=== PATIENT | female | born 1950 | race African-American/Black ===

== ENCOUNTER 2024-10-19 00:40 | Inpatient (IN) | payer OTHER, SELFPAY ==
[2024-10-18 20:53] VITALS: BP 149/93
[2024-10-18 20:55] VITALS: BP 149/93
--- NOTE | 2024-10-18 21:06 | ED.GENMED ---
History of Present Illness
General
Chief Complaint: Weakness
Source: patient and ambulance crew
Time Seen by Provider: 10/18/24 20:52
History of Present Illness
History of Present Illness:
74-year-old female presents emergency department with concerns [place] were speaking to her via phone and thought that she seemed to be slow to respond when she was speaking. As a result they called
911. Upon EMS arrival, patient was noted to be oriented x 3 but did seem to be a little bit slow to respond to questions. They noted a very poor living conditions with a strong smell and poor hygiene. Patient was noted to be incontinent of urine
and stool. Medics state that patient reportedly had a fall last week, EMS was called, but she declined transport at that time. Patient denies this. Patient denies any complaints here. She denies chest pain, dyspnea, abdominal pain. She gets her
meals via 'Meals on Wheels'. She states that she has been unable to see a doctor or leave the house in about a year.
Past History
Past History
ED Past Medical History: Other (Unknown)
ED Past Surgical History: None
Social History
Tobacco: Non-smoker
Alcohol: None
Drug: None
Living: alone
Phy Exam
Physical Exam
Physical Exam:
GENERAL: Alert , in no apparent distress
EYE: pupils equal and reactive, no photophobia
NECK: Supple, no significant adenopathy.
ENT: o/p clr, mm very dry
CARDIAC: Regular rate and rhythm .
LUNGS: Clear breath sounds bilaterally, no acute respiratory distress, no wheezes/rales/rhonchi
ABDOMEN: Soft, without focal tenderness, no r/g
NEUROLOGICAL: Alert and oriented, no focal neuro deficits, [id number] normal, motor 5 out of 5, sensory intact, cranial nerves II through XII intact, however does appear to answer questions somewhat slowly
SKIN: Warm and dry, skin intact.
MUSCULOSKELETAL: No edema, well perfused.
PSYCH: Normal and appropriate interaction.
Course
Orders/Labs/Results
Orders:
Orders
10/18/24 21:03
Cardiac Monitoring- Treatment ONCE
0.9% Sodium Chloride 500 ml [Nss] 500 ml IV BOLUS
Pulse Ox/cont/shift [RESP] Urgent
Quantity: 1
10/18/24 21:04
Electrocardiogram (*1) Urgent
Reason for Study: Other
Other Reason for Exam: sepsis
EKG- Treatment ONCE
10/18/24 21:05
CT Head W/o Iv Contrast Urgent
Comment:
Reason For Exam: mental status change
10/18/24 21:39
CPK [Creatine Phosphokinase] Urgent
Complete Blood Count/With Diff Urgent
Comprehensive Metabolic Panel Urgent
Cortisol, Random Urgent
Lactic Acid Q4H
Comment: CANCEL 2nd LACTIC ACID IF 1st LACTIC ACID IS LESS THAN 2
TSH Urgent
Comment: ADD ON
Troponin I Urgent
Blood Culture Q30M
ANGEL Source: Blood/Venous
Specimen Description:
Influenza A+B Rapid Molecular Urgent
ANGEL Source: Nasal Swab
Specimen Description:
10/18/24 21:54
Blood Culture Q30M
ANGEL Source: Blood/Venous
Specimen Description:
10/18/24 22:57
Urinalysis Reflex To Culture Urgent
Date Specimen was Collected: 10/18/24
Time Specimen was Collected: 22:55
10/18/24 23:00
Flush (0.9% Sodium Chloride) [Flush (Nss)] See Dose Instructions IV PER PROTOCOL
10/18/24 23:43
COVID-19 Antigen Stat
Source: Nasal Swab
10/19/24 00:26
Admit/Transfer Patient As Directed
Co-Sign Provider:
Level of Care: Inpatient admission
Assign to:: IMU- Intermediate Care
Physician / Group: hospitalist
Diagnosis: hypothermia
Reason for Hospitalization: hypothermia, failure to thrive
Expected length of stay greater than two midnights?: Yes
ELOS- Estimated Length of Stay in days: 2
I certify the patient meets the requirements for IP care: Yes
10/19/24 00:27
PRN Pain Medication Management As Directed
May give lesser potent ordered pain med per pt: Yes
preference::
Protocol:: Medication orders for pain may be administered in a
manner that supports deferring to patient preference
when the pt is:
- Requesting an ordered lesser potent pain medication.
Least to most potent pain medications are defined
as: acetaminophen < NSAID < tramadol < opioids
(morphine, oxycodone, hydromorphone).
- Requesting a lesser dose of the same medication IF
ORDERED.
- Requesting a less intrusive route of administration
if both routes are prescribed by the provider (PO <
IV).
10/19/24 00:28
Code Status As Directed
Resuscitation Status: Full Code
10/19/24 01:41
Acetaminophen [Tylenol] 650 mg PO Q4HPRN PRN
Bisacodyl [Dulcolax] 10 mg RECTAL L86QUPL PRN
Docusate W/Senna [Senokot-S] 1 tablet PO BIDPRN PRN
Lactated Ringers [Lr] 1,000 ml IV 100 mls/hr
Ondansetron Injectable [Zofran] 4 mg IV Q6HPRN PRN
Polyethylene Glycol Powder [Miralax] 17 grams PO DAILYPRN PRN
10/19/24 01:41
Case Management Consult ONCE
Case Management Consult: Discharge Planning
WOUND/OSTOMY CONSULT Routine
Reason for Consult: macerated feet bilaterally, no open wounds
Activity As Directed
Activity Level: With Assistance
Bedside Glucose Monitoring As Directed
Frequency: AC&HS
Neurological Checks As Directed
Frequency: Per unit guidelines
Vital Signs As Directed
Frequency: Per unit guidelines
DX Deep Vein Thrombosis Video Routine
10/19/24 05:11
Ammonia IN AM
Basic Metabolic Panel IN AM
Cardiovascular Evaluation IN AM
Complete Blood Count/No Diff IN AM
Hemoglobin A1c [Glycohemoglobin (HgbA1c)] IN AM
Lactic Acid IN AM
Magnesium IN AM
RPR [Syphilis/T. pallidum Ab Reflex] IN AM
Vitamin B12 IN AM
10/19/24 Breakfast
2000 calorie (17 carb) Diabetic
At Your Request: Limited Participation
10/19/24 07:30
Insulin Aspart Corrective Low [Novolog Flexpen-Low Resistance] See Protocol SC AC
10/19/24 18:00
Enoxaparin Sodium [Lovenox] 40 mg SC QPM
10/25/24 04:07
Warming Clayton [Heating/Cooling Clayton] As Directed
Mode:: Automatic
Type of thermoregulation:: Heating
PATIENT'S Goal Temperature:: 96.8 F (36 C)
Comments/Additional Instructions:: Temperature and skin assessment per unit protocol
Abnormal Lab Results
10/18/24 10/18/24
21:39 22:57
RBC 5.52 H 10^6/uL
(4.20-5.40)
MCH 25.0 L pg
(27.0-31.0)
MCHC 30.7 L g/dL
(33.0-37.0)
RDW 18.6 H %
(11.5-14.5)
Plt Count 113 L 10^3/uL
(130-400)
Abs Immat Gran (auto) 0.1 H 10^3/uL
(0-0.05)
Absolute Lymphs (auto) 0.7 L 10^3/uL
(1.2-3.4)
Immature Gran % 0.9 H %
(0-0.5)
Neutrophils % 83.4 H %
(42.2-75.2)
Lymphocytes % 9.2 L %
(20.5-51.1)
BUN 26 H mg/dl
(7-17)
Glucose 112 H mg/dl
(70-99)
Albumin 3.4 L g/dl
(3.5-5.0)
Urine Ketones 2+ A
(Negative)
Urine Bilirubin 1+ A
(Negative)
10/18/24 21:39
10/18/24 21:39
Vital Signs
Initial and Last Documented VS:
Initial Vital Signs
Pulse Resp BP Pulse Ox
54 11 149/93 100
10/18/24 20:53 10/18/24 20:53 10/18/24 20:53 10/18/24 20:53
Last Documented Vital Signs
Temp Pulse Resp BP Pulse Ox
98.1 F 78 20 141/82 99
10/29/24 07:08 10/29/24 09:32 10/29/24 07:08 10/29/24 09:32 10/29/24 07:08
*Critical Care Note
Total Time (30-74mins, 75-104mins- exclusive of procedures): 30
Update Note
Update Note:
Patient presents to the Emergency Department with ___Failure to thrive
Number and Complexity of Problems Addressed at the Encounter
� Chronic conditions affecting care:
� Acute Exacerbation and/or Progression of Chronic Illness:
� Differential Diagnosis includes:But not limited to TIA, stroke, sepsis, UTI, etc. etc.
Amount and/or Complexity of Data to be Reviewed and Analyzed
� I performed an independent evaluation of and my interpretation is:
EKG:nsr, bradycardia, julian waves
CT:No CT evidence for acute intracranial hemorrhage or transcortical infarct.
2. Mild periventricular white matter leukoaraiosis in the frontal lobes.
3. Mild to moderate bilateral parietal lobe volume loss.
4. Mild volume loss in the frontal lobes and cerebellum.
Xrays:
Laboratory Studies:generally unremarkable , prerenal azotemia
Other:
� Review of other/old records reveals:
� Clinical information was obtained by an independent historian: Case discussed with Elizabeth Howard [phone] as well as her power of assistant attorney general Thalia [phone]. They describe patient isolating herself and they have not seen
her in years. They were in contact with her via phone last week and she seemed to be sleeping more than usual and they worried that she might of fallen. They asked for a welfare check, EMS arrived and patient turned them away. Today while on the
phone they thought she was slurring her words which prompted them call 911. They have very little information regarding her past medical history etc. They are aware of her workup here and plan for admission, case management consultation, etc.
� Prescriptions/Medications Considered but not given:
� Further testing considered but not performed:
Risk of Complications and/or Morbidity or Mortality of Patient Management
� Social determinants of health affecting care: Poor home situation
� Discussion with other providers (PCP, Hospitalists, Consultants, etc):
� Escalation of care including admission/observation vs risk of discharge considered:74 yr old with very poor hygiene/inability to care for self at home, failure to thrive, assoc with profound hypothermia. Sl bradycardia, julian
waves on ecg...but don't think cause of hypothermia is environmental. I sent cortisol and tsh ?causes. No etiology for possible sepsis noted in workup. Case d/w hospitliast for admission. Pt remains awake and lucid, no focal neuro findings.
ED Attending Note
-
Portions of this chart may have been created with voice recognition software.� Occasional wrong word or��sound alike� substitutions may have occurred due to the inherent limitations of voice recognition software.
Discharge Plan
Departure
Patient Disposition: Admit
Date of Disposition: 10/18/24
Time of Disposition: 23:28
Presentation/result/management discussed w/ accepting MD/DO: Hospitalist
Condition: Good
Discharge Problem:
Adult failure to thrive, Hypothermia
Interventions
Interventions:
*Risk Screen - Suicide Last Done: 10/18/24 21:59
*General Assessment Last Done: 10/18/24 21:59
*Neglect/Abuse Screening Last Done: 10/18/24 21:59
ED- Fall Risk Assessment Last Done: 10/18/24 21:59
*ED COVID-19 Vaccine History Last Done: 10/18/24 21:59
*Nursing Disposition Last Done: 10/19/24 01:40
ED- Cardiac Assessment Last Done: 10/18/24 21:59
ED- Neurological Assessment Last Done: 10/18/24 21:59
ED- Pulmonary Assessment Last Done: 10/18/24 21:59
Discharge Date and Time
Discharge Date/Time: 10/19/24 01:40
[2024-10-18] MEDS: NSS 500 IV (21:41)
[2024-10-18 21:55] VITALS: BMI 33.7
[2024-10-18 22:00] VITALS: BP 150/88
[2024-10-18 22:01] LABS: % Basophils 0.4 % (0-2); % Eosinophils 0.5 % (0-6); % Immature Granulocytes 0.9 % (0-0.5); % Lymphocytes 9.2 % (20.5-51.1); % Monocytes 5.6 % (1.7-9.3); % Neutrophils 83.4 % (42.2-75.2); Absolute Immature Granulocytes 0.1 10^3/uL (0-0.05); Absolute Lymphocytes 0.7 10^3/uL (1.2-3.4); Absolute Monocytes 0.4 10^3/uL (0.1-0.6); Absolute Neutrophils 6.2 10^3/uL (1.4-6.5); Hematocrit 44.9 % (37.0-47.0); Hemoglobin 13.8 g/dL (12.0-16.0); Mean Corp Hgb Conc. 30.7 g/dL (33.0-37.0); Mean Corpuscular Volume 81.3 fL (81.0-99.0); Nucleated Red Blood Cells % 0.7 %; Platelet Count 113 10^3/uL (130-400); Red Blood Cell Count 5.52 10^6/uL (4.20-5.40); Red Cell Dist. Width 18.6 % (11.5-14.5); White Blood Cell Count 7.5 10^3/uL (4.8-10.8)
[2024-10-18 22:23] LABS: ALT (SGPT) 30 U/L (0-35); AST (SGOT) 33 U/L (14-36); Albumin 3.4 g/dl (3.5-5.0); Alkaline Phosphatase 98 U/L (38-126); Blood Urea Nitrogen 26 mg/dl (7-17); Calcium 9.7 mg/dl (8.4-10.2); Carbon Dioxide 23 mmol/L (22-30); Chloride 104 mmol/L (98-107); Creatine Phosphokinase 58 U/L (30-135); Estimated Creatinine Clearance 64 ml/min; Glucose 112 mg/dl (70-99); Potassium 4.1 mmol/L (3.5-5.1); Sodium 142 mmol/L (135-145); Total Bilirubin 0.5 mg/dl (0.2-1.3); Total Protein 6.5 g/dl (6.3-8.2); eGFR > 60.00
[2024-10-18 22:25] LABS: Troponin I 0.032 ng/ml
[2024-10-18 23:00] VITALS: BP 163/80
[2024-10-18 23:06] LABS: Urine Albumin Trace (Neg - Trace); Urine Bilirubin 1+ (Negative); Urine Character Clear (Clear); Urine Color Yellow; Urine Glucose Negative (Negative); Urine Ketone 2+ (Negative); Urine Leukocyte Negative (Negative); Urine Nitrite Negative (Negative); Urine Occult Blood Negative (Negative); Urine Specific Gravity 1.025 (<1.030); Urine Urobilinogen Negative (Neg - 1+)
--- NOTE | 2024-10-18 23:47 | HPS.HSE ---
Family Physician
-
Family Physician: Carlos Crowder PA-C
Chief Complaint
-
Failure to thrive
History of Present Illness
This is a 74-year-old female with past medical history of hypertension, cup-gmdigds-srauuzfpi diabetes, obesity, CKD presenting to the emergency department via EMS for weakness and failure to thrive.
Patient is a poor historian. She reported by EMS that she was talking with assistance earlier in the day and they thought that she did not sound quite right. They then called EMS to come and get out to the emergency department for evaluation.
Patient had a fall about a week ago and EMS came to see at that time and evaluated her. She refused to be transported to the emergency department at that time. Patient cells that she has not left the house in about a year. She also has not taken
her for shoes in about 6 months because she found it difficult to put them on. She would not answer questions about hygiene otherwise. She specifically denies symptoms such as fevers cough chills lightheadedness dizziness nausea vomiting diarrhea
chest pain shortness of breath palpitations. She has not been taking any of her medications because she is refusing to leave they had to leave the house to refill her prescriptions. She has not seen a doctor was in a long time stating that when
she had a fall at 1 point she was unable to go visit them. She states that systems: Regularly. She reports that a person named Cyndie also comes in to visit her but is unclear whether she has been seen by anybody on a regular basis. She reports
that she did get some meals via [employer] Wheels. She reports that she is able to ambulate by herself without a walker or a cane. By EMS they found her in a chair where it appeared that she had been in that position for a long time. They found her
incontinent and soiled with urine and feces.
In the emergency department she did not have a temperature despite attempts at oral axillary and rectal measures. Blood pressure was 160/80 and she was bradycardic to 51. She was satting 100% on room air. ECG showed sinus bradycardia at a rate of
53. Troponin was 0.03. She had Donnie waves in leads V3 through V6. CBC was unremarkable. Electrolytes BUN and creatinine were actually within the normal range. LFTs were normal lipase was normal. Influenza testing was normal. UA was
unremarkable. She had a CT of the head which shows no intracranial hemorrhage, stroke or mass. There were no mass effect. COVID test pending.
Medical History
Past Medical History
Past Medical History: Reports HTN, Hypercholesterolemia and NIDDM
Additional Past Medical History:
CKD stage III
Past Surgical History: Reports None
Social History
Tobacco: Non-smoker
Alcohol: None
Drug: None
Personal: Single
Living: Alone
Employment: Retired
Family History
Family History: Not pertinent
Allergies / Home Medications
Allergies reflects when Allergies were last updated in [facility].
Home Medications with original date entered in [facility]
Allergy/Medication List:
Allergies
Allergy/AdvReac Type Severity Reaction Status Date / Time
No Known Allergies Allergy Unverified 10/18/24 22:12
Atorvastatin Calcium 40 MG TAKE 1 TABLET BY MOUTH ONCE A DAY 90 for 90 Active
Atenolol 50 MG 1 tablet Orally Once a day for 90 days Active
Cranberry Fruit Concentrate 54892 MG as directed Orally half dosage Active
hydroCHLOROthiazide 25 MG 1 tablet in the morning Orally Once a day for 30 days Active
metFORMIN HCl ER 500 MG 1 TABLET ORALLY TWICE A DAY 90 DAYS for 90 Active
Vitamin D 2000 UNIT 1 tablet Orally Once a day Active
Lisinopril 40 MG 1 tablet Orally Once a day for 90 days Active
Review of Systems
-
History Source: Patient
Constitutional: Reports No Symptoms
EENT: Reports No Symptoms
Respiratory: Reports No Symptoms
Cardiac: Reports No Symptoms
Abdomen/GI: Reports Nausea
: Reports No Symptoms
Musculoskeletal: Reports No Symptoms
Skin: Reports No Symptoms
Neurological: Reports No Symptoms
Hematologic/Lymphatic: Reports No Symptoms
Psych: Reports No Symptoms
Physical Exam
Vital Signs
Vital Signs
Pulse Resp BP Pulse Ox
51 14 163/80 100
10/18/24 23:00 10/18/24 23:00 10/18/24 23:00 10/18/24 23:00
Physical Exam
General: No Apparent Distress, Poor Appetite and Obese
HEENT: NormoCephalic, Anicteric, Atraumatic, PERRLA, No Ptosis and Neck Nontender; No Pharyngeal Erythema or Neck Mass
Respiratory: Clear
Cardiac: S1/S2 and Bradycardia
Breast: Deferred by me
GI: Soft, Non Tender, Non Distended and Normal Bowel Sounds
Rectal: Deferred by Provider
Genito-urinary: Clear Urine
Musculoskeletal: No Clubbing and No Cyanosis
Skin: Warm, Dry and Other (macerated bilateral feet without obvious cellulitis)
Neuro: AO x 3 and Nonfocal/grossly intact
Hematologic/Lymphatic: No Lymphadenopathy
Psych: Anxious and Apparent Dementia
Laboratory Results
-
10/18/24 21:39
10/18/24 21:39
Laboratory Results
Lactic Acid 1.0 mmol/L (0.7-2.0) 10/18/24 21:39
Total Bilirubin 0.5 mg/dl (0.2-1.3) 10/18/24 21:39
AST 33 U/L (14-36) 10/18/24 21:39
ALT 30 U/L (0-35) 10/18/24 21:39
Alkaline Phosphatase 98 U/L (38-126) 10/18/24 21:39
Troponin I 0.032 ng/ml 10/18/24 21:39
Data Reviewed
-
CT Scan: Report Reviewed by me
Medical Tests (Nuc Med, Echo, EKG etc): Image Personally Visualized and interpreted
Lab Data: Labs Reviewed by me
Old Records: Reviewed
Impression/Plan
-
IMPRESSION:
74 y.o with h/o HTN, NIDDM, HLD, GERD here from home with presumed hypothermia and failure to thrive. She is ill appearing but has no focus of illness or infection. U/A is clear. Respiratory exam is reassuring. She has no diarrhea or
constipation. Skin in the feet is macerated but without abscess or cellulitis. She is mentating well enough being alert and oriented x 3. Slow to answer questions and perseverates. ECG with sinus mireya to 53 and osuna waves. Troponin is
negative. Influenza is negative.
PLAN:
Toxic/metabolic encephalopathy - Clear some encephalopathy without or with undiagnosed dementia/psych illness. She is hypothermic at this point and may have hormonal abnormalities.
- admit to IMU
- temp obtain via bladder cath = 31.5 C
- warming measures for hypothermia to goal temp of > 36.5
- checking tsh and cortisol
- blood cultures sent, urine cultures sent
- no indication for abx for now
- hemodynamically stable.
- checking b12, rpr, es, procalcitonin
- PT evaluation, case management
Failure to thrive - She does not appear markedly dehydrated. Has maintained normal bp. She does have risk of decompensating further if returing home
- continue gentle hydration overnight
- neurochecks q 6 hours
-
DM II - Non-compliance with meds. Was on metformin per records.
- hold metformin
- sliding scale insulin
HTN
- hold hctz and atenolol for now, restart atenolol when temps improved and no longer mireya
- continue lisinopril (was on 40mg), at 5mg daily to initiate
Wound care - No open wounds, macerated skin in the feet due to chronic moisture
- wound care consult
DVT PPX - lovenox sq
Code status - full code
[2024-10-19] VITALS (26 sets, daily range): BP systolic 85–158; BP diastolic 53–95; BMI 32.6
[2024-10-19] MEDS: FLUSH (NSS) 1 FLUSH IV (00:10)
[2024-10-19 00:23] LABS: COVID-19 Antigen Negative (Negative)
[2024-10-19] MEDS: LR 1000 IV ×2 (02:02→12:04)
[2024-10-19 02:25] LABS: Cortisol, Random 17.1 ug/dl; TSH 1.98 uIU/ml (0.47-4.68)
--- NOTE | 2024-10-19 03:24 | PTCARENOTE ---
Received pt from ER.alert but soft spoken oriented tolerated transfer well.Pts physical assessment preformed,pt needs assist with turning.SB quality assurance monitor,core temp 89.9,pt maintained on thomas hugger.Pt denies pain answered questions
appropriately.SB quality assurance monitor,IVF initiated at 100mls hour.Pt sleeping after assessment.
[2024-10-19 05:30] LABS: Hematocrit 35.6 % (37.0-47.0); Mean Corp Hgb Conc. 30.9 g/dL (33.0-37.0); Mean Corpuscular Volume 80.9 fL (81.0-99.0); Mean Platelet Volume 10.5 fL (7.4-10.4); Platelet Count 147 10^3/uL (130-400); Red Cell Dist. Width 17.4 % (11.5-14.5); White Blood Cell Count 9.7 10^3/uL (4.8-10.8)
[2024-10-19 05:36] LABS: Ammonia < 9 umol/L (9-30); Lactic Acid 0.9 mmol/L (0.7-2.0)
[2024-10-19 05:53] LABS: Blood Urea Nitrogen 26 mg/dl (7-17); Calcium 9.2 mg/dl (8.4-10.2); Carbon Dioxide 23 mmol/L (22-30); Chloride 108 mmol/L (98-107); Estimated Creatinine Clearance 64 ml/min; Glucose 64 mg/dl (70-99); HDL Cholesterol 69 mg/dl; LDL Cholesterol, Calculated 68 mg/dl; Magnesium 1.6 mg/dl (1.6-2.3); Potassium 3.5 mmol/L (3.5-5.1); Sodium 144 mmol/L (135-145); Total Cholesterol 154 mg/dl (50-199); Triglyceride 86 mg/dl (10-149); Very Low Density Lipoprotein 17 mg/dl (0-30); eGFR > 60.00
[2024-10-19 06:41] LABS: Vitamin B12 704 pg/ml (239-931)
[2024-10-19 09:38] LABS: Glucose - Point of Care 40 mg/dl (70-99)
[2024-10-19] MEDS: DEXTROSE 50% SYRINGE 12.5 GRAMS IV ×3 (09:48→18:06)
[2024-10-19 09:57] LABS: Glucose - Point of Care 50 mg/dl (70-99)
[2024-10-19 10:23] LABS: Glucose - Point of Care 167 mg/dl (70-99)
--- NOTE | 2024-10-19 13:07 | CM ---
CM following re: discharge planning.
Reviewed pt's chart, met with pt and spoke to pt's sister Elizabeth who lives in [place] and sister Lisa SCHULZA [phone] and she lives in [place].
Pt is a 74 year old female, admitted with primary dx of Toxic/metabolic encephalopathy.
Pt reports she lives alone in an apartment 3d floor, ambulates with a walker. Pt asked to call her sister Elizabeth or Lisa.
CM spoke to pt's sister Elizabeth and Lisa and they stated that pt has 4 sisters and 2 brothers and none of them live in [facility]. Both sisters brought their concerns regarding pt lives at her apartment alone with no services and per sisters,
pt will not return back to her apartment. pt's sister Lisa stated she is planning to bring the pt to her home in [place] and pt's sister Elizabeth stated she is planning to bring the pt to [place]. Both sister agree that pt will need a short term rehab
and they requested that pt will go to a SNF for a short term rehab in [facility] and sisters will decide to where pt will go after the completion of a short term rehab. Pt's sisters stated they will discuss with the pt those to options: moving
to [place] or moving to [place]. pt's sister strongly agree that pt will not return back to her apartment.
PT and OT will evaluate the pt to determine a level of care at discharge. Pt's sisters requested following SNF for a short term rehab: [facility]. CM will make a referral to requested SNFs.
PCP: Carlos Crowder
D/C plan: preferred SNF for a short term rehab with further move to her sister in [place] or [place].
CM will follow with discharge plan updates as hospitalization progresses
[2024-10-19 13:24] LABS: Glucose - Point of Care 69 mg/dl (70-99)
[2024-10-19 13:41] LABS: Glucose - Point of Care 128 mg/dl (70-99)
--- NOTE | 2024-10-19 13:56 | WOUNDNOTE ---
PANUS SKIN FOLD
--- NOTE | 2024-10-19 14:00 | WOUNDNOTE ---
CANDY RN NOTE: Patient admitted with Sepsis, reviewed PMH and records. Patient was found by sister in poor living conditions and incontinent of urine and stool. With assist from nurse Alexander, turned patient onto sides. Sacrum with mild MASD, heels
intact. Abdominal skin fold and groin with MASD, pink moist skin. Feet and legs very dry. Plantar feet with patches of skin peeling, nurse reports she had not removed shoes for a month. Ordered fungal powder bid to sacrum and skin folds, Mineral oil
for legs and feet daily. Will confirm with hospitalist and nurse Alexander aware. Will follow as needed.
--- NOTE | 2024-10-19 15:10 | PTCARENOTE ---
Pt received in bed @ 0700. AAOx3. Flat affect. Soft spoken. Weakness in LE's. Assistance required to turn in bed. Lee Hugger in place with goal temp of 96.8F. Goal still not met. Pt expressing discomfort with lee hugger, placed in lowest
temperature setting. SaO2 96% on room air. Diminished. Sinus rhythm/Sinus mireya with 1st degree AV block. +4 LE edema. Pt with poor appetite. PO intake encouraged. Hypoglycemic protocol followed as documented for low blood sugars. Morning check
before breakfast resulted 40. Trevizo catheter draining small juan diego; 50ml observed so far this shift. Wound care nurse with instructions for mineral oil to feet and antifungal powder to folds and sacrum. LR infusing @ 100ml/hr.
--- NOTE | 2024-10-19 15:56 | W.PN.HOSP.TC ---
Addendum entered and electronically signed by Celestino Mckeon MD 10/19/24 20:36:
Attending Addendum-
I saw and evaluated the patient. I reviewed the resident�s note and agree with findings and plan as documented in the resident�s note. Sub: Patient states she feels hot. Feels weak. No other complaints. Poor historian. Full 12 point ROS reviewed and
negative except as documented Exam: Vitals reviewed in chart GEN-NAD heart RRR no M/R/G Lungs clear abd soft NT ND pos BS LE b/l LE stasis dermatitis
Plan:
#Toxic/metabolic encephalopathy from Hypothermia - Clear some encephalopathy without or with undiagnosed dementia/psych illness
- continue care in IMU
- temps increasing with thomas hugger
- warming measures for hypothermia to goal temp of > 36.5
- tsh and cortisol - WNL
- blood cultures sent, urine cultures sent - NGTD
- no indication for abx for now
- hemodynamically stable.
- PT evaluation, case management
# Failure to thrive
- DC IVF
- encourage PO
- states she cooks but unclear
-
# DM II
- hold metformin
- sliding scale insulin
- hba1c 6.0
# HTN
- hold hctz lisinopril and atenolol for now
# Wound care - No open wounds, macerated skin in the feet due to chronic moisture
- wound care consult
DVT PPX - lovenox sq
Code status - full code
Dispo lives alone unable to go back to apartment due to safety d/w sister/POA
ACP
Patient consented to discuss, was alone, time spent explanation of advance directives, changes in health status, patient�s health care wishes if the patient becomes unable to make health decisions, goals of care, code status, and prognosis- 16
minutes
Time spent coordinating care, review of plan of care with resident, personally reviewed previous records in EMR, med rec, labs, radiology, d/w nursing, family total time documented is exclusive of any additional time listed that was spent in advance
care planning discussion -� 58 minutes
Original Note:
Today's Communication/Plan
-
.
Assessment / Plan
Assessment / Plan
Hypothermia
- Temperature 88.3 on admission (otherwise hemodynamically stable)
- Range 95.1 to 96.5 today (improving)
- Warming blankets > goal temp of 97.7
- TSH normal, Cortisol normal, Lactate normal, Ammonia normal, Lipid Profile normal, B12 normal, CK normal
- Blood cultures pending - no abx for now
- Case Management: eventual d/c to SNF then patient should move to [place] or [place]; patient's sister (one of whom is POA) agree that patient should not return to her apartment.
- PT/OT once patient stabilizes
Failure to Thrive
- Continue gentle hydration
- neurochecks q 6 hours
DM II
- Hb A1c 6.0
- Hold metformin
- SS Insulin for now.
- NS changed to D5 1/2 NS @100
HTN
- Hold HCTZ and atenolol for now; restart atenolol when temps improved, no longer mireya, BPs start to elevate
- Continue lisinopril (was on 40mg), at 5mg daily to initiate
Wound care - No open wounds, macerated skin in the feet due to chronic moisture
- wound care consult
Lovenox/Full Code/Diabetic 2000 kartik
Anticipated Discharge: 24 - 48 hours
Subjective/Interval History
-
Date of Service: October 19, 2024
Patient seen and examined while resting comfortably in bed. History taken from other providers/nursing, but also asked the patient why she felt she was in the hospital. The patient notes that 2 weeks ago, she had an even where she fell. This was
heard by her neighbor who came to help. Patient endorses that since the fall, she has not been able to move well (despite denying that the fall caused any injuries or pain).
Per chart review, patient had a phone call with her sisters yesterday, where they felt that she was responding slower than usual, prompting them to call 911. EMS found the patient in squalid living conditions, patient found in chair, and seem that
she had been sitting there for some time, incontinent of urine and feces. Patient endorses not having left her house for > 1 year.
Objective Data
-
Labs:
Laboratory Results
10/19/24
05:11
WBC 9.7
Hgb 11.0 L D
Hct 35.6 L
Plt Count 147 D
Sodium 144
Potassium 3.5
Chloride 108 H
Carbon Dioxide 23
BUN 26 H
Creatinine 0.8
Glucose 64 L
Calcium 9.2
Vital Signs:
Vital Signs
Temp Pulse Resp BP Pulse Ox
96.3 F L 100 14 124/69 96
10/19/24 15:00 10/19/24 14:30 10/19/24 14:30 10/19/24 14:00 10/19/24 14:59
I&O
10/18/24 10/19/24 10/20/24
06:59 06:59 06:59
Intake Total 460 / 460 800 / 800
Output Total 150 / 150 50 / 50
Balance 310 / 310 750 / 750
Review of Systems
-
History Source: Patient
Constitutional: Reports No Symptoms
Respiratory: Reports Trouble Breathing (mild)
Cardiac: Reports No Symptoms
Abdomen/GI: Reports No Symptoms
Neuro: Reports Other (word finding difficulty, attributed by the patient to old age)
Physical Exam
-
General: No Apparent Distress
HEENT: Normocephalic and Other (scar on the crown of her scalp)
Respiratory: Clear to Auscultation
Cardiac: Regular Rhythm and S1/S2
GI: Soft, Nontender and Nondistended
Musculoskeletal: No Clubbing, No Cyanosis and Other (macerations of the feet bilaterally without erythema or warmth)
Skin: Warm and Dry
Neuro: Awake, Alert, Oriented (to person and place) and Other (intermittent word finding difficulty)
Psych: Calm
Data Reviewed
-
CT Scan: Report Reviewed by me
Labs: Labs Reviewed by me
[2024-10-19 16:16] LABS: Glucose - Point of Care 70 mg/dl (70-99)
[2024-10-19] MEDS: D5/0.45%NSS with KCL 10 MEQ 1000 IV (17:59)
[2024-10-19] MEDS: HYDROPHOR 1 APPLIC TOPICAL (18:00)
[2024-10-19] MEDS: LOVENOX 40 MG SC (18:07)
[2024-10-19 18:15] LABS: Glucose - Point of Care 59 mg/dl (70-99)
--- NOTE | 2024-10-19 18:30 | PTCARENOTE ---
Pt hypoglycemic throughout the day requiring Dextrose IV. Pt with poor appetite. Unable to tolerate more than small sip of juice for hypoglycemic protocol. Dr Barrett notified. Order to stop LR and change IVF to D5 1/2 NSS with KCL 10 meq @ 100ml/hr.
Trevizo removed.
[2024-10-19 18:32] LABS: Glucose - Point of Care 124 mg/dl (70-99)
[2024-10-19] MEDS: DESENEX/MITRAZOL/ZEASORB 1 APPLIC TOPICAL (19:59)
[2024-10-19 20:27] LABS: Glucose - Point of Care 96 mg/dl (70-99)
--- NOTE | 2024-10-19 20:42 | PTCARENOTE ---
Received patient AAOx3, following commands. Flat expression, slow speech, PERRLA 2 mm. Normal sinus/sinus tach 90s-100s with first degree block. BP stable, normothermic, +4 lower extremity edema b/l. Palpable radial and pedal pulses b/l. 98% on room
air, lung sounds diminished. Poor appetite, blood sugar 96. Round, obese, soft abdomen, positive bowel sounds, no BM. Purewick in place. PIVs patent, WNL, IVF ongoing. Call parham within reach.
[2024-10-20] VITALS (27 sets, daily range): BP systolic 95–144; BP diastolic 58–100; PULSE 75; O2SAT 97; BMI 34.3
[2024-10-20] MEDS: D5/0.45%NSS with KCL 10 MEQ 1000 IV ×3 (04:21→22:42)
[2024-10-20 04:29] LABS: Glucose - Point of Care 74 mg/dl (70-99)
[2024-10-20 04:38] LABS: Hemoglobin 10.8 g/dL (12.0-16.0); Mean Corp Hgb Conc. 31.8 g/dL (33.0-37.0); Mean Corpuscular Hgb 25.1 pg (27.0-31.0); Mean Corpuscular Volume 78.9 fL (81.0-99.0); Mean Platelet Volume 11.4 fL (7.4-10.4); Platelet Count 151 10^3/uL (130-400); Red Blood Cell Count 4.31 10^6/uL (4.20-5.40); Red Cell Dist. Width 17.3 % (11.5-14.5); White Blood Cell Count 9.4 10^3/uL (4.8-10.8)
[2024-10-20 06:42] LABS: ALT (SGPT) 20 U/L (0-35); AST (SGOT) 19 U/L (14-36); Albumin 2.4 g/dl (3.5-5.0); Alkaline Phosphatase 84 U/L (38-126); Blood Urea Nitrogen 24 mg/dl (7-17); Calcium 8.7 mg/dl (8.4-10.2); Carbon Dioxide 27 mmol/L (22-30); Chloride 108 mmol/L (98-107); Estimated Creatinine Clearance 58 ml/min; Glucose 98 mg/dl (70-99); Potassium 3.6 mmol/L (3.5-5.1); Sodium 140 mmol/L (135-145); Total Bilirubin 0.2 mg/dl (0.2-1.3); Total Protein 5.1 g/dl (6.3-8.2); eGFR > 60.00
--- NOTE | 2024-10-20 08:00 | PTCARENOTE ---
Assumed care of patient at 0645. Assessment completed and documented in shift assessment.
Patient is AAOX2-3, flat/withdrawn. Hypothermic to 96.7, replaced back on Lee Hugger at medium temperature. HR intermittently to 30-40's, improves spontaneously to SR without intervention. Patient asymptomatic. On RA, lungs diminished. Poor
appetite, does not want to eat breakfast. Obese abdomen, hypoactive bowel sounds throughout. Purewick in place with no urine output. Bladder Scanned for 137mL. Hydrophor applied to B/L LE and Feet, Antifungal Power applied to abdominal and breast
folds, perineal area. Oral care provided. D5/0.45NS/10 K mEq 100mL/hour infusing through L Wrist. CHG Bath provided.
Covering provider and resident notified of intermittent bradycardia and the lack of urine output.
[2024-10-20 08:08] LABS: Glucose - Point of Care 109 mg/dl (70-99)
[2024-10-20] MEDS: HYDROPHOR 1 APPLIC TOPICAL (08:33)
[2024-10-20] MEDS: DESENEX/MITRAZOL/ZEASORB 1 APPLIC TOPICAL ×2 (08:34→19:39)
[2024-10-20 11:44] LABS: Glucose - Point of Care 135 mg/dl (70-99)
--- NOTE | 2024-10-20 11:50 | PTCARENOTE ---
Patient continues with intermittent runs of HR in 30-40's. EKG ordered by . Initially captured SR with 1st HB. Left EKG on patient's chest for several more minutes and captured bradycardia on EKG with critical result of 2nd HB. Notified covering
provider.
--- NOTE | 2024-10-20 12:28 | CM ---
CM following re: discharge planning.
Reviewed pt's chart, met with pt.
PT and OT evaluations requested to determine a level of care at discharge.
Pt most likely will need SNF [facility] and [facility] offered a bed when pt is medically stable.
D/C plan: [facility] when medically stable.
CM will follow to assist pt with discharge to [facility].
--- NOTE | 2024-10-20 14:10 | W.PN.HOSP.TC ---
Addendum entered and electronically signed by Celestino Mckeon MD 10/20/24 21:33:
Attending Addendum-
I saw and evaluated the patient. I reviewed the resident�s note and agree with findings and plan as documented in the resident�s note. Sub: Patient poor historian. Feels weak. 'I hate the food here thats why im not eating!' No other complaints. Full
12 point ROS reviewed and negative except as documented Exam: Vitals reviewed in chart GEN-NAD heart RRR no M/R/G Lungs clear abd soft NT ND pos BS LE b/l LE stasis dermatitis
Plan:
#Toxic/metabolic encephalopathy from Hypothermia and underlying dementia
- continue care in IMU for now
- temps increasing nicely with thomas fernandes goal temp of > 36.5
- tsh and cortisol - WNL
- blood and urine cultures sent - NGTD
- no indication for abx
- PT evaluation, case management
# DM II
- hold metformin
- sliding scale insulin
- hba1c 6.0
# Type 2 Mobitz 1 heart block with episodes of bradycardia
- asymptomatic
- hold AV deena blocking agents
- ekg- personally reviewed
- TSH WNL
- c/s cards
- no indication for pacing
- echo 10/20- Normal biventricular size and systolic function without regional wall motion abnormality.
# HTN
- hold hctz lisinopril and atenolol for now
# Wound care - No open wounds, macerated skin in the feet due to chronic moisture
- wound care consult
DVT PPX - lovenox sq
Code status - full code awaiting response from poa sister
Dispo lives alone unable to go back to apartment due to safety d/w sister/POA
Time spent coordinating care, review of plan of care with resident, personally reviewed records in EMR, med rec, consults, notes, labs, radiology, d/w nursing and cards � 55 mins
Original Note:
Today's Communication/Plan
-
.
Assessment / Plan
Assessment / Plan
Hypothermia
- Temperature 88.3 on admission (otherwise hemodynamically stable)
- Normal temp temporarily last night, 96.6 this morning (improving overall)
- Warming blankets > goal temp of 97.7
- TSH normal, Cortisol normal, Lactate normal, Ammonia normal, Lipid Profile normal, B12 normal, CK normal
- Blood cultures no growth 24h - no abx for now
- Case Management: eventual d/c to SNF then patient should move to [place] or [place]; patient's sister (one of whom is POA) agree that patient should not return to her apartment.
- PT/OT
Failure to Thrive
- Continue gentle hydration
- neurochecks q 6 hours
DM II
- Hb A1c 6.0
- Hold metformin
- SS Insulin for now.
- NS changed to D5 1/2 NS @100
HTN
- Hold HCTZ and atenolol for now; restart atenolol when temps improved, no longer mireya, BPs start to elevate
- Continue lisinopril (was on 40mg), at 5mg daily to initiate
Bradycardia
- EKG: first degree heart block; repeat during bradycardic episode: Second degree Mobitz 1
- Cardiology consulted; recommends atropine if hemodynamically unstable and will see patient in evening.
- ECHO: last in 2016; pending
Wound care -
- No open wounds, macerated skin in the feet due to chronic moisture
- wound care consult
Lovenox/Full Code/Diabetic 2000 kartik
Anticipated Discharge: 24 - 48 hours
Subjective/Interval History
-
Date of Service: October 20, 2024
Patient seen and examined while resting comfortably in bed. Patient does not have any acute complaints this morning, still wondering why she is here. Patients temperature increased to 97.7 last night, but back down to 96.6 this morning. Per nursing,
the patient becomes intermittently bradycardic, with HR in the 30s, which last for a few seconds without symptoms or hemodynamic instability, and then heart rate returns to normal.
Objective Data
-
Labs:
Laboratory Results
10/20/24 10/20/24 10/20/24
04:18 05:08 05:57
WBC 9.4
Hgb 10.8 L
Hct 34.0 L
Plt Count 151
Sodium Cancelled Cancelled 140
Potassium Cancelled Cancelled 3.6
Chloride Cancelled Cancelled 108 H
Carbon Dioxide Cancelled Cancelled 27
BUN Cancelled Cancelled 24 H
Creatinine Cancelled Cancelled 0.9
Glucose Cancelled Cancelled 98
Calcium Cancelled Cancelled 8.7
Total Bilirubin Cancelled Cancelled 0.2
AST Cancelled Cancelled 19
ALT Cancelled Cancelled 20
Alkaline Phosphatase Cancelled Cancelled 84
Vital Signs:
Vital Signs
Temp Pulse Resp BP Pulse Ox
97.5 F 86 14 114/65 97
10/20/24 12:00 10/20/24 14:00 10/20/24 14:00 10/20/24 14:00 10/20/24 14:00
I&O
10/19/24 10/20/24 10/21/24
06:59 06:59 06:59
Intake Total 460 / 460 1999 / 2099 800 / 800
Output Total 150 / 150 50 / 50
Balance 310 / 310 1949 / 2049 800 / 800
Review of Systems
-
History Source: Patient
Constitutional: Reports No Symptoms
Respiratory: Reports No Symptoms
Cardiac: Reports No Symptoms
Abdomen/GI: Reports No Symptoms
Neuro: Reports No Symptoms
Physical Exam
-
General: No Apparent Distress, Comfortable and Conversant
HEENT: Normocephalic, Atraumatic, Moist Mucous Membranes and Anicteric
Respiratory: Clear to Auscultation
Cardiac: Regular Rhythm and S1/S2
GI: Soft and Nontender
Musculoskeletal: No Clubbing, No Cyanosis and Other (bilateral macerations of the feet without erythema or warmth)
Skin: Warm and Dry
Neuro: Awake, Alert and Oriented (to person and place)
Psych: Calm
Data Reviewed
-
Labs: Labs Reviewed by me
[2024-10-20 16:17] LABS: Syphilis/T. pallidum Ab Reflex Negative (Negative)
--- NOTE | 2024-10-20 16:22 | W.PN.CD ---
Today's Communication / Plan
-
Consult dictated
Watch on tele
Check thyroid status
Maintain normal body temperature
No indication for pacing at this time
Impression / Plan
-
AV node conduction disease
- AV Wenckebach (2nd Degree Heart block, Mobitz I)
- 2:1 AV block with narrow QRS and associated with Mobitz I beulah
- No associated symptoms
Hypothermia
Hx HTN
Hx DM, type II
Hx obesity
hx CKD
Medical non-adherence, takes no meds
Hx of Dementia
Physical Exam
Vital Signs/Labs
Vital Signs
Temp Pulse Resp BP Pulse Ox
96.8 F L 96 17 115/70 99
10/20/24 16:00 10/20/24 16:00 10/20/24 16:00 10/20/24 15:55 10/20/24 16:00
10/19/24 10/20/24 10/21/24
06:59 06:59 06:59
Actual Weight 82 kg 86.3 kg
10/20/24 04:18
10/20/24 05:57
Magnesium 1.6 mg/dl (1.6-2.3) 10/19/24 05:11
Triglycerides 86 mg/dl (10-149) 10/19/24 05:11
LDL Cholesterol, Calc 68 mg/dl 10/19/24 05:11
VLDL Cholesterol, Calc 17 mg/dl (0-30) 10/19/24 05:11
HDL Cholesterol 69 mg/dl 10/19/24 05:11
TSH 1.98 uIU/ml (0.47-4.68) 10/18/24 21:39
LAB Results
10/18/24
21:39
Troponin I 0.032
Data Reviewed
-
Date of Service: October 20, 2024
[2024-10-20 17:10] LABS: Glucose - Point of Care 95 mg/dl (70-99)
[2024-10-20] MEDS: LOVENOX 40 MG SC (17:10)
--- NOTE | 2024-10-20 19:59 | PTCARENOTE ---
Received patient AAOx3, following commands, denying pain. Flat affect, slow speech. Second degree heart block type 1 with first degree heart block, 80s-90s. BP stable, normothermic, +3 lower extremity edema, palpable radial and pedal pulses b/l. 97%
on room air, lung sounds diminished. No BM, abdomen soft, round, obese, hypoactive bowel sounds. Purewick in place draining juan diego urine. PIV patent, WNL, IVF ongoing. Desenex applied in skin folds, peeling skin on feet. Call parham within reach.
[2024-10-20 22:14] LABS: Glucose - Point of Care 98 mg/dl (70-99)
[2024-10-21] VITALS (11 sets, daily range): BP systolic 108–158; BP diastolic 55–104; BMI 34.6
[2024-10-21 05:06] LABS: Hematocrit 32.5 % (37.0-47.0); Hemoglobin 10.4 g/dL (12.0-16.0); Mean Corpuscular Hgb 25.2 pg (27.0-31.0); Mean Corpuscular Volume 78.9 fL (81.0-99.0); Mean Platelet Volume 11.2 fL (7.4-10.4); Platelet Count 124 10^3/uL (130-400); Red Blood Cell Count 4.12 10^6/uL (4.20-5.40); Red Cell Dist. Width 17.2 % (11.5-14.5); White Blood Cell Count 7.3 10^3/uL (4.8-10.8)
[2024-10-21 05:17] LABS: Blood Urea Nitrogen 20 mg/dl (7-17); Calcium 8.6 mg/dl (8.4-10.2); Carbon Dioxide 25 mmol/L (22-30); Chloride 109 mmol/L (98-107); Estimated Creatinine Clearance 53 ml/min; Glucose 101 mg/dl (70-99); Sodium 138 mmol/L (135-145); eGFR 59.86
[2024-10-21 05:23] LABS: Potassium 3.9 mmol/L (3.5-5.1)
--- NOTE | 2024-10-21 05:31 | PTCARENOTE ---
CHG bath done, perineal care done, gown and pad changed. Labs sent, repositioned. Heart rate continuously dropping to low 30s all night and coming back up to 50s-90s, taking longer than the previous night to come back up. [facility] notified, no new orders.
Patient remains on bairhugger for temp 96.2. Call parham within reach.
[2024-10-21 05:34] LABS: Free T3 2.58 pg/ml (2.77-5.27); Free T4 1.55 ng/dl (0.78-2.19)
[2024-10-21 05:48] LABS: TSH 3.75 uIU/ml (0.47-4.68)
--- NOTE | 2024-10-21 07:00 | PTCARENOTE ---
Bedside report. Received pt intubated. He is tachypneic, tachycardic, and hypertensive. Use of accessory muscles to breath. PERRLA 4. He is restrained and not following commands. His mother is at the bedside. Left inner Fa #20g and 18g protective
catheters flushed and patent. Left hand #22g protective catheter flushed. Right wrist #20g protective catheter also flushed. +peripheral pulses. Knee-hi SCD's intact. #8ETT secured 23cm right lip with bite block intact. Currently on AC
20/550/.50/+5. Breath sounds anteriorly CTA. Bloody secretions via ETT. Right NARE nasal packing bloody. Bloody oral secretions. Abdomen large, round, obese. NPO. OGT @ 65cm to LIWS, flushed as ordered. Maroon secretions drained after flushed. TSF
secured draining clear yellow urine. Order obtained by night nurse for Propofol. Initiated @ 30mcg/kg/min for severe agitation via left inner FA#18g protective catheter. Safe environment maintained. Supportive care provided to pt's mother.
[2024-10-21 07:59] LABS: Glucose - Point of Care 109 mg/dl (70-99)
--- NOTE | 2024-10-21 08:00 | PTCARENOTE ---
CHG bath, Breath sound posteriorly diminished but CTA. Repositioned on his side.
--- NOTE | 2024-10-21 08:31 | W.PN.CD ---
Today's Communication / Plan
-
continue to monitor tele
continue to avoid av deena blocking agents
no indication for pacer at this time.
Impression / Plan
-
AV node conduction disease
- AV Wenckebach (2nd Degree Heart block, Mobitz I)
- 2:1 AV block with narrow QRS and associated with Mobitz I beulah
- Occured while in room, no associated symptoms
-no indication for pacemaker at this time.
Hypothermia
Hx HTN
Hx DM, type II
Hx obesity
hx CKD
Medical non-adherence, takes no meds
Hx of Dementia
Subjective:
denies cp, sob or dizziness
TTE:
Normal biventricular size and systolic function without regional wall motion
abnormality.
No significant change since the prior study of.
Trivial pericardial effusion.
Pleural effusion present.
No significant change since the prior study of 03/14/2016.
Physical Exam
Vital Signs/Labs
Vital Signs
Temp Pulse Resp BP Pulse Ox
96.3 F L 62 15 129/104 98
10/21/24 05:56 10/21/24 06:00 10/21/24 06:00 10/21/24 04:00 10/21/24 06:00
10/20/24 10/21/24 10/22/24
06:59 06:59 06:59
Actual Weight 86.3 kg 87.2 kg
10/21/24 04:38
10/21/24 04:38
Magnesium 1.6 mg/dl (1.6-2.3) 10/19/24 05:11
Triglycerides 86 mg/dl (10-149) 10/19/24 05:11
LDL Cholesterol, Calc 68 mg/dl 10/19/24 05:11
VLDL Cholesterol, Calc 17 mg/dl (0-30) 10/19/24 05:11
HDL Cholesterol 69 mg/dl 10/19/24 05:11
TSH 3.75 uIU/ml (0.47-4.68) 10/21/24 04:38
Free T4 1.55 ng/dl (0.78-2.19) 10/21/24 04:38
LAB Results
10/18/24
21:39
Troponin I 0.032
Physical Exam
Constitutional: No acute distress
Cardiovascular: Rhythm & rate is regular, JVD pressure is normal, Systolic murmur absent and Diastolic murmur absent
Respiratory: Respiratory effort normal, Lungs clear to auscul., Wheeze Absent and Crackles Absent
Neuro/Psych: Alert
Data Reviewed
-
Date of Service: October 21, 2024
EKG: Other (tele : rajwinder,2: 1 HB with narrow QRS briefly)
[2024-10-21] MEDS: DESENEX/MITRAZOL/ZEASORB 1 APPLIC TOPICAL ×2 (09:45→21:23)
[2024-10-21] MEDS: D5/0.45%NSS with KCL 10 MEQ 1000 IV ×2 (09:45→14:54)
[2024-10-21] MEDS: HYDROPHOR 1 APPLIC TOPICAL (09:51)
--- NOTE | 2024-10-21 11:05 | PTCARENOTE ---
Reviewed the plan of care with Dr. Tirado and the care team. He is aware of bradycardia as low as 31, pt asymptomatic. Also aware she has not had any PO intake since admission, urine tea colored. Orders to follow.
--- NOTE | 2024-10-21 12:30 | PTCARENOTE ---
s/p PICC placement & CXR. Pt fighting the ventilator. Fentanyl administered as ordered.
--- NOTE | 2024-10-21 13:53 | PTCARENOTE ---
s/p PICC placement & CXR. Pt fighting the ventilator. Fentanyl administered as ordered.
[2024-10-21 14:45] LABS: Glucose - Point of Care 77 mg/dl (70-99)
[2024-10-21] MEDS: ZOFRAN 4 MG IV (14:54)
--- NOTE | 2024-10-21 15:00 | PTCARENOTE ---
Received patient from ICU. Pulled over from stretcher to bed. Assessed and oriented to room. Complaining of nausea and started to vomit. Orders for zofran given. Accu check 77. IVF started as ordered. Call parham in close reach. Bed alarm on for
safety. Will continue to monitor.
--- NOTE | 2024-10-21 15:42 | WOUNDNOTE ---
BILATERAL LOWER EXTREMITIES
--- NOTE | 2024-10-21 15:43 | WOUNDNOTE ---
WOC RN NOTE: Patient visited to assess dry skin on LE. Mineral oil was ordered for skin on dry LE on 10/19. Skin overall appears improved with peeling skin on feet. Will continue to follow during in-patient stay.
--- NOTE | 2024-10-21 15:43 | WOUNDNOTE ---
RIGHT LOWER LEG, FOOT
[2024-10-21 16:44] LABS: Glucose - Point of Care 86 mg/dl (70-99)
--- NOTE | 2024-10-21 16:59 | W.PN.HOSP.TC ---
Addendum entered and electronically signed by Celestino Mckeon MD 10/21/24 22:49:
Attending Addendum-
I saw and evaluated the patient. I reviewed the resident�s note and agree with findings and plan as documented in the resident�s note. Sub: Has been going in and out of 2:1 block/bradycardia. During interview witnessed x 2 events. Patient with
absolutely no sxs. Patient poor historian. Denies CP palps syncope dizziness NV. No other complaints. Full 12 point ROS reviewed and negative except as documented Exam: Vitals reviewed in chart GEN-NAD heart RRR no M/R/G Lungs clear abd soft NT ND
pos BS LE b/l LE stasis dermatitis
Plan:
#Toxic/metabolic encephalopathy from Hypothermia and likely underlying mild dementia
- transfer to tele
- temps increasing nicely with thomas hugger goal temp of > 36.5
- tsh and cortisol - WNL
- blood and urine cultures sent - NGTD
- no indication for abx
- PT evaluation, case management
# DM II
- poor intake
- cont to hold metformin
- sliding scale insulin
- hba1c 6.0
# Type 2 Mobitz 1 heart block
- asymptomatic
- avoid AV deena blocking agents
- ekg- personally reviewed
- TSH WNL
- cards input appreciated
- no indication for pacing
- echo 10/20- Normal biventricular size and systolic function without regional wall motion abnormality.
# HTN
- hold hctz lisinopril and atenolol for now
# Wound care - No open wounds, macerated skin in the feet due to chronic moisture
- wound care
DVT PPX - lovenox sq
Code status - full code awaiting response from poa sister
Dispo lives alone unable to go back to apartment due to safety DC to [facility]
Time spent coordinating care, review of plan of care with resident, personally reviewed records in EMR, med rec, consults, notes, labs, radiology, d/w nursing and cards � 52 mins
Original Note:
Today's Communication/Plan
-
.
Assessment / Plan
Assessment / Plan
Hypothermia
- Temperature 88.3 on admission (otherwise hemodynamically stable)
- Normal temp temporarily last night, 96.6 this morning (improving overall)
- Warming blankets > goal temp of 97.7
- TSH normal, Cortisol normal, Lactate normal, Ammonia normal, Lipid Profile normal, B12 normal, CK normal
- Blood cultures no growth 48h - no abx for now
- Case Management: eventual d/c to SNF then patient should move to [place] or [place]; patient's sister (one of whom is POA) agree that patient should not return to her apartment.
- PT/OT
Failure to Thrive
- Continue gentle hydration
- Patient not eating;
- Originally thought to be from not liking the food
- One episode of vomiting upon eating oatmeal today
- Obstruction Series negative for obstruction (noted RLL concerning for pneumonia)
- Speech and Swallow Eval
- Procalcitonin
- Incentive Spirometry
DM II
- Hb A1c 6.0
- Hold metformin
- SS Insulin for now.
- NS changed to D5 1/2 NS @100
HTN
- Hold HCTZ and atenolol for now; restart atenolol when temps improved, no longer mireya, BPs start to elevate
- Continue lisinopril (was on 40mg), at 5mg daily to initiate
Bradycardia
- EKG: first degree heart block; repeat during bradycardic episode: Second degree Mobitz 1
- Cardiology consulted; recommends atropine if hemodynamically unstable and will see patient in evening.
- ECHO: EF 60%, mild pumonary HTN, otherwise normal
Wound care -
- No open wounds, macerated skin in the feet due to chronic moisture
- wound care consult
Lovenox/Full Code/Diabetic 2000 kartik
Anticipated Discharge: 24 - 48 hours
Subjective/Interval History
-
Date of Service: October 21, 2024
Patient seen and examined this AM. Patient does not have any acute subjective complaints this morning. Per nursing, temperature has been stable in the 96-97 range. However, patient intermittently still becomes bradycardic to 30s, for 10 seconds
before returning to baseline HR in upper 60s. Witness two of these episodes while I was in the room, patient remains otherwise hemodynamically stable, and upon asking if anything is bother, patient responsds, 'nothing'. Patient specifically denies
dizziness, shortness or breath, chest pain during these episodes or otherwise.
Objective Data
-
Labs:
Laboratory Results
10/21/24
04:38
WBC 7.3
Hgb 10.4 L
Hct 32.5 L
Plt Count 124 L
Sodium 138
Potassium 3.9
Chloride 109 H
Carbon Dioxide 25
BUN 20 H
Creatinine 1.0
Glucose 101 H
Calcium 8.6
Vital Signs:
Vital Signs
Temp Pulse Resp BP Pulse Ox
97.6 F 68 20 139/83 97
10/21/24 14:55 10/21/24 14:55 10/21/24 14:55 10/21/24 14:55 10/21/24 15:41
I&O
10/20/24 10/21/24 10/22/24
06:59 06:59 06:59
Intake Total 1999 / 2099 2400 / 2500 700 / 700
Output Total 50 / 50 125 / 125 350 / 350
Balance 1949 / 2049 2275 / 2375 350 / 350
Review of Systems
-
History Source: Patient
Constitutional: Reports No Symptoms
Respiratory: Reports No Symptoms
Cardiac: Reports No Symptoms
Abdomen/GI: Reports No Symptoms
Musculoskeletal: Reports No Symptoms
Neuro: Reports No Symptoms
Physical Exam
-
General: No Apparent Distress and Comfortable
HEENT: Normocephalic and Atraumatic
Respiratory: Clear to Auscultation; Negative Wheezes, Rales or Rhonchi
Cardiac: Regular Rhythm and S1/S2; Negative Murmur
GI: Soft, Nontender and Nondistended
Musculoskeletal: No Clubbing, No Cyanosis, Edema, Right Lower Extrem and Edema, Left Lower Extrem
Skin: Warm and Dry
Neuro: Awake, Alert and Oriented
Psych: Calm
Data Reviewed
-
Labs: Labs Reviewed by me
[2024-10-21] MEDS: LOVENOX 40 MG SC (17:41)
[2024-10-21 21:26] LABS: Glucose - Point of Care 105 mg/dl (70-99)
[2024-10-22] VITALS (7 sets, daily range): BP systolic 122–164; BP diastolic 59–88; PULSE 47–51; O2SAT 97
--- NOTE | 2024-10-22 | PTCARENOTE ---
pt with 2.28 second pause, HR down to 27. pt completely aysmptomatic. all other VSS. DIET THERAPIST made aware, will continue to monitor.
[2024-10-22] MEDS: D5/0.45%NSS with KCL 10 MEQ 1000 IV ×2 (01:58→11:09)
--- NOTE | 2024-10-22 04:09 | PTCARENOTE ---
unable to obtain oral temperature on pt. rectal temperature obtained of 94.7. initiated thomas fernandes, will continue to monitor pt temp closely. all other VSS stable.
[2024-10-22 07:07] LABS: Hematocrit 31.9 % (37.0-47.0); Hemoglobin 10.4 g/dL (12.0-16.0); Mean Corp Hgb Conc. 32.6 g/dL (33.0-37.0); Mean Corpuscular Hgb 25.9 pg (27.0-31.0); Mean Corpuscular Volume 79.4 fL (81.0-99.0); Mean Platelet Volume 12.1 fL (7.4-10.4); Platelet Count 105 10^3/uL (130-400); Red Blood Cell Count 4.02 10^6/uL (4.20-5.40); White Blood Cell Count 8.6 10^3/uL (4.8-10.8)
[2024-10-22 07:24] LABS: ALT (SGPT) 21 U/L (0-35); AST (SGOT) 18 U/L (14-36); Alkaline Phosphatase 79 U/L (38-126); Blood Urea Nitrogen 16 mg/dl (7-17); Calcium 8.1 mg/dl (8.4-10.2); Carbon Dioxide 27 mmol/L (22-30); Chloride 109 mmol/L (98-107); Estimated Creatinine Clearance 59 ml/min; Glucose 107 mg/dl (70-99); Potassium 3.8 mmol/L (3.5-5.1); Sodium 139 mmol/L (135-145); Total Bilirubin 0.2 mg/dl (0.2-1.3); Total Protein 4.5 g/dl (6.3-8.2); eGFR > 60.00
[2024-10-22 07:29] LABS: Prealbumin (Transthyretin) 4.9 mg/dl (17.6-36.0)
[2024-10-22 08:27] LABS: Glucose - Point of Care 95 mg/dl (70-99)
[2024-10-22] MEDS: DESENEX/MITRAZOL/ZEASORB 1 APPLIC TOPICAL ×2 (08:57→20:45)
[2024-10-22] MEDS: HYDROPHOR 1 APPLIC TOPICAL (08:57)
--- NOTE | 2024-10-22 09:34 | CON.CAR ---
Medical History
Allergies / Home Medications
Allergy/AdvReac Type Severity Reaction Status Date / Time
No Known Allergies Allergy Unverified 10/18/24 22:12
Physical Exam
Vital Signs
Temp Pulse Resp BP Pulse Ox
97.9 F 53 18 124/59 100
10/22/24 07:03 10/22/24 07:03 10/22/24 07:03 10/22/24 07:03 10/22/24 07:03
Lab Results
10/22/24 06:32
10/22/24 06:32
Troponin I 0.032 ng/ml 10/18/24 21:39
Impression / Plan
-
AV node conduction disease
- AV Wenckebach (2nd Degree Heart block, Mobitz I)
- 2:1 AV block with narrow QRS and associated with Mobitz I beulah
- Occured while in room, no associated symptoms
-no indication for pacemaker at this time.
Hypothermia
Hx HTN
Hx DM, type II
Hx obesity
hx CKD
Medical non-adherence, takes no meds
Hx of Dementia
Subjective:
denies cp, sob or dizziness
TTE:
Normal biventricular size and systolic function without regional wall motion
abnormality.
No significant change since the prior study of.
Trivial pericardial effusion.
Pleural effusion present.
No significant change since the prior study of 03/14/2016.
--- NOTE | 2024-10-22 10:06 | W.PN.CD ---
Today's Communication / Plan
-
continue to monitor
Impression / Plan
-
AV node conduction disease
- AV Wenckebach (2nd Degree Heart block, Mobitz I)
- 2:1 AV block with narrow QRS and associated with Mobitz I beulah
-asx, will monitor as she becomes more active
-no indication for pacemaker at this time.
Hypothermia: coming off bear hugger now
Lymphedema: b/l right >Left
Hx HTN
Hx DM, type II
Hx obesity
hx CKD
Medical non-adherence, takes no meds
Hx of Dementia
Subjective:
denies cp, sob or dizziness
TTE:
Normal biventricular size and systolic function without regional wall motion
abnormality.
No significant change since the prior study of.
Trivial pericardial effusion.
Pleural effusion present.
No significant change since the prior study of 03/14/2016.
Physical Exam
Vital Signs/Labs
Vital Signs
Temp Pulse Resp BP Pulse Ox
100 F 53 18 124/59 100
10/22/24 09:51 10/22/24 07:03 10/22/24 07:03 10/22/24 07:03 10/22/24 07:03
10/21/24 10/22/24 10/23/24
06:59 06:59 06:59
Actual Weight 87.2 kg
10/22/24 06:32
10/22/24 06:32
Magnesium 1.6 mg/dl (1.6-2.3) 10/19/24 05:11
Triglycerides 86 mg/dl (10-149) 10/19/24 05:11
LDL Cholesterol, Calc 68 mg/dl 10/19/24 05:11
VLDL Cholesterol, Calc 17 mg/dl (0-30) 10/19/24 05:11
HDL Cholesterol 69 mg/dl 10/19/24 05:11
TSH 3.75 uIU/ml (0.47-4.68) 10/21/24 04:38
Free T4 1.55 ng/dl (0.78-2.19) 10/21/24 04:38
Physical Exam
Constitutional: No acute distress
Cardiovascular: Rhythm & rate is regular, Pedal edema is absent, JVD pressure is normal, Systolic murmur absent, Diastolic murmur absent and Pedal edema present (bl )
Respiratory: Respiratory effort normal, Lungs clear to auscul., Wheeze Absent, Crackles Absent and Rhonchi Absent
Neuro/Psych: AO x 3
Data Reviewed
-
Date of Service: October 22, 2024
Medical Decision Making: Review of Case with other Provider (Dr Mckeon continue to monitor tele)
EKG: Other (tele mobitzI and II, sinus)
--- NOTE | 2024-10-22 11:47 | PTOTSP ---
[facility] Acute Care Evaluations
Pt currently presents with clinical signs of fairly functional oropharyngeal parameters for safe PO intake of all solids and liquids. Pt reports pill dysphagia, which can be remediated by crushing pills and placing them in pureed consistencies. Pt
also with known hx of GERD - pt should follow reflux precautions.
Pt currently presents with clinical signs of a mild to moderate cognitive linguistic impairment (MOCA=19/30 points). It is difficult to discern if the pt's current cognitive presentation is somewhat exacerbated from her current encephalopathy. As a
result, it is recommended that once pt's acute medical conditions have been addressed and remediated, pt receive a further neuropsych work-up as an OP.
Recommendations:
- Continue with a regular solids, thin liquids, meds crushed in puree. General aspiration and reflux precautions.
- Consider neuropsych eval as OP once pt is discharged.
- No skilled dysphagia services warranted at this time.
- No skilled cognitive linguistic services at this time, as pt is still deemed encephalopathic. If pt returns to baseline cognitive function, pt remains hospitalized for some other reason, and a cognitive linguistic re-evaluation is desired, please
re-consult [facility].
- ADJUST[facility]O ACTION to sign off. Please re-consult if needed. Thank you.
--- NOTE | 2024-10-22 12:02 | W.PN.HOSP.TC ---
Addendum entered and electronically signed by Celestino Mckeon MD 10/22/24 21:43:
Attending Addendum-
I saw and evaluated the patient. I reviewed the resident�s note and agree with findings and plan as documented in the resident�s note. Sub: Has been going in and out of 2:1 block with associated bradycardia. Patient with absolutely no sxs. Patient
poor historian. Denies CP palps syncope dizziness NV. No other complaints. Still with poor appetite. Had BM. Full 12 point ROS reviewed and negative except as documented Exam: Vitals reviewed in chart GEN-NAD heart RRR no M/R/G Lungs clear abd soft
NT ND pos BS LE b/l LE stasis dermatitis Neuro AAO x 2
Plan:
#Toxic/metabolic encephalopathy from Hypothermia and likely underlying mild dementia
- cont care on tele
- thomas hugger removed, goal temp of > 36.5 CTM
- tsh and cortisol - WNL
- blood and urine cultures sent - NGTD
- no indication for abx
- PT evaluation, case management
# DM II
- poor intake
- cont to hold metformin
- sliding scale insulin
- hba1c 6.0
# Type 2 Mobitz 1 heart block
- asymptomatic
- avoid AV deena blocking agents
- TSH WNL
- cards input appreciated
- no indication for pacing
- echo 10/20- Normal biventricular size and systolic function without regional wall motion abnormality.
# HTN
- hold hctz lisinopril and atenolol for now
# Wound care - No open wounds, macerated skin in the feet due to chronic moisture
- wound care
DVT PPX - lovenox sq
Code status - full code awaiting response from poa sister
Dispo lives alone unable to go back to apartment due to safety DC to [facility] in am if stable
Time spent coordinating care, review of plan of care with resident, personally reviewed records in EMR, med rec, consults, notes, labs, radiology, d/w nursing and cards � 51 mins
Original Note:
Today's Communication/Plan
-
.
Assessment / Plan
Assessment / Plan
1. Hypothermia
- Temperature 88.3 on admission (otherwise hemodynamically stable)
- Normal temps since last night in 97s. 100 this morning (watch). (improving overall, continue to monitor)
- CXR concerning for pneumonia; procal negative.
- Warming blankets discontinued.
- TSH normal, Cortisol normal, Lactate normal, Ammonia normal, Lipid Profile normal, B12 normal, CK normal
- Blood cultures no growth 72h - no abx for now.
- Case Management: eventual d/c to SNF then patient should move to [place] or [place]; patient's sister (one of whom is POA) agree that patient should not return to her apartment. Patient has a bed at [facility] for tomorrow.
- PT/OT as tolerated.
2. Failure to Thrive/Protein malnutrition
- Continue gentle hydration
- Patient not eating; protein 4.5, albumin 2.0, prealbumin 4.9
- Originally thought to be from not liking the food
- One episode of vomiting upon eating oatmeal yesterday.
- Obstruction Series negative for obstruction (noted RLL concerning for pneumonia)
- Speech and Swallow Eval pending
- Incentive Spirometry
- Will try Ensure Enlive today
3. DM II
- Hb A1c 6.0
- Hold metformin
- SS Insulin for now.
- NS changed to D5 1/2 NS @100
4. HTN
- Hold HCTZ and atenolol for now; restart atenolol when temps improved, no longer mireya, BPs start to elevate
- Continue lisinopril (was on 40mg), at 5mg daily to initiate
Bradycardia
- EKG: first degree heart block; repeat during bradycardic episode: Second degree Mobitz 1
- Cardiology consulted; appreciate reccs
- ECHO: EF 60%, mild pumonary HTN, otherwise normal
- PPM not indicated as the patient is not symptomatic
Wound care -
- No open wounds, macerated skin in the feet due to chronic moisture
- wound care consult
Lovenox/Full Code/Diabetic 2000 kartik
Anticipated Discharge: Within 24 hours
Subjective/Interval History
-
Date of Service: October 22, 2024
Patient seen and examined while resting comfortably in bed. Patient appears to have less word-finding difficulty this AM. States that she 'feels fine'. When asked if she has been eating, patient states that the food does not taste good. However,
tells me that last night she tried to eat something and she felt as if she would vomit it. When asked if she would consider this 'nausea', she says no, its just the food tastes really bland and bad. Patient otherwise denies any chest pains,
shortness of breath, dizziness, abdominal pain, vomiting.
Objective Data
-
Labs:
Laboratory Results
10/22/24
06:32
WBC 8.6
Hgb 10.4 L
Hct 31.9 L
Plt Count 105 L
Sodium 139
Potassium 3.8
Chloride 109 H
Carbon Dioxide 27
BUN 16
Creatinine 0.9
Glucose 107 H
Calcium 8.1 L
Total Bilirubin 0.2
AST 18
ALT 21
Alkaline Phosphatase 79
Vital Signs:
Vital Signs
Temp Pulse Resp BP Pulse Ox
100 F 53 18 124/59 100
10/22/24 09:51 10/22/24 07:03 10/22/24 07:03 10/22/24 07:03 10/22/24 07:03
I&O
10/21/24 10/22/24 10/23/24
06:59 06:59 06:59
Intake Total 2400 / 2500 700 / 700 1200 / 1200
Output Total 125 / 125 350 / 350
Balance 2275 / 2375 350 / 350 1200 / 1200
Review of Systems
-
History Source: Patient
Constitutional: Reports No Symptoms
Respiratory: Reports No Symptoms
Cardiac: Reports No Symptoms
Abdomen/GI: Reports Other (lack of appetite)
Physical Exam
-
General: No Apparent Distress, Comfortable and Conversant
HEENT: Normocephalic, Atraumatic and Moist Mucous Membranes
Respiratory: Clear to Auscultation; Negative Wheezes, Rales or Rhonchi
Cardiac: Regular Rhythm and S1/S2
GI: Soft, Nontender and Nondistended
Musculoskeletal: No Clubbing, No Cyanosis, Edema, Right Lower Extrem and Edema, Left Lower Extrem
Skin: Warm
Neuro: Awake and Alert
Psych: Calm
Data Reviewed
-
Diagnostic Radiology: Report Reviewed by me
Labs: Labs Reviewed by me and Discussed with Patient
[2024-10-22 12:47] LABS: Glucose - Point of Care 103 mg/dl (70-99)
[2024-10-22 14:22] LABS: Thyroglobulin Antibodies <0.9 IU/mL (0.0-4.0); Thyroid Peroxidase Ab (TPO) 0.3 IU/mL (0.0-9.0)
[2024-10-22 16:57] LABS: Glucose - Point of Care 113 mg/dl (70-99)
--- NOTE | 2024-10-22 17:06 | CM ---
Addendum entered by Rosetta Flower 10/23/24 12:34:
Pt is not medically stable for discharge today.
CM to follow for transfer to SNF when medically ready.
Addendum entered by Rosetta Flower 10/23/24 10:11:
CM contacted [facility] to request authorization for transfer to [facility] and ambulance transport for today; ambulance transport auth requested as well: Auth .
SNF authorization provided by Rena for transfer today to [facility]
Auth #[id number] 10/23-10/27/2024 with [facility] 10/27/2024 to
Ambulance auth# [id number] with [facility].
Original Note:
CM continues to follow for discharge planning; PT recommends SNF at discharge. Per prior CM, [facility] offered a bed for transfer at discharge.
D/C plan: [facility]F when medically stable.
[2024-10-22] MEDS: LOVENOX 40 MG SC (17:22)
[2024-10-22 21:27] LABS: Glucose - Point of Care 79 mg/dl (70-99)
[2024-10-23] VITALS (7 sets, daily range): BP systolic 155–186; BP diastolic 85–93; PULSE 67; O2SAT 98
[2024-10-23 02:57] LABS: Glucose - Point of Care 72 mg/dl (70-99)
[2024-10-23 07:53] LABS: Glucose - Point of Care 59 mg/dl (70-99)
[2024-10-23] MEDS: HYDROPHOR 1 APPLIC TOPICAL (08:14)
[2024-10-23] MEDS: DESENEX/MITRAZOL/ZEASORB 1 APPLIC TOPICAL ×2 (08:14→20:18)
[2024-10-23 08:17] LABS: Glucose - Point of Care 68 mg/dl (70-99)
[2024-10-23 08:37] LABS: Glucose - Point of Care 65 mg/dl (70-99)
[2024-10-23 08:49] LABS: Hematocrit 35.2 % (37.0-47.0); Mean Corp Hgb Conc. 31.3 g/dL (33.0-37.0); Mean Corpuscular Hgb 24.9 pg (27.0-31.0); Mean Corpuscular Volume 79.8 fL (81.0-99.0); Mean Platelet Volume 11.2 fL (7.4-10.4); Platelet Count 106 10^3/uL (130-400); Red Blood Cell Count 4.41 10^6/uL (4.20-5.40); Red Cell Dist. Width 17.1 % (11.5-14.5); White Blood Cell Count 7.7 10^3/uL (4.8-10.8)
[2024-10-23 08:54] LABS: Glucose - Point of Care 65 mg/dl (70-99)
[2024-10-23] MEDS: DEXTROSE 50% SYRINGE 12.5 GRAMS IV (08:56)
[2024-10-23 09:09] LABS: ALT (SGPT) 22 U/L (0-35); AST (SGOT) 17 U/L (14-36); Albumin 2.3 g/dl (3.5-5.0); Alkaline Phosphatase 93 U/L (38-126); Blood Urea Nitrogen 16 mg/dl (7-17); Calcium 8.6 mg/dl (8.4-10.2); Carbon Dioxide 28 mmol/L (22-30); Chloride 106 mmol/L (98-107); Estimated Creatinine Clearance 53 ml/min; Glucose 80 mg/dl (70-99); Potassium 3.8 mmol/L (3.5-5.1); Sodium 140 mmol/L (135-145); Total Bilirubin 0.3 mg/dl (0.2-1.3); Total Protein 5.2 g/dl (6.3-8.2); eGFR 59.86
[2024-10-23 09:31] LABS: Glucose - Point of Care 147 mg/dl (70-99)
--- NOTE | 2024-10-23 10:21 | W.PN.CD ---
Today's Communication / Plan
-
trend tele
Impression / Plan
-
AV node conduction disease
- AV Wenckebach (2nd Degree Heart block, Mobitz I)
- 2:1 AV block with narrow QRS and associated with Mobitz I beulah
-brief episodes overnight
-no symptoms
-no indication for pacemaker at this time
Hypothermia: resolved
Lymphedema: b/l right >Left
Hx HTN
Hx DM, type II
Hx obesity
hx CKD
Medical non-adherence, takes no meds
Hx of Dementia
TTE:
Normal biventricular size and systolic function without regional wall motion
abnormality.
No significant change since the prior study of.
Trivial pericardial effusion.
Pleural effusion present.
No significant change since the prior study of 03/14/2016.
Physical Exam
Vital Signs/Labs
Vital Signs
Temp Pulse Resp BP Pulse Ox
97.7 F 67 18 168/93 99
10/23/24 07:50 10/23/24 07:50 10/23/24 07:50 10/23/24 07:50 10/23/24 07:50
10/23/24 08:24
10/23/24 08:24
Magnesium 1.6 mg/dl (1.6-2.3) 10/19/24 05:11
Triglycerides 86 mg/dl (10-149) 10/19/24 05:11
LDL Cholesterol, Calc 68 mg/dl 10/19/24 05:11
VLDL Cholesterol, Calc 17 mg/dl (0-30) 10/19/24 05:11
HDL Cholesterol 69 mg/dl 10/19/24 05:11
TSH 3.75 uIU/ml (0.47-4.68) 10/21/24 04:38
Free T4 1.55 ng/dl (0.78-2.19) 10/21/24 04:38
Physical Exam
Constitutional: No acute distress
EENT: Moist mucous membranes
Cardiovascular: Rhythm & rate is regular, JVD pressure is normal and Systolic murmur absent
Respiratory: Respiratory effort normal and Lungs clear to auscul.
Neuro/Psych: Alert
Data Reviewed
-
Date of Service: October 23, 2024
EKG: Other (Tele: sinus with 2:1 block overnight)
Labs: Labs Reviewed by me
[2024-10-23 11:39] LABS: Glucose - Point of Care 86 mg/dl (70-99)
[2024-10-23] MEDS: APRESOLINE 5 MG IV (13:12)
[2024-10-23 13:57] LABS: Glucose - Point of Care 73 mg/dl (70-99)
--- NOTE | 2024-10-23 16:26 | W.PN.HOSP.TC ---
Addendum entered and electronically signed by Celestino Mckeon MD 10/23/24 22:35:
Attending Addendum-
I saw and evaluated the patient. I reviewed the resident�s note and agree with findings and plan as documented in the resident�s note. Sub: Has been going in and out of 2:1 block with associated bradycardia. Had episode of 'burning sensation in
throat and chest pressure' and N/V this am/ Stat EKG checked. Patient poor historian. Also becoming more hypothermic. Denies palps syncope dizziness. Patient with extremely poor appetite. Had BM. Full 12 point ROS reviewed and negative except as
documented Exam: Vitals reviewed in chart GEN-NAD heart RRR no M/R/G Lungs clear abd obese soft NT ND pos BS LE b/l LE stasis dermatitis Neuro AAO x 1-2
Plan:
#Toxic/metabolic encephalopathy from hypothermia and likely underlying dementia
- unstable
- cont care on tele
- thomas fernandes DCd, goal temp of > 36.5
- tsh and cortisol - WNL
- blood and urine cultures sent - NGTD
# Chest Pressure
- EKG personally reviewed- non ischemic, sinus with first degree heart block
- possibly reflux related start PPI
# DM II
- poor intake
- hypoglycemic episodes
- cont to hold metformin
- sliding scale insulin
- hba1c 6.0
# Severe PCM
- extremely poor appetite
- start Remeron
- check swallow study
# Type 2 Mobitz 1 heart block
- asymptomatic
- avoid AV deena blocking agents
- TSH WNL
- cards input appreciated
- no indication for pacing
- echo 10/20- Normal biventricular size and systolic function without regional wall motion abnormality.
# HTN
- restart hctz and lisinopril
- cont to hold atenolol
# Wound care - No open wounds, macerated skin in the feet due to chronic moisture
- wound care
DVT PPX - lovenox sq
Code status - full code confirmed with POKamilah
Dispo lives alone unable to go back to apartment due to safety DC to [facility] SNF when stable
Time spent coordinating care, review of plan of care with resident, personally reviewed records in EMR, med rec, consults, notes, labs, radiology, d/w nursing and cards � 51 mins
Original Note:
Today's Communication/Plan
-
.
Assessment / Plan
Assessment / Plan
1. Hypothermia
- Temperature 88.3 on admission (otherwise hemodynamically stable)
- Normal temps for 48 hours in 97s. (improving overall, continue to monitor)
- CXR concerning for pneumonia; procal negative.
- Warming blankets discontinued.
- TSH normal, Cortisol normal, Lactate normal, Ammonia normal, Lipid Profile normal, B12 normal, CK normal
- Blood cultures no growth 72h - no abx for now.
- Case Management: eventual d/c to SNF then patient should move to [place] or [place]; patient's sister (one of whom is HUMBERTO) agree that patient should not return to her apartment. Patient has a bed at [facility] for tomorrow.
- Spoke with patient's sister Elizabeth and HUMBERTO Gonzalez at CM request; updated on medical condition and let them know to contact for social questions regarding discharge planning.
- PT/OT as tolerated.
2. Failure to Thrive/Protein malnutrition
- Continue gentle hydration
- Patient not eating; protein 5.2, albumin 2.3 (improved). Prealbumin 4.9
- Originally thought to be from not liking the food
- One episode of vomiting this morning
- Obstruction Series negative for obstruction (noted RLL concerning for pneumonia)
- Speech and Swallow Eval pending
- Incentive Spirometry
- Will try Ensure Enlive
3. DM II
- Hb A1c 6.0
- Hold metformin
- SS Insulin for now.
- Fluids discontinued.
4. HTN
- BPs elevated as clinical condition improved; patient home meds atenolol, HCTZ, lisinopril, held in the setting of bradycardia.
- Continue to hold atenolol (AV deena blocking agent)
- IV hydralizine given once today
- HCTZ and Lisinopril restarted
- EKG today: unchanged from prior
5. Bradycardia
- EKG: first degree heart block; repeat during bradycardic episode: Second degree Mobitz 1
- Cardiology consulted; appreciate reccs
- ECHO: EF 60%, mild pumonary HTN, otherwise normal
- PPM not indicated as the patient is not symptomatic
Wound care -
- No open wounds, macerated skin in the feet due to chronic moisture
- wound care consult
Lovenox/Full Code/Diabetic 2000 kartik
Anticipated Discharge: 24 - 48 hours
Subjective/Interval History
-
Date of Service: October 23, 2024
Patient seen and examined this morning. Patient had just gotten her breakfast delivered. Patient had not eaten yet but drank the orange juice and proceeded to vomit up the orange juice. After this episode the patient noted that she had a burning
sensation following vomiting. Patient otherwise denied any acute complaints, appeared otherwise comfortable, nontoxic, and was speaking in full sentences, asking for a phone steel rule die maker and a book that she could read. Patient still endorses not liking
the food here, but that she still has appetite and 'would like Bengali food'.
Received TT later that patient's blood pressure was elevated, and upon returning to the patient's room, patient had no acute complaints. When I asked her how the burning sensation was, she responded that it felt like pressure now. EKG done, no
change from prior.
Objective Data
-
Labs:
Laboratory Results
10/23/24
08:24
WBC 7.7
Hgb 11.0 L
Hct 35.2 L
Plt Count 106 L
Sodium 140
Potassium 3.8
Chloride 106
Carbon Dioxide 28
BUN 16
Creatinine 1.0
Glucose 80
Calcium 8.6
Total Bilirubin 0.3
AST 17
ALT 22
Alkaline Phosphatase 93
Vital Signs:
Vital Signs
Temp Pulse Resp BP Pulse Ox
98.6 F 81 20 166/93 100
10/23/24 15:45 10/23/24 15:45 10/23/24 15:45 10/23/24 15:45 10/23/24 15:45
I&O
10/22/24 10/23/24 10/24/24
06:59 06:59 06:59
Intake Total 700 / 700 1320 / 1320 600 / 600
Output Total 350 / 350
Balance 350 / 350 1320 / 1320 600 / 600
Review of Systems
-
History Source: Patient
Constitutional: Reports No Symptoms
Respiratory: Reports No Symptoms
Cardiac: Reports No Symptoms
Abdomen/GI: Reports Vomiting (x1); Denies Abdominal Pain
Neuro: Reports No Symptoms
Physical Exam
-
General: No Apparent Distress, Comfortable and Conversant (markedly improved speech pattern when compared to day of admission)
HEENT: Normocephalic, Atraumatic and Anicteric
Respiratory: Clear to Auscultation
Cardiac: Regular Rhythm and S1/S2
GI: Soft, Nontender, Nondistended and Normal Bowel Sounds
Musculoskeletal: No Clubbing, No Cyanosis, Edema, Right Lower Extrem and Edema, Left Lower Extrem
Skin: Warm and Dry
Neuro: Awake and Alert
Psych: Calm
Data Reviewed
-
Medical Tests (Nuc Med, Echo etc): Image personally visualized and interpreted and Report Reviewed by me
Labs: Labs Reviewed by me and Discussed with Patient
[2024-10-23 16:44] LABS: Glucose - Point of Care 90 mg/dl (70-99)
[2024-10-23] MEDS: LOVENOX 40 MG SC (17:51)
[2024-10-23] MEDS: ZESTRIL 20 MG PO (20:18)
[2024-10-23] MEDS: REMERON 7.5 MG PO (20:18)
[2024-10-23 21:34] LABS: Glucose - Point of Care 107 mg/dl (70-99)
[2024-10-24] VITALS (7 sets, daily range): BP systolic 153–163; BP diastolic 85–94
[2024-10-24 03:34] LABS: Glucose - Point of Care 62 mg/dl (70-99)
[2024-10-24] MEDS: DEXTROSE 50% SYRINGE 12.5 GRAMS IV ×2 (03:47→08:06)
[2024-10-24 04:12] LABS: Glucose - Point of Care 96 mg/dl (70-99)
[2024-10-24 07:52] LABS: Glucose - Point of Care 61 mg/dl (70-99)
[2024-10-24] MEDS: PROTONIX PO (08:02)
[2024-10-24] MEDS: ZESTRIL PO (08:02)
[2024-10-24] MEDS: DESENEX/MITRAZOL/ZEASORB 1 APPLIC TOPICAL ×2 (08:02→20:03)
[2024-10-24] MEDS: ORETIC PO (08:02)
[2024-10-24] MEDS: HYDROPHOR 1 APPLIC TOPICAL (08:03)
--- NOTE | 2024-10-24 08:15 | PTCARENOTE ---
Gluc 61 this morning. Fruit juice offered but pt becomes nauseous and vomits out the juice. IV Dextrose administered.
[2024-10-24 08:34] LABS: Glucose - Point of Care 102 mg/dl (70-99)
[2024-10-24] MEDS: ZESTRIL 20 MG PO ×2 (08:56→19:59)
[2024-10-24] MEDS: ORETIC 25 MG PO (08:56)
[2024-10-24] MEDS: PROTONIX 40 MG PO (08:56)
[2024-10-24 10:49] LABS: Glucose - Point of Care 99 mg/dl (70-99)
--- NOTE | 2024-10-24 11:44 | W.PN.HOSP.TC ---
Today's Communication/Plan
-
Obtain a CT of the chest, abdomen, pelvis
Assessment / Plan
Assessment / Plan
Hypothermia
- Temperature 88.3 on admission (otherwise hemodynamically stable)
- Normal temps now
- Warming blankets discontinued.
- TSH normal, Cortisol normal, Lactate normal, Ammonia normal, Lipid Profile normal, B12 normal, CK normal, procal normal
- Blood cultures no growth 72h - no abx for now.
- Case Management: eventual d/c to SNF then patient should move to [place] or [place]; patient's sister (one of whom is HUMBERTO) agree that patient should not return to her apartment. Patient has a bed at [facility] for tomorrow.
- Teaching team Spoke with patient's sister Elizabeth and HUMBERTO Gonzalez at request; updated on medical condition and let them know to contact for social questions regarding discharge planning.
- PT/OT as tolerated.
Failure to Thrive/Protein malnutrition
- Continue gentle hydration
- Patient not eating; protein 5.2, albumin 2.3 (improved). Prealbumin 4.9
- Originally thought to be from not liking the food
- Feels nausea this am
- Obstruction Series negative for obstruction (noted RLL concerning for pneumonia)
- CW protein supplements
With failure to thrive and GI symptoms would obtain a CT of the abdomen pelvis to evaluate further.
Bilateral lung parenchymal opacification concerning radiologically for pneumonia-clinically no respiratory symptoms. Pro-Kartik is negative. In view of failure to thrive and no other etiology evident we will get a CT of the chest with IV contrast to
evaluate further.
DM II
- Hb A1c 6.0
- Hold metformin
- SS Insulin for now.
- Fluids discontinued.
HTN
- BPs elevated as clinical condition improved; patient home meds atenolol, HCTZ, lisinopril, held in the setting of bradycardia.
- Continue to hold atenolol (AV deena blocking agent)
- HCTZ and Lisinopril restarted
-
Bradycardia
- EKG: first degree heart block; repeat during bradycardic episode: Second degree Mobitz 1
- Cardiology consulted; appreciate reccs
- ECHO: EF 60%, mild pumonary HTN, otherwise normal
- PPM not indicated as the patient is not symptomatic
Wound care -
- No open wounds, macerated skin in the feet due to chronic moisture
- wound care consult
Lovenox/Full Code/Diabetic 2000 kartik
Total time spent on today's encounter was 52 minutes which included time spent in counseling the patient/family regarding diagnosis and treatment plan as listed above, goals of care, and symptom management. Case was discussed with nursing staff,
specialists, and care coordinators/case management. All labs and imaging personally reviewed by me. Remainder the time spent in detailed review of previous records, lab data, imaging, and other medical provider documentation.
Anticipated Discharge: 24 - 48 hours
Subjective/Interval History
-
Date of Service: October 24, 2024
She is feeling generally improved.
Complaints of mild nausea but no abdo pain.
Stools loose but no frequency.
No fever.
Objective Data
-
Vital Signs:
Vital Signs
Temp Pulse Resp BP Pulse Ox
97.4 F 68 18 156/94 100
10/24/24 11:43 10/24/24 11:43 10/24/24 11:43 10/24/24 11:43 10/24/24 11:43
I&O
10/23/24 10/24/24 10/25/24
06:59 06:59 06:59
Intake Total 1320 / 1320 600 / 600
Balance 1320 / 1320 600 / 600
Review of Systems
-
Respiratory: Denies Trouble Breathing
Cardiac: Denies Chest Pain
Neuro: Denies Dizzy or Headache
Physical Exam
-
Respiratory: Clear to Auscultation and Non Labored Respirations; Negative Accessory Resp Muscle Use
Cardiac: Regular Rhythm and S1/S2; Negative Tachycardic
GI: Soft and Nontender
Neuro: AO x 3
Psych: Calm
[2024-10-24] MEDS: OMNIPAQUE 50 ML PO (12:28)
[2024-10-24 12:32] LABS: Glucose - Point of Care 76 mg/dl (70-99)
--- NOTE | 2024-10-24 12:51 | W.PN.CD ---
Today's Communication / Plan
-
trend tele
Impression / Plan
-
AV node conduction disease
- AV Wenckebach (2nd Degree Heart block, Mobitz I)
- 2:1 AV block with narrow QRS and associated with Mobitz I beulah
-brief episodes overnight
-no symptoms
-no indication for pacemaker at this time
Hypothermia: resolved
Lymphedema: b/l right >Left
Hx HTN
Hx DM, type II
Hx obesity
hx CKD
Medical non-adherence, takes no meds
Hx of Dementia
TTE:
Normal biventricular size and systolic function without regional wall motion
abnormality.
No significant change since the prior study of.
Trivial pericardial effusion.
Pleural effusion present.
No significant change since the prior study of 03/14/2016.
Physical Exam
Vital Signs/Labs
Vital Signs
Temp Pulse Resp BP Pulse Ox
97.4 F 68 18 156/94 100
10/24/24 11:43 10/24/24 11:43 10/24/24 11:43 10/24/24 11:43 10/24/24 11:43
10/23/24 08:24
10/23/24 08:24
Magnesium 1.6 mg/dl (1.6-2.3) 10/19/24 05:11
Triglycerides 86 mg/dl (10-149) 10/19/24 05:11
LDL Cholesterol, Calc 68 mg/dl 10/19/24 05:11
VLDL Cholesterol, Calc 17 mg/dl (0-30) 10/19/24 05:11
HDL Cholesterol 69 mg/dl 10/19/24 05:11
TSH 3.75 uIU/ml (0.47-4.68) 10/21/24 04:38
Free T4 1.55 ng/dl (0.78-2.19) 10/21/24 04:38
Physical Exam
Constitutional: No acute distress
EENT: Moist mucous membranes
Cardiovascular: Rhythm & rate is regular, Pedal edema is absent, JVD pressure is normal and Systolic murmur absent
Respiratory: Respiratory effort normal
Neuro/Psych: Alert
Data Reviewed
-
Date of Service: October 24, 2024
EKG: Other (Tele: 2:1 block overnight)
Labs: Labs Reviewed by me
[2024-10-24] MEDS: D5/0.45%NACL 1000 IV (14:07)
[2024-10-24] MEDS: ZOFRAN 4 MG IV (15:38)
[2024-10-24] MEDS: LOVENOX 40 MG SC (17:09)
[2024-10-24 17:14] LABS: Glucose - Point of Care 80 mg/dl (70-99)
--- NOTE | 2024-10-24 20:17 | PTCARENOTE ---
Pt stating middle chest pressure. states has been ongoing for days. Pt attributing to nausea and vomiting. House CORPORATE ACCOUNT EXECUTIVE aware, no new orders.
[2024-10-24] MEDS: REMERON PO (20:46)
[2024-10-24 21:26] LABS: Glucose - Point of Care 95 mg/dl (70-99)
[2024-10-25] VITALS (9 sets, daily range): BP systolic 123–166; BP diastolic 69–102
--- NOTE | 2024-10-25 00:05 | PTCARENOTE ---
Pt noted to briefly go into second degree type two on telemetry asymptomatic. QUALITY RN aware, strip mounted in chart.
--- NOTE | 2024-10-25 02:28 | W.PN.UPDATE ---
Update Note
Progress Note Update
during night RN reports HR dipped and tele strip looked like a run of second degree hb type 2. pt asymptomatic. HR back to normal.Cardiology following. strip in chart.
[2024-10-25 03:28] LABS: Glucose - Point of Care 81 mg/dl (70-99)
--- NOTE | 2024-10-25 04:05 | PTCARENOTE ---
Pts temp 95 rectal, thomas fernandes initiated.
[2024-10-25 07:56] LABS: Glucose - Point of Care 85 mg/dl (70-99)
[2024-10-25] MEDS: ORETIC 25 MG PO (08:17)
[2024-10-25] MEDS: DESENEX/MITRAZOL/ZEASORB 1 APPLIC TOPICAL ×2 (08:17→20:58)
[2024-10-25] MEDS: HYDROPHOR 1 APPLIC TOPICAL (08:17)
[2024-10-25] MEDS: PROTONIX 40 MG PO (08:17)
[2024-10-25] MEDS: ZESTRIL 20 MG PO ×2 (08:18→20:57)
[2024-10-25] MEDS: D5/0.45%NACL 1000 IV (08:20)
--- NOTE | 2024-10-25 10:42 | PTCARENOTE ---
4-6sec episodes of of bradycardia noted on telemetry this morning. These episodes are concerning for 3rd degree AVB. Pt resting in bed, asymptomatic. VSS. Dr Daigle notified. No new orders at this time. Dr Daigle will see the pt today.
--- NOTE | 2024-10-25 11:31 | W.PN.CD ---
Today's Communication / Plan
-
trend tele
discussed with hospitalist and RN
Impression / Plan
-
AV node conduction disease
-AV Wenckebach (2nd Degree Heart block, Mobitz I)
- 2:1 AV block with narrow QRS and associated with Mobitz I beulah
-brief episodes continue
-no symptoms
-tele
-will ask EP to see in AM
Hypothermia: continues intermittently
Lymphedema: b/l right >Left
Hx HTN
Hx DM, type II
Hx obesity
hx CKD
Medical non-adherence, takes no meds
Hx of Dementia
10/20/23 TTE:
Normal biventricular size and systolic function without regional wall motion
abnormality.
Trivial pericardial effusion.
Pleural effusion present.
No significant change since the prior study of 03/14/2016.
Physical Exam
Vital Signs/Labs
Vital Signs
Temp Pulse Resp BP Pulse Ox
97.5 F 85 15 132/77 98
10/25/24 11:11 10/25/24 11:11 10/25/24 11:11 10/25/24 11:11 10/25/24 11:11
10/23/24 08:24
10/23/24 08:24
Magnesium 1.6 mg/dl (1.6-2.3) 10/19/24 05:11
Triglycerides 86 mg/dl (10-149) 10/19/24 05:11
LDL Cholesterol, Calc 68 mg/dl 10/19/24 05:11
VLDL Cholesterol, Calc 17 mg/dl (0-30) 10/19/24 05:11
HDL Cholesterol 69 mg/dl 10/19/24 05:11
TSH 3.75 uIU/ml (0.47-4.68) 10/21/24 04:38
Free T4 1.55 ng/dl (0.78-2.19) 10/21/24 04:38
Physical Exam
Constitutional: No acute distress
EENT: Moist mucous membranes
Cardiovascular: Rhythm & rate is regular, JVD pressure is normal, Systolic murmur absent and Pedal edema present (trace)
Neuro/Psych: Alert
Data Reviewed
-
Date of Service: October 25, 2024
EKG: Other (Tele: SR, 2:1 block)
[2024-10-25 11:40] LABS: Glucose - Point of Care 77 mg/dl (70-99)
--- NOTE | 2024-10-25 12:09 | W.PN.HOSP.TC ---
Today's Communication/Plan
-
Follow tele
CW PT
Psychiatry eval as above
Assessment / Plan
Assessment / Plan
Hypothermia
- Temperature 88.3 on admission (otherwise hemodynamically stable)
- Normal temps now with intermittent dips
- Warming blankets prn.
- TSH normal, Cortisol normal, Lactate normal, Ammonia normal, Lipid Profile normal, B12 normal, CK normal, procal normal
- Blood cultures no growth 72h - no abx for now.
- Case Management: eventual d/c to SNF then patient should move to [place] or [place]; patient's sister (one of whom is HUMBERTO) agree that patient should not return to her apartment. Patient has a bed at [facility] for tomorrow.
- Teaching team Spoke with patient's sister Elizabeth and HUMBERTO Gonzalez at request; updated on medical condition and let them know to contact for social questions regarding discharge planning.
- PT/OT as tolerated.
Failure to Thrive/Protein malnutrition
- Continue gentle hydration
- Patient not eating; protein 5.2, albumin 2.3 (improved). Prealbumin 4.9
- Originally thought to be from not liking the food
- Feels nausea this am
- Obstruction Series negative for obstruction (noted RLL concerning for pneumonia)
- CW protein supplements
With failure to thrive and GI symptoms obtained a CT of the abdomen pelvis which is overall limited but shows Few scattered indeterminate low-attenuation density hepatic lesions, as detailed in report. These could be benign, malignancy cannot be
excluded, evaluation limited.Consider MRI liver as OP.No intestinal obstruction or free air.
Bilateral lung parenchymal opacification concerning radiologically for pneumonia-clinically no respiratory symptoms. Pro-Kartik is negative. In view of failure to thrive and no other etiology evident we will get a CT of the chest with IV contrast
-shows Small bilateral lower lobe consolidations with air bronchograms, pneumonia/or atelectasis and small bilateral pleural effusions.Clinically not acting like pneumonia.Hold on abx.
DM II
- Hb A1c 6.0
- Hold metformin
- SS Insulin for now.
- Fluids discontinued.
HTN
- BPs elevated as clinical condition improved; patient home meds atenolol, HCTZ, lisinopril, held in the setting of bradycardia.
- Continue to hold atenolol (AV deena blocking agent)
- HCTZ and Lisinopril restarted
-
Bradycardia
- EKG: first degree heart block; repeat during bradycardic episode: Second degree Mobitz 1 . AV weknebach transient noted -no new recs from cards.
- Cardiology consulted; appreciate reccs
- ECHO: EF 60%, mild pumonary HTN, otherwise normal
- PPM not indicated as the patient is not symptomatic
Wound care -
- No open wounds, macerated skin in the feet due to chronic moisture
- wound care consult
Lovenox/Full Code/Diabetic 2000 kartik
DW Elizabeth her sister- she is coming to hospital coming week. She is waiting to get a hearing for guardianship on Soila. She is seeing decline in her cognition and asking for mental status capacity . Psychiatry consulted for medical decision making
capacity.
Anticipated Discharge: 24 - 48 hours
Subjective/Interval History
-
Date of Service: October 25, 2024
Complaints of nausea but able to tolerate some oral intake. Denies any abdominal pain.
Need Lee-Hugger blanket briefly .
Voices no specific complaints. Denies pains or aches.
Objective Data
-
Vital Signs:
Vital Signs
Temp Pulse Resp BP Pulse Ox
97.5 F 85 15 132/77 98
10/25/24 11:11 10/25/24 11:11 10/25/24 11:11 10/25/24 11:11 10/25/24 11:11
I&O
10/24/24 10/25/24 10/26/24
06:59 06:59 06:59
Intake Total 600 / 600 840 / 840
Balance 600 / 600 840 / 840
Review of Systems
-
Respiratory: Denies Trouble Breathing
Cardiac: Denies Chest Pain
Neuro: Reports Dizzy
Physical Exam
-
General: Comfortable
Respiratory: Clear to Auscultation and Non Labored Respirations; Negative Accessory Resp Muscle Use
Cardiac: Regular Rhythm, S1/S2 and Other (tele noted with AV wenkebach transient); Negative Tachycardic
Neuro: AO x 3
Data Reviewed
-
CT Scan: Report Reviewed by me (CT A/P)
--- NOTE | 2024-10-25 14:42 | W.PN.UPDATE ---
Update Note
Progress Note Update
this chart was reviewed and i spoke with nursing. the patient would not agree to the consult. she told me (and i quote), 'i told dr fregoso in no uncertain terms that i do not agree with a (psychiatric) consult....my family and i will make all
decisions regarding my care.'. she was polite but adamant. she then said she was sorry i had to make the effort to come to see her. she reiterated that she told her doctor she did not wish to speak to psychiatry and would not do so. . for what it
is worth given my brief encounter she appeared to be in control of her faculties . she spoke articulately and calmly although was clearly annoyed. she had good eye contract. she appeared in no physical distress. she was neatly groomed.
[2024-10-25] MEDS: ZOFRAN 4 MG IV (15:47)
[2024-10-25 16:54] LABS: Glucose - Point of Care 82 mg/dl (70-99)
[2024-10-25] MEDS: LOVENOX 40 MG SC (17:06)
[2024-10-25] MEDS: REMERON 7.5 MG PO (20:57)
[2024-10-25 21:18] LABS: Glucose - Point of Care 77 mg/dl (70-99)
[2024-10-26] MEDS: D5/0.45%NACL 1000 IV ×2 (01:00→17:23)
[2024-10-26] MEDS: ZOFRAN 4 MG IV ×3 (01:02→21:40)
[2024-10-26 03:36] LABS: Glucose - Point of Care 62 mg/dl (70-99)
[2024-10-26 03:38] VITALS: BP 124/72
[2024-10-26 04:02] LABS: Glucose - Point of Care 86 mg/dl (70-99)
--- NOTE | 2024-10-26 04:03 | PTCARENOTE ---
Pts sugar 62 pt refusing OJ agreeable to applejuice. Recheck 86
[2024-10-26 06:14] LABS: Glucose - Point of Care 80 mg/dl (70-99)
[2024-10-26 07:30] VITALS: BP 134/73
[2024-10-26 08:38] LABS: Glucose - Point of Care 78 mg/dl (70-99)
[2024-10-26] MEDS: PROTONIX 40 MG PO (08:39)
[2024-10-26] MEDS: ZESTRIL 20 MG PO ×2 (08:39→21:33)
[2024-10-26] MEDS: DESENEX/MITRAZOL/ZEASORB 1 APPLIC TOPICAL ×2 (08:40→21:32)
[2024-10-26] MEDS: ORETIC 25 MG PO (08:40)
[2024-10-26] MEDS: HYDROPHOR 1 APPLIC TOPICAL (08:43)
--- NOTE | 2024-10-26 09:39 | W.PN.CD ---
Today's Communication / Plan
-
We will sign off
Please call us if symptomatic bradycardia develops or AV block worsens
Impression / Plan
-
Asymptomatic AV node conduction disease (at AV node level)
-AV Wenckebach (2nd Degree Heart block, Mobitz I)
-2:1 AV block with narrow QRS and associated with Mobitz I beulah
-brief episodes continue
Hypothermia: continues intermittently, 95 degrees recorded on 10/25/2024
Lymphedema: b/l right >Left
Hx HTN
Hx DM, type II
Hx obesity
hx CKD
Medical non-adherence, takes no meds
? Hx of Dementia
Subjective:
No syncope
10/20/23 TTE:
Normal biventricular size and systolic function without regional wall motion
abnormality.
Trivial pericardial effusion.
Pleural effusion present.
No significant change since the prior study of 03/14/2016.
Physical Exam
Vital Signs/Labs
Vital Signs
Temp Pulse Resp BP Pulse Ox
98.7 F 89 18 134/73 95
10/26/24 07:30 10/26/24 07:30 10/26/24 07:30 10/26/24 07:30 10/26/24 07:30
Magnesium 1.6 mg/dl (1.6-2.3) 10/19/24 05:11
Triglycerides 86 mg/dl (10-149) 10/19/24 05:11
LDL Cholesterol, Calc 68 mg/dl 10/19/24 05:11
VLDL Cholesterol, Calc 17 mg/dl (0-30) 10/19/24 05:11
HDL Cholesterol 69 mg/dl 10/19/24 05:11
TSH 3.75 uIU/ml (0.47-4.68) 10/21/24 04:38
Free T4 1.55 ng/dl (0.78-2.19) 10/21/24 04:38
Physical Exam
Constitutional: No acute distress
Cardiovascular: Rhythm & rate is regular and Pedal edema is absent
Respiratory: Respiratory effort normal and Lungs clear to auscul.
GI: Soft and Distention absent
Neuro/Psych: Alert
Data Reviewed
-
Date of Service: October 26, 2024
EKG: Tracing Personally Visualized and interpreted (Tele reviewed: Mayer and occasional 2:1, brief episodes)
[2024-10-26 09:52] LABS: Hematocrit 33.8 % (37.0-47.0); Hemoglobin 10.9 g/dL (12.0-16.0); Mean Corp Hgb Conc. 32.2 g/dL (33.0-37.0); Mean Corpuscular Hgb 25.5 pg (27.0-31.0); Mean Platelet Volume 10.8 fL (7.4-10.4); Platelet Count 131 10^3/uL (130-400); Red Blood Cell Count 4.28 10^6/uL (4.20-5.40); Red Cell Dist. Width 16.7 % (11.5-14.5); White Blood Cell Count 6.2 10^3/uL (4.8-10.8)
[2024-10-26 10:20] LABS: ALT (SGPT) 23 U/L (0-35); AST (SGOT) 26 U/L (14-36); Albumin 2.2 g/dl (3.5-5.0); Alkaline Phosphatase 87 U/L (38-126); Blood Urea Nitrogen 13 mg/dl (7-17); Calcium 8.3 mg/dl (8.4-10.2); Carbon Dioxide 34 mmol/L (22-30); Chloride 100 mmol/L (98-107); Estimated Creatinine Clearance 41 ml/min; Glucose 84 mg/dl (70-99); Potassium 3.7 mmol/L (3.5-5.1); Sodium 137 mmol/L (135-145); Total Bilirubin 0.5 mg/dl (0.2-1.3); eGFR 43.69
[2024-10-26 11:05] VITALS: BP 150/87
[2024-10-26 11:51] LABS: Glucose - Point of Care 81 mg/dl (70-99)
--- NOTE | 2024-10-26 13:09 | W.PN.HOSP.TC ---
Addendum entered and electronically signed by Randell Gil MD 10/26/24 15:35:
Hyperthermia now resolved
-TSH within normal, cortisol within normal, blood cultures no growth to date, flu negative, COVID-negative, syphilis negative
-Still having intermittent episodes worse during the night. As needed warming blankets.
Failure to thrive, complaining of nausea, with hypoglycemia at 62 was low at 3:30 in the morning
Will have GI evaluate, recommend MRI abdomen
Continue IV hydration
Continue Ensure/Glucerna
DM II
-Hold Metformin
-SSI
Original Note:
Today's Communication/Plan
-
Continues to have poor PO intake/nausea. MRI w/ w/o IV. Patient to be seen by GI.
Assessment / Plan
Assessment / Plan
Hypothermia
- Temperature 88.3 on admission (otherwise hemodynamically stable)
- Normal temps now with intermittent dips
- Warming blankets prn.
- TSH normal, Cortisol normal, Lactate normal, Ammonia normal, Lipid Profile normal, B12 normal, CK normal, procal normal
- Blood cultures no growth 72h - no abx for now.
- Case Management: eventual d/c to SNF then patient should move to [place] or [place]; patient's sister (one of whom is HUMBERTO) agree that patient should not return to her apartment. Patient has a bed at [facility] for tomorrow.
- Teaching team Spoke with patient's sister Elizabeth and HUMBERTO Gonzalez at request; updated on medical condition and let them know to contact for social questions regarding discharge planning.
- PT/OT as tolerated.
Failure to Thrive/Protein malnutrition
- Continue gentle hydration
- Patient not eating; protein 5.2, albumin 2.3 (improved). Prealbumin 4.9
- Originally thought to be from not liking the food
- Continues to feel nauseous this morning
- Obstruction Series negative for obstruction
- CW protein supplements
- CT AP (10/25): Few scattered indeterminate low-attenuation density hepatic lesions, evaluation limited.
- Consult GI: appreciate reccs, MRI With/Without IV Contrast today
DM II
- Hb A1c 6.0
- Hold metformin
- SS Insulin for now.
HTN
- BPs elevated as clinical condition improved, normotensive toady
- Patient home meds atenolol, HCTZ, lisinopril, originally held in the setting of bradycardia.
- Continue to hold atenolol (AV deena blocking agent)
- HCTZ and Lisinopril restarted
Bradycardia
- EKG: first degree heart block; repeat during bradycardic episode: Second degree Mobitz 1 . AV weknebach transient noted -no new recs from cards.
- Cardiology consulted; appreciate reccs
- ECHO: EF 60%, mild pumonary HTN, otherwise normal
- PPM not indicated as the patient is not symptomatic
Wound care -
- No open wounds, macerated skin in the feet due to chronic moisture
- wound care consult
Lovenox/Full Code/Diabetic 2000 kartik
DW Elizabeth her sister- she is coming to hospital coming week. She is waiting to get a hearing for guardianship on Soila. She is seeing decline in her cognition and asking for mental status capacity . Psychiatry consulted for medical decision making
capacity. Patient denied to speak with psych, who noted that the patient seemed to have full use of her faculties.
Anticipated Discharge: 24 - 48 hours
Subjective/Interval History
-
Date of Service: October 26, 2024
Patient seen and examined while resting comfortably in bed. Patient's breakfast is on the cart next to her bed, untouched. Patient endorses being able to keep down juice this morning, which she was unable to do on prior days, however still has not
been eating any solid foods. The patient otherwise states she feels fine and specifically denies any abdominal pain.
Objective Data
-
Labs:
Laboratory Results
10/26/24
09:37
WBC 6.2
Hgb 10.9 L
Hct 33.8 L
Plt Count 131 D
Sodium 137
Potassium 3.7
Chloride 100
Carbon Dioxide 34 H
BUN 13
Creatinine 1.3 H
Glucose 84
Calcium 8.3 L
Total Bilirubin 0.5
AST 26
ALT 23
Alkaline Phosphatase 87
Vital Signs:
Vital Signs
Temp Pulse Resp BP Pulse Ox
98.5 F 93 18 150/87 96
10/26/24 11:05 10/26/24 11:05 10/26/24 11:05 10/26/24 11:05 10/26/24 11:05
I&O
10/25/24 10/26/24 10/27/24
06:59 06:59 06:59
Intake Total 840 / 840 1060 / 1060
Balance 840 / 840 1060 / 1060
Review of Systems
-
History Source: Patient
Constitutional: Reports No Symptoms
Respiratory: Reports No Symptoms
Cardiac: Reports No Symptoms
Abdomen/GI: Reports Nausea; Denies Abdominal Pain or Vomiting
Neuro: Reports No Symptoms
Physical Exam
-
General: No Apparent Distress and Conversant
HEENT: Normocephalic and Atraumatic
Respiratory: Clear to Auscultation
Cardiac: Regular Rhythm and S1/S2
GI: Soft, Nontender and Nondistended
Skin: Warm
Neuro: Awake and Alert
Psych: Calm
Data Reviewed
-
CT Scan: Report Reviewed by me
Labs: Labs Reviewed by me
--- NOTE | 2024-10-26 13:22 | CON.GI ---
Addendum entered and electronically signed by Brock Burden DO 10/26/24 17:31:
I saw and examined the patient.
The WIRELESS SALES ASSOCIATE's note was reviewed and I agree with the note.
Comment: This is a 74 y.o female with past medical history as detailed below who presented with a fall and found to have hypothermia along with decreased p.o intake with nausea/vomiting. Found to incidental liver lesions on recent CT imaging for
which GI has been consulted. Upon further review of CT appears these may be simple hepatic cysts, however grossly limited due to motion artifact along beam artifact. Additionally, found to have significant stool burden on a prior X-ray with moderate
fecal material throughout the colon along with repeat CT imaging. The remaining GI tract was also somewhat limited as without any oral contrast. In regards to the hepatic lesions, LFTs wnl and no prior history of cirrhosis. Doubt liver lesions are
contributing to her nausea/vomiting, but again would benefit from a MRI for further evaluation. In regards to her nausea/vomiting, suspect multifactorial and underlying constipation which is likely further contributing. She is anemic and has never
had an EGD. Did discuss this with her however patient declined any further further testing including a potential EGD along with her MRI after prolonged discussions with both myself and ZA Lang at bedside.
Recommendations:
- Diet as tolerated, supplement with Ensures / Boosts shakes as well
- LFTs wnl, continue to trend daily
- Send anemia w/u as below
- Favor obtaining MRI Abdomen WWO contrast if patient is amenable
- Recommend bowel regimen as below as suspect factor of constipation/increased stool burden contributing to nausea
- Offered EGD as well given her anemia and concern for nausea/vomiting, however patient declined
- Continue IV anti-emetics and supportive care as per primary team
- Rest of care as outlined below
Patient still declining MRI and further w/u despite counseling with patient this afternoon.
Discussed with primary internal medicine team. GI will sign-off, please re-engage or call with any questions or concerns.
Original Note:
Consultation
-
Date/Time Consultation Requested: 10/26/24 1149
Date/Time Consultation Performed: 10/26/24 1300
Requesting Provider: Dr. Barrett
Performing Provider: Dr. Burden/ZA Amin
Reason for Consultation: questionable liver lesions, nausea
Medical History
Chief Complaint / HPI
Chief Complaint: hypothermia
History of Present Illness:
74-year-old female with past medical history of obesity, hypertension, hyperlipidemia, diabetes, CKD 3 who presented to the emergency room on 10/18/2024 after having a fall week prior with decreased in ambulation. She was found to have hypothermia
with a temp of 88.3 �F on admission and bradycardia. Patient had confusion as well. We are asked to evaluate for poor p.o. intake, nausea as well as liver lesion seen on imaging. I was able to review patient's records from PCP note from
07/18/2023. The patient does state that she is not good with any kind of outpatient follow-up with providers she states that she is supposed to take metformin, lisinopril, atorvastatin and HCTZ. She does state that she does not take these
medications. She had a Cologuard that was negative performed in August 2022. She does tell me that she was having some pain in her feet and found it difficult to walk when she was at home. She also states that coming in here she was confused
and she is no longer confused. That she did have episodes of nausea and vomiting when she presented however she has been tolerating her diet for at least the past 24 hours. She feels this is no longer an issue for her. Prior to arrival she states
that her bowel movements were soft formed and every day or every other day. She states her only surgery was wisdom teeth. She states she does not smoke. She would drink alcohol on occasion however not has not had some in quite some time. She
does state that she eats well at home. She was however found incontinent of urine and feces by EMT. X-ray imaging of the abdomen on 10/21/2024 shows moderate amount of fecal material in the colon. There was no distended loops of bowel to suggest
obstruction. She was having soft and loose stools at that time. Repeat imaging was obtained on 10/24/2024 There are a few tiny/small scattered low-attenuation lesions throughout the liver, none of which, including the largest measuring 1.3 cm and
the left lobe of the liver image 17 series 301 can be confirmed as simple cysts, limited at least in part due to beam hardening artifact and motion artifact. Thickening of the adrenal glands are seen bilaterally. Food/fluid material fills the
stomach. No focal abnormality of the gallbladder is seen and there is no biliary tract dilatation. There is no focal abnormality of the pancreas or spleen with incidental tiny accessory spleen noted image 19 series 301. Renal excretion is symmetric.
The abdominal aorta is normal in caliber with calcific atherosclerotic changes. There is no retroperitoneal lymphadenopathy. There is a small fat only containing umbilical hernia. Evaluation of the intestinal tract is markedly limited without oral
contrast, without intestinal obstruction or free air. Some faint high attenuation density in the small bowel may be medication related, less small volume oral contrast was administered. Degenerative changes are seen particularly within the lower
lumbar spine. Large volume stool fills the rectum. Minimal dependent free fluid in the true pelvis cannot be excluded. There is no focal abnormality of the urinary bladder. Indeterminate hypodensity is noted centrally within the uterus. The patient
denies any history of hepatitis, jaundice or liver disease. No family history gastrointestinal malignancy or liver disease. At the present time the patient is declining MRI or ultrasound to evaluate her liver. WBC 6.2, hemoglobin 10.9, hematocrit
33.8, platelets 131, MCV 79.0, MCH 25.5, sodium 137, potassium 3.7, BUN 13, creatinine 1.3, glucose 84, calcium 8.3, total bilirubin 0.5, AST 26, ALT 27, alk phos 87
Past Medical History
Past Medical History: HTN, Hypercholesterolemia and NIDDM
Past Surgical History: None
Social History
Tobacco: Non-Smoker
Alcohol: Occasional
Drug: None
Personal: Single
Living: Alone
Family History
Family History: Other (No family history gastrointestinal malignancy, IBD or liver disease)
Allergies / Home Medications
Allergy/AdvReac Type Severity Reaction Status Date / Time
No Known Allergies Allergy Unverified 10/18/24 22:12
Review of Systems
-
All other systems: A 12 pt ROS was Negative except as stated above in HPI
Vital Signs
Temp Pulse Resp BP Pulse Ox
98.5 F 93 18 150/87 96
10/26/24 11:05 10/26/24 11:05 10/26/24 11:05 10/26/24 11:05 10/26/24 11:05
Physical Exam
Exam
General: No Apparent Distress
HEENT: Anicteric
Respiratory: Clear
Cardiac: Regular Rhythm
GI: Soft, Non Tender, Non Distended and Normal Bowel Sounds
Skin: Warm and Dry
Psych: Calm
Results
WBC 6.2 10^3/uL (4.8-10.8) 10/26/24 09:37
Hgb 10.9 g/dL (12.0-16.0) L 10/26/24 09:37
Hct 33.8 % (37.0-47.0) L 10/26/24 09:37
MCV 79.0 fL (81.0-99.0) L 10/26/24 09:37
Plt Count 131 10^3/uL (130-400) D 10/26/24 09:37
Absolute Neuts (auto) 6.2 10^3/uL (1.4-6.5) 10/18/24 21:39
Sodium 137 mmol/L (135-145) 10/26/24 09:37
Potassium 3.7 mmol/L (3.5-5.1) 10/26/24 09:37
Chloride 100 mmol/L (98-107) 10/26/24 09:37
Carbon Dioxide 34 mmol/L (22-30) H 10/26/24 09:37
BUN 13 mg/dl (7-17) 10/26/24 09:37
Creatinine 1.3 mg/dL (0.6-1.0) H 10/26/24 09:37
Calcium 8.3 mg/dl (8.4-10.2) L 10/26/24 09:37
Total Bilirubin 0.5 mg/dl (0.2-1.3) 10/26/24 09:37
AST 26 U/L (14-36) 10/26/24 09:37
ALT 23 U/L (0-35) 10/26/24 09:37
Alkaline Phosphatase 87 U/L (38-126) 10/26/24 09:37
Diagnostic Image Results:
CT chest/abdomen and pelvis with IV contrast only:
Overall limited study due to several factors, as detailed above.
Small bilateral lower lobe consolidations with air bronchograms, pneumonia/or atelectasis and small bilateral pleural effusions.
Few scattered indeterminate low-attenuation density hepatic lesions, as detailed above. These could be benign, malignancy cannot be excluded, evaluation limited.
No intestinal obstruction or free air.
Heterogeneous nonspecific low-attenuation density centrally within the uterus. If there is vaginal bleeding, consider Pelvic Ultrasound.
Electronically signed by Kian Kennedy MD, 10/24/2024 4:22 PM
X-ray chest abdomen 10/21/2024:
IMPRESSION: No evidence of intestinal obstruction.
Moderate fecal material throughout the colon.
No acute disease of the chest.
Small right pleural effusion.
Mild left lower lobe atelectasis versus scarring.
Electronically signed by Nataly Guerra DO, 10/21/2024 2:31 PM
Prior GI Procedures:
EGD: Never
Colonoscopy: Never
Cologuard 09/25/2022 negative
Assessment / Plan
-
74-year-old female with past medical history of obesity, hypertension, hyperlipidemia, diabetes, CKD 3 who presented to the emergency room on 10/18/2024 after having a fall week prior with decreased in ambulation. She was found to have hypothermia
with a temp of 88.3 �F on admission and bradycardia. Patient had confusion as well. We are asked to evaluate for poor p.o. intake, nausea as well as liver lesion seen on imaging. X-ray imaging of the abdomen on 10/21/2024 shows moderate amount of
fecal material in the colon. There was no distended loops of bowel to suggest obstruction. She was having soft and loose stools at that time. Repeat imaging was obtained on 10/24/2024 There are a few tiny/small scattered low-attenuation lesions
throughout the liver, none of which, including the largest measuring 1.3 cm and the left lobe of the liver image 17 series 301 can be confirmed as simple cysts, limited at least in part due to beam hardening artifact and motion artifact. Thickening
of the adrenal glands are seen bilaterally. Food/fluid material fills the stomach. No focal abnormality of the gallbladder is seen and there is no biliary tract dilatation. There is no focal abnormality of the pancreas or spleen with incidental tiny
accessory spleen noted image 19 series 301. Renal excretion is symmetric. The abdominal aorta is normal in caliber with calcific atherosclerotic changes. There is no retroperitoneal lymphadenopathy. There is a small fat only containing umbilical
hernia. Evaluation of the intestinal tract is markedly limited without oral contrast, without intestinal obstruction or free air. Some faint high attenuation density in the small bowel may be medication related, less small volume oral contrast was
administered. Degenerative changes are seen particularly within the lower lumbar spine. Large volume stool fills the rectum. Minimal dependent free fluid in the true pelvis cannot be excluded. There is no focal abnormality of the urinary bladder.
Indeterminate hypodensity is noted centrally within the uterus. The patient denies any history of hepatitis, jaundice or liver disease. No family history gastrointestinal malignancy or liver disease. At the present time the patient is declining
MRI or ultrasound to evaluate her liver. WBC 6.2, hemoglobin 10.9, hematocrit 33.8, platelets 131, MCV 79.0, MCH 25.5, sodium 137, potassium 3.7, BUN 13, creatinine 1.3, glucose 84, calcium 8.3, total bilirubin 0.5, AST 26, ALT 27, alk phos 87.
--> Patient states that she is no longer nauseous and starting to eat at this time. She is refusing imaging to evaluate lesions in the liver seen on CT imaging. I did discuss with her that there appears to be constipation that could be
contributing to her prior nausea. Would recommend bowel regimen going forward. LFTs are within normal limits.
Impression:
Indeterminate low-attenuation hepatic lesions
Constipation
Nausea
Hypothermia
Protein malnutrition, decreased albumin and protein
Anemia, microcytic
Plan:
-At this time patient declining MRI or ultrasound of liver lesions. Would recommend MRI
-Check iron, ferritin, TIBC, B12 and folate
-Would recommend bowel regimen in the form of MiraLAX daily
-Encourage p.o. intake as well as Ensure/Glucerna
-Further recommendations to be forthcoming.
-
-
Thank you for consultation and allowing me to participate in the patient's care. Please call the senior production supervisor GI physician during the after hours with any questions or concerns.
[2024-10-26 15:11] VITALS: BP 99/68
--- NOTE | 2024-10-26 15:11 | CM ---
Auth obtained for for [facility] which will exp 10/27/24.
Pt not medically ready for discharge today.
[facility] authorization #[id number] 10/23-10/27/2024 with NRD 10/27/2024 to .
Ambulance auth# [id number] with [facility].
[place] need an updated auth at [place].
[facility]
report [phone]
fax [phone]
PLAN To [facility] after medically ready and auth updated
[2024-10-26 16:57] LABS: Glucose - Point of Care 86 mg/dl (70-99)
[2024-10-26] MEDS: LOVENOX 40 MG SC (17:21)
[2024-10-26 19:55] VITALS: BP 110/57
[2024-10-26 21:13] LABS: Glucose - Point of Care 84 mg/dl (70-99)
[2024-10-26] MEDS: REMERON 7.5 MG PO (21:34)
[2024-10-26 23:55] VITALS: BP 110/66
[2024-10-27] VITALS (7 sets, daily range): BP systolic 110–148; BP diastolic 64–80; PULSE 80; O2SAT 98
[2024-10-27 03:54] LABS: Glucose - Point of Care 83 mg/dl (70-99)
[2024-10-27 07:07] LABS: ALT (SGPT) 23 U/L (0-35); AST (SGOT) 22 U/L (14-36); Albumin 2.2 g/dl (3.5-5.0); Alkaline Phosphatase 89 U/L (38-126); Blood Urea Nitrogen 13 mg/dl (7-17); Calcium 8.5 mg/dl (8.4-10.2); Carbon Dioxide 31 mmol/L (22-30); Chloride 101 mmol/L (98-107); Estimated Creatinine Clearance 35 ml/min; Glucose 82 mg/dl (70-99); Iron 74 ug/dl (37-170); Potassium 3.4 mmol/L (3.5-5.1); Sodium 135 mmol/L (135-145); Total Bilirubin 0.5 mg/dl (0.2-1.3)
[2024-10-27 07:17] LABS: Percent Saturation 40 % (20-50); Total Iron Binding Capacity 182 ug/dl (265-497)
[2024-10-27 08:13] LABS: Glucose - Point of Care 67 mg/dl (70-99)
[2024-10-27 08:13] LABS: Folate 4.4 ng/ml (2.76-20); Vitamin B12 761 pg/ml (239-931)
[2024-10-27 08:48] LABS: % Basophils 0.5 % (0-2); % Eosinophils 1.2 % (0-6); % Immature Granulocytes 1.5 % (0-0.5); % Lymphocytes 25.9 % (20.5-51.1); % Monocytes 10.2 % (1.7-9.3); % Neutrophils 60.7 % (42.2-75.2); Absolute Eosinophils 0.1 10^3/uL (0-0.7); Absolute Immature Granulocytes 0.1 10^3/uL (0-0.05); Absolute Lymphocytes 1.6 10^3/uL (1.2-3.4); Absolute Monocytes 0.6 10^3/uL (0.1-0.6); Absolute Neutrophils 3.6 10^3/uL (1.4-6.5); Hematocrit 32.7 % (37.0-47.0); Hemoglobin 10.2 g/dL (12.0-16.0); Mean Corp Hgb Conc. 31.2 g/dL (33.0-37.0); Mean Corpuscular Hgb 25.1 pg (27.0-31.0); Mean Corpuscular Volume 80.3 fL (81.0-99.0); Mean Platelet Volume 11.2 fL (7.4-10.4); Nucleated Red Blood Cells % 0.3 %; Platelet Count 131 10^3/uL (130-400); Red Blood Cell Count 4.07 10^6/uL (4.20-5.40); Red Cell Dist. Width 16.5 % (11.5-14.5)
[2024-10-27 08:55] LABS: Glucose - Point of Care 62 mg/dl (70-99)
[2024-10-27] MEDS: PROTONIX 40 MG PO (08:58)
[2024-10-27] MEDS: ZESTRIL 20 MG PO ×2 (08:58→20:21)
[2024-10-27] MEDS: ORETIC 25 MG PO (08:58)
[2024-10-27] MEDS: HYDROPHOR 1 APPLIC TOPICAL (09:02)
[2024-10-27] MEDS: DESENEX/MITRAZOL/ZEASORB 1 APPLIC TOPICAL ×2 (09:03→20:22)
--- NOTE | 2024-10-27 09:20 | W.PN.HOSP.TC ---
Addendum entered and electronically signed by Randell Gil MD 10/27/24 13:57:
Hypothermia now resolved
-TSH within normal, cortisol within normal, blood cultures no growth to date, flu negative, COVID-negative, syphilis negative
-Still having intermittent episodes worse during the night. As needed warming blankets.
Failure to thrive, complaining of nausea, with hypoglycemia at 62 was low at 3:30 in the morning
Will have GI evaluate, recommend MRI abdomen for liver lesions, initially, declined now agreeable after discussion
---depending on mri findings may need egd, would appreciate GI input
Continue IV hydration
Continue Ensure/Glucerna
DM II
-Hold Metformin
-SSI
Original Note:
Today's Communication/Plan
-
.
Assessment / Plan
Assessment / Plan
Hypothermia
- Temperature 88.3 on admission (otherwise hemodynamically stable)
- Normal temps now with intermittent dips
- Warming blankets prn.
- TSH normal, Cortisol normal, Lactate normal, Ammonia normal, Lipid Profile normal, B12 normal, CK normal, procal normal
- Blood cultures no growth 72h - no abx for now.
- Case Management: eventual d/c to SNF then patient should move to [place] or [place]; patient's sister (one of whom is HUMBERTO) agree that patient should not return to her apartment. Patient has a bed at [facility] for tomorrow.
- Teaching team Spoke with patient's sister Elizabeth and HUMBERTO Gonzalez at request; updated on medical condition and let them know to contact for social questions regarding discharge planning. Patient states daughter is arriving tomorrow.
- PT/OT as tolerated.
Failure to Thrive/Protein malnutrition
- Continue gentle hydration; D5 NS 500 mL @ 75ml/hr w/ 40 mEQ K
- Patient not eating; protein 5.2, albumin 2.3 (improved). Prealbumin 4.9
- Originally thought to be from not liking the food
- Continues to feel nauseous this morning
- Obstruction Series negative for obstruction
- CW protein supplements
- CT AP (10/25): Few scattered indeterminate low-attenuation density hepatic lesions, evaluation limited.
- Consult GI: appreciate reccs, MRI With/Without IV Contrast today (patient originally declined, but in agreement today)
- Patient also possibly amenable to endoscopy, but would like to speak with GI regarding risks and benefits
DM II
- Hb A1c 6.0
- Hold metformin
- SS Insulin for now.
HTN
- BPs elevated as clinical condition improved, normotensive today
- Patient home meds atenolol, HCTZ, lisinopril, originally held in the setting of bradycardia.
- Continue to hold atenolol (AV deena blocking agent)
- Continue HCTZ and Lisinopril
Bradycardia
- EKG: first degree heart block; repeat during bradycardic episode: Second degree Mobitz 1 . AV weknebach transient noted -no new recs from cards.
- Cardiology consulted; appreciate reccs
- ECHO: EF 60%, mild pumonary HTN, otherwise normal
- PPM not indicated as the patient is not symptomatic
Wound care -
- No open wounds, macerated skin in the feet due to chronic moisture
- wound care consult
Lovenox/Full Code/Diabetic 2000 kartik
DW Elizabeth her sister- she is coming to hospital coming week. She is waiting to get a hearing for guardianship on Soila. She is seeing decline in her cognition and asking for mental status capacity . Psychiatry consulted for medical decision making
capacity. Patient denied to speak with psych, who noted that the patient seemed to have full use of her faculties.
Anticipated Discharge: Within 24 hours
Subjective/Interval History
-
Date of Service: October 27, 2024
Patient seen and examined while resting comfortably in bed, reading a book. Patient states that she was feeling better yesterday with regards to nausea, however notes she still has problems keeping down food. Attempted to eat this morning but only
had a nibble of her banana. Says she does not want to eat because she feels there is no point if she is just going to vomit it back up again. She continues to deny abdominal pain. States she has had a bowel movement but that it was small. Patient
was seen by GI yesterday, who recommended MRI and potential EGD, however, the patient declined a GI workup despite long discussion with GI and GI CRI[employer] PAD MAKER. This morning however, patient is now amenable to getting MRI.
Objective Data
-
Labs:
Laboratory Results
10/27/24 10/27/24
06:28 08:01
WBC Cancelled 6.0
Hgb Cancelled 10.2 L
Hct Cancelled 32.7 L
Plt Count Cancelled 131
Sodium 135
Potassium 3.4 L
Chloride 101
Carbon Dioxide 31 H
BUN 13
Creatinine 1.5 H
Glucose 82
Calcium 8.5
Total Bilirubin 0.5
AST 22
ALT 23
Alkaline Phosphatase 89
Vital Signs:
Vital Signs
Temp Pulse Resp BP Pulse Ox
98.5 F 92 20 121/71 97
10/27/24 07:45 10/27/24 07:45 10/27/24 07:45 10/27/24 08:58 10/27/24 07:45
I&O
10/26/24 10/27/24 10/28/24
06:59 06:59 06:59
Intake Total 1060 / 1060 240 / 240
Balance 1060 / 1060 240 / 240
Review of Systems
-
History Source: Patient
Constitutional: Reports No Symptoms
Respiratory: Reports No Symptoms
Cardiac: Reports No Symptoms
Abdomen/GI: Reports Nausea and Vomiting; Denies Abdominal Pain, Diarrhea or Constipated
Neuro: Reports No Symptoms
Physical Exam
-
General: No Apparent Distress and Comfortable
HEENT: Normocephalic and Atraumatic
Respiratory: Clear to Auscultation
Cardiac: Regular Rhythm and S1/S2
GI: Soft, Nontender and Nondistended
Musculoskeletal: No Clubbing, No Cyanosis and No Edema
Data Reviewed
-
Labs: Labs Reviewed by me and Discussed with Patient
[2024-10-27 09:28] LABS: Glucose - Point of Care 81 mg/dl (70-99)
[2024-10-27] MEDS: KCL 520 MEQ IV (12:38)
[2024-10-27] MEDS: DULCOLAX 10 MG RECTAL (12:38)
[2024-10-27 12:46] LABS: Glucose - Point of Care 71 mg/dl (70-99)
--- NOTE | 2024-10-27 13:35 | PTCARENOTE ---
pt continues to refuse meals. much encouragement for only sips/bites. Pt denies nausea today, states it is improved and wants to avoid orange juice i the future. reviewed POC. Pt agitated 'stop just telling me what I need to do' Pt was accepting of
AM care, bed bath, skin treatments and medications
--- NOTE | 2024-10-27 13:59 | PN.CDI ---
CDI
- -
CDI:
Physician Documentation Request
Admit Date: 10/19/24 00:40
Dear Doctor Arnold,
Please review the following and provide your response in the progress notes.
Clinical Indicators:
Documentation includes the diagnosis of malnutrition. Other clinical indicators are:(PLEASE DOCUMENT YOUR CLINICAL FINDINGS BASED ON ASPEN CRITERIA)
Program Director [employer], 10/26
#Diet: regular, intakes remain poor, Pt with nausea per MD.
#...Pt is being sent enriched pudding on lunch and dinner trays.
#Encourage intakes of meals and supplements as tolerated.
#...RD available for nutritional recommendations as needed
PN, 10/27
#... Failure to Thrive/Protein malnutrition
- Continue gentle hydration; D5 NS 500 mL @ 75ml/hr w/ 40 mEQ K
#...- Patient not eating; protein 5.2, albumin 2.3 (improved). Prealbumin 4.9
#- Originally thought to be from not liking the food
#- Continues to feel nauseous this morning
#- Obstruction Series negative for obstruction
#- CW protein supplements
To ensure the quality of the medical record, based on the above information and the recognized standards for malnutrition , please verify in the progress notes which of the following responses best reflects the patient's nutritional status:
(Specify severity) Malnutrition is/was present and is a clinical diagnosis (please provide additional support in the medical record)
Other level of malnutrition is present (Mild, Moderate or Severe)
Other (please specify)
Carpenter Criteria (ACP Hospitalist 2017)
2 or more criteria must be present for either
non severe or severe malnutrition
Note that the criteria differs related to the
presence of an acute or chronic illness
Acute Illness Chronic Illness
Energy Intake Non Severe: <75% for >7 days Non Severe: <75% for >1 month
Severe: <50% for >5 days Severe: <75% for >1 month
Weight Loss Non Severe: 1-2% over 1 week Non Severe: 5% over 1 month
5% over 1 month 7.5% over 3 months
7.5% over 3 months 10% over 6 months
1 year N/A 20% over 1 year
Severe: >2% over 1 week Severe: >5% over 1 month
>5% over 1 month >7.5% over 3 months
>7.5% over 3 months >10% over 6 months
1 year N/A >20% over 1 year
Body Fat Non Severe: Mild Decrease Non Severe: Mild Loss
Severe: Moderate Decrease Severe: Severe Loss
Muscle Mass Non Severe: Mild Decrease Non Severe: Mild Loss
Severe: Moderate Decrease Severe: Severe Loss
Fluid Accumulation Non Severe: Mild Accumulation Non Severe: Mild Accumulation
Severe: Moderate to severe Severe: Moderate to severe
accumulation accumulation
Reduced Naphthol Soaping Machine Operator Strength Non Severe: N/A Non Severe: N/A
Severe: Measurably reduced Severe: Measurably reduced
Additional criteria that can be used to Determine if Mild or Moderate Malnutrition (Merck Manual 2018)
Mild Moderate Severe
Albumin gm/dl <3.0 gm/dl <2.5 gm/dl <2.0 gm/dl
Pre Albumin mg/dl <15 gm/dl <10 mg/dl <5.0 mg/dl
BMI <18.5 <17 <16
Use of terms such as suspected, likely, concern for, or probable (associated with a specific diagnosis that is being evaluated, monitored, or treated as if it exists) are acceptable and can be coded in the inpatient setting, when documented at the
time of discharge.
Thank you,
Maren Esquivel RN BSN CCDS
CDI Specialist
please contact via tiger text
Please use your independent medical judgment in providing your response.
--- NOTE | 2024-10-27 14:21 | CM ---
CM continues to follow for discharge to [facility] when medically cleared. Pt for MRI today.
SNF authorization will need to be redone, as today is the end date for the original authorization.
([place] authorization #[id number] 10/23-10/27/2024 with NRD 10/27/2024 to .)
Plan: CM to follow up with [facility] for updated/new authorization when medically ready.
[place] Report: [phone]
[place] [place]
[2024-10-27 17:23] LABS: Glucose - Point of Care 97 mg/dl (70-99)
[2024-10-27] MEDS: LOVENOX 40 MG SC (17:32)
--- NOTE | 2024-10-27 18:29 | PTCARENOTE ---
Pt returned fro MRI. Stand ad pivot to BSC, BM ad voided. skin care proided, assisted back to bed. Poor appetite continues, encouraged to eat accepted only bites begrudgingly. no change in assessment. Pt appears comfortable, CB in reach
[2024-10-27 21:25] LABS: Glucose - Point of Care 99 mg/dl (70-99)
--- NOTE | 2024-10-27 22:29 | PTCARENOTE ---
Pt noted to be in afib at beginning of shift. EKG done. Heart rate controlled in 80s-110s. House KNOCKOUT MAN updated. Pt back in NSR now.
[2024-10-27] MEDS: REMERON 7.5 MG PO (22:47)
--- NOTE | 2024-10-28 01:46 | W.PN.UPDATE ---
Update Note
Progress Note Update
RN reports that pt heart rhythm on tele converted to controlled afib HR 80s. EKG was done to confirm but it was poor quality (multiple attempts to get good reading were made).
Shortly thereafter HR back to NSR. Atenolol on hold due to type 1 HB and bradycardia.
[2024-10-28 03:52] VITALS: BP 120/67
[2024-10-28 07:35] LABS: Glucose - Point of Care 62 mg/dl (70-99)
[2024-10-28 07:45] VITALS: BP 146/68
[2024-10-28 08:23] LABS: Glucose - Point of Care 71 mg/dl (70-99)
[2024-10-28] MEDS: DESENEX/MITRAZOL/ZEASORB 1 APPLIC TOPICAL ×2 (08:23→21:33)
[2024-10-28] MEDS: PROTONIX 40 MG PO (08:24)
[2024-10-28] MEDS: HYDROPHOR 1 APPLIC TOPICAL (08:24)
[2024-10-28] MEDS: ZESTRIL 20 MG PO ×2 (08:24→21:29)
[2024-10-28] MEDS: ORETIC 25 MG PO (08:25)
[2024-10-28 08:31] LABS: Blood Urea Nitrogen 14 mg/dl (7-17); Calcium 8.8 mg/dl (8.4-10.2); Carbon Dioxide 30 mmol/L (22-30); Chloride 104 mmol/L (98-107); Estimated Creatinine Clearance 38 ml/min; Glucose 67 mg/dl (70-99); Potassium 3.5 mmol/L (3.5-5.1); Sodium 139 mmol/L (135-145); eGFR 39.97
--- NOTE | 2024-10-28 09:59 | W.PN.HOSP.TC ---
Today's Communication/Plan
-
.
Assessment / Plan
Assessment / Plan
1. Hypothermia (resolved)
- Temperature 88.3 on admission (otherwise hemodynamically stable)
- Normal temps now with intermittent dips
- Warming blankets prn.
- TSH normal, Cortisol normal, Lactate normal, Ammonia normal, Lipid Profile normal, B12 normal, CK normal, procal normal
- Blood cultures no growth 72h - no abx for now.
- Case Management: eventual d/c to SNF then patient should move to [place] or [place]; patient's sister (one of whom is HUMBERTO) agree that patient should not return to her apartment. Patient has a bed at [facility] for tomorrow.
- Teaching team Spoke with patient's sister Elizabeth and HUMBERTO Gonzalez at request; updated on medical condition and let them know to contact for social questions regarding discharge planning. Patient states daughter is arriving tomorrow.
- PT/OT as tolerated.
2. Failure to Thrive/Protein malnutrition
- Continue gentle hydration; D5 NS 500 mL @ 75ml/hr w/ 40 mEQ K
- Patient not eating; protein 5.2, albumin 2.3 (improved). Prealbumin 4.9
- Originally thought to be from not liking the food
- Continues to feel nauseous this morning
- Obstruction Series negative for obstruction
- CW protein supplements
- CT AP (10/25): Few scattered indeterminate low-attenuation density hepatic lesions, evaluation limited.
- MRI (10/27): Bilateral lower lung airspace consolidations? Mild polycystic liver disease. Moderate to severe chronic kidney disease. Small to moderate paraesophageal hernia. Mild to moderate endometrial thickening
- TVUS/pelvic US: Small fibroids, 4 mm thick endometrium, small amount of fluid in the endometrial canal; Water And Gas Helper consult for evaluation
- Seen by GI, amenable to EGD tomorrow
-Appreciate GI recs: Continue PPI daily, add MiraLAX daily, continue supplement daily
3. DM II
- Hb A1c 6.0
- Hold metformin
- SS Insulin for now.
4. HTN
- BPs elevated as clinical condition improved, normotensive today
- Patient home meds atenolol, HCTZ, lisinopril, originally held in the setting of bradycardia.
- Continue to hold atenolol (AV deena blocking agent)
- Continue HCTZ and Lisinopril
5. Bradycardia
- EKG: first degree heart block; repeat during bradycardic episode: Second degree Mobitz 1 . AV weknebach transient noted -no new recs from cards.
- Cardiology consulted; appreciate reccs
- ECHO: EF 60%, mild pumonary HTN, otherwise normal
- PPM not indicated as the patient is not symptomatic
6. Wound care -
- No open wounds, macerated skin in the feet due to chronic moisture
- wound care consult
Lovenox/Full Code/Diabetic 1999 kartik
YAMIL Johnson her sister- she is coming to hospital coming week. She is waiting to get a hearing for guardianship on Soila. She is seeing decline in her cognition and asking for mental status capacity . Psychiatry consulted for medical decision making
capacity. Patient denied to speak with psych, who noted that the patient seemed to have full use of her faculties.
Anticipated Discharge: 24 - 48 hours
Subjective/Interval History
-
Date of Service: October 28, 2024
Patient seen and examined while resting comfortably in bed. Patient only ate a small portion of her bowl of rice pudding this morning, although she states that her nausea is a little bit better. Hemoglobin 67 this a.m.
Objective Data
-
Labs:
Laboratory Results
10/28/24 10/28/24
06:36 07:49
Sodium Cancelled 139
Potassium Cancelled 3.5
Chloride Cancelled 104
Carbon Dioxide Cancelled 30
BUN Cancelled 14
Creatinine Cancelled 1.4 H
Glucose Cancelled 67 L
Calcium Cancelled 8.8
Vital Signs:
Vital Signs
Temp Pulse Resp BP Pulse Ox
98.4 F 102 16 146/69 95
10/28/24 07:45 10/28/24 08:25 10/28/24 07:45 10/28/24 08:25 10/28/24 08:19
I&O
10/27/24 10/28/24 10/29/24
06:59 06:59 06:59
Intake Total 240 / 240 680 / 680
Balance 240 / 240 680 / 680
Review of Systems
-
History Source: Patient
Constitutional: Reports No Symptoms
Respiratory: Reports No Symptoms
Cardiac: Reports No Symptoms
Abdomen/GI: Reports Nausea
Musculoskeletal: Reports No Symptoms
Neuro: Reports No Symptoms
Physical Exam
-
General: No Apparent Distress and Comfortable
HEENT: Normocephalic, Atraumatic, Moist Mucous Membranes and Anicteric
Respiratory: Clear to Auscultation and Non Labored Respirations
Cardiac: Regular Rhythm and S1/S2
GI: Soft, Nontender and Nondistended
Musculoskeletal: No Clubbing and No Cyanosis
Skin: Warm and Dry
Neuro: Awake, Alert and Oriented
Psych: Calm
Data Reviewed
-
Ultrasound: Report Reviewed by me and Discussed with Patient
MRI: Report Reviewed by me and Discussed with Patient
Labs: Labs Reviewed by me and Discussed with Patient
[2024-10-28 10:04] LABS: Glucose - Point of Care 69 mg/dl (70-99)
[2024-10-28 11:14] LABS: Glucose - Point of Care 80 mg/dl (70-99)
[2024-10-28 11:31] VITALS: BP 137/66
--- NOTE | 2024-10-28 11:50 | W.PN.GI.CBS2 ---
Addendum entered and electronically signed by Brock Burden DO 10/28/24 18:04:
I saw and examined the patient.
The LINSEED OIL BOILER's note was reviewed and I agree with the note.
Comment: Etiology of nausea/vomiting likely multifactorial as detailed below. However, given her ongoing nausea and poor p.o intake reasonable to pursue a diagnostic EGD to exclude additional etiologies. Discussed risks and benefits with patient
this evening and amenable to proceeding with EGD. Recommend ongoing bowel regimen if largely related to slow transit constipation. Rest of care as outlined below.
Original Note:
Today's Communication / Plan
-
Pt with multiple reason for decreased appetite-- constipation, ? PNA, endometrial thickening, gastroparesis but hbg A1C stable vs other
per staff not eating much cont to monitor intakes
unclear if any wt loss but few lb gain since admission
I offered pt EGD for 10/29 to exclude underlying PUD, mass, hpylori etc-- reviewed risk and benefits with patient
she will consider options
I added to scheduled 10/29-- pt will let us know if she changes her mind
cont PPI daily and add Miralax daily and possible slight improvement after BM and after PPI therapy added
cont supplement daily
OP ROAD MANAGER follow up for endometrial thickening
consider OP GE scan and colonoscopy if symptoms persist
Assessment / Plan
-
74-year-old female with past medical history of obesity, hypertension, hyperlipidemia, diabetes, CKD 3 who presented to the emergency room on 10/18/2024 after having a fall week prior with decreased in ambulation. She was noted with hypothermia,
bradycardia and confusion. Asked to consult with decreased PO intakes, nausea, and liver lesion. Pt with extensive work up during admission. The patient denies any history of hepatitis, jaundice or liver disease. No family history
gastrointestinal malignancy or liver disease. During admission hbgA1C 6 , creat mild elevation, hbg 10- 11 range some hypoglycemia with not eating.
10/28/24 US pelvis- transvag-- 2 small uterine fibroids, homogeneous endometrium cannot exclude minimal fluid along endometrial canal. if bleeding consider MRI.
10/27/24 MR Abdomen W/o & W Contrast
1. MODERATE-SIZED BILATERAL LOWER LOBE AIRSPACE CONSOLIDATIONS most suggestive of moderate bilateral lower lobe pneumonia with adjacent SMALL BILATERAL PARAPNEUMONIC PLEURAL EFFUSIONS. Compressive subsegmental atelectasis in the lower lobes of
both lungs is an alternative diagnostic possibility.
2. Mild polycystic liver disease.
3. Moderate to severe chronic bilateral kidney disease.
4. Small to moderate-sized paraesophageal hiatal hernia.
5. Moderate distention of the urinary bladder.
6. Mild to moderate endometrial thickening (either endometrial hyperplasia or carcinoma).
7. Severe discogenic degenerative disease at L4/L5 and L5/S1.
10/24/24 CT Chest/abd/pelvis limited study, small b/l lower lobe consolidation air bronchogram, PNA, or atelectasis with small b/l effusion, low density hepatic lesions, benign vs malignant, no obstruction, low attenuation density central within
uterus, consider pelvic US
Small bilateral lower lobe consolidations with air bronchograms, pneumonia/or atelectasis and small bilateral pleural effusions.
Few scattered indeterminate low-attenuation density hepatic lesions, as detailed above. These could be benign, malignancy cannot be excluded, evaluation limited.
No intestinal obstruction or free air.
Heterogeneous nonspecific low-attenuation density centrally within the uterus. If there is vaginal bleeding, consider Pelvic Ultrasound.
10/21/24 obstruction series - no obstruction, moderate fecal impaction in colon, no acute disease of chest, small right pleural effusion, atelectasis vs scarring
10/18/24 HCT- no acute infarct, white matter leukoaraiosis, mild to moderate b/l parietal loss, volume loss frontal lobes and cerebellum.
The patient denies any history of hepatitis, jaundice or liver disease. No family history gastrointestinal malignancy or liver disease. At the present time the patient is declining MRI or ultrasound to evaluate her liver. WBC 6.2, hemoglobin
10.9, hematocrit 33.8, platelets 131, MCV 79.0, MCH 25.5, sodium 137, potassium 3.7, BUN 13, creatinine 1.3, glucose 84, calcium 8.3, total bilirubin 0.5, AST 26, ALT 27, alk phos 87.
--> Patient states that she is no longer nauseous and starting to eat at this time. She is refusing imaging to evaluate lesions in the liver seen on CT imaging. I did discuss with her that there appears to be constipation that could be
contributing to her prior nausea. Would recommend bowel regimen going forward. LFTs are within normal limits.
Impression:
decreased appetite/nausea/early satiety
Indeterminate low-attenuation hepatic lesions-- follow up MRI with polycystic liver disease
Constipation
Hypothermia
sm to mod paraesophageal hernia
Protein malnutrition, decreased albumin and protein
Mild to moderate endometrial thickening
Anemia, microcytic iron studies not consistent with iron deficiency
Plan:
Pt with multiple reason for decreased appetite-- constipation, ? PNA, endometrial thickening, gastroparesis but hbg A1C stable vs other
per staff not eating much cont to monitor intakes
unclear if any wt loss but few lb gain since admission
I offered pt EGD for 10/29 to exclude underlying PUD, mass, hpylori etc-- reviewed risk and benefits with patient
she will consider options
I added to scheduled 10/29-- pt will let us know if she changes her mind
cont PPI daily
add Miralax daily and possible slight improvement after BM
cont supplement daily
OP ROAD MANAGER follow up for endometrial thickening
consider OP GE scan and colonoscopy if symptoms persist
Subjective
Subjective
Date of Service: October 28, 2024
10/27 brown stool, regular diet -- per patient feeling slight improvement but per nursing staff not eating much no further vomiting
Objective
Data Reviewed
Laboratory Data:
Laboratory Results
10/27/24 08:01
10/28/24 07:49
Laboratory Results
Magnesium 1.6 mg/dl (1.6-2.3) 10/19/24 05:11
Total Bilirubin 0.5 mg/dl (0.2-1.3) 10/27/24 06:28
AST 22 U/L (14-36) 10/27/24 06:28
ALT 23 U/L (0-35) 10/27/24 06:28
Alkaline Phosphatase 89 U/L (38-126) 10/27/24 06:28
Vital Signs and I&O:
Vital Signs
Temp Pulse Resp BP Pulse Ox
98.3 F 77 18 137/66 94
10/28/24 11:31 10/28/24 11:31 10/28/24 11:31 10/28/24 11:31 10/28/24 11:31
I&O
10/27/24 10/28/24 10/29/24
06:59 06:59 06:59
Intake Total 240 / 240 680 / 680
Balance 240 / 240 680 / 680
Physical Exam
Physical Exam
HEENT: Anicteric and Moist mucous membranes
Cardiology: Normal Sinus Rhythm
Pulmonary: Clear
GI: Soft, Non Distended and Non Tender
Extremities: No Edema
Neuro: Non Focal
[2024-10-28] MEDS: D5/0.9% with KCL 40 MEQ 1000 IV (11:53)
[2024-10-28] MEDS: FLUSH (NSS) 1 FLUSH IV (11:53)
--- NOTE | 2024-10-28 13:58 | W.PN.UPDATE ---
Update Note
Progress Note Update
Hypothermia now resolved
-TSH within normal, cortisol within normal, blood cultures no growth to date, flu negative, COVID-negative, syphilis negative
-Still having intermittent episodes worse during the night. As needed warming blankets.
Failure to thrive, poor po intake
Will have GI evaluate, recommend MRI abdomen for liver lesions, initially, declined now agreeable after discussion
---MRI showing mild polycystic liver disease, endometrial thickening
Continue IV hydration
Continue Ensure/Glucerna
Now considering EGD, GI to add on to schedule for 10/29
Endometrial thickening
-Check TV/TPUS
-FLORAL DESIGN TEACHER ocnsult
DM II
-Hold Metformin
-SSI
[2024-10-28] MEDS: MIRALAX 17 GRAMS PO (14:19)
[2024-10-28 15:07] VITALS: BP 143/70
--- NOTE | 2024-10-28 16:09 | PTCARENOTE ---
Pt AAO x3, forgetful at times. BONE slowly; refuses offer of OOB to chair activity. Uncooperative with care at times. VSS. On room air- pulse ox 97%, no SOB noted. Abd obese, soft, lionel small amts PO; appetite very poor. Incont urine. Skin on
lower legs feet very dry/flaking; pt does not like having feet/legs touched; refusing SCD's at present; states legs are 'too sensitive-- maybe later'. IVF's D5NSS with 40 meq KCl @ 75 ml/hr infusing via Rt wrist site without sx of infiltration. No
c/o at present. Will continue to monitor.
[2024-10-28 16:35] LABS: Glucose - Point of Care 79 mg/dl (70-99)
[2024-10-28] MEDS: REMERON 7.5 MG PO (21:29)
[2024-10-28 21:36] LABS: Glucose - Point of Care 91 mg/dl (70-99)
[2024-10-28 23:55] VITALS: BP 141/72
[2024-10-29] VITALS (12 sets, daily range): BP systolic 69–150; BP diastolic 44–87; PULSE 82–89; O2SAT 99
[2024-10-29 06:22] LABS: Glucose - Point of Care 63 mg/dl (70-99)
[2024-10-29] MEDS: DEXTROSE 50% SYRINGE 12.5 GRAMS IV ×3 (06:29→11:30)
[2024-10-29 06:56] LABS: Hematocrit 28.7 % (37.0-47.0); Mean Corp Hgb Conc. 31.4 g/dL (33.0-37.0); Mean Corpuscular Hgb 25.5 pg (27.0-31.0); Mean Corpuscular Volume 81.3 fL (81.0-99.0); Mean Platelet Volume 10.4 fL (7.4-10.4); Platelet Count 142 10^3/uL (130-400); Red Blood Cell Count 3.53 10^6/uL (4.20-5.40); Red Cell Dist. Width 16.3 % (11.5-14.5); White Blood Cell Count 4.5 10^3/uL (4.8-10.8)
[2024-10-29 07:06] LABS: Glucose - Point of Care 84 mg/dl (70-99)
[2024-10-29 07:24] LABS: Blood Urea Nitrogen 13 mg/dl (7-17); Calcium 8.5 mg/dl (8.4-10.2); Carbon Dioxide 30 mmol/L (22-30); Chloride 103 mmol/L (98-107); Estimated Creatinine Clearance 41 ml/min; Glucose 126 mg/dl (70-99); Potassium 4.1 mmol/L (3.5-5.1); Sodium 137 mmol/L (135-145); eGFR 43.69
[2024-10-29 08:36] LABS: Glucose - Point of Care 58 mg/dl (70-99)
[2024-10-29 09:17] LABS: Glucose - Point of Care 102 mg/dl (70-99)
[2024-10-29] MEDS: PROTONIX 40 MG PO ×2 (09:32→22:21)
[2024-10-29] MEDS: MIRALAX PO (09:32)
[2024-10-29] MEDS: ORETIC 25 MG PO (09:32)
[2024-10-29] MEDS: DESENEX/MITRAZOL/ZEASORB 1 APPLIC TOPICAL ×2 (09:33→22:21)
[2024-10-29] MEDS: HYDROPHOR 1 APPLIC TOPICAL (09:34)
[2024-10-29] MEDS: ZESTRIL 20 MG PO ×2 (09:36→22:20)
--- NOTE | 2024-10-29 10:53 | W.PN.HOSP.TC ---
Addendum entered and electronically signed by Randell Gil MD 10/29/24 15:05:
Hypothermia now resolved
-TSH within normal, cortisol within normal, blood cultures no growth to date, flu negative, COVID-negative, syphilis negative
Esophagitis/gastritis/duodenitis
-s/p egd
-bid iv ppi
-carafate bid
-cld advance as tolerated
Failure to thrive, poor po intake
Will have GI evaluate, recommend MRI abdomen for liver lesions, initially, declined now agreeable after discussion
---MRI showing mild polycystic liver disease, endometrial thickening
Continue IV hydration
Continue Ensure/Glucerna
Endometrial thickening
-Check TV/TPUS
-SUGAR CANE GROWER consult
DM II
-Hold Metformin
-SSI
Original Note:
Today's Communication/Plan
-
.
Assessment / Plan
Assessment / Plan
1. Hypothermia (resolved)
- Temperature 88.3 on admission (otherwise hemodynamically stable)
- Normal temps now with intermittent dips
- Warming blankets prn.
- TSH normal, Cortisol normal, Lactate normal, Ammonia normal, Lipid Profile normal, B12 normal, CK normal, procal normal
- Blood cultures no growth 72h - no abx for now.
- Case Management: eventual d/c to SNF then patient should move to [place] or [place]; patient's sister (one of whom is HUMBERTO) agree that patient should not return to her apartment. Patient has a bed at [facility] for tomorrow.
- Teaching team Spoke with patient's sister Elizabeth and HUMBERTO Gonzalez at request; updated on medical condition and let them know to contact for social questions regarding discharge planning. Patient's sister arriving today.
- PT/OT as tolerated.
2. Failure to Thrive/Protein malnutrition
- Continue gentle hydration; D5 NS 500 mL @ 75ml/hr w/ 40 mEQ K
- Patient not eating; protein 5.2, albumin 2.3 (improved). Prealbumin 4.9
- Originally thought to be from not liking the food
- Continues to feel nauseous this morning
- Obstruction Series negative for obstruction
- CW protein supplements
- CT AP (10/25): Few scattered indeterminate low-attenuation density hepatic lesions, evaluation limited.
- MRI (10/27): Bilateral lower lung airspace consolidations? Mild polycystic liver disease. Moderate to severe chronic kidney disease. Small to moderate paraesophageal hernia. Mild to moderate endometrial thickening
- TVUS/pelvic US: Small fibroids, 4 mm thick endometrium, small amount of fluid in the endometrial canal; per SUGAR CANE GROWER, endometrial thickness is normal, outpatient f/u for fluid biopsy/analysis
- EGD today: severe LA Grade D esophagitis with circumfrential nodularity at the GE jcn, gastric erosions, duodenitis; biopsies sent for urgent analysis
-Appreciate GI recs: Continue PPI daily, CLD today, ADAT, trial Carafate 1g BID; repeat EGD in 8 weeks (sooner if biopsies are concerning)
3. DM II EGD
- Hb A1c 6.0
- Hold metformin
- SS Insulin for now.
4. HTN
- BPs elevated as clinical condition improved, normotensive today
- Patient home meds atenolol, HCTZ, lisinopril, originally held in the setting of bradycardia.
- Continue to hold atenolol (AV deena blocking agent)
- Continue HCTZ and Lisinopril
5. Bradycardia
- EKG: first degree heart block; repeat during bradycardic episode: Second degree Mobitz 1 . AV weknebach transient noted -no new recs from cards.
- Cardiology consulted; appreciate reccs
- ECHO: EF 60%, mild pumonary HTN, otherwise normal
- PPM not indicated as the patient is not symptomatic
6. Wound care -
- No open wounds, macerated skin in the feet due to chronic moisture
- wound care consult
Lovenox/Full Code/Diabetic 1999 kartik
DW Elizabeth her sister- she is coming to hospital coming week. She is waiting to get a hearing for guardianship on Soila. She is seeing decline in her cognition and asking for mental status capacity . Psychiatry consulted for medical decision making
capacity. Patient denied to speak with psych, who noted that the patient seemed to have full use of her faculties.
Anticipated Discharge: 24 - 48 hours
Subjective/Interval History
-
Date of Service: October 29, 2024
Patient seen and examined while resting comfortably in bed. Patient states the she is feeling fine, with less nausea this morning. Currently NPO for EGD today.
Objective Data
-
Labs:
Laboratory Results
10/29/24
06:42
WBC 4.5 L
Hgb 9.0 L
Hct 28.7 L
Plt Count 142
Sodium 137
Potassium 4.1
Chloride 103
Carbon Dioxide 30
BUN 13
Creatinine 1.3 H
Glucose 126 H
Calcium 8.5
Vital Signs:
Vital Signs
Temp Pulse Resp BP Pulse Ox
98.1 F 78 20 141/82 99
10/29/24 07:08 10/29/24 09:32 10/29/24 07:08 10/29/24 09:32 10/29/24 09:15
I&O
10/28/24 10/29/24 10/30/24
06:59 06:59 06:59
Intake Total 680 / 680 800 / 800
Balance 680 / 680 800 / 800
Review of Systems
-
History Source: Patient
Constitutional: Reports No Symptoms
Respiratory: Reports No Symptoms
Cardiac: Reports No Symptoms
Abdomen/GI: Denies Abdominal Pain, Vomiting or Diarrhea
Neuro: Reports No Symptoms
Physical Exam
-
General: No Apparent Distress and Comfortable
HEENT: Normocephalic, Atraumatic, Moist Mucous Membranes and Anicteric
Respiratory: Clear to Auscultation
Cardiac: Regular Rhythm and S1/S2
GI: Soft, Nontender and Nondistended
Musculoskeletal: No Clubbing, No Cyanosis and No Edema
Skin: Warm, Dry and Rash
Neuro: Awake, Alert and Oriented
Psych: Calm
Data Reviewed
-
Labs: Labs Reviewed by me and Discussed with Patient
[2024-10-29 11:28] LABS: Glucose - Point of Care 67 mg/dl (70-99)
[2024-10-29 11:45] LABS: Glucose - Point of Care 121 mg/dl (70-99)
[2024-10-29 12:09] LABS: Glucose - Point of Care 117 mg/dl (70-99)
[2024-10-29] MEDS: D5/0.45%NSS with KCL 20 MEQ 1000 IV (12:53)
--- NOTE | 2024-10-29 13:00 | W.PN.UPDATE ---
Update Note
Progress Note Update
Patient seen as per the request of the Hospitalist service for routine foot care/evaluation,
Patient refusing to be seen , she states that she does not want it at this time .
Podiatry will try to see her some other time.
[2024-10-29] MEDS: ANESTHETIC LOZENGE 1 LOZENGE PO ×2 (15:22→22:21)
--- NOTE | 2024-10-29 16:15 | CM ---
Auth obtained for for [facility] exp 10/27/24.
Had EGD today.
Pt not medically ready for discharge.
with Lisa [phone] regarding discharge plan to [facility].
[facility] authorization will be needed at discharge.
[facility]
report [phone]
fax [phone]
PLAN To [facility] after medically ready and auth updated
[2024-10-29 16:58] LABS: Glucose - Point of Care 62 mg/dl (70-99)
[2024-10-29] MEDS: LOVENOX 40 MG SC (17:15)
[2024-10-29 19:42] LABS: Glucose - Point of Care 99 mg/dl (70-99)
[2024-10-29] MEDS: CARAFATE SUSPENSION 1 GM PO (22:20)
[2024-10-29] MEDS: TYLENOL 650 MG PO (22:20)
[2024-10-29] MEDS: REMERON 7.5 MG PO (22:21)
[2024-10-30] LABS: Glucose - Point of Care 111 mg/dl (70-99)
[2024-10-30 00:05] VITALS: BP 131/62
[2024-10-30] MEDS: D5/0.45%NSS with KCL 20 MEQ 1000 IV ×2 (02:39→14:04)
[2024-10-30 06:14] LABS: Glucose - Point of Care 86 mg/dl (70-99)
[2024-10-30 07:28] VITALS: BP 124/57
[2024-10-30 08:01] LABS: Glucose - Point of Care 78 mg/dl (70-99)
[2024-10-30] MEDS: D5/0.45%NSS with KCL 20 MEQ IV (08:22)
[2024-10-30] MEDS: ZESTRIL 20 MG PO ×2 (08:57→21:13)
[2024-10-30] MEDS: CARAFATE SUSPENSION 1 GM PO ×2 (08:57→21:14)
[2024-10-30] MEDS: PROTONIX 40 MG PO ×2 (08:57→21:13)
[2024-10-30] MEDS: MIRALAX PO (08:57)
[2024-10-30] MEDS: ORETIC 25 MG PO (08:57)
[2024-10-30 08:59] LABS: Blood Urea Nitrogen 11 mg/dl (7-17); Calcium 8.5 mg/dl (8.4-10.2); Carbon Dioxide 29 mmol/L (22-30); Chloride 105 mmol/L (98-107); Estimated Creatinine Clearance 44 ml/min; Glucose 92 mg/dl (70-99); Sodium 137 mmol/L (135-145); eGFR 48.09
[2024-10-30] MEDS: DESENEX/MITRAZOL/ZEASORB 1 APPLIC TOPICAL ×2 (09:00→21:15)
[2024-10-30] MEDS: HYDROPHOR 1 APPLIC TOPICAL (09:00)
--- NOTE | 2024-10-30 09:22 | PN.CDI ---
CDI
- -
CDI:
Physician Documentation Request
Admit Date: 10/19/24 00:40
Dear Doctor Arnold,
Please review the following and provide your response in the progress notes.
Clinical Indicators:
Laboratory Tests
10/18/24 10/19/24 10/20/24
21:39 05:11 05:57
Creatinine 0.8 0.8 0.9
eGFR > 60.00 > 60.00 > 60.00
10/21/24 10/22/24 10/23/24
04:38 06:32 08:24
Creatinine 1.0 0.9 1.0
eGFR 59.86 > 60.00 59.86
10/26/24 10/27/24 10/28/24
09:37 06:28 07:49
Creatinine 1.3 H 1.5 H 1.4 H
eGFR 43.69 36.80 39.97
10/29/24 10/30/24
06:42 08:16
Creatinine 1.3 H 1.2 H
eGFR 43.69 48.09
Based on the above and your clinical assessment, please clarify which of the following most accurately represents the patient's renal status:
Acute kidney injury with no underlying CKD
Acute kidney injury on baseline CKD, (specify stage of CKD)
Other (please specify)
Criteria for BUBBA*
1 Increase in serum creatinine by > or = to 0.3 mg/dL (> or = to 26.5 micromol/L) within 48 hours, OR
2 Increase in serum creatinine to > or = to 1.5 times baseline, which is known or presumed to have occurred within 7 days, OR
3 Urine volume < 0.5 nL/kg/hour for six hours
Stages of Chronic Kidney Disease*
Level Description GFR
G1 Normal or High >90
G2 Mildly decreased 60-89
G3a Mildly to moderately decreased 45-59
G3b Moderately to severely decreased 30-44
G4 Severely decreased 15-29
G5 Kidney failure <15
Use of terms such as suspected, likely, concern for, or probable (associated with a specific diagnosis that is being evaluated, monitored, or treated as if it exists) are acceptable and can be coded in the inpatient setting, when documented at the
time of discharge.
Thank you,
Maren Esquivel RN BSN CCDS
CDI Specialist
please contact via tiger text
Please use your independent medical judgment in providing your response.
[2024-10-30 12:33] LABS: Glucose - Point of Care 64 mg/dl (70-99)
[2024-10-30 13:05] LABS: Glucose - Point of Care 71 mg/dl (70-99)
--- NOTE | 2024-10-30 14:22 | W.PN.HOSP.TC ---
Addendum entered and electronically signed by Randell Gil MD 10/30/24 15:30:
Hypothermia now resolved
-TSH within normal, cortisol within normal, blood cultures no growth to date, flu negative, COVID-negative, syphilis negative
Esophagitis/gastritis/duodenitis
-s/p egd
-bid iv ppi
-carafate bid
-cld advance as tolerated fld
Failure to thrive, poor po intake
Will have GI evaluate, recommend MRI abdomen for liver lesions, initially, declined now agreeable after discussion
---MRI showing mild polycystic liver disease, endometrial thickening
Continue IV hydration
Continue Ensure/Glucerna
Endometrial thickening
-Check TV/TPUS
-OFFICE SERVICES REPRESENTATIVE consult
DM II
-Hold Metformin
-SSI
CM to begin dispo planning once BG more stable
Original Note:
Today's Communication/Plan
-
.
Assessment / Plan
Assessment / Plan
1. Hypothermia (resolved)
- Temperature 88.3 on admission (otherwise hemodynamically stable)
- Normal temps now with intermittent dips
- Warming blankets prn.
- TSH normal, Cortisol normal, Lactate normal, Ammonia normal, Lipid Profile normal, B12 normal, CK normal, procal normal
- Blood cultures no growth over admission.
- Case Management: eventual d/c to SNF then patient should move to [place] or [place]; patient's sister (one of whom is POA) agree that patient should not return to her apartment. Patient has a bed at [facility] for tomorrow.
- Teaching team Spoke with patient's sister Elizabeth and HUMBERTO Gonzalez at request; updated on medical condition and let them know to contact for social questions regarding discharge planning. Patient's sister arriving today.
- PT/OT as tolerated.
2. Failure to Thrive/Nonsevere Protein Malnutrition
- Continue gentle hydration; D5 NS 1L @ 100 ml/hr
- Nausea improving; advance diet as tolerated. BS in 80s in AM, continue to monitor as PO intake increases.
- Originally thought to be from not liking the food
- Continues to feel nauseous this morning
- Obstruction Series negative for obstruction
- CW protein supplements
- CT AP (10/25): Few scattered indeterminate low-attenuation density hepatic lesions, evaluation limited.
- MRI (10/27): Bilateral lower lung airspace consolidations? Mild polycystic liver disease. Moderate to severe chronic kidney disease. Small to moderate paraesophageal hernia. Mild to moderate endometrial thickening
- TVUS/pelvic US: Small fibroids, 4 mm thick endometrium, small amount of fluid in the endometrial canal; per OFFICE SERVICES REPRESENTATIVE, endometrial thickness is normal, outpatient f/u for fluid biopsy/analysis
- EGD today: severe LA Grade D esophagitis with circumfrential nodularity at the GE jcn, gastric erosions, duodenitis; biopsies sent for urgent analysis
-Appreciate GI recs: Continue PPI daily, tolerating CLD this a.m. advance to fulls, ADAT, trial Carafate 1g BID; repeat EGD in 8 weeks (sooner if biopsies are concerning)
3. DM II EGD
- Hb A1c 6.0
- Hold metformin
- SS Insulin for now.
4. HTN
- BPs elevated as clinical condition improved, normotensive today
- Patient home meds atenolol, HCTZ, lisinopril, originally held in the setting of bradycardia.
- Continue to hold atenolol (AV deena blocking agent)
- Continue HCTZ and Lisinopril
5. Bradycardia
- EKG: first degree heart block; repeat during bradycardic episode: Second degree Mobitz 1 . AV weknebach transient noted -no new recs from cards.
- Cardiology consulted; appreciate reccs
- ECHO: EF 60%, mild pumonary HTN, otherwise normal
- PPM not indicated as the patient is not symptomatic
6. Wound care -
- No open wounds, macerated skin in the feet due to chronic moisture
- wound care consult
7. Acute kidney injury with no underlying CKD
- Likely secondary to dehydration
- Continue to monitor in the setting of fluid supplementation
Lovenox/Full Code/Diabetic 2000 kartik
YAMIL Johnson her sister- she is coming to hospital coming week. She is waiting to get a hearing for guardianship on Soila. She is seeing decline in her cognition and asking for mental status capacity . Psychiatry consulted for medical decision making
capacity. Patient denied to speak with psych, who noted that the patient seemed to have full use of her faculties.
Anticipated Discharge: Within 24 hours
Subjective/Interval History
-
Date of Service: October 30, 2024
Patient states that she is feeling much better this a.m. Patient notes that the sore throat she experienced post procedurally yesterday is markedly improved. Nausea is also improved this a.m., shows her ball of breath as being three quarters
finished. Patient states he still a bit hesitant to eat.
Objective Data
-
Labs:
Laboratory Results
10/30/24
08:16
Sodium 137
Potassium 4.0
Chloride 105
Carbon Dioxide 29
BUN 11
Creatinine 1.2 H
Glucose 92
Calcium 8.5
Vital Signs:
Vital Signs
Temp Pulse Resp BP Pulse Ox
97.3 F 86 18 124/57 98
10/30/24 07:28 10/30/24 08:57 10/30/24 07:28 10/30/24 08:57 10/30/24 09:35
I&O
10/29/24 10/30/24 10/31/24
06:59 06:59 06:59
Intake Total 800 / 800 670 / 670
Output Total 200 / 200
Balance 800 / 800 470 / 470
Review of Systems
-
History Source: Patient
Constitutional: Reports No Symptoms
EENT: Denies Sore Throat
Respiratory: Reports No Symptoms
Cardiac: Reports No Symptoms
Abdomen/GI: Reports Nausea (improved); Denies Abdominal Pain, Vomiting or Diarrhea
Neuro: Reports No Symptoms
Physical Exam
-
General: No Apparent Distress and Comfortable
HEENT: Normocephalic, Atraumatic and Moist Mucous Membranes
Respiratory: Clear to Auscultation; Negative Wheezes, Rales or Rhonchi
Cardiac: Regular Rhythm and S1/S2
GI: Soft, Nontender, Nondistended and Normal Bowel Sounds
Musculoskeletal: No Clubbing, No Cyanosis and No Edema
Skin: Warm and Dry
Neuro: Awake, Alert and Oriented
Psych: Calm
Data Reviewed
-
Labs: Labs Reviewed by me and Discussed with Patient
[2024-10-30 15:17] VITALS: BP 130/48
--- NOTE | 2024-10-30 15:28 | W.PN.GI.CBS2 ---
Addendum entered and electronically signed by Naa Fletcher MD 10/30/24 16:30:
I saw and examined the patient.
The DRAFT ROLLER PICKER's note was reviewed and I agree with the note.
Comment: Symptoms are improving she currently denies any odynophagia and appetite is improving denies chest pain and abdominal pain. EGD findings noted severe esophagitis and nodular esophageal mucosa at 34 cm (Path is pending) hiatal hernia,
gastritis, duodenitis continue PPI twice daily and Carafate twice daily and repeat endoscopy in 8 weeks along with screening colonoscopy. Advance diet as tolerated. Will sign off and will be available as needed
Original Note:
Today's Communication / Plan
-
pt feeling better
EGD as noted
path pending
hbg slight drop to 9
advancing to full liquid diet add supplement daily
cont carafate BID, PPI BID, Miralax daily
cont Miralax daily
OP SMALL BATTERY PLATE ASSEMBLER follow up for endometrial thickening
OP colonoscopy-- no hx screening in past
Assessment / Plan
-
74-year-old female with past medical history of obesity, hypertension, hyperlipidemia, diabetes, CKD 3 who presented to the emergency room on 10/18/2024 after having a fall week prior with decreased in ambulation. She was noted with hypothermia,
bradycardia and confusion. Asked to consult with decreased PO intakes, nausea, and liver lesion. Pt with extensive work up during admission. The patient denies any history of hepatitis, jaundice or liver disease. No family history
gastrointestinal malignancy or liver disease. During admission hbgA1C 6 , creat mild elevation, hbg 10- 11 range some hypoglycemia with not eating. EGD wtih concern for esophagitis and nodular esophagus
10/29/24 [facility] EGD - Severe, LA Grade D erosive esophagitis with no
bleeding from 25 to 34 cms from the incisors spanning
from the mid to distal esophagus. Biopsied to rule out
Halima, CMV and HSV.
- Circumferential, nodular mucosa in the esophagus at
the GE junction at 34 cms. Biopsied to rule out
dysplasia and malignancy (sent for [place]).
- Medium-sized hiatal hernia without Guanakito's lesions.
- Erosive gastropathy in the antrum and body with no
bleeding and no stigmata of recent bleeding. Biopsied
to rule out H pylori
- Otherwise, normal stomach on direct and retroflexion
views.
- Moderate duodenal erythema and scattered erosions in
the duodenal bulb.
- Otherwise, normal duodenum up to the third portion.
Biopsies were taken with a cold forceps for evaluation
of celiac disease.
- The examination was otherwise normal.
10/28/24 US pelvis- transvag-- 2 small uterine fibroids, homogeneous endometrium cannot exclude minimal fluid along endometrial canal. if bleeding consider MRI.
10/27/24 MR Abdomen W/o & W Contrast
1. MODERATE-SIZED BILATERAL LOWER LOBE AIRSPACE CONSOLIDATIONS most suggestive of moderate bilateral lower lobe pneumonia with adjacent SMALL BILATERAL PARAPNEUMONIC PLEURAL EFFUSIONS. Compressive subsegmental atelectasis in the lower lobes of
both lungs is an alternative diagnostic possibility.
2. Mild polycystic liver disease.
3. Moderate to severe chronic bilateral kidney disease.
4. Small to moderate-sized paraesophageal hiatal hernia.
5. Moderate distention of the urinary bladder.
6. Mild to moderate endometrial thickening (either endometrial hyperplasia or carcinoma).
7. Severe discogenic degenerative disease at L4/L5 and L5/S1.
10/24/24 CT Chest/abd/pelvis limited study, small b/l lower lobe consolidation air bronchogram, PNA, or atelectasis with small b/l effusion, low density hepatic lesions, benign vs malignant, no obstruction, low attenuation density central within
uterus, consider pelvic US
Small bilateral lower lobe consolidations with air bronchograms, pneumonia/or atelectasis and small bilateral pleural effusions.
Few scattered indeterminate low-attenuation density hepatic lesions, as detailed above. These could be benign, malignancy cannot be excluded, evaluation limited.
No intestinal obstruction or free air.
Heterogeneous nonspecific low-attenuation density centrally within the uterus. If there is vaginal bleeding, consider Pelvic Ultrasound.
10/21/24 obstruction series - no obstruction, moderate fecal impaction in colon, no acute disease of chest, small right pleural effusion, atelectasis vs scarring
10/18/24 HCT- no acute infarct, white matter leukoaraiosis, mild to moderate b/l parietal loss, volume loss frontal lobes and cerebellum.
Impression:
abnormal EGD with esophagitis, nodularity
decreased appetite/nausea/early satiety
Indeterminate low-attenuation hepatic lesions-- follow up MRI with polycystic liver disease
Constipation
Hypothermia
sm to mod paraesophageal hernia
Protein malnutrition, decreased albumin and protein
Mild to moderate endometrial thickening
Anemia, microcytic iron studies not consistent with iron deficiency
Plan:
pt feeling better
EGD as noted
path pending
hbg slight drop to 9
advancing to full liquid diet add supplement daily
cont carafate BID, PPI BID, Miralax daily
cont Miralax daily
OP SMALL BATTERY PLATE ASSEMBLER follow up for endometrial thickening
OP colonoscopy-- no hx screening in past
Subjective
Subjective
Date of Service: October 30, 2024
full liquid diet 10/27 brown stool feeling slightly better no vomiting
Objective
Data Reviewed
Laboratory Data:
Laboratory Results
10/29/24 06:42
10/30/24 08:16
Laboratory Results
Magnesium 1.6 mg/dl (1.6-2.3) 10/19/24 05:11
Total Bilirubin 0.5 mg/dl (0.2-1.3) 10/27/24 06:28
AST 22 U/L (14-36) 10/27/24 06:28
ALT 23 U/L (0-35) 10/27/24 06:28
Alkaline Phosphatase 89 U/L (38-126) 10/27/24 06:28
Vital Signs and I&O:
Vital Signs
Temp Pulse Resp BP Pulse Ox
97.5 F 76 20 130/48 99
10/30/24 15:17 10/30/24 15:17 10/30/24 15:17 10/30/24 15:17 10/30/24 15:17
I&O
10/29/24 10/30/24 10/31/24
06:59 06:59 06:59
Intake Total 800 / 800 670 / 670
Output Total 200 / 200
Balance 800 / 800 470 / 470
Physical Exam
Physical Exam
HEENT: Anicteric and Moist mucous membranes
Cardiology: Normal Sinus Rhythm
Pulmonary: Clear
GI: Soft, Non Distended and Non Tender
Extremities: No Edema
Neuro: Non Focal (soft voice )
[2024-10-30 16:58] LABS: Glucose - Point of Care 76 mg/dl (70-99)
[2024-10-30] MEDS: LOVENOX 40 MG SC (17:26)
[2024-10-30] MEDS: ANESTHETIC LOZENGE 1 LOZENGE PO (17:37)
[2024-10-30 21:13] VITALS: BP 131/65
[2024-10-30] MEDS: TYLENOL 650 MG PO (21:13)
[2024-10-30] MEDS: REMERON 7.5 MG PO (21:14)
[2024-10-30 21:46] LABS: Glucose - Point of Care 101 mg/dl (70-99)
[2024-10-30 23:36] VITALS: BP 150/75
[2024-10-31] MEDS: NSS 1000 IV ×2 (00:20→16:03)
[2024-10-31 03:30] LABS: Glucose - Point of Care 64 mg/dl (70-99)
[2024-10-31 03:49] LABS: Glucose - Point of Care 80 mg/dl (70-99)
--- NOTE | 2024-10-31 03:49 | PTCARENOTE ---
Patient blood glucose 64. Given apple juice and rechecked 15 minutes later - blood glucose 80. Patient is asymptomatic. Will continue to monitor.
[2024-10-31 07:38] LABS: Glucose - Point of Care 74 mg/dl (70-99)
[2024-10-31 07:50] VITALS: BP 131/65
[2024-10-31] MEDS: PROTONIX 40 MG PO ×2 (08:35→21:24)
[2024-10-31] MEDS: ORETIC 25 MG PO (08:35)
[2024-10-31] MEDS: CARAFATE SUSPENSION 1 GM PO ×2 (08:35→21:24)
[2024-10-31] MEDS: ZESTRIL 20 MG PO ×2 (08:35→21:24)
[2024-10-31] MEDS: MIRALAX 17 GRAMS PO (08:38)
[2024-10-31] MEDS: DESENEX/MITRAZOL/ZEASORB 1 APPLIC TOPICAL ×2 (08:39→21:25)
[2024-10-31] MEDS: HYDROPHOR 1 APPLIC TOPICAL (08:39)
[2024-10-31] MEDS: ANESTHETIC LOZENGE 1 LOZENGE PO ×2 (08:52→22:53)
--- NOTE | 2024-10-31 09:15 | W.PN.HOSP.TC ---
Addendum entered and electronically signed by Randell Gil MD 10/31/24 09:21:
NAD
Scleral Anicteric, wearing corrective lenses
MMM
No JVD
CTABL
RRR, S1/S2
Soft, NT, ND, BS+
Warm, Dry, bilateral lower extremity chronic lymphedema change
AAOx3
Calm
Original Note:
Today's Communication/Plan
-
for [facility], auth is needed
Assessment / Plan
Assessment / Plan
Hypothermia now resolved
-TSH within normal, cortisol within normal, blood cultures no growth to date, flu negative, COVID-negative, syphilis negative
Esophagitis/gastritis/duodenitis
-s/p egd
-bid iv ppi
-carafate bid
-fld advance diet as toelrated
--still on dextrose containing fluids. if able to tolerate fld, bg stable then can dc dextrose
Failure to thrive, poor po intake
Will have GI evaluate, recommend MRI abdomen for liver lesions, initially, declined now agreeable after discussion
---MRI showing mild polycystic liver disease, endometrial thickening
Continue IV hydration
Continue Ensure/Glucerna
Endometrial thickening
-Check TV/TPUS
-DITCHING MACHINE OPERATING ENGINEER consult
DM II
-Hold Metformin
-SSI
CM to begin dispo planning once BG more stable
Anticipated Discharge: 24 - 48 hours
Subjective/Interval History
-
Date of Service: October 31, 2024
Seen and examined. No new complaints. No acute overnight events.
Feels slightly better
Asking what a full liquid diet entails
Asking what is going to happen next in terms of discharge
Informed her that we will begin looking for placement for
Objective Data
-
Vital Signs:
Vital Signs
Temp Pulse Resp BP Pulse Ox
97.8 F 73 20 131/65 100
10/31/24 07:50 10/31/24 07:50 10/31/24 07:50 10/31/24 07:50 10/31/24 07:50
I&O
10/30/24 10/31/24 11/01/24
06:59 06:59 06:59
Intake Total 670 / 670 600 / 600
Output Total 200 / 200
Balance 470 / 470 600 / 600
[2024-10-31 12:11] LABS: Glucose - Point of Care 81 mg/dl (70-99)
--- NOTE | 2024-10-31 12:42 | W.CS.POD ---
Consult Summary - Podiatry
-
74 yo female admitted with failure to thrive and weakness, unable to care for her self . Podiatry has been consulted for her foot care/evaluation. She is currently able to comprehend, feels better and denies any pedal complaints apart form severe
dry, scaly skin and elongated toe nails .
She does admit to h/o diabetes. She is in no acute distress,
Reviewed PMH, meds and allergies
B/L pedal pulses are palpable
B/L feet with minimal edema.
B/L feet with scaly , keratotic skin , elongated, dystrophic toe nails,l fungal toe nails X10.
No osseous deformities noted
No open wounds, no SOI.
A/P; failure to thrive with poor hygiene
NIDDM
Onychomycosis.
Xerosis
Plan : At bedside debrided all toenails X10
Will cont with Aquaphor moisturizer to both feet daily once
PT is aware of following up with any senior strategy analyst every 4 mos
I have given my office info to her to be f/u in my office
[2024-10-31 15:39] VITALS: BP 149/75
[2024-10-31 16:47] LABS: Glucose - Point of Care 109 mg/dl (70-99)
[2024-10-31] MEDS: LOVENOX 40 MG SC (17:04)
[2024-10-31] MEDS: REMERON 7.5 MG PO (21:24)
[2024-10-31 21:42] LABS: Glucose - Point of Care 68 mg/dl (70-99)
[2024-10-31 22:08] LABS: Glucose - Point of Care 115 mg/dl (70-99)
[2024-10-31 23:14] VITALS: BP 139/65
[2024-11-01] MEDS: NSS 1000 IV ×2 (05:50→23:29)
[2024-11-01 07:50] VITALS: BP 152/73
[2024-11-01 08:17] LABS: Glucose - Point of Care 68 mg/dl (70-99)
[2024-11-01 08:49] LABS: Glucose - Point of Care 64 mg/dl (70-99)
[2024-11-01] MEDS: PROTONIX 40 MG PO ×2 (09:17→21:59)
[2024-11-01] MEDS: MIRALAX 17 GRAMS PO (09:17)
[2024-11-01] MEDS: CARAFATE SUSPENSION 1 GM PO ×2 (09:17→21:59)
[2024-11-01] MEDS: ZESTRIL 20 MG PO ×2 (09:17→21:59)
[2024-11-01] MEDS: ORETIC 25 MG PO (09:17)
[2024-11-01] MEDS: DESENEX/MITRAZOL/ZEASORB 1 APPLIC TOPICAL ×2 (09:18→21:59)
[2024-11-01] MEDS: HYDROPHOR 1 APPLIC TOPICAL (09:18)
[2024-11-01 09:32] LABS: Glucose - Point of Care 98 mg/dl (70-99)
--- NOTE | 2024-11-01 10:16 | W.PN.HOSP.TC ---
Today's Communication/Plan
-
Continue twice daily PPI along with Carafate
Follow-up on EGD biopsy
Continue to encourage p.o. intake with ensures and advance diet as tolerated, starting low residue diet today
Continues to have a.m. episodes of hypoglycemia, will place a nursing communication to provide nighttime snack
If continues to recur then may need to consider additional lab workup as below
Case management to work on disposition for SNF
Assessment / Plan
Assessment / Plan
Hypothermia now resolved
-TSH within normal, cortisol within normal, blood cultures no growth to date, flu negative, COVID-negative, syphilis negative
Esophagitis/gastritis/duodenitis
-s/p egd
-bid iv ppi
-carafate bid
-Low residue diet to start this morning, advance as tolerated, nighttime snack ordered as well to prevent any further a.m. hypoglycemia
--still on dextrose containing fluids. if able to tolerate fld, bg stable then can dc dextrose
Failure to thrive, poor po intake
Will have GI evaluate, recommend MRI abdomen for liver lesions, initially, declined now agreeable after discussion
---MRI showing mild polycystic liver disease, endometrial thickening
Continue IV hydration
Continue Ensure/Glucerna
Endometrial thickening
-Check TV/TPUS
-HOGSHEAD STRIPPER consult
DM II, complicated by hypoglycemia worse in the a.m.
-Hold Metformin
-SSI
Hypoglycemia
-Worse in the a.m. likely related to p.o. intake, if continues to persist may require additional workup with insulin proinsulin C-peptide sulfonylurea level this will help to rule out insulinoma and sulfonylurea toxicity. I suspect both are
unlikely at this point the and most likely related to poor p.o. intake
CM to begin dispo planning once BG more stable
Anticipated Discharge: 24 - 48 hours
Subjective/Interval History
-
Date of Service: November 01, 2024
Seen and examined. No new complaints. No acute overnight event
Tolerating diet, again hypoglycemic this morning, breakfast tray still not at bedside
Objective Data
-
Vital Signs:
Vital Signs
Temp Pulse Resp BP Pulse Ox
98.4 F 95 20 152/73 100
11/01/24 07:50 11/01/24 07:50 11/01/24 07:50 11/01/24 07:50 11/01/24 07:50
I&O
10/31/24 11/01/24 11/02/24
06:59 06:59 06:59
Intake Total 600 / 600 2670 / 2670
Balance 600 / 600 2670 / 2670
[2024-11-01 14:11] LABS: Glucose - Point of Care 106 mg/dl (70-99)
[2024-11-01 15:30] VITALS: BP 131/73
[2024-11-01 17:32] LABS: Glucose - Point of Care 61 mg/dl (70-99)
[2024-11-01] MEDS: LOVENOX 40 MG SC (17:42)
[2024-11-01 18:03] LABS: Glucose - Point of Care 87 mg/dl (70-99)
--- NOTE | 2024-11-01 20:41 | PTCARENOTE ---
Pt only tolerated small amount of low residue diet stating the food upset her stomach.
[2024-11-01 21:25] LABS: Glucose - Point of Care 98 mg/dl (70-99)
[2024-11-01] MEDS: REMERON 7.5 MG PO (21:59)
[2024-11-01 23:43] LABS: Glucose - Point of Care 80 mg/dl (70-99)
[2024-11-01 23:52] VITALS: BP 104/66
[2024-11-02 03:26] LABS: Glucose - Point of Care 99 mg/dl (70-99)
[2024-11-02 07:50] VITALS: BP 105/54
[2024-11-02 08:05] LABS: Glucose - Point of Care 83 mg/dl (70-99)
[2024-11-02] MEDS: CARAFATE SUSPENSION 1 GM PO ×2 (08:05→20:16)
[2024-11-02] MEDS: ORETIC 25 MG PO (08:05)
[2024-11-02] MEDS: PROTONIX 40 MG PO ×2 (08:05→20:17)
[2024-11-02] MEDS: MIRALAX 17 GRAMS PO (08:05)
[2024-11-02] MEDS: ZESTRIL 20 MG PO ×2 (08:05→20:23)
[2024-11-02] MEDS: DESENEX/MITRAZOL/ZEASORB 1 APPLIC TOPICAL ×2 (08:06→20:25)
[2024-11-02] MEDS: HYDROPHOR 1 APPLIC TOPICAL (08:07)
[2024-11-02 08:19] VITALS: BP 105/54
--- NOTE | 2024-11-02 09:41 | W.PN.HOSP.TC ---
Today's Communication/Plan
-
.
Assessment / Plan
Assessment / Plan
1. Hypothermia (resolved)
- Temperature 88.3 on admission (otherwise hemodynamically stable)
- Normal temps now with intermittent dips
- Warming blankets prn.
- TSH normal, Cortisol normal, Lactate normal, Ammonia normal, Lipid Profile normal, B12 normal, CK normal, procal normal
- Blood cultures no growth over admission.
- Case Management: eventual d/c to SNF then patient should move to [place] or [place]; patient's sister (one of whom is POA) agree that patient should not return to her apartment. Patient has a [facility] at [facility] for tomorrow.
- PT/OT as tolerated.
2. Failure to Thrive/Nonsevere Protein Malnutrition
- Continue gentle hydration; BS stable this morning, transitioned to NS fluids, continue to monitor POC glucose.
- Nausea improving; transitioned to Low Res diet yesterday, tolerating well; continue Ensure/nighttime snacks
- Obstruction Series (10/21): negative for obstruction
- CT AP (10/25): Few scattered indeterminate low-attenuation density hepatic lesions, evaluation limited.
- MRI (10/27): Bilateral lower lung airspace consolidations? Mild polycystic liver disease. Moderate to severe chronic kidney disease. Small to moderate paraesophageal hernia. Mild to moderate endometrial thickening
- TVUS/pelvic US: Small fibroids, 4 mm thick endometrium, small amount of fluid in the endometrial canal; per STRATEGIC MANAGER, endometrial thickness is normal, outpatient f/u for fluid biopsy/analysis
- EGD today: severe LA Grade D esophagitis with circumferential nodularity at the GE jcn, gastric erosions, duodenitis; biopsies sent for urgent analysis
- Follow up EGD biopsy results
- Appreciate GI recs: Continue PPI daily, Carafate 1g BID; repeat EGD in 8 weeks (sooner if biopsies are concerning)
- Still constipated, passing gas; despite daily Miralax and reintroduction of solid foods; Consider Miralax suppository
3. DM II EGD
- Hb A1c 6.0
- Hold metformin
- SS Insulin for now.
4. HTN
- BPs elevated as clinical condition improved, normotensive today
- Patient home meds atenolol, HCTZ, lisinopril, originally held in the setting of bradycardia.
- Continue to hold atenolol (AV deena blocking agent)
- Continue HCTZ and Lisinopril
5. Bradycardia
- EKG: first degree heart block; repeat during bradycardic episode: Second degree Mobitz 1 . AV weknebach transient noted -no new recs from cards.
- Cardiology consulted; appreciate reccs
- ECHO: EF 60%, mild pumonary HTN, otherwise normal
- PPM not indicated as the patient is not symptomatic
6. Wound care -
- No open wounds, macerated skin in the feet due to chronic moisture
- Being followed by podiatry
7. Acute kidney injury with no underlying CKD
- Likely secondary to dehydration
- Continue to monitor in the setting of fluid supplementation
Lovenox/Full Code/Low Residue
Anticipated Discharge: Within 24 hours
Subjective/Interval History
-
Date of Service: November 02, 2024
Patient seen and examined while resting comfortably in bed. Patient has no acute complaints this morning. States that she has been able to tolerate portions of the low residue diet that she started yesterday. Appetite still low, but less nauseous
day by day. No episodes of vomiting. States that she has not had a bowel movement in some time, has been passing gas.
Objective Data
-
Vital Signs:
Vital Signs
Temp Pulse Resp BP Pulse Ox
98.4 F 81 14 105/54 98
11/02/24 07:50 11/02/24 07:50 11/02/24 07:50 11/02/24 07:50 11/02/24 07:50
I&O
11/01/24 11/02/24 11/03/24
06:59 06:59 06:59
Intake Total 2670 / 2670 1290 / 1290 840 / 840
Balance 2670 / 2670 1290 / 1290 840 / 840
Review of Systems
-
History Source: Patient
Respiratory: Reports No Symptoms
Cardiac: Reports No Symptoms
Abdomen/GI: Reports Constipated; Denies Abdominal Pain, Nausea, Vomiting or Diarrhea
Neuro: Reports No Symptoms
Physical Exam
-
General: No Apparent Distress, Comfortable and Conversant
HEENT: Normocephalic, Atraumatic and Moist Mucous Membranes
Respiratory: Clear to Auscultation; Negative Wheezes, Rales or Rhonchi
Cardiac: Regular Rhythm and S1/S2
GI: Soft and Nontender
Musculoskeletal: No Clubbing, No Cyanosis and No Edema
Skin: Warm and Dry
Neuro: Awake and Alert
Psych: Calm
Data Reviewed
-
Labs: Labs Reviewed by me
--- NOTE | 2024-11-02 11:31 | W.PN.UPDATE ---
Update Note
Progress Note Update
I saw and evaluated the patient. I reviewed the resident�s note and agree with findings and plan as documented in the resident�s note.
No new complaints.
Gen: NAD, AAOx3.
Eyes: EOMI, PERRLA, no scleral icterus.
Neck: supple.
CV: RRR, +S1/S2, no m/r/g.
Resp: CTAB, no rales, wheezes, or rhonchi.
Abd: +BS, soft, NT, ND
Skin: No rashes.
Neuro: CN 2-12 intact, non-focal.
Psych: Normal mood and affect.
EGD 10/29/24:Severe, LA Grade D erosive esophagitis with no
bleeding from 25 to 34 cms from the incisors spanning
from the mid to distal esophagus. Biopsied to rule out
Halima, CMV and HSV.
- Circumferential, nodular mucosa in the esophagus at
the GE junction at 34 cms. Biopsied to rule out
dysplasia and malignancy (sent for jermyn).
- Medium-sized hiatal hernia without Guanakito's lesions.
- Erosive gastropathy in the antrum and body with no
bleeding and no stigmata of recent bleeding. Biopsied
to rule out H pylori
- Otherwise, normal stomach on direct and retroflexion
views.
- Moderate duodenal erythema and scattered erosions in
the duodenal bulb.
- Otherwise, normal duodenum up to the third portion.
Biopsies were taken with a cold forceps for evaluation
of celiac disease.
- The examination was otherwise normal.
Pelvic/Transvaginal U/S 10/28/24: Two small uterine fibroids. Predominantly homogeneous appearance of the endometrium measuring 0.42 cm, cannot exclude some minimal fluid along the endometrial canal. If the patient is experiencing postmenopausal
bleeding, consider elective MRI for more complete evaluation of the endometrium.
MRI abd 10/27/24:
1. MODERATE-SIZED BILATERAL LOWER LOBE AIRSPACE CONSOLIDATIONS most suggestive of moderate bilateral lower lobe pneumonia with adjacent SMALL BILATERAL PARAPNEUMONIC PLEURAL EFFUSIONS. Compressive subsegmental atelectasis in the lower lobes of
both lungs is an alternative diagnostic possibility.
2. Mild polycystic liver disease.
3. Moderate to severe chronic bilateral kidney disease.
4. Small to moderate-sized paraesophageal hiatal hernia.
5. Moderate distention of the urinary bladder.
6. Mild to moderate endometrial thickening (either endometrial hyperplasia or carcinoma).
7. Severe discogenic degenerative disease at L4/L5 and L5/S1.
Hypothermia:
-now resolved
-TSH within normal, cortisol within normal, blood cultures no growth to date, flu negative, COVID-negative, syphilis negative
Esophagitis/gastritis/duodenitis
-presented with FTT, poor PO intake
-EGD above and notable for grade E erosive esophagitis, erosive gastropathy, moderate duodenal erythema and scattered erosions in the duodenal bulb. Pathology pending
-cont PPI BID, carafate
-carafate bid
-MRI abd with polycystic liver disease, endometrial thickening
-s/p IVFs
-cont Ensure/Glucerna
Endometrial thickening:
-Pelvic/Transvaginal U/S above
-Prior documentation states that gynecology was to be consulted. It does not appear that order was put in. Will consult gynecology.
DM2:
-complicated by hypoglycemia, worse in AM
-was on IVFs with dextrose, now off
-cont evening/nighttime snack
-Over the last 24 hours hypoglycemia has improved
Essential hypertension: cont Lisinopril/HCTZ
FULL/Lovenox
Total time spent on today's encounter was 50 minutes which included time spent in counseling the patient/family regarding diagnosis and treatment plan as listed above, goals of care, and symptom management. Case was discussed with nursing staff,
specialists, and care coordinators/case management. All labs and imaging personally reviewed by me. Remainder the time spent in detailed review of previous records, lab data, imaging, and other medical provider documentation.
[2024-11-02] MEDS: CITROMA 300 ML PO (11:51)
[2024-11-02 12:25] LABS: Glucose - Point of Care 81 mg/dl (70-99)
[2024-11-02 13:53] VITALS: BP 121/66; PULSE 85; O2SAT 99
--- NOTE | 2024-11-02 14:57 | CM ---
CM reviewed pt with resident Dr. Barrett
ADC tomorrow
Bed confirmed with [facility]
Meeting with sister/Elizabeth at nurse's station
Update provided to her- she plans to work with SNF SW to transition pt to move with family upon completion of rehab
CM requested updated PT/OT evals as pt will require new auth
[facility]- [id number]
Arsalan Castro- [phone]
Discharge Disposition- [facility] pending auth
[2024-11-02 15:40] VITALS: BP 105/60
--- NOTE | 2024-11-02 16:30 | PTCARENOTE ---
Patient without BM for five days. Patient given Miralax as ordered and Mag Citrate. Patient incontinent of large amount of semi-formed soft and liquid stool.
[2024-11-02] MEDS: LOVENOX 40 MG SC (17:25)
[2024-11-02 17:41] LABS: Glucose - Point of Care 100 mg/dl (70-99)
[2024-11-02] MEDS: NSS 1000 IV (18:20)
[2024-11-02] MEDS: REMERON 7.5 MG PO (20:17)
--- NOTE | 2024-11-02 20:57 | CS.OBGYN ---
Consult Summary - DISTRIBUTOR CLEANER
-
Pt seen and examined. Imaging reviewed
Pt denies any size worker problems or concerns
No PMB No abnl vaginal d/c. No h/o size worker problems in the past. never on HRT
Ct of chest/abd/pelvic done in this pt who got admitted for failure to thrive. Ct of pelvic showed intermediate hypodensity is noted centrally within the uterus. A pelvic u/s was then done that showed endometrium 4mm with some questionable minimal
fluid along the endometrial canal.
It this pt who has no vaginal bleeding and an EML of 4 mm there is no further testing that needs to be done at this point.
An EML of 4mm in someone without any PMB makes it highly unlikely there is any pathology in the uterus.
Pt to follow up in the offive for routine size worker care
[2024-11-02 21:27] LABS: Glucose - Point of Care 114 mg/dl (70-99)
[2024-11-02] MEDS: TYLENOL 650 MG PO (22:46)
[2024-11-02 23:55] VITALS: BP 115/56
[2024-11-03 03:43] LABS: Glucose - Point of Care 100 mg/dl (70-99)
[2024-11-03 08:07] LABS: Glucose - Point of Care 83 mg/dl (70-99)
[2024-11-03] MEDS: PROTONIX 40 MG PO (08:21)
[2024-11-03] MEDS: CARAFATE SUSPENSION 1 GM PO (08:21)
[2024-11-03] MEDS: ZESTRIL 20 MG PO (08:21)
[2024-11-03] MEDS: ORETIC 25 MG PO (08:22)
[2024-11-03 08:39] VITALS: BP 107/57
[2024-11-03] MEDS: MIRALAX PO (08:42)
--- NOTE | 2024-11-03 09:34 | W.PN.UPDATE ---
Addendum entered and electronically signed by Douglas Ball MD 11/03/24 14:00:
Total time spent on d/c = 34 min. This included today's physical exam, progress note, review of laboratory and diagnostic data, preparation of discharge documents and prescriptions, and discussions about the pt's hospital course and discharge plan
with the patient and other medical center manager involved in the patient's care.
Original Note:
Update Note
Progress Note Update
I saw and evaluated the patient. I reviewed the resident�s note and agree with findings and plan as documented in the resident�s note.
No new complaints.
Gen: NAD, AAOx3.
Eyes: EOMI, PERRLA, no scleral icterus.
Neck: supple.
CV: remains RRR, +S1/S2, no m/r/g.
Resp: remains CTAB, no rales, wheezes, or rhonchi.
Abd: remains +BS, soft, NT, ND
Skin: No rashes.
Neuro: CN 2-12 intact, non-focal.
Psych: Normal mood and affect.
EGD 10/29/24:Severe, LA Grade D erosive esophagitis with no
bleeding from 25 to 34 cms from the incisors spanning
from the mid to distal esophagus. Biopsied to rule out
Halima, CMV and HSV.
- Circumferential, nodular mucosa in the esophagus at
the GE junction at 34 cms. Biopsied to rule out
dysplasia and malignancy (sent for glen ellen).
- Medium-sized hiatal hernia without Guanakito's lesions.
- Erosive gastropathy in the antrum and body with no
bleeding and no stigmata of recent bleeding. Biopsied
to rule out H pylori
- Otherwise, normal stomach on direct and retroflexion
views.
- Moderate duodenal erythema and scattered erosions in
the duodenal bulb.
- Otherwise, normal duodenum up to the third portion.
Biopsies were taken with a cold forceps for evaluation
of celiac disease.
- The examination was otherwise normal.
Pelvic/Transvaginal U/S 10/28/24: Two small uterine fibroids. Predominantly homogeneous appearance of the endometrium measuring 0.42 cm, cannot exclude some minimal fluid along the endometrial canal. If the patient is experiencing postmenopausal
bleeding, consider elective MRI for more complete evaluation of the endometrium.
MRI abd 10/27/24:
1. MODERATE-SIZED BILATERAL LOWER LOBE AIRSPACE CONSOLIDATIONS most suggestive of moderate bilateral lower lobe pneumonia with adjacent SMALL BILATERAL PARAPNEUMONIC PLEURAL EFFUSIONS. Compressive subsegmental atelectasis in the lower lobes of
both lungs is an alternative diagnostic possibility.
2. Mild polycystic liver disease.
3. Moderate to severe chronic bilateral kidney disease.
4. Small to moderate-sized paraesophageal hiatal hernia.
5. Moderate distention of the urinary bladder.
6. Mild to moderate endometrial thickening (either endometrial hyperplasia or carcinoma).
7. Severe discogenic degenerative disease at L4/L5 and L5/S1.
Hypothermia:
-now resolved
-TSH within normal, cortisol within normal, blood cultures no growth to date, flu negative, COVID-negative, syphilis negative
Esophagitis/gastritis/duodenitis
-presented with FTT, poor PO intake
-EGD above and notable for grade E erosive esophagitis, erosive gastropathy, moderate duodenal erythema and scattered erosions in the duodenal bulb. Pathology pending
-cont PPI BID, carafate
-carafate bid
-MRI abd with polycystic liver disease, endometrial thickening
-s/p IVFs
-cont Ensure/Glucerna
Endometrial thickening:
-Pelvic/Transvaginal U/S above
-appreciate DATA REVIEWER, quoted from DATA REVIEWER note 11/02/24, 'It this pt who has no vaginal bleeding and an EML of 4 mm there is no further testing that needs to be done at this point.'
DM2:
-complicated by hypoglycemia, worse in AM
-was on IVFs with dextrose, now off
-cont evening/nighttime snack
-Over the last 36 hours hypoglycemia has improved
Essential hypertension: cont Lisinopril/HCTZ
FULL/Lovenox
Medically cleared for d/c, case management aware.
--- NOTE | 2024-11-03 09:36 | W.PN.HOSP.TC ---
Today's Communication/Plan
-
.
Assessment / Plan
Assessment / Plan
1. Hypothermia (resolved)
- Temperature 88.3 on admission (otherwise hemodynamically stable)
- Normal temps now with intermittent dips
- Warming blankets prn.
- TSH normal, Cortisol normal, Lactate normal, Ammonia normal, Lipid Profile normal, B12 normal, CK normal, procal normal
- Blood cultures no growth over admission.
- Case Management: eventual d/c to SNF then patient should move to [place] or [place]; patient's sister (one of whom is POA) agree that patient should not return to her apartment. Patient has a bed at [facility] for tomorrow.
- PT/OT as tolerated.
2. Failure to Thrive/Nonsevere Protein Malnutrition
- Continue gentle hydration; POC Glucose has been stable for 36 hours.
- Nausea improving; transitioned to Low Res diet yesterday, tolerating well; continue Ensure/nighttime snacks
- Obstruction Series (10/21): negative for obstruction
- CT AP (10/25): Few scattered indeterminate low-attenuation density hepatic lesions, evaluation limited.
- MRI (10/27): Bilateral lower lung airspace consolidations? Mild polycystic liver disease. Moderate to severe chronic kidney disease. Small to moderate paraesophageal hernia. Mild to moderate endometrial thickening
- TVUS/pelvic US: Small fibroids, 4 mm thick endometrium, small amount of fluid in the endometrial canal; per AIRPORT TRAFFIC CONTROLLER, endometrial thickness is normal, outpatient f/u for fluid biopsy/analysis
- EGD today: severe LA Grade D esophagitis with circumferential nodularity at the GE jcn, gastric erosions, duodenitis; biopsies sent for urgent analysis
- Follow up EGD biopsy results
- Appreciate GI recs: Continue PPI daily, Carafate 1g BID; repeat EGD in 8 weeks (sooner if biopsies are concerning)
- Previously constipated for 5 days, given 1 dose of magnesium citrate yesterday, was able to have a bowel movement.
3. DM II EGD
- Hb A1c 6.0
- Hold metformin
- SS Insulin for now.
4. HTN
- BPs elevated as clinical condition improved, normotensive today
- Patient home meds atenolol, HCTZ, lisinopril, originally held in the setting of bradycardia.
- Continue to hold atenolol (AV deena blocking agent)
- Continue HCTZ and Lisinopril
5. Bradycardia
- EKG: first degree heart block; repeat during bradycardic episode: Second degree Mobitz 1.
- Cardiology consulted; appreciate reccs
- ECHO: EF 60%, mild pumonary HTN, otherwise normal
- PPM not indicated as the patient is not symptomatic
6. Wound care -
- No open wounds, macerated skin in the feet due to chronic moisture
- Being followed by podiatry
7. Acute kidney injury with no underlying CKD
- Likely secondary to dehydration
- Continue to monitor in the setting of fluid supplementation
Lovenox/Full Code/Low Residue
Anticipated Discharge: Within 24 hours
Subjective/Interval History
-
Date of Service: November 03, 2024
Patient seen and examined while resting comfortably in bed. No acute complaints this morning. Given 1 dose of magnesium citrate yesterday and notes that she had a large bowel movement. Otherwise states that this morning was able to tolerate her
breakfast of cheerios, and was able to tolerate midnight snack last night. Lunch yesterday did cause her to have nausea. Blood sugars have been stable for 36 hours.
Objective Data
-
Vital Signs:
Vital Signs
Temp Pulse Resp BP Pulse Ox
97.6 F 86 18 107/57 99
11/03/24 08:39 11/03/24 08:39 11/03/24 08:39 11/03/24 08:39 11/03/24 08:39
I&O
11/02/24 11/03/24 11/04/24
06:59 06:59 06:59
Intake Total 1290 / 1290 1919
Balance 1290 / 1290 1919
Review of Systems
-
History Source: Patient
Constitutional: Reports No Symptoms
Respiratory: Reports No Symptoms
Cardiac: Reports No Symptoms
Abdomen/GI: Reports No Symptoms; Denies Abdominal Pain
Neuro: Reports No Symptoms
Physical Exam
-
General: No Apparent Distress, Comfortable and Conversant
HEENT: Normocephalic and Atraumatic
Respiratory: Clear to Auscultation
Cardiac: Regular Rhythm and S1/S2
GI: Soft, Nontender, Nondistended and Normal Bowel Sounds
Musculoskeletal: No Clubbing, No Cyanosis and No Edema
Skin: Warm and Dry
Neuro: Awake and Alert
Psych: Calm
Data Reviewed
-
Labs: Labs Reviewed by me
[2024-11-03 12:22] LABS: Glucose - Point of Care 87 mg/dl (70-99)
[2024-11-03] MEDS: DESENEX/MITRAZOL/ZEASORB 1 APPLIC TOPICAL (12:52)
[2024-11-03] MEDS: HYDROPHOR 1 APPLIC TOPICAL (12:53)
--- NOTE | 2024-11-03 15:03 | PTCARENOTE ---
Addendum entered by Cristin Floyd RN 11/03/24 17:30:
Midline removed by IV team. Patient left via stretcher with ambulance crew to [facility]. No questions at this time.
Addendum entered by Cristin Floyd RN 11/03/24 16:21:
Midline removed. Patient aware of transport time.
Original Note:
Report called to HOLLIE Javier at [facility]. Ambulance burr picker scheduled for 1700. IV team aware that midline needs to be removed.
--- NOTE | 2024-11-03 15:26 | CM ---
CM obtained authorization #[id number] for 7 days transfer to [facility] via ambulance for today. Auth provided by AYSHA Carver reviewer. Ambulance authorization also provided.
CM spoke with Soila to discuss SNF transfer. Family notified of same. IMM reviewed verbally with pt's sister who gave verbal consent.
Plan: Discharge to [facility] SNF today via ambulance.
[facility] Report:[phone]
[facility]
[2024-11-03 15:53] VITALS: BP 129/82
--- NOTE | 2024-11-04 07:09 | W.DCSUMMARY ---
Discharge Summary
Discharge Data
Date of Admission: 10/19/24
Date of Discharge: 11/03/24
-
Pending Results: Yes (EGD Biopsy results. )
Hospital Course
Soila Howard is a 74 year old female with a past medical history of hypertension, rmp-ffyvzfu-lkmznqhxu diabetes mellitus, obesity, and chronic kidney disease who presented to the emergency department at [facility] on 10/19/2024 with
hypothermia, generalized weakness, and failure to thrive. Additionally the patient had had a recent fall a week earlier but refused transport to the emergency department at that time. Earlier on the day of arrival, the patient had been on it
telephone with her sisters who felt she did not sound quite right. They called EMS who apparently found her in a chair where she may have been for some time, incontinent of stool and urine.
ED COURSE
In the emergency department patient was found to be hypothermic and bradycardic with Brannon waves on EKG. She exhibited some word finding difficulty and signs of altered mental status. Laboratory testing was largely unremarkable and a CT of the
head was negative. The patient was admitted to the ICU for toxic/metabolic encephalopathy and hypothermia.
HOSPITAL COURSE
HYPOTHERMIA
The patient was initially admitted to the ICU. Her temperature upon admission was approximately 88 �F, and thus warming measures including a Lee hugger were used. Patient's temperatures were markedly improved using these interventions, however
she continued to have low temperatures compared to normal for the next 5 to 6 days. TSH and cortisol testing were within normal limits. Other laboratory studies including blood cultures were largely unremarkable. It is likely the patient's
hypothermia was secondary to environmental conditions given the state that she was found in by EMS.
BRADYCARDIA
While in the ICU, patient exhibited brief 10 to 20-second episodes of bradycardia with heart rate into the 30s. The patient was completely asymptomatic during these episodes. An EKG was initially taken which showed an increased KS interval
consistent with first-degree heart block. While the EKG leads were still on the patient's chest, the patient started to go into bradycardia on the monitor. aircraft electronics technical officer took another EKG during these episodes which showed a second-degree heart block
Mobitz type I. The patient was evaluated by cardiology, and since these episodes continue to be asymptomatic, a permanent place maker was deemed to be unnecessary.
FAILURE TO THRIVE/NONSEVERE PROTEIN MALNUTRITION
For the entirety of her admission, the patient exhibited poor oral intake. She was noted to have a history of diabetes mellitus type 2 and normally took metformin, however in the setting of these hypoglycemic events, metformin was held for the
entirety of her admission. Hemoglobin A1c on admission was 6.0. The patient was unable to eat because she was continuously nauseous and intermittently would vomit when trying to eat. Extensive workup revealed this was likely multifactorial. After
radiologic evaluation did not produce a cause of the patient's poor oral intake (other than some mild to moderate constipation), the patient underwent an EGD with the market development analyst. EGD showed severe erosive esophagitis, a nodule on the
esophagus at the gastroesophageal junction, a medium sized hiatal hernia, erosive gastropathy, and moderate duodenal erythema with scattered erosions. This was likely a primary commercial relief driver of the patients nausea and thus, the patient was started on a
proton pump inhibitor and Carafate. The patients diet was slowly reintroduced, with varied but improving tolerance. The patient's constipation was treated with daily Miralax and one dose of magnesium citrate.
DISCHARGE RECOMMENDATIONS
Follow up with primary care provider in 1 week for a post-hospital follow up and further recommendations.
Follow up with the market development analyst in 2-3 weeks for evaluation and possible repeat EGD in 8 weeks.
Follow up with results of biopsies taken during the EGD procedure.
Started on Protonix 40 mg, twice a day for 8 weeks, and then once a day indefinitely.
Started on Carafate 10ml solution, once a day.
Patient should continue on a bowel regimen for constipation. Start with Miralax 17g daily.
Given the patient's second degree heart block, atenolol was discontinued from her home antihypertensive regimen. Continue hydrochlorothiazide and lisinopril.
Metformin was discontinued given hypoglycemic episodes and a glycated-hemoglobin of 6.0. This should be followed up by the primary care provider.
Endometrial thickening and fluid in the endometrial canal found on transvaginal ultrasound. Follow up with the director of managed care for further evaluation and recommendations.
Follow up with the receiving barn custodian for further pedal wound care.
Strict avoidance of all non-steroidal anti-inflammatory medications in the setting of endoscopy findings.
Discharge Plan
-
Patient Disposition: Longterm/SNF
Discharge Diagnosis/Procedures: Hypothermia
Nonsevere Protein Calorie Malnutrition
Constipation
Esophagitis, Gastritis, Duodenitis
Second Degree Mobitz Type 1 Heart Block
Condition: Fair
Diet: Low Residue
Activity: As tolerated
Activity Restrictions/Additional Instructions:
Wound Care Instructions
Mineral oil to legs and feet daily
Fungal powder to sacrum and skin folds bid
Referrals:
Jacqueline Bingham MD [Active] - (follow up with Dr. Bingham or known ROLL SETTER for endometrial thickening )
Carlos Crowder PA-C [Family Provider] - in less than 1 week
Brock Burden DO [Active] - (Call to arrange 3-4 week follow up. Will need to review for repeat EGD in 8 weeks and colonoscopy Call [phone] to arrange)
Prescriptions:
New
sucralfate 100 mg/mL Suspension
1 g PO BID Qty: 414 0RF
acetaminophen 325 mg Tablet
650 mg PO Q4HPRN PRN (Reason: mild pain/VAUGHAN/temp> 100.4F) Qty: 30 0RF
pantoprazole 40 mg Tablet,Delayed Release (Dr/Ec)
40 mg PO BID Qty: 30 0RF
hydrochlorothiazide 25 mg Tablet
25 mg PO DAILY Qty: 30 0RF
lisinopril 20 mg Tablet
20 mg PO BID Qty: 30 0RF
Discharge Orders:
Discharge Patient (As Directed); Ordered 11/03/24
Ordered By: Lake Barrett
Discharge Date and Time
Discharge Date/Time: 11/03/24 17:23
Print Language: SWEDISH
== END 2024-11-03 17:23 | DRG 380 ==
LOC: 4 EAST ACU 00:40
PROVIDERS: Family Medicine; Hospitalist; Nurse Practitioner; ADMITTING PHYSICIAN Internal Medicine; ATTENDING PHYSICIAN Internal Medicine; CONSULT PHYSICIAN Internal Medicine Cardiovascular Disease; CONSULT PHYSICIAN Obstetrics & Gynecology Gynecology; CONSULT PHYSICIAN Podiatrist Foot & Ankle Surgery; CONSULT PHYSICIAN Student in an Organized Health Care Education/Training Program; EMERGENCY PHYSICIAN Emergency Medicine; FAMILY PHYSICIAN Physician Assistant Medical
PROC: 0DB78ZX Excision of Stomach, Pylorus, Via Natural or Artificial Opening Endoscopic, Diagnostic (ICD-10-PCS; 2024-10-29)
PROC: 0DB98ZX Excision of Duodenum, Via Natural or Artificial Opening Endoscopic, Diagnostic (ICD-10-PCS; 2024-10-29)
PROC: 0DB48ZX Excision of Esophagogastric Junction, Via Natural or Artificial Opening Endoscopic, Diagnostic (ICD-10-PCS; 2024-10-29)
PROC: 0DB28ZX Excision of Middle Esophagus, Via Natural or Artificial Opening Endoscopic, Diagnostic (ICD-10-PCS; 2024-10-29)
DX: K22.10 Ulcer of esophagus without bleeding (principal); G92.8 Other toxic encephalopathy; E46 Unspecified protein-calorie malnutrition; N17.9 Acute kidney failure, unspecified; T68.XXXA Hypothermia, initial encounter; K25.9 Gastric ulcer, unspecified as acute or chronic, without hemorrhage or perforation; K29.80 Duodenitis without bleeding; K29.70 Gastritis, unspecified, without bleeding; K59.00 Constipation, unspecified; K31.89 Other diseases of stomach and duodenum; E78.00 Pure hypercholesterolemia, unspecified; I44.1 Atrioventricular block, second degree; K44.9 Diaphragmatic hernia without obstruction or gangrene; I10 Essential (primary) hypertension; R32 Unspecified urinary incontinence; R93.89 Abnormal findings on diagnostic imaging of other specified body structures; F03.90 Unspecified dementia, unspecified severity, without behavioral disturbance, psychotic disturbance, mood disturbance, and anxiety; D50.9 Iron deficiency anemia, unspecified; B35.1 Tinea unguium; E11.649 Type 2 diabetes mellitus with hypoglycemia without coma; R00.1 Bradycardia, unspecified; R62.7 Adult failure to thrive; E66.9 Obesity, unspecified; Z68.34 Body mass index [BMI] 34.0-34.9, adult; Z11.52 Encounter for screening for COVID-19; Z91.148 Patient's other noncompliance with medication regimen for other reason; Z79.899 Other long term (current) drug therapy; Z79.84 Long term (current) use of oral hypoglycemic drugs
CPT/HCPCS: 88305; 88312; 70450; 71260; 74022; 74177; 74183; 76830; 76856; 80048; 80053; 80061; 81003; 82140; 82533; 82550; 82607; 82728; 82746; 82962; 83036; 83540; 83550; 83605; 83735; 84134; 84145; 84439; 84443; 84481; 84484; 85025; 85027; 86376; 86780; 86800; 87040; 87502; 87811; 88342; 92523; 92610; 93005; 93306; 96360; 97116; 97163; 97167; 97530; 97535; 99285; A9575; J3480; Q9967

== ENCOUNTER 2024-12-01 16:34 | Inpatient (IN) | payer MEDICARE, SELFPAY ==
[2024-12-01] VITALS (14 sets, daily range): BP systolic 89–152; BP diastolic 51–97; PULSE 71–116; BMI 30.1
[2024-12-01 12:20] LABS: Hematocrit 36.7 % (37.0-47.0); Hemoglobin 11.3 g/dL (12.0-16.0); Mean Corp Hgb Conc. 30.8 g/dL (33.0-37.0); Mean Corpuscular Volume 84.6 fL (81.0-99.0); Mean Platelet Volume 12.5 fL (7.4-10.4); Platelet Count 155 10^3/uL (130-400); Red Blood Cell Count 4.34 10^6/uL (4.20-5.40); Red Cell Dist. Width 17.4 % (11.5-14.5); White Blood Cell Count 6.5 10^3/uL (4.8-10.8)
[2024-12-01] MEDS: NSS 1000 IV (12:24)
[2024-12-01 12:27] LABS: % Basophils 0.3 % (0-2); % Immature Granulocytes 2.3 % (0-0.5); % Lymphocytes 21.8 % (20.5-51.1); % Monocytes 5.9 % (1.7-9.3); % Neutrophils 69.7 % (42.2-75.2); Absolute Immature Granulocytes 0.2 10^3/uL (0-0.05); Absolute Lymphocytes 1.4 10^3/uL (1.2-3.4); Absolute Monocytes 0.4 10^3/uL (0.1-0.6); Absolute Neutrophils 4.5 10^3/uL (1.4-6.5); Nucleated Red Blood Cells % 0.3 %
[2024-12-01 12:42] LABS: Blood Urea Nitrogen 27 mg/dl (7-17); Calcium 8.6 mg/dl (8.4-10.2); Carbon Dioxide 34 mmol/L (22-30); Chloride 98 mmol/L (98-107); Estimated Creatinine Clearance 34 ml/min; Glucose 99 mg/dl (70-99); Sodium 140 mmol/L (135-145); eGFR 39.97
--- NOTE | 2024-12-01 12:52 | ED.GENMED ---
History of Present Illness
General
Chief Complaint: Dizziness
Source: patient
Exam Limitations: none
Time Seen by Provider: 12/01/24 11:33
History of Present Illness
History of Present Illness:
74-year-old female presents with a dizzy spell like she may pass out she was doing occupational therapy sitting in her bed at her home with more strenuous than usual she felt dizzy nauseous, vomited x 1 no chest pain or shortness of breath no fever
chills no dysuria or frequency, no abdominal pain feels back to her baseline of my evaluation,
Past History
Past History
ED Past Medical History: HTN, Renal failure and Other (Unknown)
ED Past Surgical History: None
Social History
Tobacco: Non-smoker
Alcohol: None
Drug: None
Personal:
Living: intermediate
Employment: Retired
Family History
Family History: Diabetes
Review of Systems
Review of Systems
All Other Systems: Not applicable
Constitutional: Denies fever or fatigue
EENT: Reports no symptoms
Respiratory: Reports no symptoms
Cardiac: Reports diaphoresis and syncope
ABD/GI: Reports nausea
Musculoskeletal: Reports no symptoms
Skin: Reports no symptoms
Neurological: Reports dizzy and weakness
Endocrine: Reports no symptoms
Phy Exam
Physical Exam
Physical Exam:
Physical Exam
General: no apparent distress, not acutely ill
Neck: No tongue bite
Heart: s1/s2 regular rate and rhythm, no murmur. equal radial pulses.
Lungs: no acute respiratory distress. clear bilaterally
Abdomen: Nontender
Neuro: alert and oriented. no focal neurological deficits
Skin: no rash
Psychiatric: well kept. interactive and cooperative
Extremities: no edema.
Course
Orders/Labs/Results
Orders:
Orders
12/01/24 11:28
Electrocardiogram (*1) Urgent
Reason for Study: Vertigo / Dizzy
EKG- Treatment ONCE
12/01/24 11:40
Troponin I Urgent
12/01/24 11:43
Complete Blood Count/With Diff Urgent
12/01/24 11:53
Orthostatic VS- Treatment ONCE
12/01/24 12:14
Basic Metabolic Panel Urgent
12/01/24 12:20
0.9% Sodium Chloride 1000 ml [Nss] 1,000 ml IV BOLUS
12/01/24 13:06
Comprehensive Metabolic Panel Urgent
Magnesium Urgent
Comment: ADD ON
Troponin I Urgent
12/01/24 13:56
Add On- LAB Urgent
Tests Added?: magnesium
Potassium Chloride [KCl] 40 meq PO NOW STA
12/01/24 13:59
KCl 40 Meq/100 ml [KCl] 40 meq in 100 ml IV NOW
12/01/24 14:03
Potassium Chloride [KCl] 40 meq 0.9% Sodium Chloride 250 ml [Nss] 250 ml IV NOW
12/01/24 14:10
Potassium Chloride 10% Elixir [KCl Elixir] 30 meq PO NOW STA
Abnormal Lab Results
12/01/24 12/01/24 12/01/24
11:40 11:43 12:14
Hgb 11.3 L g/dL
(12.0-16.0)
Hct 36.7 L %
(37.0-47.0)
MCH 26.0 L pg
(27.0-31.0)
MCHC 30.8 L g/dL
(33.0-37.0)
RDW 17.4 H %
(11.5-14.5)
MPV 12.5 H fL
(7.4-10.4)
Abs Immat Gran (auto) 0.2 H 10^3/uL
(0-0.05)
Immature Gran % 2.3 H %
(0-0.5)
Potassium
Chloride
Carbon Dioxide 34 H mmol/L
(22-30)
BUN 27 H mg/dl
(7-17)
Creatinine 1.4 H mg/dL
(0.6-1.0)
Calcium
Magnesium
Troponin I 0.121 H* ng/ml
Total Protein
Albumin
12/01/24
13:06
Hgb
Hct
MCH
MCHC
RDW
MPV
Abs Immat Gran (auto)
Immature Gran %
Potassium 1.9 L* mmol/L
(3.5-5.1)
Chloride 97 L mmol/L
(98-107)
Carbon Dioxide 35 H mmol/L
(-30)
BUN 27 H mg/dl
(7-17)
Creatinine 1.5 H mg/dL
(0.6-1.0)
Calcium 8.1 L mg/dl
(8.4-10.2)
Magnesium 1.5 L mg/dl
(1.6-2.3)
Troponin I 0.117 H* ng/ml
Total Protein 5.4 L g/dl
(6.3-8.2)
Albumin 2.6 L g/dl
(3.5-5.0)
12/01/24 11:43
12/01/24 13:06
Vital Signs
Initial and Last Documented VS:
Initial Vital Signs
Temp Pulse Resp BP Pulse Ox
98.4 F 80 16 110/67 98
12/01/24 11:28 12/01/24 11:28 12/01/24 11:28 12/01/24 11:28 12/01/24 11:28
Last Documented Vital Signs
Temp Pulse Resp BP Pulse Ox
98.4 F 79 15 122/57 100
12/01/24 11:28 12/01/24 14:45 12/01/24 14:45 12/01/24 14:00 12/01/24 14:45
MDM/Problems Addressed
Differential Diagnosis Includes:
Vasovagal dehydration arrhythmia doubt ACS
MDM/Problems Addressed:
Syncope
Chronic conditions affecting care: HTN and Kidney disease
Acute Exacerbation and/or Progression of Chronic Illness: HTN and Kidney disease
*Critical Care Note
Total Time (30-74mins, 75-104mins- exclusive of procedures): 12
Update Note
Update Note:
Updated
Will hydrate, check labs,
Khemolyzed will repeat troponin noted will replete patient is orthostatic
Update repeat labs noted we will add magnesium patient will receive IV and p.o. potassium she will require admission high risk for arrhythmias
ED Attending Note
-
Portions of this chart may have been created with voice recognition software.� Occasional wrong word or��sound alike� substitutions may have occurred due to the inherent limitations of voice recognition software.
Discharge Plan
Departure
Patient Disposition: Admit
Date of Disposition: 12/01/24
Time of Disposition: 14:08
Admit to: Telemetry
Presentation/result/management discussed w/ accepting MD/DO: Hospitalist
Patient with high blood pressure during this ER visit?: No
Condition: Fair
Discharge Problem:
Syncope and collapse, Acute hypokalemia
Prescriptions:
No Action
sucralfate 100 mg/mL Suspension
1 g PO BID Qty: 414 0RF
pantoprazole 40 mg Tablet,Delayed Release (Dr/Ec)
40 mg PO BID Qty: 30 0RF
hydrochlorothiazide 25 mg Tablet
25 mg PO DAILY Qty: 30 0RF
lisinopril 20 mg Tablet
20 mg PO BID Qty: 30 0RF
magnesium hydroxide [Milk of Magnesia] 400 mg/5 mL Suspension
2,400 mg PO DAILYPRN PRN (Reason: if no bm by 3rd day)
bisacodyl [Dulcolax (bisacodyl)] 10 mg Suppository
10 mg [place] DAILYPRN PRN (Reason: if no bm aftr mom)
ammonium lactate 12 % Cream
1 applic TOPICAL BID
acetaminophen 325 mg tablet
650 mg PO Q6HPRN PRN (Reason: mild pain/VAUGHAN/temp> 100.4F)
Referrals:
Arsalan Castro MD [Family Provider] -
Interventions
Interventions:
*Risk Screen - Suicide Last Done: 12/01/24 11:28
*General Assessment Last Done: 12/01/24 11:28
*Neglect/Abuse Screening Last Done: 12/01/24 11:28
*ED- Fall Risk Assessment Last Done: 12/01/24 11:28
*ED COVID-19 Vaccine History Last Done: 12/01/24 11:28
ED- Cardiac Assessment Last Done: 12/01/24 11:28
ED- Neurological Assessment Last Done: 12/01/24 11:28
Discharge Date and Time
Print Language: MOHAWK
[2024-12-01 12:56] LABS: Troponin I 0.121 ng/ml
[2024-12-01 13:45] LABS: Troponin I 0.117 ng/ml
[2024-12-01 13:55] LABS: ALT (SGPT) 17 U/L (0-35); AST (SGOT) 26 U/L (14-36); Alkaline Phosphatase 70 U/L (38-126); Blood Urea Nitrogen 27 mg/dl (7-17); Calcium 8.1 mg/dl (8.4-10.2); Carbon Dioxide 35 mmol/L (22-30); Chloride 97 mmol/L (98-107); Glucose 83 mg/dl (70-99); Potassium 1.9 mmol/L (3.5-5.1); Sodium 142 mmol/L (135-145); Total Bilirubin 1.3 mg/dl (0.2-1.3); Total Protein 5.4 g/dl (6.3-8.2)
[2024-12-01 14:04] LABS: Albumin 2.6 g/dl (3.5-5.0); Estimated Creatinine Clearance 32 ml/min
[2024-12-01] MEDS: KCL 270 MEQ IV ×2 (14:13→20:07)
[2024-12-01 14:44] LABS: Magnesium 1.5 mg/dl (1.6-2.3)
--- NOTE | 2024-12-01 15:41 | HPS.HSE ---
Addendum entered and electronically signed by Hiram Pérez MD 12/01/24 16:36:
I saw and examined the patient.
The TYPING ELEMENT MACHINE OPERATOR's note was reviewed and I agree with the note.
Comment:
74 year old female with a past medical history of hypertension, [id number] diabetes mellitus, obesity, and chronic kidney disease who presented to the emergency department with nausea, vomiting and lightheadedness. In the ER patient was
found to be mildly orthostatic. Patient was also found to have low potassium.
Gen: NAD,
Eyes: EOMI, wearing glasses no scleral icterus.
Neck: supple.
CV: remains RRR, +S1/S2, no m/r/g.
Resp: remains CTAB, no rales, wheezes, or rhonchi.
Abd: remains +BS, soft, NT, ND
Skin: No rashes.
Neuro: CN 2-12 intact, non-focal.
Psych: Normal mood and affect.
Impression
Elevated troponin rule out ACS
Syncopal episode
Severe orthostatic hypotension
Hypomagnesemia
Severe hypokalemia
Primary hypertension
Diabetes mellitus
History of bradycardia
History of esophagitis/gastritis/duodenitis
Plan
Trend troponin. Nitroglycerin as needed
Cardiology eval
Recent echocardiogram was performed.
Monitor on tele for arrythmia
Continue with aggressive IV KCl repletion. Trend BMP later today
Check magnesium
Hold HCTZ and lisinopril for now
Check CT of the head
Monitor mentation. Avoid narcotics and benzos.
Continue with PPI and Carafate
I spent a total of 80 minutes with the patient or on the floor. More than 50% of this time involved counseling and coordination of care.
Original Note:
Family Physician
-
Family Physician: Arsalan Castro MD
Chief Complaint
-
Near syncope, vomiting
History of Present Illness
74-year-old female from [facility] where she has been since 11/04/2024 after hospitalization for bradycardia with 10 to 20-second episodes heart rate in the 30s asymptomatic episode of second-degree heart block Mobitz type I on EKG
asymptomatic, hypothermia 88 �F was due to environmental conditions at home TSH cortisol testing blood cultures labs were all normal for any infectious source. She was also treated for failure to thrive/nonsevere protein malnutrition with poor oral
intake despite encouragement. She underwent EGD showing severe erosive esophagitis, nodule on the esophagus at the gastroesophageal junction a medium size hiatal hernia, erosive gastropathy and moderate duodenal erythema with scattered erosions.
She was placed on Protonix 40 mg twice daily for 8 weeks then daily indefinitely along with Carafate 1 g 10 mL p.o. twice daily. She is due for repeat EGD in 8 weeks.- Approximately January 01.
She reports going to occupational therapy today using 3 pound weights lifting with her arms and walking around with her walker. She then recalls walking back to her room sitting down and next thing she knew she was told she had near syncope. She
does not remember telling her therapist she was feeling dizzy being nauseous and then vomiting x 1. Rehab reported her therapy session was a little more strenuous today than usual. The patient does not recall being in her room feeling lightheaded
or dizzy or vomiting there. Question cognitive impairment underlying agitates easily when being asked questions and room. While in the ER she was unable to swallow potassium tablet she then vomited up potassium elixir stating it was too cold. She
has past medical history of 10 to 20-second episodes of bradycardia into the 30s October 2024, second-degree heart block Mobitz type I on single EKG October 2024, dysphagia, failure to thrive, nonsevere protein malnutrition, severe erosive
esophagitis, nodule in the esophagus at the gastroesophageal junction, medium size hiatal hernia, EROSIVE Gastropathy and moderate DUODENAL ERYTHEMA with scattered erosions, diet controlled DM 2 HgbA1c 05 November 2024, mild diabetic
retinopathy,dementia listed on group home record CKD 3B, HTN, HLD, FTT, ambulatory dysfunction uses walker, cyclical vomiting, Hx pleural effusion unknown recent admission October 2024 endometrial thickening and fluid in the endometrial canal
found on transvaginal ultrasound,
Medical History
Past Medical History
Past Medical History: Reports Other
Additional Past Medical History:
history of 10 to 20-second episodes of bradycardia into the 30s October 2024
second-degree heart block Mobitz type I on single EKG October 2024
dysphagia
failure to thrive
nonsevere protein malnutrition
DDX OCT 2024 severe erosive esophagitis, nodule in the esophagus at the gastroesophageal junction, medium size hiatal hernia, EROSIVE Gastropathy and moderate DUODENAL ERYTHEMA with scattered erosions
diet controlled DM 2 HgbA1c - October 2024
mild diabetic retinopathy
Dementia listed on group home record
CKD 3B
HTN
HLD
FTT
Chronic ambulatory dysfunction uses walker
cyclical vomiting
Hx pleural effusion unknown
recent admission October 2024 endometrial thickening and fluid in the endometrial canal found on transvaginal ultrasound,
Past Surgical History: Reports None
Social History
Tobacco: Non-smoker
Alcohol: None
Drug: None
Personal: Single
Living: Intermediate ([facility])
Employment: Retired
Family History
Family History: Unable to Obtain
Allergies / Home Medications
Allergies reflects when Allergies were last updated in [employer].
Home Medications with original date entered in [employer]
Allergy/Medication List:
Allergies
Allergy/AdvReac Type Severity Reaction Status Date / Time
No Known Allergies Allergy Verified 12/01/24 11:38
Home Medications
hydrochlorothiazide 25 mg tablet 25 mg PO DAILY Hypertension #30 tabs 11/03/24
lisinopril 20 mg tablet 20 mg PO BID Hypertension #30 tabs 11/03/24
pantoprazole 40 mg tablet,delayed release 40 mg PO BID Esophagitis, Gastritis #30 tabs 11/03/24
sucralfate 100 mg/mL oral suspension 1 g (10 mL) PO BID Esophagitis #414 mL 11/03/24
acetaminophen 325 mg tablet 650 mg PO Q6HPRN PRN mild pain/VAUGHAN/temp> 100.4F 12/01/24
ammonium lactate 12 % topical cream 1 applic topical BID b/l feet 12/01/24
bisacodyl 10 mg rectal suppository (Dulcolax (bisacodyl)) 10 mg MT DAILYPRN PRN if no bm aftr mom 12/01/24
magnesium hydroxide 400 mg/5 mL oral suspension (Milk of Magnesia) 2,400 mg PO DAILYPRN PRN if no bm by 3rd day 12/01/24
Review of Systems
-
History Source: Patient and Intermediate
A 12 point ROS was completed and negative except as noted: Yes
Constitutional: Reports Other (Poor memory recall knows name first last middle initial but not events of today); Denies Fever, Fatigue or Chills
EENT: Reports Sore Throat; Denies Other
Respiratory: Reports Other (Spitting up potassium elixir unable to swallow potassium pill); Denies Cough
Cardiac: Denies Chest Pain, Diaphoresis, Palpitations or Syncope
Abdomen/GI: Reports Nausea and Vomiting; Denies Abdominal Pain
: Denies Dysuria, Frequency, Flank Pain, Incontinence, Difficulty Voiding or Urgency
Musculoskeletal: Denies Joint Pain or Edema
Skin: Denies Itching or Rash
Neurological: Denies Dizzy, Headache or Weakness
Endocrine: Reports No Symptoms
Hematologic/Lymphatic: Reports No Symptoms
Psych: Reports Calm
Physical Exam
Vital Signs
Vital Signs
Temp Pulse Resp BP Pulse Ox
98.4 F 79 15 122/57 100
12/01/24 11:28 12/01/24 14:45 12/01/24 14:45 12/01/24 14:00 12/01/24 14:45
Physical Exam
General: Conversant and Other (Poor memory recall knows name first last middle initial but not events of today); No Pain, Fever or Chills
HEENT: NormoCephalic, Anicteric, Moist mucous membranes, PERRLA, [place] Conjunctivae, No Ptosis and Pharyngeal Erythema (Slight posterior pharynx pharyngeal erythema likely from erosive esophagitis)
Respiratory: Clear; No Wheezes, Rales or Rhonchi
Cardiac: S1/S2, Regular Rhythm and Murmur (2/6 systolic); No Rub, Gallop or Peripheral Edema
GI: Soft, Non Tender, Non Distended, Normal Bowel Sounds and No Hepatosplenomegaly
Rectal: Deferred by Provider
Genito-urinary: Deferred by me
Musculoskeletal: No Clubbing, No Cyanosis and No Edema
Skin: Warm and Dry (Lower legs); No Rash or Jaundice
Neuro: Awake, Alert, Oriented (Poor memory recall knows name first last middle initial but not events of today), Cranial Nerves Intact and No Sensory Deficits; No Slurred Speech, Facial Droop or Tremors
Psych: Agitated
Laboratory Results
-
12/01/24 11:43
Laboratory Results
Total Bilirubin 1.3 mg/dl (0.2-1.3) 12/01/24 13:06
AST 26 U/L (14-36) 12/01/24 13:06
ALT 17 U/L (0-35) 12/01/24 13:06
Alkaline Phosphatase 70 U/L (38-126) 12/01/24 13:06
Troponin I 0.117 ng/ml H* 12/01/24 13:06
Data Reviewed
-
Lab Data: Labs Reviewed by me
Impression/Plan
-
Impression/plan:
Admit to telemetry
#Near syncope secondary to hypotension likely orthostatic hypotension possible cardiac arrhythmia given recent history of bradycardia/second-degree heart block Mobitz type I
#Hx bradycardia lasting 10 to 20-seconds heart rate in the 30s recent admission 11/04/24
BP 89/58 > 122/57 post IV fluids
-Continue IV LR 80 cc/h
-Follow orthostatics twice daily
-Check CT head-pending on admit
-Monitor on telemetry
-Consult CBC cardiology
-Consult PT/OT/case management
#Second-degree heart block Mobitz type I recent admission 11/04/24
-Patient's atenolol was DC'd
-Monitor on telemetry given near syncope
#Severe hypokalemia 11/01 HCTZ
Potassium 1.9
-Hold HCTZ
-Unable to swallow pills or liquid potassium elixir
-IV 40 mEq rider given at 2 will repeat additional 40 rider at 8 PM
Follow BMP, will likely need additional potassium in a.m.
EKG: NSR 77 bpm, QTc 482 MS QT has lengthened from prior October 27, 2024
#Hypomagnesemia
Mag 1.5
-Will give 2 g mag rider
-Repeat mag level in a.m.
#BUBBA on CKD 3B
Creat 1.5, baseline 1.2
-IV LR 60 cc/hr x 2 liters
-Follow BMP
#Dementia listed on group home record
-OT for Bcat assessment
-Check CT head
-Is oriented to first middle and last name states she lives at [facility] however is at rehab does not know president or year or what happened today
#Dysphagia/failure to thrive/nonsevere protein malnutrition likely due to severe erosive esophagitis
-Consult dietary
- Protonix 40 mg twice daily for 8 weeks then Protonix 40 mg daily indefinitely
-Continue Carafate 1 g 10 mL p.o. twice daily
-Avoid all NSAIDs
- She is due for repeat EGD in 8 weeks.- Approximately January 01.
EGD showing SEVERE EROSIVE ESOPHAGITIS
NODULE on the ESOP at the Gastroesophageal junction
MEDIUM size HIATAL HERNIA
EROSIVE Gastropathy and moderate DUODENAL ERYTHEMA with scattered erosions.
#Deconditioning
-Patient was sent to SNF facility on 11/04 [place] [facility]
-PT/OT consult
#DM 2 diet-controlled
HgbA1c 05 November 2024
Metformin was DC'd
#Chronic ambulatory dysfunction uses walker
-Consult PT/OT/case management
#Recent admission October 2024 endometrial thickening and fluid in the endometrial canal found on transvaginal ultrasound-. Follow up with the arts and crafts instructor for further evaluation and recommendations.
DVT prophylaxis
-SCDs
Full code
--- NOTE | 2024-12-01 15:46 | CON.CAR ---
Addendum entered and electronically signed by Willy Gaytan MD 12/01/24 16:39:
Patient seen and examined in collaboration with LEAD INSPECTOR; agree with below.
-74-year-old female with hypertension, dyslipidemia, and CKD presenting with near-syncope; patient was hypotensive and has severe hypokalemia with a potassium of 1.9 (creatinine 1.5).
-Patient is improving with IV fluids.
-Patient is on hydrochlorothiazide 25 mg daily at home; would not resume.
-Patient is also on lisinopril 20 mg twice daily at home; will hold for now.
-Reassess antihypertensive medication needs tomorrow as hospitalization progresses and blood pressure improves.
-Aggressively replete potassium (keep greater than 4.0.
-Replete magnesium (keep greater than 2.0).
-Differential diagnosis should include Conn's syndrome; consider Nephrology consultation.
-No need to repeat echocardiogram as patient just had 1 on 10/20/2024 (EF 61%).
-forestry laborer; will follow.
Original Note:
Consultation
Consultation Request
Date/Time Consultation Requested: 12/01/2024 15:30
Date/Time Consultation Performed: 12/01/2024 15:45
Requesting Provider: ZA Barth
Performing Provider: ZA Lamar for Dr. Gaytan
Reason for Consultation: Syncope
Medical History
-
Chief Complaint: Syncope
History of Present Illness:
Mellisa Howard is a 74-year-old female (seen by Dr. Barrow during her prior admission), with hypertension, dyslipidemia, CKD, and lymphedema who presented to the emergency department with syncope. She reports she was working with therapy with a
weight heavier than usual (3 pounds) when she suddenly realized they were assisting her back into the chair. She does not recall the whole event. She does endorse some dizziness and nausea after the event. She was found to have severe hypokalemia
with a serum potassium of 1.9. Cardiology was asked to consult regarding abnormal troponin and syncopal event. She is having no chest pain or shortness of breath.
Past Medical History
Past Medical History: HTN, Hypercholesterolemia, NIDDM, Renal Failure (CKD) and Other (Lymphedema)
Social History
Tobacco: Non-Smoker
Living: Alf
Employment: Retired
Family History
Family History: Reviewed & Not Pertinent
Allergies / Home Medications
Allergy/AdvReac Type Severity Reaction Status Date / Time
No Known Allergies Allergy Verified 12/01/24 11:38
�Medication �Instructions �Recorded �Confirmed �Type
hydrochlorothiazide 25 mg tablet 25 mg PO DAILY Hypertension #30 11/03/24 12/01/24 Rx
tabs
lisinopril 20 mg tablet 20 mg PO BID Hypertension #30 tabs 11/03/24 12/01/24 Rx
pantoprazole 40 mg tablet,delayed 40 mg PO BID Esophagitis, 11/03/24 12/01/24 Rx
release Gastritis #30 tabs
sucralfate 100 mg/mL oral 1 g (10 mL) PO BID Esophagitis 11/03/24 12/01/24 Rx
suspension #414 mL
acetaminophen 325 mg tablet 650 mg PO Q6HPRN PRN mild 12/01/24 12/01/24 History
pain/VAUGHAN/temp> 100.4F
ammonium lactate 12 % topical cream 1 applic topical BID b/l feet 12/01/24 12/01/24 History
bisacodyl 10 mg rectal suppository 10 mg ME DAILYPRN PRN if no bm 12/01/24 12/01/24 History
(Dulcolax (bisacodyl)) aftr mom
magnesium hydroxide 400 mg/5 mL 2,400 mg PO DAILYPRN PRN if no bm 12/01/24 12/01/24 History
oral suspension (Milk of Magnesia) by 3rd day
Review of Systems
-
History Source: Patient
All other systems: Negative unless noted
Constitutional: Fatigue
EENT: No Symptoms
Respiratory: No Symptoms
Cardiac: No Symptoms
Abdomen/GI: No Symptoms
: No Symptoms
Musculoskeletal: No Symptoms
Skin: No Symptoms
Neurological: No Symptoms
Endocrine: No Symptoms
Hematologic/Lymphatic: No Symptoms
Physical Exam
Vital Signs
Temp Pulse Resp BP Pulse Ox
98.4 F 76 15 128/67 100
12/01/24 11:28 12/01/24 15:30 12/01/24 15:30 12/01/24 15:00 12/01/24 15:30
Lab Results
12/01/24 11:43
Troponin I 0.117 ng/ml H* 12/01/24 13:06
Physical Exam
General: Well Developed, Well Nourished, No Apparent Distress and Comfortable
HEENT: Normocephalic, Anicteric and Moist Mucous Membranes
Respiratory: Clear and Non Labored Respirations
Cardiac: S1/S2 and Regular Rhythm
Breast: Deferred by me
GI: Soft, Non Tender, Non Distended and Normal Bowel Sounds
Rectal: Deferred by Provider
Genito-urinary: No Costovertebral Tender
Musculoskeletal: No Clubbing, No Cyanosis and No Edema
Skin: Warm and Dry
Neuro: AO x 3
Hematologic/Lymphatic: No Lymphadenopathy
Psych: Calm
Impression / Plan
-
I/P: 74F with hypertension, dyslipidemia, CKD, and lymphedema who presented to the emergency department with presyncope. She was found to have severe hypokalemia with a serum potassium of 1.9.
Outpatient manager intensive care unit: will be Dr. Barrow
Syncope
-This is in the setting of severe electrolyte disturbance and dehydration
-Would not resume HCTZ, if she requires diuresis would opt for nephrology opinion as she has chronic kidney disease and presented with life-threatening hypokalemia
-Recent TTE stable
Hypokalemia, severe - this is a threat to life
-Bilateral adrenal adenomas per MRI last admission
-Reports has been eating and drinking normally, no diarrhea, and adherent with medications
-Potassium correction per primary service
Abnormal troponin, likely nonischemic myocardial injury in the setting of CKD
-Chest pain-free
-EKG without acute ischemia
-Initial troponin 0.121, trend
Abnormal EKG
-Repeat EKG after severe hypokalemia has been repleted
Asymptomatic AV node conduction disease (2:1 AV block with narrow QRS and associated with Mobitz I)
-Seen during prior admission, follow telemetry and avoid AV deena agents
Hypertension, chronic, soft BP initially in ER which resolved with IV fluid, hold lisinopril for now
Anemia, chronic, per primary
CKD, chronic
Data Reviewed
-
EKG: Report Reviewed by me
Medical Tests (Nuc Med, Echo etc): Report Reviewed by me
Labs: Labs Reviewed by me
Old Records: Reviewed
[2024-12-01] MEDS: MAGNESIUM SULFATE 50 IV (15:48)
[2024-12-01 17:56] LABS: Troponin I 0.102 ng/ml
[2024-12-01] MEDS: LR 1000 IV (18:15)
--- NOTE | 2024-12-01 18:56 | PTCARENOTE ---
Pt admitted to 4W from ER, pulled over from stretcher to bed. AAOx3 with no acute complaints at this time. Oriented to room and plan of care.
[2024-12-01] MEDS: CARAFATE SUSPENSION 1 GM PO (20:07)
[2024-12-01] MEDS: PROTONIX 40 MG PO (20:07)
[2024-12-01] MEDS: LAC HYDRIN, AM LACTIN LOTION 1 APPLIC TOPICAL (20:09)
[2024-12-02] VITALS (10 sets, daily range): BP systolic 131–171; BP diastolic 70–93; PULSE 88–129; O2SAT 100; BMI 29.0
[2024-12-02 07:03] LABS: Hematocrit 30.6 % (37.0-47.0); Hemoglobin 9.7 g/dL (12.0-16.0); Mean Corp Hgb Conc. 31.7 g/dL (33.0-37.0); Mean Corpuscular Hgb 26.9 pg (27.0-31.0); Mean Platelet Volume 12.3 fL (7.4-10.4); Platelet Count 121 10^3/uL (130-400); Red Cell Dist. Width 17.4 % (11.5-14.5)
[2024-12-02 07:19] LABS: % Basophils 0.4 % (0-2); % Lymphocytes 27.6 % (20.5-51.1); % Monocytes 7.3 % (1.7-9.3); % Neutrophils 62.7 % (42.2-75.2); ALT (SGPT) 17 U/L (0-35); AST (SGOT) 24 U/L (14-36); Absolute Immature Granulocytes 0.1 10^3/uL (0-0.05); Absolute Lymphocytes 1.4 10^3/uL (1.2-3.4); Absolute Monocytes 0.4 10^3/uL (0.1-0.6); Absolute Neutrophils 3.2 10^3/uL (1.4-6.5); Albumin 2.4 g/dl (3.5-5.0); Alkaline Phosphatase 69 U/L (38-126); Blood Urea Nitrogen 23 mg/dl (7-17); Calcium 8.4 mg/dl (8.4-10.2); Carbon Dioxide 30 mmol/L (22-30); Chloride 106 mmol/L (98-107); Estimated Creatinine Clearance 34 ml/min; Glucose 72 mg/dl (70-99); Magnesium 2.2 mg/dl (1.6-2.3); Nucleated Red Blood Cells % 0 %; Potassium 2.2 mmol/L (3.5-5.1); Sodium 145 mmol/L (135-145); Total Bilirubin 0.9 mg/dl (0.2-1.3); eGFR 39.97
[2024-12-02] MEDS: KCL 270 MEQ IV ×3 (09:01→19:29)
[2024-12-02] MEDS: LAC HYDRIN, AM LACTIN LOTION 1 APPLIC TOPICAL ×2 (09:04→19:32)
[2024-12-02] MEDS: PROTONIX PO (09:20)
[2024-12-02] MEDS: CARAFATE SUSPENSION PO (09:21)
--- NOTE | 2024-12-02 09:44 | W.PN.CD ---
Today's Communication / Plan
-
Cardiology will sign off
Impression / Plan
-
I/P: 74F with hypertension, dyslipidemia, CKD, and lymphedema who presented to the emergency department with presyncope. She was found to have severe hypokalemia with a serum potassium of 1.9.
Outpatient tube turner: will be Dr. Barrow
Syncope
-This is in the setting of severe electrolyte disturbance and dehydration
-Would not resume HCTZ, if she requires diuresis would opt for nephrology opinion as she has chronic kidney disease and presented with life-threatening hypokalemia
-Recent TTE stable
Hypokalemia, severe - this is a threat to life
-Bilateral adrenal adenomas per MRI last admission
-Reports has been eating and drinking normally, no diarrhea, and adherent with medications
-Potassium correction per primary service
Abnormal troponin from a nonischemic myocardial injury in the setting of CKD
-Chest pain-free
-EKG without acute ischemia
-Initial troponin 0.121, peak 0.117
Abnormal EKG
Asymptomatic AV node conduction disease (2:1 AV block with narrow QRS and associated with Mobitz I)
-Seen during prior admission, follow telemetry and avoid AV deena agents
Hypertension, chronic, soft BP initially in ER which resolved with IV fluid, hold lisinopril for now
- Manage w/o HCTZ/potassium wasting diuretic
Anemia, chronic, per primary
CKD, chronic
Physical Exam
Vital Signs/Labs
Vital Signs
Temp Pulse Resp BP Pulse Ox
98.2 F 71 18 133/74 99
12/02/24 07:30 12/02/24 07:30 12/02/24 07:30 12/02/24 07:30 12/02/24 07:30
12/01/24 12/02/24 12/03/24
06:59 06:59 06:59
Actual Weight 71.894 kg
12/02/24 06:20
Magnesium 2.2 mg/dl (1.6-2.3) 12/02/24 06:20
LAB Results
12/01/24 12/01/24 12/01/24
11:40 13:06 17:24
Troponin I 0.121 H* 0.117 H* 0.102 H*
12/01/24
23:00
Troponin I Cancelled
Physical Exam
Constitutional: No acute distress
EENT: Anicteric
Cardiovascular: Rhythm & rate is regular and Pedal edema is absent
Respiratory: Respiratory effort normal and Lungs clear to auscul.
GI: Soft and Distention absent
Neuro/Psych: Alert
Data Reviewed
-
Date of Service: December 02, 2024
--- NOTE | 2024-12-02 10:02 | PTOTSP ---
Speech Therapy Swallowing Assessment
Patient accepted only tiny amounts of water and applesauce from teaspoon as well as one small pill without over signs of aspiration. However, soon after oral trials patient began to spit up water, applesauce and frothy secretions.
Recommend
1. NPO
2. GI consult - patient was due for follow up EGD in early December for erosive esophagitis.
3. Non oral meds given regurgitation
4. ST follow up pending results of work up.
--- NOTE | 2024-12-02 10:40 | W.PN.HOSP.TC ---
Addendum entered and electronically signed by Hiram Pérez MD 12/02/24 13:55:
updated geronimo sister HUMBERTO over the phone in details
Original Note:
Today's Communication/Plan
-
replete kcl IV unable to tolerate po
ppi bid
IVF
GI input
Assessment / Plan
Assessment / Plan
#Near syncope secondary to hypotension likely orthostatic hypotension
#Hx bradycardia lasting 10 to 20-seconds heart rate in the 30s recent admission 11/04/24
-Follow orthostatics
-Check CT head-negative
-Monitor on telemetry
-Consult CBC cardiology
-Consult PT/OT/case management
#Severe hypokalemia 2/2 HCTZ
-DC HCTZ
-replete KCL IV as unable to tolerate po which is limiting factor
-repeat labs later today.
-check TSH/Cortisol and renin/angelina level
#Hypomagnesemia
replete prn
#BUBBA on CKD 3B
Creat 1.5, baseline 1.2
likely 2/2 severe hypotension and on HCTZ
Trend for now
#Dementia listed on senior care record
-OT for Bcat assessment
-Check CT head-negative.
-monitor mentation closely.
#Dysphagia/failure to thrive/nonsevere protein malnutrition likely due to severe erosive esophagitis
- Protonix switched to BID
-Continue Carafate 1 g 10 mL p.o. twice daily
-Avoid all NSAIDs
-unable to shallow liquids/meds with immediate regurgitation
-speech recommend NPO. Non oral meds.
-will ask GI input
#Second-degree heart block Mobitz type I recent admission 11/04/24
-Patient's atenolol was DC'd
-Monitor on telemetry given near syncope
#Deconditioning
-Patient was sent to [facility] facility on 11/04 [facility]
-PT/OT consult
#DM 2 diet-controlled
HgbA1c 05 November 2024
Metformin was DC'd
#Chronic ambulatory dysfunction uses walker
-Consult PT/OT/case management
#Recent admission October 2024 endometrial thickening and fluid in the endometrial canal found on transvaginal ultrasound-. Follow up with the product consultant for further evaluation and recommendations.
DVT prophylaxis
-SCDs/hep sc
Full code
Anticipated Discharge: > 48 hours
Subjective/Interval History
-
Date of Service: December 02, 2024
denies lightheaded or dizziness
Objective Data
-
Labs:
Laboratory Results
12/02/24 12/02/24 12/02/24
01:00 06:20 13:00
WBC 5.0
Hgb 9.7 L
Hct 30.6 L
Plt Count 121 L D
Sodium Cancelled 145 Pending
Potassium Cancelled 2.2 L* Pending
Chloride Cancelled 106 Pending
Carbon Dioxide Cancelled 30 Pending
BUN Cancelled 23 H Pending
Creatinine Cancelled 1.4 H Pending
Glucose Cancelled 72 Pending
Calcium Cancelled 8.4 Pending
Total Bilirubin 0.9
AST 24
ALT 17
Alkaline Phosphatase 69
Vital Signs:
Vital Signs
Temp Pulse Resp BP Pulse Ox
98.2 F 71 18 133/74 99
12/02/24 07:30 12/02/24 07:30 12/02/24 07:30 12/02/24 07:30 12/02/24 07:30
Physical Exam
-
General: No Apparent Distress, Comfortable and Conversant
HEENT: Normocephalic and Atraumatic
Respiratory: Clear to Auscultation
Cardiac: Regular Rhythm and S1/S2
GI: Soft, Nontender, Nondistended and Normal Bowel Sounds
Musculoskeletal: No Clubbing, No Cyanosis and No Edema
Skin: Warm and Dry
Neuro: Awake, Alert and No Motor Deficits
Psych: Calm
Data Reviewed
-
Total Time Spent with Patient (in minutes): 58
[2024-12-02] MEDS: LR 1000 IV (13:03)
[2024-12-02] MEDS: NSS (PRESERVATIVE FREE) 10 ML IV ×2 (13:04→19:33)
[2024-12-02] MEDS: PROTONIX IV 40 MG IV ×2 (13:04→19:32)
--- NOTE | 2024-12-02 13:42 | CON.GI ---
Addendum entered and electronically signed by Herber Varner MD 12/02/24 16:50:
I saw and examined the patient.
The [employer]EMENT OFFICER or PA's note was reviewed and I agree with the note.
Comment: 74yo female presents with n/v. She was admitted in September with hypothermia, bradycardia, change MS, failure to thrive and had EGD showing grade D esophagitis, gastric erosion, duodenal erosion. Biopsies were negative for malignancy, H
pylori or intestinal metaplasia. She reports taking PPI after d/c and does not recall vomiting until this admission, not sure how many days prior to admission. Has lost weight. Had recent CT, MRI without evidence of malignancy. Denies abd pain
REC:
cont PPI BID, carafate
I suggested EGD to document healing of esophagitis, but she declined
Will monitor oral intake and if recurrent vomiting, will re-discuss EGD with her
Original Note:
Consultation
-
Date/Time Consultation Requested: 12/02/24 1045
Date/Time Consultation Performed: 12/02/24 1345
Requesting Provider: Hiram Pérez MD
Performing Provider: ZA Anne, Herber Varner MD
Reason for Consultation: dysphagia
Medical History
Chief Complaint / HPI
Chief Complaint: hypothermia
History of Present Illness:
Pt is a 74yo with hx obesity, hypertension, hyperlipidemia, diabetes, CKD 3 with admission 10/19/24- 11/23/24 with hypothermia, bradycardia with second degree block mobitz type 1 without need for pacer, weakness, change in mental status and failure
to thrive with recent fall. During that admission she completed EGD grade D esophagitis with nodularity at GE junction, med HH, erosive gastropathy, moderate duodenal erythema with erosions in duodenal bulb. bx SB with gastric metaplasia, mild
focal villous blunting with peptic duodenitis with H pylorus with neg intestinal metaplasia and neg fungal and viral staining. She was recommended PPI and carafate with follow up and repeat EGD in 8 weeks. Multiple attempts were made to contact
patient for follow up and letter sent to patient. She now returns with nausea/vomiting and lightheadedness with orthostasis and low K 2.2. She was seen in follow up with speech therapy and noted with regurgitation of liquid and asked to see in
follow up.
At this time patient admits to continued issues with regurgitation with eating. She has had 10 + Kg wt loss since September. She denies abdominal pain, constipation or rectal bleeding. Admits to some diarrhea a few weeks ago.
Past Medical History
Past Medical History: HTN, Hypercholesterolemia and NIDDM
Past Surgical History: None
Social History
Tobacco: Non-Smoker
Alcohol: Occasional
Drug: None
Personal: Single
Living: Long-Term
Employment: Retired
Family History
Family History: Other (No family history gastrointestinal malignancy, IBD or liver disease)
Allergies / Home Medications
Allergy/AdvReac Type Severity Reaction Status Date / Time
No Known Allergies Allergy Verified 12/01/24 11:38
�Medication �Instructions �Recorded
hydrochlorothiazide 25 mg tablet 25 mg PO DAILY Hypertension #30 11/03/24
tabs
lisinopril 20 mg tablet 20 mg PO BID Hypertension #30 tabs 11/03/24
pantoprazole 40 mg tablet,delayed 40 mg PO BID Esophagitis, 11/03/24
release Gastritis #30 tabs
sucralfate 100 mg/mL oral 1 g (10 mL) PO BID Esophagitis 11/03/24
suspension #414 mL
acetaminophen 325 mg tablet 650 mg PO Q6HPRN PRN mild 12/01/24
pain/VAUGHAN/temp> 100.4F
ammonium lactate 12 % topical cream 1 applic topical BID b/l feet 12/01/24
bisacodyl 10 mg rectal suppository 10 mg MT DAILYPRN PRN if no bm 12/01/24
(Dulcolax (bisacodyl)) aftr mom
magnesium hydroxide 400 mg/5 mL 2,400 mg PO DAILYPRN PRN if no bm 12/01/24
oral suspension (Milk of Magnesia) by 3rd day
Review of Systems
-
History Source: Patient
Constitutional: Reports Weight Loss and Fatigue
EENT: Reports No Symptoms
Respiratory: Reports No Symptoms
Cardiac: Reports No Symptoms
Abdomen/GI: Reports Nausea and Vomiting
: Reports No Symptoms
Musculoskeletal: Reports No Symptoms
Skin: Reports No Symptoms
Neurological: Reports Weakness
Endocrine: Reports No Symptoms
Hematologic/Lymphatic: Reports No Symptoms
Vital Signs
Temp Pulse Resp BP Pulse Ox
98.5 F 76 18 146/77 95
12/02/24 11:00 12/02/24 11:00 12/02/24 11:00 12/02/24 11:00 12/02/24 11:00
Physical Exam
Exam
General: Well Developed, Well Nourished and No Apparent Distress
HEENT: Normocephalic and Anicteric
Respiratory: Clear
Cardiac: Regular Rhythm
GI: Soft, Non Distended and Other (soft round palpable mass above umbilical area )
Musculoskeletal: No Clubbing and No Cyanosis
Skin: Warm and Dry
Neuro: Awake, Alert and Other (forgetful to some questions )
Psych: Calm
Results
WBC 5.0 10^3/uL (4.8-10.8) 12/02/24 06:20
Hgb 9.7 g/dL (12.0-16.0) L 12/02/24 06:20
Hct 30.6 % (37.0-47.0) L 12/02/24 06:20
MCV 85.0 fL (81.0-99.0) 12/02/24 06:20
Plt Count 121 10^3/uL (130-400) L D 12/02/24 06:20
Absolute Neuts (auto) 3.2 10^3/uL (1.4-6.5) 12/02/24 06:20
Sodium 145 mmol/L (135-145) 12/02/24 06:20
Potassium 2.2 mmol/L (3.5-5.1) L* 12/02/24 06:20
Chloride 106 mmol/L (98-107) 12/02/24 06:20
Carbon Dioxide 30 mmol/L (22-30) 12/02/24 06:20
BUN 23 mg/dl (7-17) H 12/02/24 06:20
Creatinine 1.4 mg/dL (0.6-1.0) H 12/02/24 06:20
Calcium 8.4 mg/dl (8.4-10.2) 12/02/24 06:20
Total Bilirubin 0.9 mg/dl (0.2-1.3) 12/02/24 06:20
AST 24 U/L (14-36) 12/02/24 06:20
ALT 17 U/L (0-35) 12/02/24 06:20
Alkaline Phosphatase 69 U/L (38-126) 12/02/24 06:20
Diagnostic Image Results:
12/01/24 HCT No acute intracranial abnormality noted.
10/29/24 [facility] EGD - Severe, LA Grade D erosive esophagitis with no
bleeding from 25 to 34 cms from the incisors spanning
from the mid to distal esophagus. Biopsied to rule out
Halima, CMV and HSV.
- Circumferential, nodular mucosa in the esophagus at
the GE junction at 34 cms. Biopsied to rule out
dysplasia and malignancy (sent for placitas).
- Medium-sized hiatal hernia without Guanakito's lesions.
- Erosive gastropathy in the antrum and body with no
bleeding and no stigmata of recent bleeding. Biopsied
to rule out H pylori
- Otherwise, normal stomach on direct and retroflexion
views.
- Moderate duodenal erythema and scattered erosions in
the duodenal bulb.
- Otherwise, normal duodenum up to the third portion.
Biopsies were taken with a cold forceps for evaluation
of celiac disease.
- The examination was otherwise normal.
10/28/24 US pelvis- transvag-- 2 small uterine fibroids, homogeneous endometrium cannot exclude minimal fluid along endometrial canal. if bleeding consider MRI.
10/27/24 MR Abdomen W/o & W Contrast
1. MODERATE-SIZED BILATERAL LOWER LOBE AIRSPACE CONSOLIDATIONS most suggestive of moderate bilateral lower lobe pneumonia with adjacent SMALL BILATERAL PARAPNEUMONIC PLEURAL EFFUSIONS. Compressive subsegmental atelectasis in the lower lobes of
both lungs is an alternative diagnostic possibility.
2. Mild polycystic liver disease.
3. Moderate to severe chronic bilateral kidney disease.
4. Small to moderate-sized paraesophageal hiatal hernia.
5. Moderate distention of the urinary bladder.
6. Mild to moderate endometrial thickening (either endometrial hyperplasia or carcinoma).
7. Severe discogenic degenerative disease at L4/L5 and L5/S1.
10/24/24 CT Chest/abd/pelvis limited study, small b/l lower lobe consolidation air bronchogram, PNA, or atelectasis with small b/l effusion, low density hepatic lesions, benign vs malignant, no obstruction, low attenuation density central within
uterus, consider pelvic US
Small bilateral lower lobe consolidations with air bronchograms, pneumonia/or atelectasis and small bilateral pleural effusions.
Few scattered indeterminate low-attenuation density hepatic lesions, as detailed above. These could be benign, malignancy cannot be excluded, evaluation limited.
No intestinal obstruction or free air.
Heterogeneous nonspecific low-attenuation density centrally within the uterus. If there is vaginal bleeding, consider Pelvic Ultrasound.
10/21/24 obstruction series - no obstruction, moderate fecal impaction in colon, no acute disease of chest, small right pleural effusion, atelectasis vs scarring
10/18/24 HCT- no acute infarct, white matter leukoaraiosis, mild to moderate b/l parietal loss, volume loss frontal lobes and cerebellum.
Prior GI Procedures:
10/29/24 [facility] EGD - Severe, LA Grade D erosive esophagitis with no
bleeding from 25 to 34 cms from the incisors spanning
from the mid to distal esophagus. Biopsied to rule out
Halima, CMV and HSV.
- Circumferential, nodular mucosa in the esophagus at
the GE junction at 34 cms. Biopsied to rule out
dysplasia and malignancy (sent for placitas).
- Medium-sized hiatal hernia without Guanakito's lesions.
- Erosive gastropathy in the antrum and body with no
bleeding and no stigmata of recent bleeding. Biopsied
to rule out H pylori
- Otherwise, normal stomach on direct and retroflexion
views.
- Moderate duodenal erythema and scattered erosions in
the duodenal bulb.
- Otherwise, normal duodenum up to the third portion.
Biopsies were taken with a cold forceps for evaluation
of celiac disease.
- The examination was otherwise normal.
Colonoscopy:
Cologuard 09/25/2022 negative
Assessment / Plan
-
Pt is a 74yo with hx obesity, hypertension, hyperlipidemia, diabetes, CKD 3 with admission 10/19/24- 11/23/24 with hypothermia, bradycardia with second degree block mobitz type 1 without need for pacer, weakness, change in mental status and failure
to thrive with recent fall. During that admission she completed EGD grade D esophagitis with nodularity at GE junction, med HH, erosive gastropathy, moderate duodenal erythema with erosions in duodenal bulb. bx SB with gastric metaplasia, mild
focal villous blunting with peptic duodenitis with H pylorus with neg intestinal metaplasia and neg fungal and viral staining. She was recommended PPI and carafate with follow up and repeat EGD in 8 weeks. Multiple attempts were made to contact
patient for follow up and letter sent to patient. She now returns with nausea/vomiting and lightheadedness with orthostasis and low K 2.2. She was seen in follow up with speech therapy and noted with regurgitation of liquid and asked to see in
follow up. She is noted with continued wt loss, hypoabuminemia and CKD
-near syncope with hypotension/orthostasis on admission
-severe hypokalemia on admission
-nausea/regurgitation
-palpable soft round abdominal mass -- recent imaging as noted
-recent abnormal EGD with esophagitis, nodularity due follow up
-decreased appetite/nausea/early satiety - 10 kg wt loss since last admission
-Indeterminate low-attenuation hepatic lesions-- follow up MRI with polycystic liver disease
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
-Protein malnutrition, decreased albumin and protein
-Mild to moderate endometrial thickening
-Anemia, microcytic iron studies not consistent with iron deficiency
-hypomagnesemia
-hypoalbuminemia
-low protein levels
other med problems:
-CKD
-dementia
-hx mobitz type 2 block
-DM
-hx obesity
Plan:
Etiology of continued regurgitation related to severe esophagitis noted on recent EGD vs other
continue PPI and Carafate
will review with Dr. Varner for repeat EGD was due 12/27
pt unsure if she will agree to repeat
pt continued with failure to thrive with wt loss now down 10 kg since September
noted with palpable mass above umbilical area Etiology unclear -- recent CT and MRI as noted
when tolerating oral meds restart laxatives
OP GRAIN GRADER follow up for endometrial thickening
OP colonoscopy-- no hx screening in past
-
-
Thank you for consultation and allowing me to participate in the patient's care. Please call the telephone maintenance mechanic GI physician during the after hours with any questions or concerns.
[2024-12-02 14:14] LABS: Blood Urea Nitrogen 24 mg/dl (7-17); Calcium 8.5 mg/dl (8.4-10.2); Carbon Dioxide 30 mmol/L (22-30); Chloride 107 mmol/L (98-107); Estimated Creatinine Clearance 36 ml/min; Glucose 78 mg/dl (70-99); Potassium 2.8 mmol/L (3.5-5.1); Sodium 145 mmol/L (135-145); eGFR 43.69
--- NOTE | 2024-12-02 15:08 | WOUNDNOTE ---
Wound Care Instructions - Right Buttock Wound- Clean with soap and water or normal saline and cover with thin Hydrocolloid dressing. Change Q 72 hours and PRN if loose or soiled.
Bilateral Heels- No-sting barrier wipe and adhesive foam. Change Q72 hours and PRN if loose or soiled.
Air Mattress
Turning Schedule
Keep heels off-loaded with pillow or air cushion under heels
Frequent incontinence care- avoid diapers
--- NOTE | 2024-12-02 15:17 | WOUNDNOTE ---
Addendum entered by Shey Li RN 12/09/24 13:39:
Sacrum, intact. Stage 2 of right buttock.
Original Note:
[facility] RN note: Patient admitted with nausea
See H&P for complete history.
PMH: HTN, CKD, diabetes, previous admission from 10/19- 11/23 with hypothermia. Patient transferred from .
Wound Location and type/assessment: Patient admitted with superficial right buttock wound likely caused by a combination of friction, shearing and moisture. Skin on buttocks is very loose and likely prone to damage when patient is being pulled in
bed. The wound is pink and patient reports tenderness. No drainage or odor noted. Sacrum and heels intact.
Appetite: NPO
Pressure redistribution devices in place: Centrella Max Air , turning schedule, heels off-loaded with air cushion under calf.
Plan: Hydrocolloid applied to right buttock wound. Incontinence care provided and diaper removed. No sting barrier and adhesive foam applied to heels. HOLLIE Cunha given update. Will confirm orders with hospitalist.
Updated care plan and will follow as needed.
Note to case management of equipment requested for discharge: Air mattress at facility
Recommend follow up at wound care center upon discharge.
[2024-12-02] MEDS: HEPARIN 5000 UNITS SC (19:30)
[2024-12-02] MEDS: CARAFATE SUSPENSION 1 GM PO (19:31)
[2024-12-03] MEDS: LR 1000 IV (03:33)
[2024-12-03 04:52] VITALS: BP 177/89
[2024-12-03 05:31] VITALS: BMI 31.0
[2024-12-03 08:12] LABS: % Basophils 0.6 % (0-2); % Eosinophils 3.2 % (0-6); % Immature Granulocytes 4.5 % (0-0.5); % Lymphocytes 30.3 % (20.5-51.1); % Monocytes 7.3 % (1.7-9.3); % Neutrophils 54.1 % (42.2-75.2); Absolute Eosinophils 0.2 10^3/uL (0-0.7); Absolute Immature Granulocytes 0.2 10^3/uL (0-0.05); Absolute Lymphocytes 1.6 10^3/uL (1.2-3.4); Absolute Monocytes 0.4 10^3/uL (0.1-0.6); Absolute Neutrophils 2.9 10^3/uL (1.4-6.5); Hematocrit 32.4 % (37.0-47.0); Hemoglobin 10.1 g/dL (12.0-16.0); Mean Corp Hgb Conc. 31.2 g/dL (33.0-37.0); Mean Corpuscular Hgb 26.5 pg (27.0-31.0); Mean Platelet Volume 11.7 fL (7.4-10.4); Nucleated Red Blood Cells % 0 %; Platelet Count 144 10^3/uL (130-400); Red Blood Cell Count 3.81 10^6/uL (4.20-5.40); Red Cell Dist. Width 18.2 % (11.5-14.5); White Blood Cell Count 5.3 10^3/uL (4.8-10.8)
--- NOTE | 2024-12-03 08:24 | PTCARENOTE ---
patients merlene blood pressure done by RN.
--- NOTE | 2024-12-03 09:05 | W.PN.GI.CBS2 ---
Addendum entered and electronically signed by Herber Varner MD 12/03/24 13:48:
I saw and examined the patient.
The FITTER AND TURNER or PA's note was reviewed and I agree with the note.
Comment: Lying in bed with emesis bag. Speech reports regurgitation. She spoke with sister and now agreeable to EGD
ABD soft NT
REC:
EGD tomorrow to assess healing of esophagitis, which was severe on recent exam
Retry diet after EGD
Cont PPI
If still losing weight, consider repeat imaging with oral contrast
Pt unsure about prior colonoscopy. Could also consider colonoscopy as part of work up for failure to thrive
Original Note:
Today's Communication / Plan
-
Etiology of continued regurgitation related to severe esophagitis noted on recent EGD, vs other
pt also with wt loss likely with not eating well and noted with significant electrolyte imbalance on admission
noted with palpable smoother soft mass above umbilical area Etiology unclear -- recent CT and MRI as noted
pt report hx colonoscopy in past but no report reviewed-- pt now unsure if every completed
I spoke with speech therapy concern for cont regurgitation - likely esophageal can trial diet with known risks of aspiration
continue PPI and Carafate
I had long discussion with patient and geronimo sister HUMBERTO who has not seen pt is some time and lives in [place], other sister saw pt in October but lives in [place]
patient and sister will consider how aggressive they want to be-- repeat EGD, temp DHT, oral contrast CT or even colonoscopy to further eval vs palliative and comfort as patient declining further testing
I sent tiger text to Dr. Gutierrez to review further with family
I updated nursing staff and he will try to connect patient to talk to her sister to make a group decision
noted with palpable smoother soft mass above umbilical area Etiology unclear -- recent CT and MRI as noted
when tolerating oral meds restart laxatives
OP [employer] COMMISSIONER follow up for endometrial thickening s/p IP eval as noted no current vaginal bleeding
Assessment / Plan
-
Pt is a 74yo with hx obesity, hypertension, hyperlipidemia, diabetes, CKD 3 with admission 10/19/24- 11/23/24 with hypothermia, bradycardia with second degree block mobitz type 1 without need for pacer, weakness, change in mental status and failure
to thrive with recent fall. During that admission she completed EGD grade D esophagitis with nodularity at GE junction, med HH, erosive gastropathy, moderate duodenal erythema with erosions in duodenal bulb. bx SB with gastric metaplasia, mild
focal villous blunting with peptic duodenitis with H pylorus with neg intestinal metaplasia and neg fungal and viral staining. She was recommended PPI and carafate with follow up and repeat EGD in 8 weeks. Multiple attempts were made to contact
patient for follow up and letter sent to patient. She now returns with nausea/vomiting and lightheadedness with orthostasis and low K 1.9. She was seen in follow up with speech therapy and noted with regurgitation of liquid and asked to see in
follow up. She is noted with continued wt loss, hypoalbuminemia and CKD
-near syncope with hypotension/orthostasis on admission
-severe hypokalemia on admission
-nausea/regurgitation
-palpable soft round abdominal mass -- recent imaging as noted
-recent abnormal EGD with esophagitis, nodularity due follow up
-decreased appetite/nausea/early satiety - 10 kg wt loss since last admission
-Indeterminate low-attenuation hepatic lesions-- follow up MRI with polycystic liver disease
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
-Protein malnutrition, decreased albumin and protein
-Mild to moderate endometrial thickening
-Anemia, microcytic iron studies not consistent with iron deficiency
-hypomagnesemia
-hypoalbuminemia
-low protein levels
-elevated trop on admission
-edometrial thickening s/p PUBLIC [employer] COMMISSIONER eval no vaginal bleeding
other med problems:
-CKD
-dementia
-hx mobitz type 2 block
-DM
-hx obesity
Plan:
Etiology of continued regurgitation related to severe esophagitis noted on recent EGD, vs other
pt also with wt loss likely with not eating well and noted with significant electrolyte imbalance on admission
noted with palpable smoother soft mass above umbilical area Etiology unclear -- recent CT and MRI as noted
pt report hx colonoscopy in past but no report reviewed-- pt now unsure if every completed
I spoke with speech therapy concern for cont regurgitation - likely esophageal can trial diet with known risks of aspiration
continue PPI and Carafate
I had long discussion with patient and geronimo sister HUMBERTO who has not seen pt is some time and lives in [place], other sister saw pt in October but lives in [place]
patient and sisters will consider how aggressive they want to be-- repeat EGD, temp DHT, oral contrast CT or even colonoscopy to further eval vs palliative and comfort as patient declining further testing
I sent tiger text to Dr. Gutierrez to review further with family
I updated nursing staff and he will try to connect patient to talk to her sister to make a group decision
noted with palpable smoother soft mass above umbilical area Etiology unclear -- recent CT and MRI as noted
when tolerating oral meds restart laxatives
OP [employer]IONER follow up for endometrial thickening s/p IP eval as noted no current vaginal bleeding
Subjective
Subjective
Date of Service: December 03, 2024
NPO as concern for regurgitation of diet, no stools
Objective
Data Reviewed
Laboratory Data:
Laboratory Results
12/03/24 07:47
Laboratory Results
Magnesium 2.2 mg/dl (1.6-2.3) 12/02/24 06:20
Total Bilirubin 0.9 mg/dl (0.2-1.3) 12/02/24 06:20
AST 24 U/L (14-36) 12/02/24 06:20
ALT 17 U/L (0-35) 12/02/24 06:20
Alkaline Phosphatase 69 U/L (38-126) 12/02/24 06:20
Vital Signs and I&O:
Vital Signs
Temp Pulse Resp BP Pulse Ox
97.5 F 99 24 177/89 99
12/03/24 07:30 12/03/24 07:30 12/03/24 07:30 12/03/24 04:52 12/03/24 07:30
I&O
12/02/24 12/03/24 12/04/24
06:59 06:59 06:59
Intake Total 0 / 0
Balance 0 / 0
Physical Exam
Physical Exam
HEENT: Anicteric and Moist mucous membranes
Cardiology: Normal Sinus Rhythm
Pulmonary: Clear
GI: Soft, Non Distended, Non Tender and Other (palp soft mass )
Extremities: No Edema
Neuro: Other (some forgetfulness )
[2024-12-03 09:09] LABS: ALT (SGPT) 16 U/L (0-35); AST (SGOT) 20 U/L (14-36); Albumin 2.5 g/dl (3.5-5.0); Alkaline Phosphatase 69 U/L (38-126); Blood Urea Nitrogen 22 mg/dl (7-17); Calcium 8.7 mg/dl (8.4-10.2); Carbon Dioxide 28 mmol/L (22-30); Chloride 113 mmol/L (98-107); Estimated Creatinine Clearance 38 ml/min; Glucose 71 mg/dl (70-99); Potassium 3.5 mmol/L (3.5-5.1); Sodium 148 mmol/L (135-145); Total Bilirubin 0.7 mg/dl (0.2-1.3); Total Protein 5.3 g/dl (6.3-8.2); eGFR 43.69
[2024-12-03] MEDS: LAC HYDRIN, AM LACTIN LOTION 1 APPLIC TOPICAL ×2 (09:19→20:56)
[2024-12-03] MEDS: HEPARIN 5000 UNITS SC (09:21)
[2024-12-03] MEDS: PROTONIX IV 40 MG IV ×2 (09:21→20:53)
[2024-12-03] MEDS: NSS (PRESERVATIVE FREE) 10 ML IV ×2 (09:21→20:53)
[2024-12-03] MEDS: CARAFATE SUSPENSION 1 GM PO (09:31)
--- NOTE | 2024-12-03 09:31 | PTOTSP ---
Speech Therapy Swallowing Assessment
Completed very limited amount of applesauce and water (no more than a tablespoon of each) without signs of aspiration or pharyngeal stasis. Session ended with regurgitation. Given no obvious oral/pharyngeal dysphagia, ST will sign off at this time.
Diet per GI.
--- NOTE | 2024-12-03 11:41 | CM ---
Initial assessment completed. Patient is a LTC resident at [facility]. Patient is a 74 year old female with a past medical history of hypertension, ecf-ctncxzm-vjikawupv diabetes mellitus, obesity, and chronic kidney disease who presented to
the emergency department with nausea, vomiting and lightheadedness.
CM spoke w/ Martha/[facility] admissions for patient's PLOF. Patient is mobile, able to re-position herself independently, ambulates w/ RW. Patient is able to feed herself. At baseline, patient is a assist x1 for transfers. Patient had skilled
rehab at [facility] in the past, HH hx unknown.
PCP: Arsalan Castro
Pharmacy: [facility]
Therapy evaluated patient and is recommending skilled rehab at d/c.
Plan: Return to [facility] when stable
[2024-12-03 11:43] VITALS: BP 186/93
[2024-12-03 11:56] LABS: Cortisol, Random 26.9 ug/dl; TSH Reflex To Free T4 0.26 uIU/ml (0.47-4.68)
[2024-12-03 12:25] LABS: Free T4 2.62 ng/dl (0.78-2.19)
[2024-12-03 15:00] VITALS: BP 173/95
--- NOTE | 2024-12-03 15:42 | W.PN.HOSP.TC ---
Today's Communication/Plan
-
EGD tomorrow
add Ensure
continue IVF
recheck labs
Assessment / Plan
Assessment / Plan
#Near syncope secondary to hypotension likely orthostatic hypotension
#Hx bradycardia lasting 10 to 20-seconds heart rate in the 30s recent admission 11/04/24
-Follow orthostatics
-Check CT head-negative
-Monitor on telemetry
-Consult CBC cardiology
-Consult PT/OT/case management
#Severe hypokalemia 2/2 HCTZ
-DC HCTZ
K 1.9-->2.2-->2.8-->3.5
-replete KCL IV as unable to tolerate po which is limiting factor
adjust IVF
- TSH 0.26/ free T4 2.62
Random Cortisol 26.9
#Hypomagnesemia
replete prn
severe cachexia
will start Ensure
#BUBBA on CKD 3B
Creat 1.5-->1.3
likely 2/2 severe hypotension and on HCTZ
Trend for now
#Dementia listed on longterm record
-OT for Bcat assessment
-Check CT head-negative.
-monitor mentation closely.
#Dysphagia/failure to thrive/nonsevere protein malnutrition likely due to severe erosive esophagitis
- Protonix switched to BID
-Continue Carafate 1 g 10 mL p.o. twice daily
-Avoid all NSAIDs
-diet currently minced and moist, nursing would like to try Ensure clear
-EGD in AM
#Second-degree heart block Mobitz type I recent admission 11/04/24
-Patient's atenolol was DC'd
-Monitor on telemetry given near syncope
#Deconditioning
-Patient was sent to SNF facility on 11/04 [place] [facility]
-PT/OT consult
#DM 2 diet-controlled
HgbA1c 05 November 2024
Metformin was DC'd
#Chronic ambulatory dysfunction uses walker
-Consult PT/OT/case management
#Recent admission October 2024 endometrial thickening and fluid in the endometrial canal found on transvaginal ultrasound-. Follow up with the ton cylinder inspector for further evaluation and recommendations.
DVT prophylaxis
-SCDs/hep sc
complex situation
Full code
Anticipated Discharge: > 48 hours
Subjective/Interval History
-
Date of Service: December 03, 2024
Asking for food
Objective Data
-
Labs:
Laboratory Results
12/03/24
07:47
WBC 5.3
Hgb 10.1 L
Hct 32.4 L
Plt Count 144
Sodium 148 H
Potassium 3.5
Chloride 113 H
Carbon Dioxide 28
BUN 22 H
Creatinine 1.3 H
Glucose 71
Calcium 8.7
Total Bilirubin 0.7
AST 20
ALT 16
Alkaline Phosphatase 69
Vital Signs:
Vital Signs
Temp Pulse Resp BP Pulse Ox
98.7 F 84 24 186/93 96
12/03/24 11:43 12/03/24 11:43 12/03/24 11:43 12/03/24 11:43 12/03/24 11:43
I&O
12/02/24 12/03/24 12/04/24
06:59 06:59 06:59
Intake Total 0 / 0
Balance 0 / 0
Review of Systems
-
History Source: Patient and Coordinated Provider (HOLLIE Gonzáles)
Constitutional: Denies Fever
EENT: Reports No Symptoms Reported
Respiratory: Reports No Symptoms
Cardiac: Reports No Symptoms
Abdomen/GI: Reports No Symptoms
Physical Exam
-
General: Well Developed, No Apparent Distress and Cachectic
HEENT: Normocephalic, Atraumatic and Moist Mucous Membranes
Respiratory: Clear to Auscultation; Negative Wheezes, Rales or Rhonchi
Cardiac: Regular Rhythm and S1/S2
GI: Soft, Nontender and Nondistended
Musculoskeletal: No Clubbing, No Cyanosis and No Edema
[2024-12-03] MEDS: LR IV (16:45)
[2024-12-03] MEDS: D5/0.45%NSS with KCL 20 MEQ 1000 IV (18:19)
[2024-12-03 20:24] VITALS: BP 191/106
[2024-12-03] MEDS: CARAFATE SUSPENSION PO (20:54)
[2024-12-03 22:16] VITALS: BP 174/89
[2024-12-03 22:51] VITALS: BP 122/64
[2024-12-04] VITALS (11 sets, daily range): BP systolic 18–189; BP diastolic 75–132
[2024-12-04] MEDS: D5/0.45%NSS with KCL 20 MEQ 1000 IV (05:53)
[2024-12-04 08:36] LABS: Hematocrit 32.5 % (37.0-47.0); Mean Corp Hgb Conc. 30.8 g/dL (33.0-37.0); Mean Corpuscular Volume 84.6 fL (81.0-99.0); Platelet Count 139 10^3/uL (130-400); Red Blood Cell Count 3.84 10^6/uL (4.20-5.40); White Blood Cell Count 4.5 10^3/uL (4.8-10.8)
[2024-12-04 08:48] LABS: ALT (SGPT) 16 U/L (0-35); AST (SGOT) 16 U/L (14-36); Albumin 2.4 g/dl (3.5-5.0); Alkaline Phosphatase 70 U/L (38-126); Blood Urea Nitrogen 18 mg/dl (7-17); Calcium 8.4 mg/dl (8.4-10.2); Carbon Dioxide 31 mmol/L (22-30); Chloride 105 mmol/L (98-107); Estimated Creatinine Clearance 49 ml/min; Glucose 118 mg/dl (70-99); Iron 118 ug/dl (37-170); Potassium 3.1 mmol/L (3.5-5.1); Sodium 142 mmol/L (135-145); Total Bilirubin 0.8 mg/dl (0.2-1.3); Total Protein 5.1 g/dl (6.3-8.2); eGFR 59.86
[2024-12-04 08:57] LABS: Percent Saturation 90 % (20-50); Total Iron Binding Capacity 131 ug/dl (265-497)
[2024-12-04] MEDS: NSS (PRESERVATIVE FREE) 10 ML IV ×2 (09:38→20:22)
[2024-12-04] MEDS: PROTONIX IV 40 MG IV ×2 (09:38→20:22)
[2024-12-04] MEDS: CARAFATE SUSPENSION PO ×2 (09:38→20:28)
[2024-12-04] MEDS: MIRALAX PO (09:38)
[2024-12-04] MEDS: LAC HYDRIN, AM LACTIN LOTION 1 APPLIC TOPICAL ×2 (09:39→20:20)
[2024-12-04 09:46] LABS: % Basophils 0.2 % (0-2); % Eosinophils 4.2 % (0-6); % Immature Granulocytes 5.3 % (0-0.5); % Lymphocytes 30.4 % (20.5-51.1); % Monocytes 8.4 % (1.7-9.3); % Neutrophils 51.5 % (42.2-75.2); Absolute Eosinophils 0.2 10^3/uL (0-0.7); Absolute Immature Granulocytes 0.2 10^3/uL (0-0.05); Absolute Lymphocytes 1.4 10^3/uL (1.2-3.4); Absolute Monocytes 0.4 10^3/uL (0.1-0.6); Absolute Neutrophils 2.3 10^3/uL (1.4-6.5); Nucleated Red Blood Cells % 0 %
--- NOTE | 2024-12-04 15:52 | W.PN.HOSP.TC ---
Today's Communication/Plan
-
IVF
K supplement
clear liquids
Assessment / Plan
Assessment / Plan
#Near syncope secondary to hypotension likely orthostatic hypotension
#Hx bradycardia lasting 10 to 20-seconds heart rate in the 30s recent admission 11/04/24
-Follow orthostatics
-Check CT head-negative
-Monitor on telemetry
-Consulted [facility] cardiology, has since signed off. Input appreciated
-Consult PT/OT/case management
#Severe hypokalemia 2/2 HCTZ
-DC HCTZ
K 1.9-->2.2-->2.8-->3.5-->3.1
-replete KCL IV as unable to tolerate po which is limiting factor
adjust IVF
- TSH 0.26/ free T4 2.62
Random Cortisol 26.9
#Hypomagnesemia
replete prn
EGD demonstrated severe stenosis: One severe (stenosis; an endoscope cannot pass) stenosis was found. The
pediatric endoscope could not be passed. soft food above which could be
suctioned up.
Impression: - Esophageal stenosis. Severe
- No specimens collected. Recommendation: - Repeat upper endoscopy under fluoroscopy for
dilation/evaluation
- PPI IV bid
- only clear liquids
severe cachexia
will start Ensure
#BUBBA on CKD 3B
Creat 1.5-->1.3-->1.0
likely 2/2 severe hypotension and on HCTZ
Trend for now
#Dementia listed on longterm record
-OT for Bcat assessment
-Check CT head-negative.
-monitor mentation closely.
#Dysphagia/failure to thrive/nonsevere protein malnutrition likely due to severe erosive esophagitis
- Protonix switched to BID
-Continue Carafate 1 g 10 mL p.o. twice daily
-Avoid all NSAIDs
-diet was minced and moist, underwent EGD, now on clear liquids
-EGD in AM
#Second-degree heart block Mobitz type I recent admission 11/04/24
-Patient's atenolol was DC'd
-Monitor on telemetry given near syncope
#Deconditioning
-Patient was sent to [facility] facility on 11/04 [place] [facility]
-PT/OT consult
#DM 2 diet-controlled
HgbA1c 05 November 2024
Metformin was DC'd
#Chronic ambulatory dysfunction uses walker
-Consult PT/OT/case management
#Recent admission October 2024 endometrial thickening and fluid in the endometrial canal found on transvaginal ultrasound-. Follow up with the rustic terrazzo setter for further evaluation and recommendations.
DVT prophylaxis
-SCDs/hep sc
complex situation
Full code
Anticipated Discharge: > 48 hours
Subjective/Interval History
-
Date of Service: December 04, 2024
Back from EGD
Objective Data
-
Labs:
Laboratory Results
12/04/24
07:03
WBC 4.5 L
Hgb 10.0 L
Hct 32.5 L
Plt Count 139
Sodium 142
Potassium 3.1 L
Chloride 105
Carbon Dioxide 31 H
BUN 18 H
Creatinine 1.0
Glucose 118 H
Calcium 8.4
Total Bilirubin 0.8
AST 16
ALT 16
Alkaline Phosphatase 70
Vital Signs:
Vital Signs
Temp Pulse Resp BP Pulse Ox
97.4 F 64 18 109/75 99
12/04/24 13:42 12/04/24 13:42 12/04/24 13:42 12/04/24 13:42 12/04/24 13:42
I&O
12/03/24 12/04/24 12/05/24
06:59 06:59 06:59
Intake Total 0 / 0 0 / 0
Balance 0 / 0 0 / 0
Review of Systems
-
History Source: Patient and Coordinated Provider (HOLLIE Gonzáles)
Constitutional: Denies Fever
EENT: Reports No Symptoms Reported
Respiratory: Reports No Symptoms
Cardiac: Reports No Symptoms
Abdomen/GI: Reports No Symptoms
Physical Exam
-
General: Well Developed, No Apparent Distress and Cachectic
HEENT: Normocephalic, Atraumatic and Moist Mucous Membranes
Respiratory: Clear to Auscultation; Negative Wheezes, Rales or Rhonchi
Cardiac: Regular Rhythm and S1/S2
GI: Soft, Nontender and Nondistended
Musculoskeletal: No Clubbing, No Cyanosis and No Edema
[2024-12-04] MEDS: HEPARIN 5000 UNITS SC (20:21)
[2024-12-04] MEDS: D5/0.45%NSS with KCL 40 MEQ 1000 IV (21:35)
[2024-12-04] MEDS: ZOFRAN 4 MG IV (23:21)
[2024-12-05 03:11] VITALS: BP 138/91
[2024-12-05 06:00] VITALS: BMI 30.3
[2024-12-05 07:25] VITALS: BP 130/91
[2024-12-05] MEDS: NSS (PRESERVATIVE FREE) 10 ML IV ×2 (07:30→20:09)
[2024-12-05] MEDS: HEPARIN 5000 UNITS SC ×2 (07:30→20:08)
[2024-12-05] MEDS: MIRALAX 17 GRAMS PO (07:30)
[2024-12-05] MEDS: LAC HYDRIN, AM LACTIN LOTION 1 APPLIC TOPICAL ×2 (07:31→20:08)
[2024-12-05] MEDS: PROTONIX IV 40 MG IV ×2 (07:32→20:09)
[2024-12-05] MEDS: CARAFATE SUSPENSION 1 GM PO (07:35)
[2024-12-05 07:57] LABS: % Basophils 0.6 % (0-2); % Eosinophils 3.6 % (0-6); % Immature Granulocytes 4.5 % (0-0.5); % Lymphocytes 44.1 % (20.5-51.1); % Monocytes 8.1 % (1.7-9.3); % Neutrophils 39.1 % (42.2-75.2); Absolute Eosinophils 0.2 10^3/uL (0-0.7); Absolute Immature Granulocytes 0.2 10^3/uL (0-0.05); Absolute Lymphocytes 2.4 10^3/uL (1.2-3.4); Absolute Monocytes 0.4 10^3/uL (0.1-0.6); Absolute Neutrophils 2.1 10^3/uL (1.4-6.5); Hematocrit 31.8 % (37.0-47.0); Hemoglobin 10.4 g/dL (12.0-16.0); Mean Corp Hgb Conc. 32.7 g/dL (33.0-37.0); Mean Corpuscular Volume 82.6 fL (81.0-99.0); Mean Platelet Volume 12.1 fL (7.4-10.4); Nucleated Red Blood Cells % 0 %; Platelet Count 171 10^3/uL (130-400); Red Blood Cell Count 3.85 10^6/uL (4.20-5.40); Red Cell Dist. Width 17.6 % (11.5-14.5); White Blood Cell Count 5.3 10^3/uL (4.8-10.8)
[2024-12-05 08:16] LABS: ALT (SGPT) 16 U/L (0-35); AST (SGOT) 15 U/L (14-36); Albumin 2.3 g/dl (3.5-5.0); Alkaline Phosphatase 72 U/L (38-126); Blood Urea Nitrogen 14 mg/dl (7-17); Calcium 8.4 mg/dl (8.4-10.2); Carbon Dioxide 28 mmol/L (22-30); Chloride 106 mmol/L (98-107); Estimated Creatinine Clearance 48 ml/min; Glucose 89 mg/dl (70-99); Potassium 3.6 mmol/L (3.5-5.1); Sodium 139 mmol/L (135-145); Total Bilirubin 0.7 mg/dl (0.2-1.3); Total Protein 5.2 g/dl (6.3-8.2); eGFR 59.86
[2024-12-05] MEDS: D5/0.45%NSS with KCL 40 MEQ 1000 IV ×2 (08:49→20:18)
--- NOTE | 2024-12-05 09:50 | W.PN.GI.CBS2 ---
Today's Communication / Plan
-
clears
Assessment / Plan
-
Pt is a 74yo with hx obesity, hypertension, hyperlipidemia, diabetes, CKD 3 with admission 10/19/24- 11/23/24 with hypothermia, bradycardia with second degree block mobitz type 1 without need for pacer, weakness, change in mental status and failure
to thrive with recent fall. During that admission she completed EGD grade D esophagitis with nodularity at GE junction, med HH, erosive gastropathy, moderate duodenal erythema with erosions in duodenal bulb. Repeat EGD with pinpoint distal
esophageal stricture which could not be passed even with slim scope;
plan:
1. clear liquids
2. IV ppi bid
3. repeat EGD on saturday under fluoro with Dr Lopez for dilation
Subjective
Subjective
Date of Service: December 05, 2024
Pt with no complaints. on clears
Objective
Data Reviewed
Laboratory Data:
Laboratory Results
12/05/24 06:57
12/05/24 06:56
Laboratory Results
Magnesium 2.2 mg/dl (1.6-2.3) 12/02/24 06:20
Total Bilirubin 0.7 mg/dl (0.2-1.3) 12/05/24 06:56
AST 15 U/L (14-36) 12/05/24 06:56
ALT 16 U/L (0-35) 12/05/24 06:56
Alkaline Phosphatase 72 U/L (38-126) 12/05/24 06:56
Vital Signs and I&O:
Vital Signs
Temp Pulse Resp BP Pulse Ox
97.4 F 93 18 130/91 95
12/05/24 07:25 12/05/24 07:25 12/05/24 07:25 12/05/24 07:25 12/05/24 08:25
I&O
12/04/24 12/05/24 12/06/24
06:59 06:59 07:59
Intake Total 0 1240 / 1240
Balance 0 1240 / 1240
Physical Exam
Physical Exam
HEENT: Anicteric
GI: Soft and Non Tender
Neuro: Other
[2024-12-05 11:36] VITALS: BP 153/95
--- NOTE | 2024-12-05 13:43 | CM ---
CM reviewed chart, patient LTC resident [facility]. Patient on , for repeat EGD Saturday. CM will continue to follow for all discharge planning needs.
Plan; return to [facility] when stable
[facility]
Report [phone]
--- NOTE | 2024-12-05 14:14 | W.PN.HOSP.TC ---
Today's Communication/Plan
-
For EGD under Fluoro on Saturday
Continue IVF
recheck labs
Assessment / Plan
Assessment / Plan
#Near syncope secondary to hypotension likely orthostatic hypotension, exacerbated by severe hypokalemia
#Hx bradycardia lasting 10 to 20-seconds heart rate in the 30s recent admission 11/04/24
-Follow orthostatics
-Check CT head-negative
-Monitor on telemetry
-Consulted [facility] cardiology, has since signed off. Input appreciated
-Consult PT/OT/case management
#Severe hypokalemia 2/2 HCTZ
-DC HCTZ
K 1.9-->2.2-->2.8-->3.5-->3.1-->3.6
-repleted KCL IV as unable to tolerate po which is limiting factor
adjusted IVF
- TSH 0.26/ free T4 2.62
Random Cortisol 26.9
#Hypomagnesemia
replete prn
EGD demonstrated severe stenosis: One severe (stenosis; an endoscope cannot pass) stenosis was found. The
pediatric endoscope could not be passed. soft food above which could be
suctioned up.
Impression: - Esophageal stenosis. Severe
- No specimens collected. Recommendation: - Repeat upper endoscopy under fluoroscopy for
dilation/evaluation
- PPI IV bid
- only clear liquids
severe cachexia
will start Ensure
Alb 2.3, hopefully post EGD with dilation on Saturday, may need to consider short course TPN if unable to achieve adequate intake post EGD
#BUBBA on CKD 3B
Creat 1.5-->1.3-->1.0
likely 2/2 severe hypotension and on HCTZ
Trend for now
#Dementia listed on custodial record
-OT for Bcat assessment
-Check CT head-negative.
-monitor mentation closely.
#Dysphagia/failure to thrive/nonsevere protein malnutrition likely due to severe erosive esophagitis
- Protonix switched to BID
-Continue Carafate 1 g 10 mL p.o. twice daily
-Avoid all NSAIDs
-diet was minced and moist, underwent EGD, now on clear liquids
-EGD Saturday AM with Fluoro by Dr. Lopez
#Second-degree heart block Mobitz type I recent admission 11/04/24
-Patient's atenolol was DC'd
-Monitor on telemetry given near syncope
#Deconditioning
-Patient was sent to [facility] facility on 11/04 [place] [facility]
-PT/OT consult
#DM 2 diet-controlled
HgbA1c 05 November 2024
Metformin was DC'd
#Chronic ambulatory dysfunction uses walker
-Consult PT/OT/case management
#Recent admission October 2024 endometrial thickening and fluid in the endometrial canal found on transvaginal ultrasound-. Follow up with the marine cargo specialist for further evaluation and recommendations.
DVT prophylaxis
-SCDs/hep sc
complex situation
Full code
Anticipated Discharge: > 48 hours
Subjective/Interval History
-
Date of Service: December 05, 2024
Awake, alert
Objective Data
-
Labs:
Laboratory Results
12/05/24 12/05/24
06:56 06:57
WBC 5.3
Hgb 10.4 L
Hct 31.8 L
Plt Count 171 D
Sodium 139
Potassium 3.6
Chloride 106
Carbon Dioxide 28
BUN 14
Creatinine 1.0
Glucose 89
Calcium 8.4
Total Bilirubin 0.7
AST 15
ALT 16
Alkaline Phosphatase 72
Vital Signs:
Vital Signs
Temp Pulse Resp BP Pulse Ox
98.2 F 92 18 153/95 95
12/05/24 11:36 12/05/24 11:36 12/05/24 11:36 12/05/24 11:36 12/05/24 08:25
I&O
12/04/24 12/05/24 12/06/24
06:59 06:59 07:59
Intake Total 0 / 0 1240 / 1240
Balance 0 / 0 1240 / 1240
Review of Systems
-
History Source: Patient
Constitutional: Denies Fever
EENT: Reports No Symptoms Reported
Respiratory: Reports No Symptoms
Cardiac: Reports No Symptoms
Abdomen/GI: Reports No Symptoms
Physical Exam
-
General: Well Developed, No Apparent Distress and Cachectic
HEENT: Normocephalic, Atraumatic and Moist Mucous Membranes
Respiratory: Clear to Auscultation; Negative Wheezes, Rales or Rhonchi
Cardiac: Regular Rhythm and S1/S2
GI: Soft, Nontender and Nondistended
Musculoskeletal: No Clubbing, No Cyanosis and No Edema
[2024-12-05 15:15] VITALS: BP 161/96
[2024-12-05] MEDS: ZOFRAN 4 MG IV (15:36)
[2024-12-05] MEDS: CARAFATE SUSPENSION PO (20:08)
[2024-12-05 23:45] VITALS: BP 155/94
[2024-12-06 06:00] VITALS: BMI 28.9
[2024-12-06 07:25] VITALS: BP 161/98
--- NOTE | 2024-12-06 07:25 | W.PN.GI.CBS2 ---
Today's Communication / Plan
-
EGD tomorrow
Assessment / Plan
-
Pt is a 74yo with hx obesity, hypertension, hyperlipidemia, diabetes, CKD 3 with admission 10/19/24- 11/23/24 with hypothermia, bradycardia with second degree block mobitz type 1 without need for pacer, weakness, change in mental status and failure
to thrive with recent fall. During that admission she completed EGD grade D esophagitis with nodularity at GE junction, med HH, erosive gastropathy, moderate duodenal erythema with erosions in duodenal bulb. Repeat EGD with pinpoint distal
esophageal stricture which could not be passed even with slim scope;
plan:
1. clear liquids
2. IV ppi bid
3. repeat EGD on saturday under fluoro with Dr Lopez for dilation
Subjective
Subjective
Date of Service: December 06, 2024
Pt doing well on clears.
Objective
Data Reviewed
Laboratory Data:
Laboratory Results
Magnesium 2.2 mg/dl (1.6-2.3) 12/02/24 06:20
Total Bilirubin 0.7 mg/dl (0.2-1.3) 12/05/24 06:56
AST 15 U/L (14-36) 12/05/24 06:56
ALT 16 U/L (0-35) 12/05/24 06:56
Alkaline Phosphatase 72 U/L (38-126) 12/05/24 06:56
Vital Signs and I&O:
Vital Signs
Temp Pulse Resp BP Pulse Ox
97.7 F 90 18 155/94 98
12/05/24 23:45 12/05/24 23:45 12/05/24 23:45 12/05/24 23:45 12/05/24 23:45
I&O
12/05/24 12/06/24 12/07/24
05:59 06:59 06:59
Intake Total
Balance
Physical Exam
Physical Exam
GI: Soft and Non Tender
[2024-12-06 07:27] LABS: Hematocrit 34.8 % (37.0-47.0); Hemoglobin 11.1 g/dL (12.0-16.0); Mean Corp Hgb Conc. 31.9 g/dL (33.0-37.0); Mean Corpuscular Hgb 26.6 pg (27.0-31.0); Mean Corpuscular Volume 83.3 fL (81.0-99.0); Mean Platelet Volume 11.1 fL (7.4-10.4); Platelet Count 176 10^3/uL (130-400); Red Blood Cell Count 4.18 10^6/uL (4.20-5.40); White Blood Cell Count 5.4 10^3/uL (4.8-10.8)
[2024-12-06 07:40] LABS: ALT (SGPT) 17 U/L (0-35); AST (SGOT) 20 U/L (14-36); Albumin 2.3 g/dl (3.5-5.0); Alkaline Phosphatase 73 U/L (38-126); Blood Urea Nitrogen 11 mg/dl (7-17); Calcium 8.7 mg/dl (8.4-10.2); Carbon Dioxide 26 mmol/L (22-30); Chloride 109 mmol/L (98-107); Estimated Creatinine Clearance 43 ml/min; Glucose 100 mg/dl (70-99); Potassium 4.3 mmol/L (3.5-5.1); Sodium 138 mmol/L (135-145); Total Bilirubin 0.5 mg/dl (0.2-1.3); eGFR 53.39
[2024-12-06] MEDS: CARAFATE SUSPENSION 1 GM PO ×2 (08:28→20:26)
[2024-12-06] MEDS: HEPARIN 5000 UNITS SC ×2 (08:29→20:25)
[2024-12-06] MEDS: LAC HYDRIN, AM LACTIN LOTION 1 APPLIC TOPICAL ×2 (08:31→20:25)
[2024-12-06] MEDS: MIRALAX 17 GRAMS PO (08:32)
[2024-12-06] MEDS: NSS (PRESERVATIVE FREE) 10 ML IV ×2 (08:33→20:25)
[2024-12-06] MEDS: PROTONIX IV 40 MG IV ×2 (08:33→20:25)
[2024-12-06] MEDS: ZOFRAN 4 MG IV ×3 (08:41→23:41)
[2024-12-06 09:53] LABS: % Basophils 0.6 % (0-2); % Eosinophils 4.1 % (0-6); % Immature Granulocytes 4.3 % (0-0.5); % Lymphocytes 53.3 % (20.5-51.1); % Monocytes 8.1 % (1.7-9.3); % Neutrophils 29.6 % (42.2-75.2); Absolute Eosinophils 0.2 10^3/uL (0-0.7); Absolute Immature Granulocytes 0.2 10^3/uL (0-0.05); Absolute Lymphocytes 2.9 10^3/uL (1.2-3.4); Absolute Monocytes 0.4 10^3/uL (0.1-0.6); Absolute Neutrophils 1.6 10^3/uL (1.4-6.5); Nucleated Red Blood Cells % 0 %
[2024-12-06] MEDS: D5/0.45%NSS with KCL 40 MEQ 1000 IV (10:06)
--- NOTE | 2024-12-06 13:07 | W.PN.HOSP.TC ---
Today's Communication/Plan
-
For Fluro guided EGD tomorrow
Assessment / Plan
Assessment / Plan
#Near syncope secondary to hypotension likely orthostatic hypotension, exacerbated by severe hypokalemia
#Hx bradycardia lasting 10 to 20-seconds heart rate in the 30s recent admission 11/04/24
-Follow orthostatics
-Check CT head-negative
-Monitor on telemetry
-Consulted [facility] cardiology, has since signed off. Input appreciated
-Consult PT/OT/case management
#Severe hypokalemia 2/2 HCTZ
-DC HCTZ
K 1.9-->2.2-->2.8-->3.5-->3.1-->3.6-->4.3
-repleted KCL IV as unable to tolerate po which is limiting factor
adjusted IVF
- TSH 0.26/ free T4 2.62
Random Cortisol 26.9
#Hypomagnesemia
replete prn
EGD demonstrated severe stenosis: One severe (stenosis; an endoscope cannot pass) stenosis was found. The
pediatric endoscope could not be passed. soft food above which could be
suctioned up.
Impression: - Esophageal stenosis. Severe
- No specimens collected. Recommendation: - Repeat upper endoscopy under fluoroscopy for
dilation/evaluation
- PPI IV bid
- only clear liquids
severe cachexia
will start Ensure
Alb 2.3, hopefully post EGD with dilation on Saturday will be able to tolerate diet, may need to consider short course TPN if unable to achieve adequate intake post EGD
#BUBBA on CKD 3B
Creat 1.5-->1.3-->1.0-->1.1
likely 2/2 severe hypotension and on HCTZ
Trend for now
#Dementia listed on [facility] record
-OT for Bcat assessment
-Check CT head-negative.
-monitor mentation closely.
#Dysphagia/failure to thrive/nonsevere protein malnutrition likely due to severe erosive esophagitis
- Protonix switched to BID
-Continue Carafate 1 g 10 mL p.o. twice daily
-Avoid all NSAIDs
-diet was minced and moist, underwent EGD, now on clear liquids
-EGD Saturday with Fluoro by Dr. Lopez
#Second-degree heart block Mobitz type I recent admission 11/04/24
-Patient's atenolol was DC'd
-Monitor on telemetry given near syncope
#Deconditioning
-Patient was sent to [facility] facility on 11/04 [place] [facility]
-PT/OT consult
#DM 2 diet-controlled
HgbA1c 05 November 2024
Metformin was DC'd
#Chronic ambulatory dysfunction uses walker
-Consult PT/OT/case management
#Recent admission October 2024 endometrial thickening and fluid in the endometrial canal found on transvaginal ultrasound-. Follow up with the microsoft dynamics ax developer for further evaluation and recommendations.
DVT prophylaxis
-SCDs/hep sc
complex situation
Full code
Anticipated Discharge: > 48 hours
Subjective/Interval History
-
Date of Service: December 06, 2024
Has been having nausea today
Objective Data
-
Labs:
Laboratory Results
12/06/24
06:51
WBC 5.4
Hgb 11.1 L
Hct 34.8 L
Plt Count 176
Sodium 138
Potassium 4.3
Chloride 109 H
Carbon Dioxide 26
BUN 11
Creatinine 1.1 H
Glucose 100 H
Calcium 8.7
Total Bilirubin 0.5
AST 20
ALT 17
Alkaline Phosphatase 73
Vital Signs:
Vital Signs
Temp Pulse Resp BP Pulse Ox
97.6 F 97 20 161/98 98
12/06/24 07:25 12/06/24 07:25 12/06/24 07:25 12/06/24 07:25 12/06/24 07:30
I&O
12/05/24 12/06/24 12/07/24
05:59 06:59 06:59
Intake Total
Balance
Review of Systems
-
History Source: Patient
Constitutional: Denies Fever
EENT: Reports No Symptoms Reported
Respiratory: Reports No Symptoms
Cardiac: Reports No Symptoms
Abdomen/GI: Reports No Symptoms
Physical Exam
-
General: Well Developed, No Apparent Distress and Cachectic
HEENT: Normocephalic, Atraumatic and Moist Mucous Membranes
Respiratory: Clear to Auscultation; Negative Wheezes, Rales or Rhonchi
Cardiac: Regular Rhythm and S1/S2
GI: Soft, Nontender and Nondistended
Musculoskeletal: No Clubbing, No Cyanosis and No Edema
[2024-12-06 15:33] VITALS: BP 150/91
[2024-12-06 18:35] LABS: Aldosterone, Serum <3.0 ng/dL; Renin Activity Results <0.1 ng/mL/hr
[2024-12-06] MEDS: D5/0.45%NSS with KCL 20 MEQ 1000 IV (22:40)
[2024-12-06] MEDS: D5/0.45%NSS with KCL 20 MEQ IV (22:40)
[2024-12-06 23:54] VITALS: BP 90/61
[2024-12-07 00:13] VITALS: BP 92/60
[2024-12-07] MEDS: NSS 250 IV (00:50)
--- NOTE | 2024-12-07 03:20 | PTCARENOTE ---
Manual BP at 0013 was 92/60, HR 116. Asymptomatic apart from nausea. [employer] notified, 1x 250ml NSS bolus provided. Repeat BP at 0300 manually was 118/64, HR 123.
[2024-12-07 03:25] VITALS: BP 118/64
[2024-12-07] MEDS: ZOFRAN 4 MG IV ×2 (05:47→21:06)
[2024-12-07 06:00] VITALS: BMI 30.4
[2024-12-07 07:31] VITALS: BP 146/92
[2024-12-07] MEDS: HEPARIN 5000 UNITS SC ×2 (07:51→19:47)
[2024-12-07] MEDS: PROTONIX IV 40 MG IV ×2 (07:52→21:05)
[2024-12-07] MEDS: NSS (PRESERVATIVE FREE) 10 ML IV ×2 (07:52→21:06)
[2024-12-07] MEDS: MIRALAX PO (07:54)
[2024-12-07] MEDS: CARAFATE SUSPENSION PO ×2 (07:54→19:46)
[2024-12-07] MEDS: LAC HYDRIN, AM LACTIN LOTION 1 APPLIC TOPICAL ×2 (07:54→19:48)
[2024-12-07 08:50] LABS: % Basophils 0.5 % (0-2); % Immature Granulocytes 3.1 % (0-0.5); % Lymphocytes 39.8 % (20.5-51.1); % Monocytes 8.2 % (1.7-9.3); % Neutrophils 48.4 % (42.2-75.2); Absolute Immature Granulocytes 0.2 10^3/uL (0-0.05); Absolute Lymphocytes 2.6 10^3/uL (1.2-3.4); Absolute Monocytes 0.5 10^3/uL (0.1-0.6); Absolute Neutrophils 3.1 10^3/uL (1.4-6.5); Hematocrit 32.5 % (37.0-47.0); Hemoglobin 10.5 g/dL (12.0-16.0); Mean Corp Hgb Conc. 32.3 g/dL (33.0-37.0); Mean Corpuscular Hgb 26.6 pg (27.0-31.0); Mean Corpuscular Volume 82.3 fL (81.0-99.0); Mean Platelet Volume 11.4 fL (7.4-10.4); Nucleated Red Blood Cells % 0 %; Platelet Count 168 10^3/uL (130-400); Red Blood Cell Count 3.95 10^6/uL (4.20-5.40); Red Cell Dist. Width 18.2 % (11.5-14.5); White Blood Cell Count 6.4 10^3/uL (4.8-10.8)
[2024-12-07 09:20] LABS: Blood Urea Nitrogen 15 mg/dl (7-17); Calcium 8.8 mg/dl (8.4-10.2); Carbon Dioxide 22 mmol/L (22-30); Chloride 109 mmol/L (98-107); Estimated Creatinine Clearance 32 ml/min; Glucose 86 mg/dl (70-99); Potassium 4.8 mmol/L (3.5-5.1); Sodium 137 mmol/L (135-145)
--- NOTE | 2024-12-07 10:54 | W.PN.UPDATE ---
Update Note
Progress Note Update
Dr Lopez unavailable to do EGD with dilation under fluoroscopy. I did let patient know and she can have clears today and NPO after midnight for egd tomorrow.
[2024-12-07 12:22] VITALS: BP 129/87; PULSE 100; O2SAT 100
--- NOTE | 2024-12-07 14:10 | W.PN.HOSP.TC ---
Today's Communication/Plan
-
On clears now
EGD again tomm
monitor BP-may need to start new regimen
trend cr-uptrend noted
Assessment / Plan
Assessment / Plan
#Near syncope secondary to hypotension likely orthostatic hypotension, exacerbated by severe hypokalemia
#Hx bradycardia lasting 10 to 20-seconds heart rate in the 30s recent admission 11/04/24
-Follow orthostatics
-Check CT head-negative
-Monitor on telemetry
-Consulted [facility] cardiology, has since signed off. Input appreciated
-Consult PT/OT/case management
#Severe hypokalemia 2/2 HCTZ
-DC HCTZ
-Repleted KCL IV as unable to tolerate po which is limiting factor
- TSH 0.26/ free T4 2.62
- Random Cortisol 26.9
#Hypomagnesemia
replete prn
#BUBBA on CKD 3B
Creat 1.5-->1.3-->1.0-->1.1
likely 2/2 severe hypotension and on HCTZ
Trend for now
#Dementia listed on long-term record
-OT for Bcat assessment
-Check CT head-negative.
-monitor mentation closely.
#Dysphagia/failure to thrive/nonsevere protein malnutrition likely due to severe erosive esophagitis
- Protonix switched to BID
-Continue Carafate 1 g 10 mL p.o. twice daily
-Avoid all NSAIDs
-diet was minced and moist, underwent EGD, now on clear liquids
-s/p EGD on 11/04/25 with severe cervical stenosis and) pediatric endoscopy was not able to be passed.
-EGD tomm AM with Fluoro by Dr. Lopez
#Second-degree heart block Mobitz type I recent admission 11/04/24
-Patient's atenolol was DC'd
-Monitor on telemetry given near syncope
#Deconditioning
-Patient was sent to [facility] facility on 11/04 [place] [facility]
-PT/OT consult
#DM 2 diet-controlled
HgbA1c 05 November 2024
Metformin was DC'd
#Chronic ambulatory dysfunction uses walker
-Consult PT/OT/case management
#Recent admission October 2024 endometrial thickening and fluid in the endometrial canal found on transvaginal ultrasound-. Follow up with the filling hauler for further evaluation and recommendations.
DVT prophylaxis
-SCDs/hep sc
complex situation
Full code
Anticipated Discharge: > 48 hours
Subjective/Interval History
-
Date of Service: December 07, 2024
states of dry mouth
Objective Data
-
Labs:
Laboratory Results
12/07/24
08:25
WBC 6.4
Hgb 10.5 L
Hct 32.5 L
Plt Count 168
Sodium 137
Potassium 4.8
Chloride 109 H
Carbon Dioxide 22
BUN 15
Creatinine 1.5 H
Glucose 86
Calcium 8.8
Vital Signs:
Vital Signs
Temp Pulse Resp BP Pulse Ox
97.6 F 129 18 146/92 99
12/07/24 07:31 12/07/24 07:31 12/07/24 07:31 12/07/24 07:31 12/07/24 07:31
I&O
12/06/24 12/07/24 12/08/24
06:59 06:59 06:59
Intake Total 1170 / 1170 250 / 250
Balance 1170 / 1170 250 / 250
Physical Exam
-
General: Well Developed, No Apparent Distress and Cachectic
HEENT: Normocephalic, Atraumatic and Other (dry oral mucous membranes )
Respiratory: Clear to Auscultation; Negative Wheezes, Rales or Rhonchi
Cardiac: Regular Rhythm and S1/S2
GI: Soft, Nontender and Nondistended
Musculoskeletal: No Clubbing, No Cyanosis and No Edema
Neuro: Awake
Psych: Apparent Dementia
Data Reviewed
-
Total Time Spent with Patient (in minutes): 55
--- NOTE | 2024-12-07 14:21 | CM ---
Chart reviewed. Care ongoing at this time.
Plan is for patient to return to [facility] when stable
[place]
Report [phone]
[2024-12-07 15:12] VITALS: BP 129/92
[2024-12-07] MEDS: PROTONIX IV IV (19:46)
[2024-12-07] MEDS: ZOFRAN IV (19:47)
[2024-12-07] MEDS: NSS (PRESERVATIVE FREE) IV (19:47)
[2024-12-07 23:20] VITALS: BP 149/94
[2024-12-08 06:00] VITALS: BMI 30.7
[2024-12-08 07:00] VITALS: BP 139/82
[2024-12-08] MEDS: CARAFATE SUSPENSION PO (09:53)
[2024-12-08] MEDS: MIRALAX PO (09:53)
[2024-12-08] MEDS: PROTONIX IV 40 MG IV ×2 (10:16→20:14)
[2024-12-08] MEDS: NSS (PRESERVATIVE FREE) 10 ML IV ×2 (10:17→20:14)
[2024-12-08] MEDS: HEPARIN 5000 UNITS SC ×2 (10:17→20:13)
[2024-12-08] MEDS: LAC HYDRIN, AM LACTIN LOTION 1 APPLIC TOPICAL (10:19)
[2024-12-08 10:46] LABS: Blood Urea Nitrogen 18 mg/dl (7-17); Calcium 9.1 mg/dl (8.4-10.2); Carbon Dioxide 22 mmol/L (22-30); Chloride 109 mmol/L (98-107); Estimated Creatinine Clearance 32 ml/min; Glucose 64 mg/dl (70-99); Potassium 4.6 mmol/L (3.5-5.1); Sodium 137 mmol/L (135-145)
[2024-12-08] MEDS: D5LR 500 IV (11:22)
--- NOTE | 2024-12-08 12:07 | W.PN.HOSP.TC ---
Today's Communication/Plan
-
EGD today
Gentle IV
Trend lytes
Gi recs
Assessment / Plan
Assessment / Plan
General: Well Developed, No Apparent Distress and Cachectic
HEENT: Normocephalic, Atraumatic and Other (dry oral mucous membranes )
Respiratory: Clear to Auscultation; Negative Wheezes, Rales or Rhonchi
Cardiac: Regular Rhythm and S1/S2
GI: Soft, Nontender and Nondistended
Musculoskeletal: No Clubbing, No Cyanosis and No Edema
Neuro: Awake
Psych: Apparent Dementia
#Dysphagia/failure to thrive/nonsevere protein malnutrition likely due to severe erosive esophagitis
- Protonix switched to BID
-Continue Carafate 1 g 10 mL p.o. twice daily
-Avoid all NSAIDs
-diet was minced and moist, underwent EGD, now on clear liquids. NPO for now.
-s/p EGD on 11/04/25 with severe cervical stenosis and) pediatric endoscopy was not able to be passed.
-EGD with Fluoro by Dr. Lopez
-Gentle IVF.
#Near syncope secondary to hypotension likely orthostatic hypotension, exacerbated by severe hypokalemia
#Hx bradycardia lasting 10 to 20-seconds heart rate in the 30s recent admission 11/04/24
-Follow orthostatics
-Check CT head-negative
-Monitor on telemetry
-Consulted [facility] cardiology, has since signed off. Input appreciated
-Consult PT/OT/case management
#Severe hypokalemia 2/2 HCTZ
-DC HCTZ
-Repleted KCL IV as unable to tolerate po which is limiting factor
- TSH 0.26/ free T4 2.62
- Random Cortisol 26.9
-Renin/Wilmer ratio <25. Not suggestive of hyperaldosteronism
#Hypomagnesemia
replete prn
#BUBBA on CKD 3B
likely 2/2 severe hypotension and on HCTZ
Trend for now
#Dementia listed on [facility] record
-OT for Bcat assessment
-Check CT head-negative.
-monitor mentation closely.
#Second-degree heart block Mobitz type I recent admission 11/04/24
-Patient's atenolol was DC'd
-Monitor on telemetry given near syncope
#Deconditioning
-Patient was sent to [facility] facility on 11/04 [place] [facility]
-PT/OT consult
#DM 2 diet-controlled
HgbA1c 05 November 2024
Metformin was DC'd
#Chronic ambulatory dysfunction uses walker
-Consult PT/OT/case management
#Recent admission October 2024 endometrial thickening and fluid in the endometrial canal found on transvaginal ultrasound-. Follow up with the public opinion survey taker for further evaluation and recommendations.
DVT prophylaxis
-SCDs/hep sc
complex situation
Full code
Anticipated Discharge: > 48 hours
Subjective/Interval History
-
Date of Service: December 08, 2024
states of dry mouth
Objective Data
-
Labs:
Laboratory Results
12/08/24
10:00
Sodium 137
Potassium 4.6
Chloride 109 H
Carbon Dioxide 22
BUN 18 H
Creatinine 1.5 H
Glucose 64 L
Calcium 9.1
Vital Signs:
Vital Signs
Temp Pulse Resp BP Pulse Ox
97.4 F 83 18 139/82 99
12/08/24 07:00 12/08/24 07:00 12/08/24 07:00 12/08/24 07:00 12/08/24 08:30
I&O
12/07/24 12/08/24 12/09/24
06:59 06:59 06:59
Intake Total 1170 / 1170 730 / 730
Balance 1170 / 5020 731 / 730
[2024-12-08 15:13] VITALS: BP 126/77
[2024-12-08 17:31] VITALS: BP 98/61
[2024-12-08 17:45] VITALS: BP 119/73
--- NOTE | 2024-12-08 17:58 | W.PN.UPDATE ---
Update Note
Progress Note Update
EGD performed and showed high-grade stenosis s/p balloon dilation. After balloon dilation adult gastroscope was able to traverse into the stomach. During the evaluation of stricture with deep submucosal defect/possible perforation was noted.
Decision was made to place esophageal stent under fluoroscopy guidance. Esophageal stent was secured with over stitch. Postprocedure her vitals are stable and denies pain. Recommend CT chest without contrast, keep n.p.o., and broad-spectrum abx.
Will follow closely. Family was updated.
[2024-12-08] MEDS: ZOSYN 50 IV ×2 (18:55→23:09)
[2024-12-08] MEDS: D5LR 1000 IV (18:55)
[2024-12-08] MEDS: MORPHINE SULFATE 1 MG IV (18:56)
[2024-12-08] MEDS: OFIRMEV 100 IV (20:11)
[2024-12-08] MEDS: LAC HYDRIN, AM LACTIN LOTION TOPICAL ×2 (20:15→20:16)
[2024-12-08 23:10] VITALS: BP 148/93
[2024-12-09] MEDS: ZOSYN 50 IV ×4 (05:07→23:18)
[2024-12-09 06:00] VITALS: BMI 30.5
[2024-12-09] MEDS: ZOFRAN 4 MG IV ×2 (06:07→20:14)
[2024-12-09 07:00] VITALS: BP 175/101
[2024-12-09 08:30] LABS: % Basophils 0.2 % (0-2); % Immature Granulocytes 0.9 % (0-0.5); % Lymphocytes 8.8 % (20.5-51.1); % Monocytes 5.5 % (1.7-9.3); % Neutrophils 84.6 % (42.2-75.2); Absolute Immature Granulocytes 0.1 10^3/uL (0-0.05); Absolute Lymphocytes 1.2 10^3/uL (1.2-3.4); Absolute Monocytes 0.8 10^3/uL (0.1-0.6); Absolute Neutrophils 11.5 10^3/uL (1.4-6.5); Hematocrit 31.4 % (37.0-47.0); Hemoglobin 10.3 g/dL (12.0-16.0); Mean Corp Hgb Conc. 32.8 g/dL (33.0-37.0); Mean Corpuscular Hgb 26.8 pg (27.0-31.0); Mean Corpuscular Volume 81.8 fL (81.0-99.0); Nucleated Red Blood Cells % 0 %; Platelet Count 160 10^3/uL (130-400); Red Blood Cell Count 3.84 10^6/uL (4.20-5.40); Red Cell Dist. Width 18.6 % (11.5-14.5); White Blood Cell Count 13.6 10^3/uL (4.8-10.8)
[2024-12-09] MEDS: PROTONIX IV 40 MG IV ×2 (09:06→20:03)
[2024-12-09] MEDS: NSS (PRESERVATIVE FREE) 10 ML IV ×2 (09:07→20:04)
[2024-12-09] MEDS: HEPARIN 5000 UNITS SC ×2 (09:07→19:59)
[2024-12-09] MEDS: LAC HYDRIN, AM LACTIN LOTION 1 APPLIC TOPICAL (09:09)
[2024-12-09] MEDS: D5LR 1000 IV (09:10)
[2024-12-09 09:16] LABS: Blood Urea Nitrogen 19 mg/dl (7-17); Carbon Dioxide 18 mmol/L (22-30); Chloride 108 mmol/L (98-107); Estimated Creatinine Clearance 37 ml/min; Glucose 93 mg/dl (70-99); Potassium 3.9 mmol/L (3.5-5.1); Sodium 138 mmol/L (135-145); eGFR 43.69
--- NOTE | 2024-12-09 12:12 | W.PN.HOSP.TC ---
Today's Communication/Plan
-
IV PPI
Continue with IV fluid
IV hydralazine
IV antibiotics
GI recs
Assessment / Plan
Assessment / Plan
General: Well Developed, No Apparent Distress and Cachectic
HEENT: Normocephalic, Atraumatic and Other (dry oral mucous membranes )
Respiratory: Clear to Auscultation; Negative Wheezes, Rales or Rhonchi
Cardiac: Regular Rhythm and S1/S2
GI: Soft, Nontender and Nondistended
Musculoskeletal: No Clubbing, No Cyanosis and No Edema
Neuro: Awake
Psych: Apparent Dementia
#Dysphagia/failure to thrive/nonsevere protein malnutrition likely due to severe erosive esophagitis
- Protonix switched to BID IV
- Carafate 1 g 10 mL p.o. twice daily on hold
- Avoid all NSAIDs
- diet was minced and moist, underwent EGD, now on clear liquids. NPO for now.
- s/p EGD on 12/04/24 with severe cervical stenosis and) pediatric endoscopy was not able to be passed.
- EGD with Fluoro by Dr. Lopez on 12/08/24 with finding of high-grade stenosis status post balloon dilatation. Patient was also found to have a deep submucosal defect/possible perforation status post placement of esophageal stent status post sutures.
CT chest was performed post procedure.
- Gentle IVF.
- Plan for strict NPO. If patient continues to remain n.p.o. may need to consider alternative form of nutrition and may need to consider TPN.
- Also being started on broad-spectrum antibiotics with Zosyn
# Aspiration pneumonia noted on CAT scan
-Already on Zosyn
#Near syncope secondary to hypotension likely orthostatic hypotension, exacerbated by severe hypokalemia
#Hx bradycardia lasting 10 to 20-seconds heart rate in the 30s recent admission 11/04/24
-Follow orthostatics
-Check CT head-negative
-Monitor on telemetry
-Consulted [facility] cardiology, has since signed off. Input appreciated
-Consult PT/OT/case management
# Hypertension
IV hydralazine as needed. Avoid AV deena genoveva.
#Severe hypokalemia 2/2 HCTZ
-DC HCTZ
-Repleted KCL IV as unable to tolerate po which is limiting factor
- TSH 0.26/ free T4 2.62
- Random Cortisol 26.9
-Renin/Wilmer ratio <25. Not suggestive of hyperaldosteronism
#Hypomagnesemia
replete prn
#BUBBA on CKD 3B
likely 2/2 severe hypotension and on HCTZ
Trend for now
#Dementia listed on intermediate record
-OT for Bcat assessment
-Check CT head-negative.
-monitor mentation closely.
#Second-degree heart block Mobitz type I recent admission 11/04/24
-Patient's atenolol was DC'd
-Monitor on telemetry given near syncope
#Deconditioning
-Patient was sent to SNF facility on 11/04 [place]
-PT/OT consult
#DM 2 diet-controlled
HgbA1c 05 November 2024
Metformin was DC'd
#Chronic ambulatory dysfunction uses walker
-Consult PT/OT/case management
#Recent admission October 2024 endometrial thickening and fluid in the endometrial canal found on transvaginal ultrasound-. Follow up with the ceramic restorer for further evaluation and recommendations.
DVT prophylaxis
-SCDs/hep sc
complex situation
Full code
Anticipated Discharge: > 48 hours
Subjective/Interval History
-
Date of Service: December 09, 2024
Patient with mild nausea
No vomiting
States of dry mouth
Denies any epigastric or chest pain
Objective Data
-
Labs:
Laboratory Results
12/09/24
06:36
WBC 13.6 H
Hgb 10.3 L
Hct 31.4 L
Plt Count 160
Sodium 138
Potassium 3.9
Chloride 108 H
Carbon Dioxide 18 L
BUN 19 H
Creatinine 1.3 H
Glucose 93
Calcium 9.0
Vital Signs:
Vital Signs
Temp Pulse Resp BP Pulse Ox
97.4 F 86 18 175/101 98
12/09/24 07:00 12/09/24 07:00 12/09/24 07:00 12/09/24 07:00 12/09/24 07:00
I&O
12/08/24 12/09/24 12/10/24
06:59 06:59 06:59
Intake Total 730 / 730 1100 / 1100
Output Total 0 / 0
Balance 730 / 730 1100 / 1100
Data Reviewed
-
Total Time Spent with Patient (in minutes): 55
--- NOTE | 2024-12-09 12:46 | W.PN.GI.CBS2 ---
Addendum entered and electronically signed by Vicki Leroy DO 12/09/24 13:22:
Stent is short term - Dr. Lopez will repeat her CT chest in 1-2 weeks and if again no perf/collection/abscess is seen then will plan for stent removal. she is def at risk of aspiration, she will need to sleep with head up with aspiration precautions
- we will leave the stent diet on the chart for her discharge information
-- will get an esophagram today (and warn radiology to go slow).
Original Note:
Today's Communication / Plan
-
-- Discussing with Dr. Lopez
-- Potential esophagram
Assessment / Plan
-
Pt is a 74yo with hx of dementia (lives in a fpc - [facility] ) obesity, hypertension, hyperlipidemia, diabetes, CKD 3 with admission 10/19/24- 11/23/24 with hypothermia, bradycardia with second degree block mobitz type 1 without need
for pacer, weakness, change in mental status and failure to thrive with recent fall. During that admission she completed EGD grade D esophagitis with nodularity at GE junction, med HH, erosive gastropathy, moderate duodenal erythema with erosions
in duodenal bulb. Repeat EGD 12/04/24 with pinpoint distal esophageal stricture which could not be passed even with slim scope;
12/08/2024 CT chest without contrast air and fluid distention of the proximal esophagus. 12 cm covered stent in the mid and distal esophagus extending into the stomach with no evidence of perforation. No abscess. Moderate hiatal hernia. Possible
pneumonia
12/08/[address] Lopez and showed high-grade stenosis s/p balloon dilation. After balloon dilation adult gastroscope was able to traverse into the stomach. During the evaluation of stricture with deep submucosal defect/possible
perforation was noted. Decision was made to place esophageal stent under fluoroscopy guidance. Esophageal stent was secured with over stitch. Postprocedure her vitals are stable and denies pain. Recommend CT chest without contrast, keep n.p.o.,
and broad-spectrum abx.
12/04/24, EGD with Dr. Ortiz pinpoint distal esophageal stricture that could not be passed
# Persistent bilious regurgitation -she is regurgitating bile so she is no longer obstructed
-- There was significant fluid above the stent on the CT scan
-- She has been n.p.o., she denies nausea but is demented so unclear if she is giving me straight answers
-- Considering esophagram versus upper GI series if she can tolerate the fluid
-- Need to find out from Dr. Lopez to determine what the long-term plan is with the covered stent that was sutured in
-- Patient does have bowel sounds so unlikely an ileus
Subjective
Subjective
Date of Service: December 09, 2024
Patient is demented. Denies any chest pain. She is regurgitating up bile. Denies being nauseous. She is unclear if she is moved her bowels
Objective
Data Reviewed
Laboratory Data:
Laboratory Results
12/09/24 06:36
12/09/24 06:36
Laboratory Results
Magnesium 2.2 mg/dl (1.6-2.3) 12/02/24 06:20
Total Bilirubin 0.5 mg/dl (0.2-1.3) 12/06/24 06:51
AST 20 U/L (14-36) 12/06/24 06:51
ALT 17 U/L (0-35) 12/06/24 06:51
Alkaline Phosphatase 73 U/L (38-126) 12/06/24 06:51
Vital Signs and I&O:
Vital Signs
Temp Pulse Resp BP Pulse Ox
97.4 F 86 18 175/101 98
12/09/24 07:00 12/09/24 07:00 12/09/24 07:00 12/09/24 07:00 12/09/24 07:00
I&O
12/08/24 12/09/24 12/10/24
06:59 06:59 06:59
Intake Total 730 / 730 1100 / 1100
Output Total 0 / 0
Balance 730 / 730 1100 / 1100
Physical Exam
Physical Exam
HEENT: Anicteric
Cardiology: Normal Sinus Rhythm
GI: Soft, Non Distended and Non Tender
Extremities: No Edema
Neuro: Other (Awake alert but demented)
--- NOTE | 2024-12-09 14:23 | PN.CDI ---
CDI
- -
CDI:
Physician Documentation Request
Admit Date: 12/01/24 16:34
Dear Doctor Beto,
Please review the following and provide your response in the progress notes.
Clinical Indicators:
Selected Entries
12/02/24
15:00
Pressure injury stage [Present on admission Right Buttock] Stage 2
12/02/24 15:17 - Wound Note
Addendum entered by Shey Li RN 12/09/24 13:39:
#Sacrum, intact. Stage 2 of right buttock.
Physician documentation of the type and location of wounds is required for compliant documentation. Based on the above clinical findings and your assessment, please provide the following in your progress note:
Yes, Stage 2 pressure injury right buttock, POA
No, stage 2 pressure injury right buttock
Other(please specify)
Location of the ulcer/wound, including laterality.
Type (etiology) of ulcer/wound:
- Diabetic ulcer
- Arterial (ischemic) ulcer
- Traumatic wound
- Venous stasis ulcer
- Pressure (decubitus) ulcer
- Other
For a pressure ulcer, please also include the stage* of the ulcer:
- Stage 1 - Skin intact, non-blanchable redness
- Stage 2 - Partial thickness loss of dermis, includes intact or open blister
- Stage 3 - Full thickness tissue not including bone, tendon or muscle
- Stage 4 - Full thickness tissue loss, including exposed bone, tendon or muscle
- Unstageable - Full thickness loss in which the base of the ulcer is covered by slough (yellow, grady, felix, green or brown) and/or eschar (grady, brown or black) in the wound bed.
Use of terms such as suspected, likely, concern for, or probable (associated with a specific diagnosis that is being evaluated, monitored, or treated as if it exists) are acceptable and can be coded in the inpatient setting, when documented at the
time of discharge.
Thank you,
Maren Esquivel RN BSN CCDS
CDI Specialist
please contact via tiger text
Please use your independent medical judgment in providing your response.
*Source: National Pressure Ulcer Advisory Panel (NPUAP)
--- NOTE | 2024-12-09 14:33 | CM ---
Chart reviewed. Care ongoing at this time.
Plan is for patient to return to [facility] when stable
[place]
Report [phone]
[2024-12-09 15:00] VITALS: BP 169/103
[2024-12-09] MEDS: APRESOLINE 10 MG IV (16:02)
[2024-12-09] MEDS: LAC HYDRIN, AM LACTIN LOTION TOPICAL ×2 (20:03→20:13)
[2024-12-09 23:25] VITALS: BP 106/70
[2024-12-10] MEDS: D5LR 1000 IV ×2 (04:21→19:26)
[2024-12-10] MEDS: ZOSYN 50 IV (05:24)
[2024-12-10 06:00] VITALS: BMI 30.5
[2024-12-10 07:51] LABS: % Basophils 0.4 % (0-2); % Eosinophils 0.1 % (0-6); % Immature Granulocytes 1.1 % (0-0.5); % Monocytes 6.4 % (1.7-9.3); Absolute Immature Granulocytes 0.1 10^3/uL (0-0.05); Absolute Lymphocytes 1.7 10^3/uL (1.2-3.4); Absolute Monocytes 0.7 10^3/uL (0.1-0.6); Absolute Neutrophils 8.7 10^3/uL (1.4-6.5); Hematocrit 29.4 % (37.0-47.0); Hemoglobin 9.8 g/dL (12.0-16.0); Mean Corp Hgb Conc. 33.3 g/dL (33.0-37.0); Mean Corpuscular Hgb 26.8 pg (27.0-31.0); Mean Corpuscular Volume 80.5 fL (81.0-99.0); Mean Platelet Volume 11.6 fL (7.4-10.4); Nucleated Red Blood Cells % 0 %; Platelet Count 182 10^3/uL (130-400); Red Blood Cell Count 3.65 10^6/uL (4.20-5.40); Red Cell Dist. Width 18.4 % (11.5-14.5); White Blood Cell Count 11.2 10^3/uL (4.8-10.8)
[2024-12-10 08:32] LABS: Blood Urea Nitrogen 19 mg/dl (7-17); Calcium 8.9 mg/dl (8.4-10.2); Carbon Dioxide 22 mmol/L (22-30); Chloride 109 mmol/L (98-107); Estimated Creatinine Clearance 32 ml/min; Glucose 70 mg/dl (70-99); Potassium 3.8 mmol/L (3.5-5.1); Sodium 138 mmol/L (135-145)
--- NOTE | 2024-12-10 08:49 | W.PN.GI.CBS2 ---
Today's Communication / Plan
-
-- Hospice versus proceeding with care discussion
-- ice chips are fine
Assessment / Plan
-
Pt is a 74yo with hx of dementia (lives in a usp - [facility] ) obesity, hypertension, hyperlipidemia, diabetes, CKD 3 with admission 10/19/24- 11/23/24 with hypothermia, bradycardia with second degree block mobitz type 1 without need
for pacer, weakness, change in mental status and failure to thrive with recent fall. During that admission she completed EGD grade D esophagitis with nodularity at GE junction, med HH, erosive gastropathy, moderate duodenal erythema with erosions
in duodenal bulb. Repeat EGD 12/04/24 with pinpoint distal esophageal stricture which could not be passed even with slim scope;
12/08/2024 CT chest without contrast air and fluid distention of the proximal esophagus. 12 cm covered stent in the mid and distal esophagus extending into the stomach with no evidence of perforation. No abscess. Moderate hiatal hernia. Possible
pneumonia
12/08/[address] Lopez and showed high-grade stenosis s/p balloon dilation. After balloon dilation adult gastroscope was able to traverse into the stomach. During the evaluation of stricture with deep submucosal defect/possible
perforation was noted. Decision was made to place esophageal stent under fluoroscopy guidance. Esophageal stent was secured with over stitch. Postprocedure her vitals are stable and denies pain. Recommend CT chest without contrast, keep n.p.o.,
and broad-spectrum abx.
12/04/24, EGD with Dr. Ortiz pinpoint distal esophageal stricture that could not be passed
# Persistent bilious regurgitation despite esophageal stent placement and dilation-she is regurgitating bile so she is no longer obstructed; however the esophagram done on 12/09/2024 shows otherwise. Contrast sat in the distal esophagus for 18
minutes then she vomited with no contrast getting into the stomach
-- There was significant fluid above the stent on the CT scan
-- She has been n.p.o., she denies nausea but is demented so unclear if she is giving me straight answers
--Esophageal stent is short term -will need repeat CT chest in 1-2 weeks and if again no perf/collection/abscess is seen then will plan for stent removal.
-- patient is high risk for aspiration and needs to sit upright including sleeping upright
-- Patient does have bowel sounds so unlikely an ileus
#Significant malnutrition and weight loss -patient will be high risk for refeeding syndrome if she starts tube feeds
I had a long conversation with patient and her POA/Sister Lisa. I told all of them the options: 1. Hospice 2. EGD again with likely dobhoff for a good oral contrast CT scan to ensure no downstream issue as the cause for these issues. Then, to
start tube feeds. If tube feeds are tolerated transition to PEG forever. They are all talking today and I will re-[place] this afternoon.
-- Hospitalist and RN aware via [facility] text
Total Time Spent with Patient (in minutes): 60
Subjective
Subjective
Date of Service: December 10, 2024
Patient denies any further regurgitation of bile although memory is limited
No chest pain, shortness of breath
Objective
Data Reviewed
Laboratory Data:
Laboratory Results
12/10/24 06:28
12/10/24 06:28
Laboratory Results
Magnesium 2.2 mg/dl (1.6-2.3) 12/02/24 06:20
Total Bilirubin 0.5 mg/dl (0.2-1.3) 12/06/24 06:51
AST 20 U/L (14-36) 12/06/24 06:51
ALT 17 U/L (0-35) 12/06/24 06:51
Alkaline Phosphatase 73 U/L (38-126) 12/06/24 06:51
Vital Signs and I&O:
Vital Signs
Temp Pulse Resp BP Pulse Ox
97.5 F 88 16 106/70 100
12/09/24 23:25 12/10/24 03:30 12/10/24 03:30 12/09/24 23:25 12/10/24 03:30
I&O
12/09/24 12/10/24 12/11/24
06:59 06:59 06:59
Intake Total 1100 / 1100 950 / 950
Output Total 0 / 0
Balance 1100 / 1100 950 / 950
Physical Exam
Physical Exam
HEENT: Anicteric and Moist mucous membranes (Dry mouth)
GI: Soft, Non Distended and Non Tender
[2024-12-10] MEDS: NSS (PRESERVATIVE FREE) 10 ML IV ×2 (08:55→19:27)
[2024-12-10] MEDS: HEPARIN 5000 UNITS SC ×2 (08:57→19:27)
[2024-12-10] MEDS: LAC HYDRIN, AM LACTIN LOTION 1 APPLIC TOPICAL ×2 (08:57→19:27)
[2024-12-10] MEDS: PROTONIX IV 40 MG IV ×2 (08:57→19:26)
[2024-12-10 10:26] VITALS: BP 141/88
--- NOTE | 2024-12-10 10:27 | W.PN.HOSP.TC ---
Today's Communication/Plan
-
Cont IVF
Cont IV abx
Await family decision
Assessment / Plan
Assessment / Plan
General: Well Developed, No Apparent Distress and Cachectic
HEENT: Normocephalic, Atraumatic and Other (dry oral mucous membranes )
Respiratory: Clear to Auscultation; Negative Wheezes, Rales or Rhonchi
Cardiac: Regular Rhythm and S1/S2
GI: Soft, Nontender and Nondistended
Musculoskeletal: No Clubbing, No Cyanosis and No Edema
Neuro: Awake
Psych: Apparent Dementia
#Dysphagia/failure to thrive/nonsevere protein malnutrition likely due to severe erosive esophagitis
- Protonix switched to BID IV
- Carafate 1 g 10 mL p.o. twice daily on hold
- Avoid all NSAIDs
- diet was minced and moist, underwent EGD, now on clear liquids. NPO for now.
- s/p EGD on 12/04/24 with severe cervical stenosis and) pediatric endoscopy was not able to be passed.
- EGD with Fluoro by Dr. Lopez on 12/08/24 with finding of high-grade stenosis status post balloon dilatation. Patient was also found to have a deep submucosal defect/possible perforation status post placement of esophageal stent status post sutures.
CT chest was performed post procedure.
- Gentle IVF.
- Plan for npo. GI discussed with patient and family and options were given hospice versus aggressive measures with EGD/DHT/CT scan to further assess and if tolerating TF then eventually PEG tube. Family to decide. Appreciate GI assistance.
- Also being started on broad-spectrum antibiotics with Zosyn
# Aspiration pneumonia noted on CAT scan
-Already on Zosyn
#Near syncope secondary to hypotension likely orthostatic hypotension, exacerbated by severe hypokalemia
#Hx bradycardia lasting 10 to 20-seconds heart rate in the 30s recent admission 11/04/24
-Follow orthostatics
-Check CT head-negative
-Monitor on telemetry
-Consulted [facility] cardiology, has since signed off. Input appreciated
-Consult PT/OT/case management
# Hypertension
IV hydralazine as needed. Avoid AV deena genoveva.
#Severe hypokalemia 2/2 HCTZ
-DC HCTZ
-Repleted KCL IV as unable to tolerate po which is limiting factor
- TSH 0.26/ free T4 2.62
- Random Cortisol 26.9
-Renin/Wilmer ratio <25. Not suggestive of hyperaldosteronism
#Hypomagnesemia
replete prn
#BUBBA on CKD 3B
likely 2/2 severe hypotension and on HCTZ
Trend for now
#Dementia listed on [facility]dc record
-OT for Bcat assessment
-Check CT head-negative.
-monitor mentation closely.
#Second-degree heart block Mobitz type I recent admission 11/04/24
-Patient's atenolol was DC'd
-Monitor on telemetry given near syncope
#Deconditioning
-Patient was sent to SNF facility on 11/04 [place] [facility]
-PT/OT consult
#DM 2 diet-controlled
HgbA1c 05 November 2024
Metformin was DC'd
#Chronic ambulatory dysfunction uses walker
-Consult PT/OT/case management
#Recent admission October 2024 endometrial thickening and fluid in the endometrial canal found on transvaginal ultrasound-. Follow up with the life scientists for further evaluation and recommendations.
DVT prophylaxis
-SCDs/hep sc
complex situation
Full code
d/w with GI
Anticipated Discharge: > 48 hours
Subjective/Interval History
-
Date of Service: December 10, 2024
remains NPO.
not much nausea this morning
Objective Data
-
Labs:
Laboratory Results
12/10/24
06:28
WBC 11.2 H
Hgb 9.8 L
Hct 29.4 L
Plt Count 182
Sodium 138
Potassium 3.8
Chloride 109 H
Carbon Dioxide 22
BUN 19 H
Creatinine 1.5 H
Glucose 70
Calcium 8.9
Vital Signs:
Vital Signs
Temp Pulse Resp BP Pulse Ox
97.5 F 88 16 106/70 100
12/09/24 23:25 12/10/24 03:30 12/10/24 03:30 12/09/24 23:25 12/10/24 03:30
I&O
12/09/24 12/10/24 12/11/24
06:59 06:59 06:59
Intake Total 1100 / 1100 950 / 950
Output Total 0 / 0
Balance 1100 / 1100 950 / 950
--- NOTE | 2024-12-10 15:24 | WOUNDNOTE ---
RIGHT BUTTOCK WOUND
--- NOTE | 2024-12-10 15:25 | WOUNDNOTE ---
RIGHT BUTTOCK WOUND
--- NOTE | 2024-12-10 15:25 | WOUNDNOTE ---
[facility] RN NOTE: Patient visited to follow up on right buttock wound. Wound appears stable when compared from pics from 12/02. Wound care provided with Hydrocolloid and this treatment remains appropriate. Patient remains on [facility] Air bed with turning
schedule. Sacrum and heels are intact. No sting barrier and protective foam applied to heels. Patient has been NPO and plan is for hospice or feeding tube. Patient has several comorbidities which impact skin and healing. Wounds may worsen and new
wounds may develop even with optimal care. HOLLIE Cheung given update. Will follow as needed.
[2024-12-10 16:05] VITALS: BP 152/93
[2024-12-10 23:20] VITALS: BP 149/94
[2024-12-11] VITALS (7 sets, daily range): BP systolic 14–190; BP diastolic 64–106; BMI 30.3
[2024-12-11 08:43] LABS: % Basophils 0.3 % (0-2); % Immature Granulocytes 1.3 % (0-0.5); % Monocytes 9.5 % (1.7-9.3); % Neutrophils 59.9 % (42.2-75.2); Absolute Immature Granulocytes 0.1 10^3/uL (0-0.05); Absolute Monocytes 0.6 10^3/uL (0.1-0.6); Hematocrit 27.7 % (37.0-47.0); Hemoglobin 9.2 g/dL (12.0-16.0); Mean Corp Hgb Conc. 33.2 g/dL (33.0-37.0); Mean Corpuscular Volume 81.2 fL (81.0-99.0); Mean Platelet Volume 11.6 fL (7.4-10.4); Nucleated Red Blood Cells % 0 %; Platelet Count 166 10^3/uL (130-400); Red Blood Cell Count 3.41 10^6/uL (4.20-5.40); Red Cell Dist. Width 18.5 % (11.5-14.5); White Blood Cell Count 6.7 10^3/uL (4.8-10.8)
[2024-12-11] MEDS: D5LR 1000 IV (09:00)
[2024-12-11] MEDS: HEPARIN 5000 UNITS SC ×2 (09:06→21:20)
[2024-12-11] MEDS: APRESOLINE 10 MG IV (09:09)
[2024-12-11] MEDS: NSS (PRESERVATIVE FREE) 10 ML IV ×2 (09:10→21:21)
[2024-12-11] MEDS: PROTONIX IV 40 MG IV ×2 (09:11→21:21)
[2024-12-11] MEDS: FLUSH (NSS) 1 FLUSH IV (09:13)
[2024-12-11] MEDS: LAC HYDRIN, AM LACTIN LOTION 1 APPLIC TOPICAL ×2 (09:14→21:53)
[2024-12-11 10:31] LABS: Blood Urea Nitrogen 16 mg/dl (7-17); Calcium 8.3 mg/dl (8.4-10.2); Carbon Dioxide 21 mmol/L (22-30); Chloride 111 mmol/L (98-107); Estimated Creatinine Clearance 40 ml/min; Glucose 81 mg/dl (70-99); Magnesium 1.1 mg/dl (1.6-2.3); Phosphorus 2.6 mg/dl (2.5-4.5); Potassium 3.1 mmol/L (3.5-5.1); Sodium 136 mmol/L (135-145); eGFR 48.09
--- NOTE | 2024-12-11 12:23 | W.PN.HOSP.TC ---
Addendum entered and electronically signed by Hiram Pérez MD 12/11/24 16:23:
d/w with Dr. Lopez recommending patient okay to be started on clear liquid diet for now.
Original Note:
Today's Communication/Plan
-
EGD w/ DHT
replete K and Mag
IVF in the interim
Start TF pending DHT placement and clearance from GI
Start Unasyn
Assessment / Plan
Assessment / Plan
General: Well Developed, No Apparent Distress and Cachectic
HEENT: Normocephalic, Atraumatic and Other (dry oral mucous membranes )
Respiratory: Clear to Auscultation; Negative Wheezes, Rales or Rhonchi
Cardiac: Regular Rhythm and S1/S2
GI: Soft, Nontender and Nondistended
Musculoskeletal: No Clubbing, No Cyanosis and No Edema
Neuro: Awake
Psych: Apparent Dementia
#Dysphagia/failure to thrive/nonsevere protein malnutrition likely due to severe erosive esophagitis
- Protonix switched to BID IV
- Carafate 1 g 10 mL p.o. twice daily on hold
- Avoid all NSAIDs
- diet was minced and moist, underwent EGD, now on clear liquids. NPO for now.
- s/p EGD on 12/04/24 with severe cervical stenosis and) pediatric endoscopy was not able to be passed.
- EGD with Fluoro by Dr. Lopez on 12/08/24 with finding of high-grade stenosis status post balloon dilatation. Patient was also found to have a deep submucosal defect/possible perforation status post placement of esophageal stent status post sutures.
CT chest was performed post procedure.
- Gentle IVF.
- Plan for npo. GI discussed with patient and family and options were given hospice versus aggressive measures with EGD/DHT/CT scan to further assess and if tolerating TF then eventually PEG tube. Plan for EGD w/DHT placement.
# Aspiration pneumonia noted on CAT scan
-Zosyn was started post stent placement. Switched to Unasyn. Complete 7d course
#Near syncope secondary to hypotension likely orthostatic hypotension, exacerbated by severe hypokalemia
#Hx bradycardia lasting 10 to 20-seconds heart rate in the 30s recent admission 11/04/24
-Follow orthostatics
-Check CT head-negative
-Monitor on telemetry
-Consulted [facility] cardiology, has since signed off. Input appreciated
-Consult PT/OT/case management
# Hypertension
IV hydralazine as needed. Avoid AV deena genoveva.
#Severe hypokalemia 2/2 HCTZ
-DC HCTZ
-Repleted KCL IV as unable to tolerate po which is limiting factor
- TSH 0.26/ free T4 2.62
- Random Cortisol 26.9
-Renin/Wilmer ratio <25. Not suggestive of hyperaldosteronism
#Hypomagnesemia/Hypokalemia
replete prn
#BUBBA on CKD 3B
likely 2/2 severe hypotension and on HCTZ
Trend for now
#Dementia listed on alf record
-OT for Bcat assessment
-Check CT head-negative.
-monitor mentation closely.
#Second-degree heart block Mobitz type I recent admission 11/04/24
-Patient's atenolol was DC'd
-Monitor on telemetry given near syncope
#Deconditioning
-Patient was sent to SNF facility on 11/04 [place] [facility]
-PT/OT consult
#DM 2 diet-controlled
HgbA1c 05 November 2024
Metformin was DC'd
#Chronic ambulatory dysfunction uses walker
-Consult PT/OT/case management
#Recent admission October 2024 endometrial thickening and fluid in the endometrial canal found on transvaginal ultrasound-. Follow up with the birth certificate clerk for further evaluation and recommendations.
DVT prophylaxis
-SCDs/hep sc
complex situation
Full code
Anticipated Discharge: > 48 hours
Subjective/Interval History
-
Date of Service: December 11, 2024
Understands need for EGD today w/DHT placement
Objective Data
-
Labs:
Laboratory Results
12/11/24 12/11/24
06:39 09:46
WBC 6.7
Hgb 9.2 L
Hct 27.7 L
Plt Count 166
Sodium Cancelled 136
Potassium Cancelled 3.1 L
Chloride Cancelled 111 H
Carbon Dioxide Cancelled 21 L
BUN Cancelled 16
Creatinine Cancelled 1.2 H
Glucose Cancelled 81
Calcium Cancelled 8.3 L
Vital Signs:
Vital Signs
Temp Pulse Resp BP Pulse Ox
97.6 F 87 17 190/106 99
12/11/24 07:00 12/11/24 07:00 12/11/24 07:00 12/11/24 07:00 12/11/24 07:00
I&O
12/10/24 12/11/24 12/12/24
06:59 06:59 06:59
Intake Total 950 / 950 1140 / 1140
Balance 950 / 950 1140 / 1140
Data Reviewed
-
Total Time Spent with Patient (in minutes): 55
[2024-12-11] MEDS: MAGNESIUM SULFATE 100 IV (13:01)
[2024-12-11 15:18] LABS: Glucose - Point of Care 75 mg/dl (70-99)
[2024-12-11 15:47] LABS: Glucose - Point of Care 73 mg/dl (70-99)
[2024-12-11] MEDS: UNASYN IV ×2 (18:06→21:22)
[2024-12-12] MEDS: UNASYN IV ×4 (02:58→22:09)
[2024-12-12 04:34] VITALS: BMI 31.8
[2024-12-12 07:30] VITALS: BP 159/84
[2024-12-12] MEDS: PROTONIX IV 40 MG IV ×2 (07:59→22:10)
[2024-12-12] MEDS: NSS (PRESERVATIVE FREE) 10 ML IV ×2 (07:59→22:10)
[2024-12-12] MEDS: HEPARIN 5000 UNITS SC ×2 (08:56→22:09)
[2024-12-12] MEDS: D5LR 1000 IV (08:58)
[2024-12-12 09:14] LABS: % Basophils 0.4 % (0-2); % Lymphocytes 28.6 % (20.5-51.1); % Monocytes 8.9 % (1.7-9.3); % Neutrophils 60.1 % (42.2-75.2); Absolute Immature Granulocytes 0.1 10^3/uL (0-0.05); Absolute Lymphocytes 1.6 10^3/uL (1.2-3.4); Absolute Monocytes 0.5 10^3/uL (0.1-0.6); Absolute Neutrophils 3.3 10^3/uL (1.4-6.5); Hematocrit 26.4 % (37.0-47.0); Hemoglobin 8.4 g/dL (12.0-16.0); Mean Corp Hgb Conc. 31.8 g/dL (33.0-37.0); Mean Corpuscular Hgb 25.8 pg (27.0-31.0); Mean Platelet Volume 11.5 fL (7.4-10.4); Nucleated Red Blood Cells % 0 %; Platelet Count 167 10^3/uL (130-400); Red Blood Cell Count 3.26 10^6/uL (4.20-5.40); Red Cell Dist. Width 18.1 % (11.5-14.5); White Blood Cell Count 5.5 10^3/uL (4.8-10.8)
[2024-12-12 09:37] LABS: Blood Urea Nitrogen 16 mg/dl (7-17); Calcium 8.4 mg/dl (8.4-10.2); Carbon Dioxide 24 mmol/L (22-30); Chloride 108 mmol/L (98-107); Estimated Creatinine Clearance 45 ml/min; Glucose 76 mg/dl (70-99); Phosphorus 2.7 mg/dl (2.5-4.5); Potassium 3.2 mmol/L (3.5-5.1); Sodium 138 mmol/L (135-145); eGFR 53.39
[2024-12-12] MEDS: LAC HYDRIN, AM LACTIN LOTION 1 APPLIC TOPICAL (10:07)
--- NOTE | 2024-12-12 11:24 | W.PN.HOSP.TC ---
Today's Communication/Plan
-
replete kcl
start norvasc
fulls
stop IVF
Assessment / Plan
Assessment / Plan
General: Well Developed, No Apparent Distress and Cachectic
HEENT: Normocephalic, Atraumatic and Other (dry oral mucous membranes )
Respiratory: Clear to Auscultation; Negative Wheezes, Rales or Rhonchi
Cardiac: Regular Rhythm and S1/S2
GI: Soft, Nontender and Nondistended
Musculoskeletal: No Clubbing, No Cyanosis and No Edema
Neuro: Awake
Psych: Apparent Dementia
#Dysphagia/failure to thrive/nonsevere protein malnutrition likely due to severe erosive esophagitis
- Protonix switched to BID IV
- Carafate 1 g p.o. twice daily
- Avoid all NSAIDs
- s/p EGD on 12/04/24 with severe cervical stenosis and) pediatric endoscopy was not able to be passed.
- EGD with Fluoro by Dr. Lopez on 12/08/24 with finding of high-grade stenosis status post balloon dilatation. Patient was also found to have a deep submucosal defect/possible perforation status post placement of esophageal stent status post sutures.
CT chest was performed post procedure.
- Gentle IVF can be capped. .
-However, repeat EGD on 12/11/24-no obstruction. Plan is now to advance to fulls. Repeat CT chest early next week to assess esophageal stent.
# Aspiration pneumonia noted on CAT scan
-Zosyn was started post stent placement. Switched to Unasyn. Complete 7d course
#Near syncope secondary to hypotension likely orthostatic hypotension, exacerbated by severe hypokalemia
#Hx bradycardia lasting 10 to 20-seconds heart rate in the 30s recent admission 11/04/24
-Follow orthostatics
-Check CT head-negative
-Monitor on telemetry
-Consulted [facility], has since signed off. Input appreciated
-Consult PT/OT/case management
# Hypertension
IV hydralazine as needed. Avoid AV deena genoveva.
If BP elevated start norvasc
#Severe hypokalemia 2/2 HCTZ
-DC HCTZ
-Repleted KCL IV as unable to tolerate po which is limiting factor
- TSH 0.26/ free T4 2.62
- Random Cortisol 26.9
-Renin/Wilmer ratio <25. Not suggestive of hyperaldosteronism
#Hypomagnesemia/Hypokalemia
replete prn
#BUBBA on CKD 3B
likely 2/2 severe hypotension and on HCTZ
Trend for now
#Dementia listed on longterm record
-OT for Bcat assessment
-Check CT head-negative.
-monitor mentation closely.
#Second-degree heart block Mobitz type I recent admission 11/04/24
-Patient's atenolol was DC'd
-Monitor on telemetry given near syncope
#Deconditioning
-Patient was sent to SNF facility on 11/04 [place] [facility]
-PT/OT consult
#DM 2 diet-controlled
HgbA1c 05 November 2024
Metformin was DC'd
#Chronic ambulatory dysfunction uses walker
-Consult PT/OT/case management
#Recent admission October 2024 endometrial thickening and fluid in the endometrial canal found on transvaginal ultrasound-. Follow up with the director cloud transformation for further evaluation and recommendations.
#R butter stage 2 pressure injury
off loading/wound care
DVT prophylaxis
-SCDs/hep sc
complex situation
Full code
d/w with GI
Anticipated Discharge: > 48 hours
Subjective/Interval History
-
Date of Service: December 12, 2024
denies any nausea or vomiting
Objective Data
-
Labs:
Laboratory Results
12/12/24
08:43
WBC 5.5
Hgb 8.4 L
Hct 26.4 L
Plt Count 167
Sodium 138
Potassium 3.2 L
Chloride 108 H
Carbon Dioxide 24
BUN 16
Creatinine 1.1 H
Glucose 76
Calcium 8.4
Vital Signs:
Vital Signs
Temp Pulse Resp BP Pulse Ox
97.5 F 81 24 159/84 100
12/12/24 07:30 12/12/24 07:30 12/12/24 07:30 12/12/24 07:30 12/12/24 07:30
I&O
12/11/24 12/12/24 12/13/24
06:59 06:59 06:59
Intake Total 1140 / 1140 570 / 570
Balance 1140 / 1140 570 / 570
Data Reviewed
-
Total Time Spent with Patient (in minutes): 55
--- NOTE | 2024-12-12 11:52 | W.PN.GI.CBS2 ---
Today's Communication / Plan
-
FLD
Assessment / Plan
-
Pt is a 74yo with hx of dementia (lives in a fpc - [facility] ) obesity, hypertension, hyperlipidemia, diabetes, CKD 3 with admission 10/19/24- 11/23/24 with hypothermia, bradycardia with second degree block mobitz type 1 without need
for pacer, weakness, change in mental status and failure to thrive with recent fall. During that admission she completed EGD grade D esophagitis with nodularity at GE junction, med HH, erosive gastropathy, moderate duodenal erythema with erosions
in duodenal bulb. Repeat EGD 12/04/24 with pinpoint distal esophageal stricture which could not be passed even with slim scope;
12/08/2024 CT chest without contrast air and fluid distention of the proximal esophagus. 12 cm covered stent in the mid and distal esophagus extending into the stomach with no evidence of perforation. No abscess. Moderate hiatal hernia. Possible
pneumonia
12/08/[address] Lopez and showed high-grade stenosis s/p balloon dilation. After balloon dilation adult gastroscope was able to traverse into the stomach. During the evaluation of stricture with deep submucosal defect/possible
perforation was noted. Decision was made to place esophageal stent under fluoroscopy guidance. Esophageal stent was secured with over stitch. Postprocedure her vitals are stable and denies pain. Recommend CT chest without contrast, keep n.p.o.,
and broad-spectrum abx.
12/04/24, EGD with Dr. Ortiz pinpoint distal esophageal stricture that could not be passed
EGD yesterday showed patent esophageal stent, no residual gastric content to suggest stent impaction/malfunction. Started CLD, tolerated well. Advance to FLD today. Will plan for repeat chest CT early next week for possible esophageal stent
removal.
Total Time Spent with Patient (in minutes): 35
Subjective
Subjective
Date of Service: December 12, 2024
Tolerating CLD
Objective
Data Reviewed
Laboratory Data:
Laboratory Results
12/12/24 08:43
12/12/24 08:43
Laboratory Results
Phosphorus 2.7 mg/dl (2.5-4.5) 12/12/24 08:43
Magnesium 2.0 mg/dl (1.6-2.3) 12/12/24 08:43
Total Bilirubin 0.5 mg/dl (0.2-1.3) 12/06/24 06:51
AST 20 U/L (14-36) 12/06/24 06:51
ALT 17 U/L (0-35) 12/06/24 06:51
Alkaline Phosphatase 73 U/L (38-126) 12/06/24 06:51
Vital Signs and I&O:
Vital Signs
Temp Pulse Resp BP Pulse Ox
97.5 F 81 24 159/84 100
12/12/24 07:30 12/12/24 07:30 12/12/24 07:30 12/12/24 07:30 12/12/24 07:30
I&O
12/11/24 12/12/24 12/13/24
06:59 06:59 06:59
Intake Total 1140 / 1140 570 / 570
Balance 1140 / 1140 570 / 570
[2024-12-12] MEDS: KCL 270 MEQ IV (12:12)
[2024-12-12] MEDS: NORVASC 5 MG PO (12:13)
--- NOTE | 2024-12-12 13:23 | CM ---
DC dispo return to [facility] when medically stable.
[facility]
Report [phone]
[2024-12-12] MEDS: ZOFRAN 4 MG IV (14:37)
[2024-12-12 15:00] VITALS: BP 142/85
[2024-12-12] MEDS: CARAFATE SUSPENSION 1 GM PO (22:09)
[2024-12-12] MEDS: LAC HYDRIN, AM LACTIN LOTION 2 APPLIC TOPICAL (22:20)
[2024-12-12 23:00] VITALS: BP 171/83
[2024-12-13] MEDS: D5LR IV (00:59)
[2024-12-13] MEDS: UNASYN IV ×4 (02:18→19:37)
[2024-12-13] MEDS: FLUSH (NSS) 1 FLUSH IV (02:18)
[2024-12-13 06:00] VITALS: BMI 31.9
[2024-12-13 07:16] LABS: % Basophils 0.7 % (0-2); % Eosinophils 2.4 % (0-6); % Immature Granulocytes 3.1 % (0-0.5); % Lymphocytes 30.4 % (20.5-51.1); % Monocytes 7.7 % (1.7-9.3); % Neutrophils 55.7 % (42.2-75.2); Absolute Eosinophils 0.1 10^3/uL (0-0.7); Absolute Immature Granulocytes 0.2 10^3/uL (0-0.05); Absolute Lymphocytes 1.7 10^3/uL (1.2-3.4); Absolute Monocytes 0.4 10^3/uL (0.1-0.6); Absolute Neutrophils 3.1 10^3/uL (1.4-6.5); Hematocrit 26.5 % (37.0-47.0); Hemoglobin 8.9 g/dL (12.0-16.0); Mean Corp Hgb Conc. 33.6 g/dL (33.0-37.0); Mean Corpuscular Hgb 26.8 pg (27.0-31.0); Mean Corpuscular Volume 79.8 fL (81.0-99.0); Mean Platelet Volume 11.8 fL (7.4-10.4); Nucleated Red Blood Cells % 0 %; Platelet Count 171 10^3/uL (130-400); Red Blood Cell Count 3.32 10^6/uL (4.20-5.40); Red Cell Dist. Width 18.1 % (11.5-14.5); White Blood Cell Count 5.5 10^3/uL (4.8-10.8)
[2024-12-13 07:30] VITALS: BP 189/96
[2024-12-13 07:46] LABS: Blood Urea Nitrogen 15 mg/dl (7-17); Calcium 8.6 mg/dl (8.4-10.2); Carbon Dioxide 21 mmol/L (22-30); Chloride 110 mmol/L (98-107); Estimated Creatinine Clearance 50 ml/min; Glucose 70 mg/dl (70-99); Magnesium 1.9 mg/dl (1.6-2.3); Phosphorus 2.7 mg/dl (2.5-4.5); Potassium 3.5 mmol/L (3.5-5.1); Sodium 140 mmol/L (135-145); eGFR 59.86
[2024-12-13] MEDS: CARAFATE SUSPENSION 1 GM PO ×2 (09:07→19:38)
[2024-12-13] MEDS: NORVASC 5 MG PO ×2 (09:07→13:05)
[2024-12-13] MEDS: PROTONIX IV 40 MG IV ×2 (09:07→19:38)
[2024-12-13] MEDS: HEPARIN 5000 UNITS SC ×2 (09:08→19:38)
[2024-12-13] MEDS: NSS (PRESERVATIVE FREE) 10 ML IV ×2 (09:08→19:38)
[2024-12-13] MEDS: LAC HYDRIN, AM LACTIN LOTION 1 APPLIC TOPICAL ×2 (09:08→19:39)
--- NOTE | 2024-12-13 12:06 | W.PN.HOSP.TC ---
Today's Communication/Plan
-
CAT scan per gastroenterology
Continue with full liquid diet
Monitor blood pressure and adjust meds as needed
Continue PPI
Assessment / Plan
Assessment / Plan
General: Well Developed, No Apparent Distress and Cachectic
HEENT: Normocephalic, Atraumatic and Other (dry oral mucous membranes )
Respiratory: Clear to Auscultation; Negative Wheezes, Rales or Rhonchi
Cardiac: Regular Rhythm and S1/S2
GI: Soft, Nontender and Nondistended
Musculoskeletal: No Clubbing, No Cyanosis and No Edema
Neuro: Awake
Psych: Apparent Dementia
#Dysphagia/failure to thrive/nonsevere protein malnutrition likely due to severe erosive esophagitis/esophageal stricture
- Protonix switched to BID IV
- Carafate 1 g p.o. twice daily
- Avoid all NSAIDs
- s/p EGD on 12/04/24 with severe cervical stenosis and) pediatric endoscopy was not able to be passed.
- EGD with Fluoro by Dr. Lopez on 12/08/24 with finding of high-grade stenosis status post balloon dilatation. Patient was also found to have a deep submucosal defect/possible perforation status post placement of esophageal stent status post sutures.
CT chest was performed post procedure.
- Gentle IVF can be capped.
-However, repeat EGD on 12/11/24-no obstruction. Plan is now to advance to fulls. Repeat CT chest early next week to assess esophageal stent.
# Aspiration pneumonia noted on CAT scan
-Zosyn was started post stent placement. Switched to Unasyn. Complete 7d course
#Near syncope secondary to hypotension likely orthostatic hypotension, exacerbated by severe hypokalemia
#Hx bradycardia lasting 10 to 20-seconds heart rate in the 30s recent admission 11/04/24
-Follow orthostatics
-Check CT head-negative
-Monitor on telemetry
-Consulted [facility] cardiology, has since signed off. Input appreciated
-Consult PT/OT/case management
# Labile hypertension
IV hydralazine as needed. Avoid AV deena genoveva.
Start patient on 5 mg of Norvasc. Can uptitrate as needed.
#Severe hypokalemia 2/2 HCTZ
-DC HCTZ
-Repleted KCL IV as unable to tolerate po which is limiting factor
- TSH 0.26/ free T4 2.62
- Random Cortisol 26.9
-Renin/Wilmer ratio <25. Not suggestive of hyperaldosteronism
#Hypomagnesemia/Hypokalemia
replete prn
#BUBBA on CKD 3B
likely 2/2 severe hypotension and on HCTZ
Trend for now
#Dementia listed on group home record
-OT for Bcat assessment
-Check CT head-negative.
-monitor mentation closely.
#Second-degree heart block Mobitz type I recent admission 11/04/24
-Patient's atenolol was DC'd
-Monitor on telemetry given near syncope
#Deconditioning
-Patient was sent to SNF facility on 11/04 [place] [facility]
-PT/OT consult
#DM 2 diet-controlled
HgbA1c 05 November 2024
Metformin was DC'd
#Chronic ambulatory dysfunction uses walker
-Consult PT/OT/case management
#Recent admission October 2024 endometrial thickening and fluid in the endometrial canal found on transvaginal ultrasound-. Follow up with the barmaid for further evaluation and recommendations.
#R butter stage 2 pressure injury
off loading/wound care
DVT prophylaxis
-SCDs/hep sc
complex situation
Full code
Anticipated Discharge: > 48 hours
Subjective/Interval History
-
Date of Service: December 13, 2024
states tolerating liquids now
Objective Data
-
Labs:
Laboratory Results
12/13/24
06:49
WBC 5.5
Hgb 8.9 L
Hct 26.5 L
Plt Count 171
Sodium 140
Potassium 3.5
Chloride 110 H
Carbon Dioxide 21 L
BUN 15
Creatinine 1.0
Glucose 70
Calcium 8.6
Vital Signs:
Vital Signs
Temp Pulse Resp BP Pulse Ox
97.5 F 67 22 189/96 99
12/13/24 07:30 12/13/24 07:30 12/13/24 07:30 12/13/24 07:30 12/13/24 07:30
I&O
12/12/24 12/13/24 12/14/24
06:59 06:59 06:59
Intake Total 570 / 570 840 / 840
Output Total 100 / 100
Balance 570 / 570 740 / 740
Data Reviewed
-
Total Time Spent with Patient (in minutes): 55
[2024-12-13 12:17] VITALS: BP 168/87
--- NOTE | 2024-12-13 12:45 | W.PN.GI.CBS2 ---
Today's Communication / Plan
-
chest CT
Assessment / Plan
-
Pt is a 74yo with hx of dementia (lives in a correction - [facility] ) obesity, hypertension, hyperlipidemia, diabetes, CKD 3 with admission 10/19/24- 11/23/24 with hypothermia, bradycardia with second degree block mobitz type 1 without need
for pacer, weakness, change in mental status and failure to thrive with recent fall. During that admission she completed EGD grade D esophagitis with nodularity at GE junction, med HH, erosive gastropathy, moderate duodenal erythema with erosions
in duodenal bulb. Repeat EGD 12/04/24 with pinpoint distal esophageal stricture which could not be passed even with slim scope;
Tolerating FLD. Will order repeat chest CT for possible esophageal stent removal planning. Continue with FLD for now.
Total Time Spent with Patient (in minutes): 35
Subjective
Subjective
Date of Service: December 13, 2024
Tolerating full liquids
Objective
Data Reviewed
Laboratory Data:
Laboratory Results
12/13/24 06:49
12/13/24 06:49
Laboratory Results
Phosphorus 2.7 mg/dl (2.5-4.5) 12/13/24 06:49
Magnesium 1.9 mg/dl (1.6-2.3) 12/13/24 06:49
Total Bilirubin 0.5 mg/dl (0.2-1.3) 12/06/24 06:51
AST 20 U/L (14-36) 12/06/24 06:51
ALT 17 U/L (0-35) 12/06/24 06:51
Alkaline Phosphatase 73 U/L (38-126) 12/06/24 06:51
Vital Signs and I&O:
Vital Signs
Temp Pulse Resp BP Pulse Ox
97.5 F 81 22 168/87 99
12/13/24 07:30 12/13/24 12:17 12/13/24 07:30 12/13/24 12:17 12/13/24 07:30
I&O
12/12/24 12/13/24 12/14/24
06:59 06:59 06:59
Intake Total 570 / 570 840 / 840
Output Total 100 / 100
Balance 570 / 570 740 / 740
[2024-12-13 15:00] VITALS: BP 132/88
[2024-12-13 23:51] VITALS: BP 155/91
[2024-12-14] MEDS: UNASYN IV ×4 (02:34→21:34)
[2024-12-14 07:00] VITALS: BP 157/88
[2024-12-14] MEDS: HEPARIN 5000 UNITS SC ×2 (08:17→21:28)
[2024-12-14] MEDS: NORVASC 10 MG PO (08:17)
[2024-12-14] MEDS: PROTONIX IV 40 MG IV ×2 (08:18→21:29)
[2024-12-14] MEDS: NSS (PRESERVATIVE FREE) 10 ML IV ×2 (08:18→21:29)
[2024-12-14] MEDS: CARAFATE SUSPENSION PO (08:38)
[2024-12-14] MEDS: LAC HYDRIN, AM LACTIN LOTION 1 APPLIC TOPICAL ×2 (09:05→21:40)
[2024-12-14 10:23] LABS: % Basophils 0.4 % (0-2); % Eosinophils 1.1 % (0-6); % Lymphocytes 32.8 % (20.5-51.1); % Neutrophils 52.7 % (42.2-75.2); Absolute Eosinophils 0.1 10^3/uL (0-0.7); Absolute Immature Granulocytes 0.1 10^3/uL (0-0.05); Absolute Lymphocytes 1.5 10^3/uL (1.2-3.4); Absolute Monocytes 0.5 10^3/uL (0.1-0.6); Absolute Neutrophils 2.4 10^3/uL (1.4-6.5); Hematocrit 26.1 % (37.0-47.0); Hemoglobin 8.6 g/dL (12.0-16.0); Mean Corpuscular Hgb 26.5 pg (27.0-31.0); Mean Corpuscular Volume 80.3 fL (81.0-99.0); Mean Platelet Volume 11.1 fL (7.4-10.4); Nucleated Red Blood Cells % 0 %; Platelet Count 154 10^3/uL (130-400); Red Blood Cell Count 3.25 10^6/uL (4.20-5.40); White Blood Cell Count 4.6 10^3/uL (4.8-10.8)
[2024-12-14 11:15] LABS: Blood Urea Nitrogen 13 mg/dl (7-17); Calcium 8.4 mg/dl (8.4-10.2); Carbon Dioxide 25 mmol/L (22-30); Chloride 107 mmol/L (98-107); Estimated Creatinine Clearance 50 ml/min; Glucose 64 mg/dl (70-99); Phosphorus 2.7 mg/dl (2.5-4.5); Potassium 3.1 mmol/L (3.5-5.1); Sodium 137 mmol/L (135-145); eGFR 59.86
--- NOTE | 2024-12-14 11:16 | VATNOTE ---
Notified by other VAT nurse that patient had significant dependent swelling to IV arm (left). Arrived to assess at this time. Significant unilateral dependent edema noted the left arm. Discussed with PCN, peripheral vascular ultrasound recommended.
--- NOTE | 2024-12-14 13:19 | CM ---
Chart reviewed. care ongoing at this time
Plan is for patient to return to [facility] when stable
[facility]
Report [phone]
[2024-12-14 14:12] LABS: Magnesium 1.6 mg/dl (1.6-2.3)
--- NOTE | 2024-12-14 14:43 | VATNOTE ---
Pt being taken off the unit for a test at this time, peripheral vascular ultrasound still pending. L limb alert applied and IV removed from anticubital fossa. New IV placed in pt's R hand.
--- NOTE | 2024-12-14 15:02 | W.PN.HOSP.TC ---
Today's Communication/Plan
-
follow further GI reccs
Assessment / Plan
Assessment / Plan
74yo F with PMHX of HTN, CKD, DM, came with syncope during occupational therapy, came to ED with vomiting and lightheadedness, found orthostatic hypotension and bradycardia on telemetry to 30 bpm. ALso complicated with dysphagia and malnutrition
with electrolyte disarrangements.
A/P:
#Dysphagia with esophagitis and deep submucosal defect/possible perforation
#Protein calorie malnutrition, non-severe
EGD on 12/04/24 with severe stenosis, repeated on 12/08/24 with balloon dilation and s/p placement of stent
Advance diet and follow further GI recommendations
Carafate, PPI
#Syncope 2/2 dehydration and electrolyte disturbance
stopped HCTZ
#2:1 AV block with narrow QRS and associated with Mobitz I
Cardiology followed
avoid AVB agents
#Non-ischemic myocardial injury
no chest pain
cardio followed, no further tests planned
#Aspiration pneumonia b/l on CT
Moderate amount of CENTRILOBULAR AIRSPACE OPACITY in the basilar segments of the LEFT LOWER LOBE and mild centrilobular airspace opacity in the lingula and basilar right lower lobe
Unasyn for 5 days empiric will be appropriate
#mild leukopenia
most likely Abx-related
follow CBC
#Hypokalemia
#Hypomagnesemia
#BUBBA on CKD stage 3b
2/2 HCTZ
stop diuretic
follow electrolytes
#Mild cage-related cognitive impairment
#Ambulatory dysfunction
PT/OT
SNF
#asymptomatic cholelithiasis
monitor
#Hx of endometrial thickening
seen by JIG FITTER - recommended for routine outpatient JIG FITTER care
#DJD
tylenol
PT/OT
#DM type 2 with nephropathy
Insulin SS, accuchecks, DM diet
controlled with diet
#R buttocks stage 2 pressure injury
wound care
offloading
#LUE swelling
US pending
DVT ppx on SCDs
Full code
I have spent at least 58min reviewing hcart, test results, communication with consultantants and providing direct patient care
Anticipated Discharge: 24 - 48 hours
Subjective/Interval History
-
Date of Service: December 14, 2024
Objective Data
-
Labs:
Laboratory Results
12/14/24
10:00
WBC 4.6 L
Hgb 8.6 L
Hct 26.1 L
Plt Count 154
Sodium 137
Potassium 3.1 L
Chloride 107
Carbon Dioxide 25
BUN 13
Creatinine 1.0
Glucose 64 L
Calcium 8.4
Vital Signs:
Vital Signs
Temp Pulse Resp BP Pulse Ox
97.9 F 79 16 157/88 100
12/14/24 07:00 12/14/24 08:17 12/14/24 07:00 12/14/24 08:17 12/14/24 08:12
I&O
12/13/24 12/14/24 12/15/24
06:59 06:59 06:59
Intake Total 840 / 840 240 / 240
Output Total 100 / 100
Balance 740 / 740 240 / 240
Review of Systems
-
History Source: Patient
All other systems: Reviewed and negative
Physical Exam
-
General: No Apparent Distress
HEENT: Normocephalic
Cardiac: Regular Rhythm
GI: Soft
Neuro: Awake, Alert, Oriented and AO x 3
Psych: Calm
[2024-12-14 15:41] VITALS: BP 136/76; BP 157/88
[2024-12-14 15:45] VITALS: BP 136/74
[2024-12-14 16:00] VITALS: BP 132/78
[2024-12-14] MEDS: MAGNESIUM SULFATE 50 IV (18:15)
[2024-12-14] MEDS: CARAFATE SUSPENSION 1 GM PO (21:28)
[2024-12-14] MEDS: KCL 270 MEQ IV (22:31)
[2024-12-14 23:00] VITALS: BP 151/88
[2024-12-15] MEDS: KCL 270 MEQ IV (02:40)
[2024-12-15] MEDS: UNASYN IV ×4 (02:47→20:04)
--- NOTE | 2024-12-15 03:45 | PTCARENOTE ---
Pt has denied pain n/v and SOB. KCl riders have been infusing through the shift as they were not started during the day shift. No s/s of distress assessed. Will continue to monitor.
--- NOTE | 2024-12-15 07:01 | W.PN.GI.CBS2 ---
Today's Communication / Plan
-
Please see assessment and plan for details.
Assessment / Plan
-
1. Esophageal stricture: Likely GERD related, status post dilation and stent, now stent removal, overall doing okay post procedure. Will advance to soft diet, continue PPI twice daily.
Subjective
Subjective
Date of Service: December 15, 2024
Patient feeling better overall, no pain, vomiting, tolerated full liquid diet without difficulty yesterday.
Objective
Data Reviewed
Laboratory Data:
Laboratory Results
Phosphorus 2.7 mg/dl (2.5-4.5) 12/14/24 10:00
Magnesium 1.6 mg/dl (1.6-2.3) 12/14/24 10:00
Total Bilirubin 0.5 mg/dl (0.2-1.3) 12/06/24 06:51
AST 20 U/L (14-36) 12/06/24 06:51
ALT 17 U/L (0-35) 12/06/24 06:51
Alkaline Phosphatase 73 U/L (38-126) 12/06/24 06:51
Vital Signs and I&O:
Vital Signs
Temp Pulse Resp BP Pulse Ox
97.5 F 91 18 151/88 100
12/14/24 23:00 12/14/24 23:00 12/14/24 23:00 12/14/24 23:00 12/14/24 23:00
I&O
12/14/24 12/15/24 12/16/24
06:59 06:59 06:59
Intake Total 240 / 240 500 / 500
Balance 240 / 240 500 / 500
Physical Exam
Physical Exam
General: NAD
Abdomen: normal bowel sounds, soft, no tenderness, no masses or bruits, no ascites
[2024-12-15 07:44] LABS: % Immature Granulocytes 3.7 % (0-0.5); % Lymphocytes 17.8 % (20.5-51.1); % Monocytes 3.5 % (1.7-9.3); Absolute Immature Granulocytes 0.2 10^3/uL (0-0.05); Absolute Lymphocytes 0.8 10^3/uL (1.2-3.4); Absolute Monocytes 0.2 10^3/uL (0.1-0.6); Absolute Neutrophils 3.5 10^3/uL (1.4-6.5); Hematocrit 24.8 % (37.0-47.0); Hemoglobin 8.2 g/dL (12.0-16.0); Mean Corp Hgb Conc. 33.1 g/dL (33.0-37.0); Mean Corpuscular Hgb 26.5 pg (27.0-31.0); Mean Platelet Volume 11.1 fL (7.4-10.4); Nucleated Red Blood Cells % 0 %; Platelet Count 134 10^3/uL (130-400); Red Cell Dist. Width 17.7 % (11.5-14.5); White Blood Cell Count 4.6 10^3/uL (4.8-10.8)
[2024-12-15 07:56] VITALS: BP 157/88
[2024-12-15] MEDS: NORVASC 10 MG PO (08:46)
[2024-12-15] MEDS: CARAFATE SUSPENSION 1 GM PO ×2 (08:47→20:02)
[2024-12-15] MEDS: PROTONIX IV 40 MG IV ×2 (08:48→20:03)
[2024-12-15] MEDS: HEPARIN 5000 UNITS SC ×2 (08:48→20:02)
[2024-12-15] MEDS: NSS (PRESERVATIVE FREE) 10 ML IV ×2 (08:48→20:03)
[2024-12-15] MEDS: LAC HYDRIN, AM LACTIN LOTION 1 APPLIC TOPICAL ×2 (08:55→20:08)
[2024-12-15 11:16] VITALS: BP 147/76; PULSE 81
--- NOTE | 2024-12-15 11:38 | W.PN.HOSP.TC ---
Today's Communication/Plan
-
monitor for symptoms and PO intake over 24h. If improving - dc
Assessment / Plan
Assessment / Plan
74yo F with PMHX of HTN, CKD, DM, came with syncope during occupational therapy, came to ED with vomiting and lightheadedness, found orthostatic hypotension and bradycardia on telemetry to 30 bpm. ALso complicated with dysphagia and malnutrition
with electrolyte disarrangements.
A/P:
#Dysphagia with esophagitis and deep submucosal defect/possible perforation
#Protein calorie malnutrition, non-severe
EGD on 12/04/24 with severe stenosis, repeated on 12/08/24 with balloon dilation and s/p placement of stent, which was removed on 12/14/24
Advance diet and follow further GI recommendations
Carafate, PPI
#Syncope 2/2 dehydration and electrolyte disturbance
stopped HCTZ
#2:1 AV block with narrow QRS and associated with Mobitz I
Cardiology followed
avoid AVB agents
#Non-ischemic myocardial injury
no chest pain
cardio followed, no further tests planned
#Aspiration pneumonia b/l on CT
Moderate amount of CENTRILOBULAR AIRSPACE OPACITY in the basilar segments of the LEFT LOWER LOBE and mild centrilobular airspace opacity in the lingula and basilar right lower lobe
Unasyn for 5 days empiric will be appropriate
#mild leukopenia
most likely Abx-related
follow CBC
#Hypokalemia
#Hypomagnesemia
#BUBBA on CKD stage 3b
2/2 HCTZ
stop diuretic
follow electrolytes
#Mild cage-related cognitive impairment
#Ambulatory dysfunction
PT/OT
SNF
#asymptomatic cholelithiasis
monitor
#Hx of endometrial thickening
seen by SHOP MECHANIC on last admission - recommended for routine outpatient SHOP MECHANIC care
#DJD
tylenol
PT/OT
#DM type 2 with nephropathy
Insulin SS, accuchecks, DM diet
controlled with diet
#R buttocks stage 2 pressure injury
wound care
offloading
#LUE swelling
US pending
DVT ppx on SCDs
Full code
I have spent at least 38min reviewing hcart, test results, communication with consultantants and providing direct patient care
Anticipated Discharge: Within 24 hours
Subjective/Interval History
-
Date of Service: December 15, 2024
Objective Data
-
Labs:
Laboratory Results
12/15/24 12/15/24
06:31 10:16
WBC 4.6 L
Hgb 8.2 L
Hct 24.8 L
Plt Count 134
Sodium Cancelled Pending
Potassium Cancelled Pending
Chloride Cancelled Pending
Carbon Dioxide Cancelled Pending
BUN Cancelled Pending
Creatinine Cancelled Pending
Glucose Cancelled Pending
Calcium Cancelled Pending
Total Bilirubin Cancelled Pending
AST Cancelled Pending
ALT Cancelled Pending
Alkaline Phosphatase Cancelled Pending
Vital Signs:
Vital Signs
Temp Pulse Resp BP Pulse Ox
97.4 F 85 18 157/88 95
12/15/24 07:56 12/15/24 07:56 12/15/24 07:56 12/15/24 08:46 12/15/24 08:00
I&O
12/14/24 12/15/24 12/16/24
06:59 06:59 06:59
Intake Total 240 / 240 500 / 500
Balance 240 / 240 500 / 500
Review of Systems
-
History Source: Patient
All other systems: Reviewed and negative
Abdomen/GI: Reports Vomiting
Physical Exam
-
General: No Apparent Distress
HEENT: Normocephalic
Cardiac: Regular Rhythm
GI: Soft, Nontender and Nondistended
Skin: Warm
Neuro: Awake, Alert, Oriented and AO x 3
Psych: Calm
[2024-12-15 11:46] LABS: ALT (SGPT) 14 U/L (0-35); AST (SGOT) 13 U/L (14-36); Albumin 2.5 g/dl (3.5-5.0); Alkaline Phosphatase 79 U/L (38-126); Blood Urea Nitrogen 12 mg/dl (7-17); Calcium 8.6 mg/dl (8.4-10.2); Carbon Dioxide 20 mmol/L (22-30); Chloride 109 mmol/L (98-107); Estimated Creatinine Clearance 45 ml/min; Glucose 106 mg/dl (70-99); Phosphorus 2.4 mg/dl (2.5-4.5); Potassium 4.2 mmol/L (3.5-5.1); Sodium 138 mmol/L (135-145); Total Bilirubin 0.6 mg/dl (0.2-1.3); Total Protein 5.3 g/dl (6.3-8.2); eGFR 53.39
[2024-12-15 15:34] VITALS: BP 140/73
[2024-12-15 23:15] VITALS: BP 146/78
[2024-12-16] MEDS: UNASYN IV ×4 (02:00→19:50)
[2024-12-16 06:00] VITALS: BMI 31.4
--- NOTE | 2024-12-16 06:55 | W.PN.GI.CBS2 ---
Today's Communication / Plan
-
Please see assessment and plan for details.
Assessment / Plan
-
1. Esophageal stricture: Likely GERD related, status post dilation and stent, now stent removal, overall doing okay post procedure, tolerating diet without difficulty. Would continue soft diet, small portions, PPI twice daily.
We will sign off for now, please call back with any further questions.
Subjective
Subjective
Date of Service: December 16, 2024
Patient feeling well, tolerated diet without difficulty, no significant regurgitation or dysphagia, chest pain or shortness of breath.
Objective
Data Reviewed
Laboratory Data:
Laboratory Results
Phosphorus 2.4 mg/dl (2.5-4.5) L 12/15/24 10:16
Magnesium 2.0 mg/dl (1.6-2.3) 12/15/24 10:16
Total Bilirubin 0.6 mg/dl (0.2-1.3) 12/15/24 10:16
AST 13 U/L (14-36) L 12/15/24 10:16
ALT 14 U/L (0-35) 12/15/24 10:16
Alkaline Phosphatase 79 U/L (38-126) 12/15/24 10:16
Vital Signs and I&O:
Vital Signs
Temp Pulse Resp BP Pulse Ox
97.6 F 83 16 146/78 98
12/15/24 23:15 12/15/24 23:15 12/15/24 23:15 12/15/24 23:15 12/15/24 23:15
I&O
12/14/24 12/15/24 12/16/24
06:59 06:59 06:59
Intake Total 240 / 240 500 / 500 840 / 840
Balance 240 / 240 500 / 500 840 / 840
Physical Exam
Physical Exam
General: NAD
Abdomen: normal bowel sounds, soft, no tenderness, no masses or bruits, no ascites
[2024-12-16 07:34] VITALS: BP 170/96
[2024-12-16 08:25] LABS: % Basophils 0.4 % (0-2); % Immature Granulocytes 3.4 % (0-0.5); % Lymphocytes 35.7 % (20.5-51.1); % Monocytes 9.3 % (1.7-9.3); % Neutrophils 51.2 % (42.2-75.2); Absolute Immature Granulocytes 0.2 10^3/uL (0-0.05); Absolute Monocytes 0.5 10^3/uL (0.1-0.6); Absolute Neutrophils 2.9 10^3/uL (1.4-6.5); Hematocrit 27.1 % (37.0-47.0); Hemoglobin 8.9 g/dL (12.0-16.0); Mean Corp Hgb Conc. 32.8 g/dL (33.0-37.0); Mean Corpuscular Hgb 26.5 pg (27.0-31.0); Mean Corpuscular Volume 80.7 fL (81.0-99.0); Mean Platelet Volume 11.9 fL (7.4-10.4); Nucleated Red Blood Cells % 0.5 %; Platelet Count 134 10^3/uL (130-400); Red Blood Cell Count 3.36 10^6/uL (4.20-5.40); White Blood Cell Count 5.6 10^3/uL (4.8-10.8)
[2024-12-16 08:44] LABS: ALT (SGPT) 15 U/L (0-35); AST (SGOT) 15 U/L (14-36); Albumin 2.5 g/dl (3.5-5.0); Alkaline Phosphatase 85 U/L (38-126); Blood Urea Nitrogen 12 mg/dl (7-17); Calcium 8.7 mg/dl (8.4-10.2); Carbon Dioxide 21 mmol/L (22-30); Chloride 107 mmol/L (98-107); Estimated Creatinine Clearance 41 ml/min; Glucose 73 mg/dl (70-99); Magnesium 1.9 mg/dl (1.6-2.3); Potassium 3.6 mmol/L (3.5-5.1); Sodium 136 mmol/L (135-145); Total Bilirubin 0.6 mg/dl (0.2-1.3); Total Protein 5.3 g/dl (6.3-8.2); eGFR 48.09
[2024-12-16] MEDS: NORVASC 10 MG PO (09:37)
[2024-12-16] MEDS: LAC HYDRIN, AM LACTIN LOTION 1 APPLIC TOPICAL ×2 (09:38→19:51)
[2024-12-16] MEDS: CARAFATE SUSPENSION 1 GM PO ×2 (09:38→19:48)
[2024-12-16] MEDS: HEPARIN 5000 UNITS SC ×2 (09:38→19:48)
[2024-12-16] MEDS: PROTONIX IV 40 MG IV ×2 (09:39→19:50)
[2024-12-16] MEDS: NSS (PRESERVATIVE FREE) 10 ML IV ×2 (09:39→19:49)
--- NOTE | 2024-12-16 10:04 | W.PN.HOSP.TC ---
Today's Communication/Plan
-
recheck TSH and D/C if no concern for ongoing hypothyroidism
Assessment / Plan
Assessment / Plan
74yo F with PMHX of HTN, CKD, DM, came from [facility] with syncope during occupational therapy, came to ED with vomiting and lightheadedness, found orthostatic hypotension and bradycardia on telemetry to 30 bpm. ALso complicated with
dysphagia and malnutrition with electrolyte disarrangements.
A/P:
#Dysphagia with esophagitis and deep submucosal defect/possible perforation
#Protein calorie malnutrition, non-severe
EGD on 12/04/24 with severe stenosis, repeated on 12/08/24 with balloon dilation and s/p placement of stent, which was removed on 12/14/24
Advance diet and follow further GI recommendations
Carafate, PPI
#Syncope 2/2 dehydration and electrolyte disturbance
stopped HCTZ
#2:1 AV block with narrow QRS and associated with Mobitz I
Cardiology followed
avoid AVB agents
#Non-ischemic myocardial injury
no chest pain
cardio followed, no further tests planned
#Aspiration pneumonia b/l on CT
Moderate amount of CENTRILOBULAR AIRSPACE OPACITY in the basilar segments of the LEFT LOWER LOBE and mild centrilobular airspace opacity in the lingula and basilar right lower lobe
Unasyn for 5 days empiric will be appropriate
#mild leukopenia
most likely Abx-related
follow CBC
#Hypokalemia
#Hypomagnesemia
#BUBBA on CKD stage 3b
2/2 HCTZ
stop diuretic
follow electrolytes
Renin activity suppressed, as well as aldosterone. No primary hyperaldosteronism. No clinical signs of hypoaldosteronism i this patient with HTN and normal Na
#Hypothyroidism
most likely 2/2 acute disease
Previously TPA Ab and Thyroglobulin Ab neg
#Mild cage-related cognitive impairment
#Ambulatory dysfunction
PT/OT
SNF
#asymptomatic cholelithiasis
monitor
#Hx of endometrial thickening
seen by WOVEN PAPER HAT MENDER on last admission - recommended for routine outpatient WOVEN PAPER HAT MENDER care
#DJD
tylenol
PT/OT
#DM type 2 with nephropathy
Insulin SS, accuchecks, DM diet
controlled with diet
#R buttocks stage 2 pressure injury
wound care
offloading
#LUE swelling
US pending
DVT ppx on SCDs
Full code
I have spent at least 38min reviewing chart, test results, communication with consultants and providing direct patient care
Anticipated Discharge: Within 24 hours
Subjective/Interval History
-
Date of Service: December 16, 2024
Objective Data
-
Labs:
Laboratory Results
12/16/24
06:28
WBC 5.6
Hgb 8.9 L
Hct 27.1 L
Plt Count 134
Sodium 136
Potassium 3.6
Chloride 107
Carbon Dioxide 21 L
BUN 12
Creatinine 1.2 H
Glucose 73
Calcium 8.7
Total Bilirubin 0.6
AST 15
ALT 15
Alkaline Phosphatase 85
Vital Signs:
Vital Signs
Temp Pulse Resp BP Pulse Ox
97.6 F 95 20 170/96 100
12/16/24 07:34 12/16/24 07:34 12/16/24 07:34 12/16/24 07:34 12/16/24 07:34
I&O
12/15/24 12/16/24 12/17/24
06:59 06:59 06:59
Intake Total 500 / 500 840 / 840
Balance 500 / 500 840 / 840
Review of Systems
-
History Source: Patient
All other systems: Reviewed and negative
Physical Exam
-
General: Comfortable
HEENT: Normocephalic
Cardiac: Regular Rhythm
GI: Soft
Neuro: Awake, Alert, Oriented and AO x 3
Psych: Calm
--- NOTE | 2024-12-16 12:25 | CM ---
Addendum entered by Monet Riley 12/16/24 15:19:
Patient medically stable for d/c. Spoke w/ Martha/[facility] admissions to make aware. Due to late transport times available, patient unable to admit today as SNF pharmacy will not be open by time patient would arrive. Plan is for patient to d/c
tomorrow. Patient will need ambulance transport, forms on chart.
Updated hospitalist
[facility]
Report: [phone]

Plan: D/c to [facility] tomorrow
Original Note:
Chart reviewed. Anticipated d/c within 24 hours. Therapy cont to recommend skilled rehab upon return to [facility].
Updated clinicals sent to [facility] via [facility]
Plan: Return to [facility] when stable
--- NOTE | 2024-12-16 14:25 | WOUNDNOTE ---
[facility] RN NOTE: Patient visited to follow up on right buttock wound. Wound appears to be processing toward healing. Staff have been using Calazime over buttock wound which is appropriate. Orders and careplan updated. Attempted to remove diaper but
patient refused. Patient educated by this sign writer letterer or painter on impaired skin integrity and diaper use. Patient continued to insist on diaper so it was replaced. Heels intact. Patient remains on air mattress with turning schedule. Patients diet has been
advanced from NPO to moist/minced. Will continue to follow as needed.
[2024-12-16 14:49] LABS: TSH Reflex To Free T4 1.84 uIU/ml (0.47-4.68)
--- NOTE | 2024-12-16 14:54 | W.DCSUMMARY ---
Addendum entered and electronically signed by Moises Montoya MD 12/17/24 10:33:
DC date 12/17/24
Original Note:
Discharge Summary
Discharge Data
Date of Admission: 12/01/24
Date of Discharge: 12/16/24
-
Pending Results: No
Hospital Course
74yo F with PMHX of HTN, CKD, DM, came from [facility] with syncope during occupational therapy, came to ED with vomiting and lightheadedness, found orthostatic hypotension and bradycardia on telemetry to 30 bpm. ALso complicated with
dysphagia and malnutrition with electrolyte disarrangements. Also found EGD on 12/04/24 with severe stenosis, repeated on 12/08/24 with balloon dilation and s/p placement of stent, which was removed on 12/14/24. Able to tolerate food. HCTZ stopped to
avoid hypokalemia. Completed Abx for aspiration pneumonia Medcially stable for d/c back to SNF
I have spent at least 38min reviewing chart, test results, communication with consultants and providing direct patient care
Patient was managed for:
#Dysphagia with esophagitis and deep submucosal defect/possible perforation
#Protein calorie malnutrition, non-severe
#Syncope 2/2 dehydration and electrolyte disturbance
#2:1 AV block with narrow QRS and associated with Mobitz I
#Non-ischemic myocardial injury
#Aspiration pneumonia b/l on CT
#mild leukopenia
#Hypokalemia
#Hypomagnesemia
#BUBBA on CKD stage 3b
#Hypothyroidism 2/2 acute disease - resolved
#Mild age-related cognitive impairment
#Ambulatory dysfunction
#asymptomatic cholelithiasis
#Hx of endometrial thickening
#DJD
#DM type 2 with nephropathy
#R buttocks stage 2 pressure injury
#LUE swelling - neg for DVT
Discharge Plan
-
Patient Disposition: [facility]/SNF
Discharge Diagnosis/Procedures: Esophagitis
Additional Diets: Minced and moist
Activity Restrictions/Additional Instructions:
Wound Care Instructions Right Buttock Wound- Clean with soap and water or normal saline and cover with thin Hydrocolloid dressing OR Calazime PRN. Change hydrocolloid Q 72 hours and PRN if loose or soiled if using
Bilateral Heels- No-sting barrier wipe and adhesive foam. Change Q72 hours and PRN if loose or soiled.
Air mattress
Turning schedule
Avoid diapers
Referrals:
Arsalan Castro MD [Family Provider] -
Prescriptions:
New
sucralfate 100 mg/mL Suspension
1 g PO BID Qty: 300 0RF
polyethylene glycol 3350 17 gram Powder In Packet
17 g PO DAILY Qty: 30 0RF
amlodipine 10 mg Tablet
10 mg PO DAILY Qty: 30 0RF
Continued
pantoprazole 40 mg Tablet,Delayed Release (Dr/Ec)
40 mg PO BID Qty: 30 0RF
bisacodyl [Dulcolax (bisacodyl)] 10 mg Suppository
10 mg MD DAILYPRN PRN (Reason: if no bm aftr mom)
ammonium lactate 12 % Cream
1 applic TOPICAL BID
acetaminophen 325 mg tablet
650 mg PO Q6HPRN PRN (Reason: mild pain/VAUGHAN/temp> 100.4F)
Changed
lisinopril 20 mg Tablet
20 mg PO DAILY Qty: 30 0RF
Discontinued
sucralfate 100 mg/mL Suspension
1 g PO BID Qty: 414 0RF
hydrochlorothiazide 25 mg Tablet
25 mg PO DAILY Qty: 30 0RF
magnesium hydroxide [Milk of Magnesia] 400 mg/5 mL Suspension
2,400 mg PO DAILYPRN PRN (Reason: if no bm by 3rd day)
Discharge Orders:
Discharge Patient (As Directed); Ordered 12/16/24
Ordered By: Moises Montoya
Discharge Date and Time
Print Language: BELARUSIAN
[2024-12-16 14:57] VITALS: BP 141/80
[2024-12-16] MEDS: ZESTRIL 20 MG PO (15:10)
[2024-12-16 23:00] VITALS: BP 145/91
[2024-12-17] MEDS: UNASYN IV ×2 (02:38→09:01)
[2024-12-17 06:00] VITALS: BMI 29.1
[2024-12-17 07:00] VITALS: BP 141/87
[2024-12-17] MEDS: CARAFATE SUSPENSION 1 GM PO (09:00)
[2024-12-17] MEDS: HEPARIN 5000 UNITS SC (09:00)
[2024-12-17] MEDS: PROTONIX IV 40 MG IV (09:00)
[2024-12-17] MEDS: ZESTRIL 20 MG PO (09:01)
[2024-12-17] MEDS: NORVASC 10 MG PO (09:01)
[2024-12-17] MEDS: NSS (PRESERVATIVE FREE) 10 ML IV (09:01)
[2024-12-17] MEDS: LAC HYDRIN, AM LACTIN LOTION 1 APPLIC TOPICAL (09:02)
--- NOTE | 2024-12-17 10:30 | CM ---
Plan is for patient to return to [facility] today
Ambulance transport scheduled for 2 pm. Martha/[facility] admissions made aware
IMM verbally reviewed, copy on chart
[facility]
Report: [phone]

Plan: D/c to [facility] today
--- NOTE | 2024-12-17 10:32 | W.PN.HOSP.TC ---
Today's Communication/Plan
-
for DC
Assessment / Plan
Assessment / Plan
74yo F with PMHX of HTN, CKD, DM, came from [facility] with syncope during occupational therapy, came to ED with vomiting and lightheadedness, found orthostatic hypotension and bradycardia on telemetry to 30 bpm. ALso complicated with
dysphagia and malnutrition with electrolyte disarrangements. Medically stable for d/c as tolerated diet. D/C delayed due to facility unable to accomodate
A/P:
#Dysphagia with esophagitis and deep submucosal defect/possible perforation
#Protein calorie malnutrition, non-severe
EGD on 12/04/24 with severe stenosis, repeated on 12/08/24 with balloon dilation and s/p placement of stent, which was removed on 12/14/24
Advance diet and follow further GI recommendations
Carafate, PPI
#Syncope 2/2 dehydration and electrolyte disturbance
stopped HCTZ
#2:1 AV block with narrow QRS and associated with Mobitz I
Cardiology followed
avoid AVB agents
#Non-ischemic myocardial injury
no chest pain
cardio followed, no further tests planned
#Aspiration pneumonia b/l on CT
Moderate amount of CENTRILOBULAR AIRSPACE OPACITY in the basilar segments of the LEFT LOWER LOBE and mild centrilobular airspace opacity in the lingula and basilar right lower lobe
Unasyn for 5 days empiric will be appropriate
#mild leukopenia
most likely Abx-related
follow CBC
#Hypokalemia
#Hypomagnesemia
#BUBBA on CKD stage 3b
2/2 HCTZ
stop diuretic
follow electrolytes
Renin activity suppressed, as well as aldosterone. No primary hyperaldosteronism. No clinical signs of hypoaldosteronism i this patient with HTN and normal Na
#Hypothyroidism
most likely 2/2 acute disease
Previously TPA Ab and Thyroglobulin Ab neg
#Mild cage-related cognitive impairment
#Ambulatory dysfunction
PT/OT
SNF
#asymptomatic cholelithiasis
monitor
#Hx of endometrial thickening
seen by BOOM PUMP OPERATOR on last admission - recommended for routine outpatient BOOM PUMP OPERATOR care
#DJD
tylenol
PT/OT
#DM type 2 with nephropathy
Insulin SS, accuchecks, DM diet
controlled with diet
#R buttocks stage 2 pressure injury
wound care
offloading
#LUE swelling
US pending
DVT ppx on SCDs
Full code
I have spent at least 38min reviewing chart, test results, communication with consultants and providing direct patient care
Anticipated Discharge: Today
Subjective/Interval History
-
Date of Service: December 17, 2024
Objective Data
-
Vital Signs:
Vital Signs
Temp Pulse Resp BP Pulse Ox
97.9 F 84 18 141/87 99
12/17/24 07:00 12/17/24 07:00 12/17/24 07:00 12/17/24 07:00 12/17/24 08:55
I&O
12/16/24 12/17/24 12/18/24
06:59 06:59 06:59
Intake Total 840 / 840 600 / 600
Balance 840 / 840 600 / 600
Review of Systems
-
History Source: Patient
All other systems: Reviewed and negative
Physical Exam
-
General: No Apparent Distress and Comfortable
Neuro: Awake, Alert, Oriented and AO x 3
Psych: Calm
[2024-12-17 12:30] VITALS: BP 140/79
== END 2024-12-17 14:33 | DRG 380 ==
LOC: 4 WEST ACU 16:34
PROVIDERS: Clinical Nurse Specialist Family Health; Internal Medicine; Internal Medicine Gastroenterology; Nurse Practitioner Adult Health; ADMITTING PHYSICIAN Hospitalist; ATTENDING PHYSICIAN Internal Medicine; CONSULT PHYSICIAN Internal Medicine; CONSULT PHYSICIAN Specialist; EMERGENCY PHYSICIAN Emergency Medicine; FAMILY PHYSICIAN Family Medicine
PROC: 0DJ08ZZ Inspection of Upper Intestinal Tract, Via Natural or Artificial Opening Endoscopic (ICD-10-PCS; 2024-12-04)
PROC: 0D728ZZ Dilation of Middle Esophagus, Via Natural or Artificial Opening Endoscopic (ICD-10-PCS; 2024-12-08)
PROC: 0D738DZ Dilation of Lower Esophagus with Intraluminal Device, Via Natural or Artificial Opening Endoscopic (ICD-10-PCS; 2024-12-08)
PROC: 0DP58DZ Removal of Intraluminal Device from Esophagus, Via Natural or Artificial Opening Endoscopic (ICD-10-PCS; 2024-12-14)
DX: K22.10 Ulcer of esophagus without bleeding (principal); J69.0 Pneumonitis due to inhalation of food and vomit; K22.3 Perforation of esophagus; E46 Unspecified protein-calorie malnutrition; I5A Non-ischemic myocardial injury (non-traumatic); Q44.6 Cystic disease of liver; J98.11 Atelectasis; J90 Pleural effusion, not elsewhere classified; R64 Cachexia; N17.9 Acute kidney failure, unspecified; K91.71 Accidental puncture and laceration of a digestive system organ or structure during a digestive system procedure; E87.6 Hypokalemia; R42 Dizziness and giddiness; I12.9 Hypertensive chronic kidney disease with stage 1 through stage 4 chronic kidney disease, or unspecified chronic kidney disease; N18.32 Chronic kidney disease, stage 3b; E66.9 Obesity, unspecified; I95.1 Orthostatic hypotension; E83.42 Hypomagnesemia; D35.02 Benign neoplasm of left adrenal gland; D35.01 Benign neoplasm of right adrenal gland; E11.22 Type 2 diabetes mellitus with diabetic chronic kidney disease; I44.1 Atrioventricular block, second degree; R62.7 Adult failure to thrive; R41.89 Other symptoms and signs involving cognitive functions and awareness; E78.00 Pure hypercholesterolemia, unspecified; R26.2 Difficulty in walking, not elsewhere classified; F03.90 Unspecified dementia, unspecified severity, without behavioral disturbance, psychotic disturbance, mood disturbance, and anxiety; T50.2X5A Adverse effect of carbonic-anhydrase inhibitors, benzothiadiazides and other diuretics, initial encounter; K44.9 Diaphragmatic hernia without obstruction or gangrene; E86.0 Dehydration; I89.0 Lymphedema, not elsewhere classified; R11.2 Nausea with vomiting, unspecified; K22.2 Esophageal obstruction; L89.312 Pressure ulcer of right buttock, stage 2; K31.89 Other diseases of stomach and duodenum; D25.9 Leiomyoma of uterus, unspecified; N32.89 Other specified disorders of bladder; N85.00 Endometrial hyperplasia, unspecified; K76.9 Liver disease, unspecified; E88.09 Other disorders of plasma-protein metabolism, not elsewhere classified; D72.819 Decreased white blood cell count, unspecified; K80.20 Calculus of gallbladder without cholecystitis without obstruction; R93.89 Abnormal findings on diagnostic imaging of other specified body structures; M19.90 Unspecified osteoarthritis, unspecified site; E03.9 Hypothyroidism, unspecified; Y65.8 Other specified misadventures during surgical and medical care; Y73.0 Diagnostic and monitoring gastroenterology and urology devices associated with adverse incidents; Y92.234 Operating room of hospital as the place of occurrence of the external cause; Z46.59 Encounter for fitting and adjustment of other gastrointestinal appliance and device; Z68.29 Body mass index [BMI] 29.0-29.9, adult; Z87.11 Personal history of peptic ulcer disease
CPT/HCPCS: 70450; 71045; 71250; 71260; 74220; 76000; 80048; 80053; 82088; 82533; 82728; 82962; 83540; 83550; 83735; 84100; 84244; 84439; 84443; 84484; 85025; 87070; 92526; 92610; 93005; 93971; 96361; 96374; 96375; 97162; 97166; 97530; 97535; 99285; C1726; C1769; C1874; Q9967

== ENCOUNTER 2025-01-06 09:01 | Inpatient (IN) | payer MEDICARE, SELFPAY ==
[2025-01-05] VITALS (41 sets, daily range): BP systolic 60–125; BP diastolic 45–107; BMI 25.9
[2025-01-05 09:10] LABS: % Basophils 0.4 % (0-2); % Immature Granulocytes 1.8 % (0-0.5); % Lymphocytes 25.2 % (20.5-51.1); % Monocytes 7.4 % (1.7-9.3); % Neutrophils 64.2 % (42.2-75.2); Absolute Eosinophils 0.1 10^3/uL (0-0.7); Absolute Immature Granulocytes 0.2 10^3/uL (0-0.05); Absolute Lymphocytes 2.5 10^3/uL (1.2-3.4); Absolute Monocytes 0.7 10^3/uL (0.1-0.6); Absolute Neutrophils 6.4 10^3/uL (1.4-6.5); Hematocrit 31.6 % (37.0-47.0); Mean Corp Hgb Conc. 31.6 g/dL (33.0-37.0); Mean Corpuscular Hgb 26.2 pg (27.0-31.0); Mean Corpuscular Volume 82.9 fL (81.0-99.0); Mean Platelet Volume 12.1 fL (7.4-10.4); Nucleated Red Blood Cells % 1.3 %; Platelet Count 234 10^3/uL (130-400); Red Blood Cell Count 3.81 10^6/uL (4.20-5.40); Red Cell Dist. Width 17.9 % (11.5-14.5)
--- NOTE | 2025-01-05 09:24 | ED.GENMED ---
History of Present Illness
General
Chief Complaint: Abnormal Lab Value
Time Seen by Provider: 01/05/25 08:56
History of Present Illness
History of Present Illness:
74-year-old female history of dementia, hypertension, hyperlipidemia, CKD, dysphagia, esophagitis presenting with abnormal labs.. Per EMS, patient had sodium level of 158. Per EMS, patient is at baseline mental status. Patient denies any pain or
nausea. No reported vomiting or diarrhea. EMS reports poor p.o. intake, states that patient is not eaten in 1.5 weeks. History otherwise difficult to obtain secondary to dementia.
Past History
Past History
ED Past Medical History: HTN, Renal failure and Other (Unknown)
ED Past Surgical History: None
Social History
Tobacco: Non-smoker
Alcohol: None
Drug: None
Personal:
Living: custodial
Employment: Retired
Family History
Family History: Diabetes
Phy Exam
Physical Exam
Physical Exam:
General: Alert, no acute distress
Head: NCAT
Eyes: clear conjunctiva
ENT: dry mucus membranes
Neck: supple
Cardiac: tachycardic
Lungs: clear to auscultation bilaterally. No wheezes, rales, or rhonchi. Speaking full unlabored sentences. No respiratory distress.
Abdomen: soft, nondistended nontender. No rebound or guarding.
MSK: no lower extremity edema bilaterally. No deformity
Skin: warm, dry
Neuro: Alert and oriented x1, baseline mental status. no focal deficits
Course
Orders/Labs/Results
Orders:
Orders
01/05/25 09:02
CBC/With Diff [Complete Blood Count/With Diff] Urgent
01/05/25 09:39
Comprehensive Metabolic Panel Urgent
Serum Osmolality Urgent
UA Reflex to Culture [Urinalysis Reflex To Culture] Urgent
Date Specimen was Collected: 01/05/25
Time Specimen was Collected: 09:
Urine Microscopic Reflex Cult Urgent
Urine Culture Urgent
ANGEL Source: U
Specimen Description:
Obtained by: Random
Date Specimen was Collected: 01/05/25
Time Specimen was Collected: :34
01/05/25 10:00
Dextrose 5%/Water 1000 ml [D5w] 1,000 ml IV 100 mls/hr
01/05/25 10:22
Lactic Acid Q4H
Comment: ON ICE, CANCEL 2ND ORDER IF FIRST LACTIC ACID LEVEL <2
Blood Culture Q20M
ANGEL Source: Blood/Venous
Specimen Description:
Comment: Urgent from separate sites. If patient screens positive for possible sepsis
Blood Culture Q20M
ANGEL Source: Blood/Venous
Specimen Description:
Comment: Urgent from separate sites. If patient screens positive for possible sepsis
01/05/25 10:39
Lactated Ringers [Lr] 1,000 ml IV BOLUS
01/05/25 12:02
Potassium Chloride [KCl] 40 meq Dextrose 5%/Water 250 ml [D5w] 250 ml IV NOW
01/05/25 12:05
Admit/Transfer Patient As Directed
Co-Sign Provider:
Level of Care: Observation services
Assign to:: IMU- Intermediate Care
Physician / Group: Dr. Dimitri Wise/Hospitalists
Diagnosis: Dehydration, Hypernatremia, Hypotension
Reason for Hospitalization: Hypotension, Hypernatremia, Dehydration
01/05/25 12:07
Code Status As Directed
Resuscitation Status: Full Code
01/05/25 12:19
WOUND/OSTOMY CONSULT Routine
Reason for Consult: Wound care
Precautions As Directed
Type of Precautions: Aspiration
Speech Therapy Eval & Treat Routine
01/05/25 14:22
Lactic Acid Q4H
Comment: ON ICE, CANCEL 2ND ORDER IF FIRST LACTIC ACID LEVEL <2
Abnormal Lab Results
01/05/25 01/05/25 01/05/25
09:02 09:39 10:22
RBC 3.81 L 10^6/uL
(4.20-5.40)
Hgb 10.0 L g/dL
(12.0-16.0)
Hct 31.6 L %
(37.0-47.0)
MCH 26.2 L pg
(27.0-31.0)
MCHC 31.6 L g/dL
(33.0-37.0)
RDW 17.9 H %
(11.5-14.5)
MPV 12.1 H fL
(7.4-10.4)
Abs Immat Gran (auto) 0.2 H 10^3/uL
(0-0.05)
Absolute Monos (auto) 0.7 H 10^3/uL
(0.1-0.6)
Immature Gran % 1.8 H %
(0-0.5)
Sodium 156 H mmol/L
(135-145)
Potassium 3.2 L mmol/L
(3.5-5.1)
Chloride 123 H mmol/L
(98-107)
BUN 37 H mg/dl
(7-17)
Creatinine 1.4 H mg/dL
(0.6-1.0)
Serum Osmolality 330 H mOsm/kg
(275-300)
Lactic Acid 2.9 H mmol/L
(0.7-2.0)
Calcium 10.4 H mg/dl
(8.4-10.2)
Total Protein 6.0 L g/dl
(6.3-8.2)
Albumin 3.2 L g/dl
(3.5-5.0)
Urine Ketones 2+ A
(Negative)
Urine Bilirubin 2+ A
(Negative)
Leukocyte Esterase Rfl 1+ A
(Negative)
Urine Bacteria (Reflex) Few A
(Negative)
Urine Albumin (Reflex) 2+ A
(Neg - Trace)
01/05/25 09:02
01/05/25 09:39
Vital Signs
Initial and Last Documented VS:
Initial Vital Signs
Temp Pulse Resp Pulse Ox
97.7 F 103 18 96
01/05/25 08:51 01/05/25 08:51 01/05/25 08:51 01/05/25 08:51
Last Documented Vital Signs
Temp Pulse Resp BP Pulse Ox
97.7 F 74 21 105/73 100
01/05/25 08:51 01/05/25 14:00 01/05/25 14:00 01/05/25 14:00 01/05/25 14:00
MDM/Problems Addressed
Differential Diagnosis Includes:
BUBBA, electrolyte abnormality, dehydration
MDM/Problems Addressed:
74-year-old female history of dementia, CKD, esophagitis, diabetes, hypertension presenting with hyponatremia at 158. Patient has reportedly poor p.o. intake for the past 1.5 weeks. Pt appears dry on exam, otherwise baseline mental status. Suspect
hypernatremia secondary to poor PO intake from dementia/esophagitis/dysphagia. Will recheck labs, start D5W infusion
On reevaluation, BP decreased to 60/40s, pt difficult to arouse. Gave 1L LR bolus, BP improved to 117/71, back to baseline mental status. Labs remarkable for hypernatremia at 156, hypokalemia a 3.2, creatinine 1.4 (baseline 1). Discussed with
hospitalist for admission
*Critical Care Note
Total Time (30-74mins, 75-104mins- exclusive of procedures): Not Applicable
ED Attending Note
-
Portions of this chart may have been created with voice recognition software.� Occasional wrong word or��sound alike� substitutions may have occurred due to the inherent limitations of voice recognition software.
Discharge Plan
Departure
Patient Disposition: Admit
Date of Disposition: 01/05/25
Time of Disposition: 11:00
Presentation/result/management discussed w/ accepting MD/DO: Hospitalist
Discharge Problem:
Hypernatremia, Adult failure to thrive
Interventions
Interventions:
*Risk Screen - Suicide Last Done: 01/05/25 08:51
*General Assessment Last Done: 01/05/25 09:03
*Neglect/Abuse Screening Last Done: 01/05/25 08:51
*ED- Fall Risk Assessment Last Done: 01/05/25 09:03
*ED COVID-19 Vaccine History Last Done: 01/05/25 09:03
[2025-01-05 10:05] LABS: Osmolality Serum 330 mOsm/kg (275-300)
[2025-01-05] MEDS: D5W 1000 IV (10:08)
[2025-01-05 10:11] LABS: ALT (SGPT) 16 U/L (0-35); AST (SGOT) 17 U/L (14-36); Albumin 3.2 g/dl (3.5-5.0); Alkaline Phosphatase 88 U/L (38-126); Blood Urea Nitrogen 37 mg/dl (7-17); Calcium 10.4 mg/dl (8.4-10.2); Carbon Dioxide 22 mmol/L (22-30); Chloride 123 mmol/L (98-107); Estimated Creatinine Clearance 31 ml/min; Glucose 92 mg/dl (70-99); Potassium 3.2 mmol/L (3.5-5.1); Sodium 156 mmol/L (135-145); Total Bilirubin 0.8 mg/dl (0.2-1.3); eGFR 39.97
[2025-01-05 10:16] LABS: Urine Albumin 2+ (Neg - Trace); Urine Bilirubin 2+ (Negative); Urine Character Clear (Clear); Urine Color Yellow; Urine Glucose Negative (Negative); Urine Ketone 2+ (Negative); Urine Leukocyte 1+ (Negative); Urine Nitrite Negative (Negative); Urine Occult Blood Negative (Negative); Urine Urobilinogen 1+ (Neg - 1+)
[2025-01-05 10:20] LABS: Glucose - Point of Care 81 mg/dl (70-99)
[2025-01-05] MEDS: LR 1000 IV (10:41)
[2025-01-05 10:43] LABS: Urine Squamous Cell 0-2 /LPF (Few)
[2025-01-05 10:44] LABS: Urine Bacteria Few (Negative); Urine Red Blood Cell 0-2 /HPF (0-2)
[2025-01-05 10:55] LABS: Lactic Acid 2.9 mmol/L (0.7-2.0)
--- NOTE | 2025-01-05 11:31 | HPS.HSE ---
Family Physician
-
Family Physician: Arsalan Castro MD
Chief Complaint
-
Hypernatremia, Poor PO Intake
History of Present Illness
74 y/o female with past medical history of dementia, hypertension, hyperlipidemia, CKD, dysphagia, esophagitis and additional past medical history as listed in the Assessment/Plan section below, presented with abnormal labs with sodium of 158 prior
to arrival, as well as recent poor PO intake. Patient is a poor historian therefore history was obtained from ER report and records. Patient was reportedly at baseline mental status, not fully oriented, she was noted to have dementia.
Medical History
Past Medical History
Past Medical History: Reports Other (As per HPI above)
Past Surgical History: Reports None
Social History
Tobacco: Non-smoker
Alcohol: None
Drug: None
Family History
Family History: Not pertinent
Allergies / Home Medications
Allergies reflects when Allergies were last updated in [facility].
Home Medications with original date entered in [facility]
Allergy/Medication List:
Allergies
Allergy/AdvReac Type Severity Reaction Status Date / Time
No Known Allergies Allergy Verified 12/01/24 11:38
Home Medications
pantoprazole 40 mg tablet,delayed release 40 mg PO BID Esophagitis, Gastritis #30 tabs 11/03/24
acetaminophen 325 mg tablet 650 mg PO Q6HPRN PRN mild pain/VAUGHAN/temp> 100.4F 12/01/24
ammonium lactate 12 % topical cream 1 applic topical BID b/l feet 12/01/24
bisacodyl 10 mg rectal suppository (Dulcolax (bisacodyl)) 10 mg UT DAILYPRN PRN if no bm aftr mom 12/01/24
amlodipine 10 mg tablet 10 mg PO DAILY #30 tabs 12/16/24
lisinopril 20 mg tablet 20 mg PO DAILY Hypertension #30 tabs 12/16/24
polyethylene glycol 3350 17 gram oral powder packet 17 g PO DAILY #30 ea 12/16/24
sucralfate 100 mg/mL oral suspension 10 ml PO BID 01/05/25
Review of Systems
-
Unable to obtain full review of systems at this time due to: Dementia
Physical Exam
Vital Signs
Vital Signs
Temp Pulse Resp BP Pulse Ox
97.7 F 80 18 117/71 100
01/05/25 08:51 01/05/25 10:55 01/05/25 10:55 01/05/25 10:55 01/05/25 10:55
Physical Exam
General: No Apparent Distress and Appears Chronically Ill
HEENT: NormoCephalic and Atraumatic
Respiratory: Clear
Cardiac: S1/S2 and Regular Rhythm
GI: Soft, Non Tender and Normal Bowel Sounds
Musculoskeletal: No Cyanosis
Skin: Warm and Dry
Neuro: Awake and Alert
Psych: Confused
Laboratory Results
-
01/05/25 09:02
01/05/25 09:39
Laboratory Results
Lactic Acid 2.9 mmol/L (0.7-2.0) H 01/05/25 10:22
Total Bilirubin 0.8 mg/dl (0.2-1.3) 01/05/25 09:39
AST 17 U/L (14-36) 01/05/25 09:39
ALT 16 U/L (0-35) 01/05/25 09:39
Alkaline Phosphatase 88 U/L (38-126) 01/05/25 09:39
Impression/Plan
-
Assessment/Plan
Presentation for Hypernatremia (Serum Sodium 158 at Facility)
Poor PO Intake for the Previous ~1.5 weeks prior to presentation
Hypotension -- 60s/40s BP in the ER on 01/05/25
-Hypotension resolved with IV fluids bolus
-D5W @ 100 cc/hr (add potassium as needed) to correct free water deficit
-Thiamine
-Speech and dietary consults
Hypokalemia
-IV replacement being ordered by ER
-In recent hospitalization 12/01/24 to 12/17/24, HCTZ stopped in order to avoid hypokalemia
Concern for Developing Acute Kidney Injury on Chronic Kidney Disease Stage 3
-Continue IV fluids
-Bladder Scans
Recent Hospitalization 12/01/24 to 12/17/24
Recent Syncope 2/2 dehydration and electrolyte disturbance
-During that admission patient was found to have syncope, orthostatic hypotension and bradycardia on telemetry down to 30 bpm
-Also, during that admission, was found to have dysphagia and malnutrition with electrolyte disarrangements
-Also found on EGD on 12/04/24 to have severe stenosis, repeated on 12/08/24 with balloon dilation and s/p placement of stent, which was removed on 12/14/24.
-Completed antibiotics for aspiration pneumonia that hospitalization
Dementia
Failure to Thrive
Metabolic Encephalopathy History
History of Aspiration Pneumonitis
-Aspiration Precautions
History of Dysphagia
History of GERD
History of Esophagitis
History of Duodenitis
-Continue home Pantoprazole 40 mg PO BID
-Continue home Sucralfate 10 mL PO BID
-Aspiration precautions
History of Cyclical Vomiting Syndrome
History of Diaphragmatic Hernia
History of Hypothermia
History of Second Degree Atrioventricular Block
2:1 AV block with narrow QRS and associated with Mobitz I
History of Bradycardia
-Monitor on cardiac monitoring/telemetry given the above and findings on recent hospitalization
Hypertension
-Blood pressure low in ER on 01/05/25, improved with IV fluids bolus
-Hold home antihypertensives for now
Hyperlipidemia
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
-Monitor glucose
Cystic Disease of Liver
History of Orthostatic Hypotension
Ambulatory Dysfunction/Generalized Muscle Weakness
History of Lymphedema
History of Pleural Effusion
History of asymptomatic cholelithiasis
History of endometrial thickening
DJD
Right buttocks stage 2 pressure injury
-Consult wound care
Protein-Calorie Malnutrition
Primary Contact: Sister Lisa; phone number [phone]
Primary Care Physician: Dr. Arsalan Castro; phone number [phone]
I called patient's sister Lisa (her sister Lisa said that she is the decision-maker for the patient) and updated her on patient's condition and management. I told her that patient not eating can very well cause patient to decline. Lisa
acknowledged understanding of this.
DVT Prophylaxis: Heparin subq and SCDs
Code Status: Full Code
[2025-01-05] MEDS: KCL 270 MEQ IV ×2 (12:25→22:14)
[2025-01-05] MEDS: THIAMINE INJECTION 100 MG IV (14:25)
--- NOTE | 2025-01-05 14:39 | CM ---
KRYSTEN spoke with Jn @ [facility]; BED on HOLD
Patient has been in rehab @ [facility] since October; not [facility] yet
Jn reported: at baseline patient is alert and oriented; ambulates w/ walker 100 feet; max assistance needed to get her out of chair to stand
Requires set up for meals; feeds self; assistance with personal care provided; needs assistance with transfers to toilet
Transport: Ambulance
KRYSTEN spoke with patient's sister/Valentine PAUL form explained copy of form emailed to sister @
Plan: return to [facility] when medically stable
--- NOTE | 2025-01-05 14:58 | PTOTSP ---
Speech Therapy Evaluation:
Bedside swallow evaluation limited 2/2 decreased participation, direction following, and minimal acceptance of PO. Pt mostly orally defensive with occasional acceptance of PO, in which pt demonstrated impaired bolus retrieval (reduced oral opening,
groping), limiting ability to assess oropharyngeal swallow function. Pt only accepted ice chip x1 with adequate oral manipulation and no overt s/sx of aspiration. Suspect pt's current mentation main barrier to PO intake given oropharyngeal swallow
that was deemed functional in November of 2024, however pt does remain at risk of aspiration and related complications given hx of dementia, compounded by FTT with no PO intake over the past ~1.5 weeks. Pt also at risk for post-prandial aspiration
given known esophageal hx with recent balloon dilation s/p stent in November 2024. Currently WBC WNL, however no chest imaging completed thus far.
Recommend:
1. Temporary NPO
2. Medications preferably non-oral; essential medications crushed in puree per RN discretion
3. Initiate ARHP via SPARING ice chips with RN/PCT assist/spv only following comprehensive oral care and pending pt acceptance. D/c ice chips if pt demonstrating s/sx of aspiration
4. Oral care 3x/daily
5. MEDICAL DIRECTOR OCCUPATIONAL HE[employer] to follow to assess candidacy for diet initiation
--- NOTE | 2025-01-05 15:53 | PTCARENOTE ---
Pt from ER lethargic lungs ate diminished ST cath for 75 ml
[2025-01-05] MEDS: HEPARIN 5000 UNITS SC (16:19)
[2025-01-05] MEDS: ZOSYN 50 IV (19:01)
[2025-01-05] MEDS: PROTONIX PO (20:24)
[2025-01-05] MEDS: LAC HYDRIN, AM LACTIN LOTION 1 APPLIC TOPICAL (20:50)
--- NOTE | 2025-01-05 21:48 | PTCARENOTE ---
Assumed care of pt from dayshift RN. Pt awake and oriented only to self. Sinus tach on monitor. Pt is 100% on RA. D5W infusing at 100 mL/hr. Pt agitated and attempts to take everything off. Restraints Rx'd (see worklist). Pt rectal temp 95.
Notified ALENA Cho and received Rx for bear hugger. Goal temp of 97 F. Bear hugger on and skin is warm dry and intact. (see worklist). Pt resting in bed with bed alarm on and restraints in place, tolerating well.
[2025-01-05 21:52] LABS: Blood Urea Nitrogen 35 mg/dl (7-17); Calcium 9.6 mg/dl (8.4-10.2); Carbon Dioxide 21 mmol/L (22-30); Chloride 119 mmol/L (98-107); Estimated Creatinine Clearance 34 ml/min; Glucose 198 mg/dl (70-99); Sodium 149 mmol/L (135-145); eGFR 43.69
[2025-01-06] VITALS (22 sets, daily range): BP systolic 74–115; BP diastolic 51–84; BMI 25.9
[2025-01-06] MEDS: ZOSYN 50 IV ×2 (00:28→05:19)
[2025-01-06] MEDS: HEPARIN 5000 UNITS SC ×3 (00:28→21:13)
[2025-01-06 04:22] LABS: % Basophils 0.2 % (0-2); % Eosinophils 1.4 % (0-6); % Immature Granulocytes 1.9 % (0-0.5); % Lymphocytes 19.6 % (20.5-51.1); % Monocytes 8.2 % (1.7-9.3); % Neutrophils 68.7 % (42.2-75.2); Absolute Eosinophils 0.2 10^3/uL (0-0.7); Absolute Immature Granulocytes 0.3 10^3/uL (0-0.05); Absolute Lymphocytes 2.6 10^3/uL (1.2-3.4); Absolute Monocytes 1.1 10^3/uL (0.1-0.6); Absolute Neutrophils 9.3 10^3/uL (1.4-6.5); Mean Corp Hgb Conc. 33.3 g/dL (33.0-37.0); Mean Corpuscular Hgb 26.8 pg (27.0-31.0); Mean Corpuscular Volume 80.3 fL (81.0-99.0); Mean Platelet Volume 12.6 fL (7.4-10.4); Nucleated Red Blood Cells % 0.4 %; Platelet Count 191 10^3/uL (130-400); Red Blood Cell Count 2.99 10^6/uL (4.20-5.40); Red Cell Dist. Width 17.3 % (11.5-14.5); White Blood Cell Count 13.5 10^3/uL (4.8-10.8)
[2025-01-06] MEDS: D5W 1000 IV ×2 (04:54→13:06)
[2025-01-06 05:40] LABS: Blood Urea Nitrogen 35 mg/dl (7-17); Calcium 9.7 mg/dl (8.4-10.2); Carbon Dioxide 23 mmol/L (22-30); Chloride 123 mmol/L (98-107); Estimated Creatinine Clearance 31 ml/min; Glucose 85 mg/dl (70-99); Magnesium 1.5 mg/dl (1.6-2.3); Potassium 3.8 mmol/L (3.5-5.1); Sodium 151 mmol/L (135-145); eGFR 39.97
--- NOTE | 2025-01-06 06:08 | PTCARENOTE ---
Pt is hypotensive with SBP in 70-80s and diastolic in the 50s. ALENA Cho notified. Received Rx for D5W @ 100 mL/hr. IVF now infusing.
--- NOTE | 2025-01-06 07:52 | PTCARENOTE ---
Pt recieved on Lee Hugger and Lg wrist restraints D5W A100 hr, Pt more awake today
[2025-01-06] MEDS: THIAMINE INJECTION 100 MG IV (08:23)
[2025-01-06] MEDS: PROTONIX PO ×2 (08:25→20:16)
[2025-01-06] MEDS: LAC HYDRIN, AM LACTIN LOTION 1 APPLIC TOPICAL ×2 (08:25→20:06)
--- NOTE | 2025-01-06 08:25 | W.PN.HOSP.TC ---
Today's Communication/Plan
-
Continue antibiotics -- blood culture was coming back positive
Continue IV fluids
Monitor BMP/potassium closely
GI consult for Dobhoff tube placement
Will plan to start tube feeding as soon as possible
Spoke to both patient's daughters -- keep Full Code and start temporary tube feeding when able
Continue to monitor in IMU
Assessment / Plan
Assessment / Plan
Physical Exam
General: No Apparent Distress and Appears Chronically Ill
HEENT: Normocephalic and Atraumatic
Respiratory: Clear to Auscultation Bilaterally
Cardiac: S1/S2 and Regular Rhythm
GI: Soft, Non Tender and Some Bowel Sounds
Musculoskeletal: No Cyanosis
Skin: Warm and Dry
Neuro: Awake and Alert
Psych: Confused
Assessment/Plan
Hypernatremia (Serum Sodium 158 at Facility)
Poor PO Intake for the Previous ~1.5 weeks prior to presentation
Hypotension -- 60s/40s BP in the ER on 01/05/25
Lactic Acidosis - RESOLVED
-Hypotension improved with IV fluids bolus. Echo completed and was unremarkable.
-Low dose Midodrine added on 01/06/25
-D5W @ 100 cc/hr (add potassium as needed) to correct free water deficit
-Hypernatremia has improved
-Thiamine
-Speech and dietary consults --> recommendation to continue NPO for now, except essential medications crushed in puree
-After speaking on 01/06/25 with both patient's sisters (see below), placed GI consult for Dobhoff Tube and dietary consult for tube feeding recommendations
Hypokalemia
-IV replacements ordered
-In recent hospitalization 12/01/24 to 12/17/24, HCTZ stopped in order to avoid hypokalemia
-Continue to monitor potassium/BMP
Hypomagnesemia
-IV replacement ordered
-Continue to monitor
Leukocytosis on 01/06/25
Positive blood culture result
Sacral/Buttocks Wound
-Started Vancomcyin
-Consulted ID, Zosyn stopped. Continue Vancomycin as above.
Concern for Developing Acute Kidney Injury on Chronic Kidney Disease Stage 3
-Creatinine has increased slightly to 1.5 (from 1.4, 1.3), continue to monitor
-Continue IV fluids
-Bladder Scans
Recent Hospitalization 12/01/24 to 12/17/24
Recent Syncope 2/2 dehydration and electrolyte disturbance
-During that admission patient was found to have syncope, orthostatic hypotension and bradycardia on telemetry down to 30 bpm
-Also, during that admission, was found to have dysphagia and malnutrition with electrolyte disarrangements
-Also found on EGD on 12/04/24 to have severe stenosis, repeated on 12/08/24 with balloon dilation and s/p placement of stent, which was removed on 12/14/24.
-Completed antibiotics for aspiration pneumonia that hospitalization
Dementia
Failure to Thrive
Metabolic Encephalopathy History
History of Aspiration Pneumonitis
-Aspiration Precautions
History of Dysphagia
History of GERD
History of Esophagitis
History of Duodenitis
-Continue home Pantoprazole 40 mg PO BID
-Continue home Sucralfate 10 mL PO BID
-Aspiration precautions
History of Cyclical Vomiting Syndrome
History of Diaphragmatic Hernia
History of Hypothermia
History of Second Degree Atrioventricular Block
2:1 AV block with narrow QRS and associated with Mobitz I
History of Bradycardia
-Monitor on cardiac monitoring/telemetry given the above and findings on recent hospitalization
Hypertension
-Blood pressure low in ER on 01/05/25, improved with IV fluids bolus
-Hold home antihypertensives for now
Hyperlipidemia
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
-Monitor glucose
Cystic Disease of Liver
History of Orthostatic Hypotension
Ambulatory Dysfunction/Generalized Muscle Weakness
History of Lymphedema
History of Pleural Effusion
History of asymptomatic cholelithiasis
History of endometrial thickening
DJD
Right buttocks stage 2 pressure injury
-Consult wound care
Protein-Calorie Malnutrition
Primary Contact: Sister Lisa; phone number [phone]
Primary Care Physician: Dr. Arsalan Castro; phone number [phone]
January 05, 2025: I called patient's sister Lisa (her sister Lisa said that she is the decision-maker for the patient) and updated her on patient's condition and management. I told her that patient not eating can very well cause patient to decline.
Lisa acknowledged understanding of this.
January 06, 2025: I spoke to both patient's sister Lisa, as well as patient's sister Elizabeth, and updated them on patient's current condition and management. I told them that patient remains confused, and patient not being able to eat or drink right now
can very well cause patient to decline significantly. Elizabeth and Lisa acknowledged understanding of this. They requested patient be kept Full Code. I spoke to them about temporary tube feeding and they requested that Dobhoff tube be placed and tube
feeding started. Therefore, consulted gastroenterology for tube feeding recommendations and dietitian for tube feeding recommendations.
DVT Prophylaxis: Heparin subq and SCDs
Code Status: Full Code
Total time spent on chart review, placing orders, documentation, speaking with patient's sisters and seeing and examining the patient, was 60 minutes.
Anticipated Discharge: > 48 hours
Subjective/Interval History
-
Date of Service: January 06, 2025
Patient was seen and examined. She remained confused with some one-word answers.
Objective Data
-
Labs:
Laboratory Results
01/05/25 01/05/25 01/06/25
20:14 20:39 03:53
WBC 13.5 H
Hgb 8.0 L
Hct 24.0 L
Plt Count 191
Sodium Cancelled 149 H 151 H
Potassium Cancelled 3.0 L 3.8 D
Chloride Cancelled 119 H 123 H
Carbon Dioxide Cancelled 21 L 23
BUN Cancelled 35 H 35 H
Creatinine Cancelled 1.3 H 1.4 H
Glucose Cancelled 198 H 85
Calcium Cancelled 9.6 9.7
01/06/25 01/06/25 01/06/25
08:30 10:00 11:00
WBC
Hgb
Hct
Plt Count
Sodium Cancelled Pending Cancelled
Potassium Cancelled Pending Cancelled
Chloride Cancelled Pending Cancelled
Carbon Dioxide Cancelled Pending Cancelled
BUN Cancelled Pending Cancelled
Creatinine Cancelled Pending Cancelled
Glucose Cancelled Pending Cancelled
Calcium Cancelled Pending Cancelled
Vital Signs:
Vital Signs
Temp Pulse Resp BP Pulse Ox
96.9 F L 90 17 90/60 100
01/06/25 07:41 01/06/25 07:41 01/06/25 07:41 01/06/25 07:00 01/06/25 07:41
I&O
01/05/25 01/06/25 01/07/25
06:59 06:59 06:59
Intake Total 1400 / 1400
Output Total 175 / 175
Balance 1225 / 1225
[2025-01-06] MEDS: MAGNESIUM SULFATE 50 IV (08:29)
[2025-01-06 08:54] LABS: Troponin I 0.035 ng/ml
--- NOTE | 2025-01-06 09:44 | CM ---
Patient from [facility] with Hx dementia with Dx hypotension, hypernatremia, dehydration, poor PO intake. Room air. Receiving IVF, IV Mag, IV Abx. ST Eval - NPO. Nurse assessment, confused, forgetful, restraints.
Spoke with [facility];
the patient resides there in LTC on an MA bed hold.
The for report [phone], fax [phone].
Plan follow patient's diet & mobility.
Plan contact patient's sister prior to return to SNF.
Plan return to [facility] when medically ready.
--- NOTE | 2025-01-06 10:45 | PHA.VAN.IN ---
Assessment
- Assessment
Renal Function: Appears elevated from baseline (SCr 1.4)
Minimum Temperature: 96.7
Concomitant Antimicrobials: Piperacillin/Tazobactam
Plan
- Plan
Initial / Loading Dose: Vanco 1500mg loading dose pending administration 01/06/25
Maintenance Regimen: Dose by level
Monitoring: Vanco R level 01/07/25 0600
Pharmacokinetics Vancomycin I
- -
Patient Age: 74
Patient Sex: Female
Vancomycin Day #: 1
Indication: Skin And Soft Tissue
Requesting Provider: [id number]
Pertinent Antimicrobial Allergies:
No Known Drug Allergies
Height / Weight:
Height 5 ft 4 in
Actual Weight 68.4 kg
- Vital Signs / Lab Results
Temp Pulse Resp BP Pulse Ox
96.7 F L 83 20 84/58 100
01/06/25 08:00 01/06/25 09:00 01/06/25 09:00 01/06/25 09:00 01/06/25 09:25
Lab Results - Hematology
01/05/25 01/06/25
09:02 03:53
WBC 10.0 13.5 H
Lab Results - Chemistry
01/05/25 01/05/25 01/05/25
09:02 09:39 20:14
BUN Cancelled 37 H Cancelled
Creatinine Cancelled 1.4 H Cancelled
Estimated Creat Clear Cancelled 31 Cancelled
Albumin Cancelled 3.2 L
01/05/25 01/06/25 01/06/25
20:39 03:53 08:30
BUN 35 H 35 H Cancelled
Creatinine 1.3 H 1.4 H Cancelled
Estimated Creat Clear 34 31 Cancelled
Albumin
01/06/25
11:00
BUN Cancelled
Creatinine Cancelled
Estimated Creat Clear Cancelled
Albumin
01/05/25 01/05/25
10:22 14:22
Lactic Acid 2.9 H 2.0
Lab Results - Urine
01/05/25
09:39
Urine Nitrite (Reflex) Negative
Leukocyte Esterase Rfl 1+ A
Urine WBC (Reflex) 3-5
Ur Squamous Epith Cells 0-2
Urine Bacteria (Reflex) Few A
Microbiology Results
01/05/25 10:22 Blood Culture - Preliminary
Blood/Venous No Growth in 24 hours- Final report to follow
01/05/25 10:22 Blood Culture - Preliminary
Blood/Venous Positive culture in progress
Gram Stain - Preliminary
--- NOTE | 2025-01-06 11:13 | WOUNDNOTE ---
BILATERAL LOWER LEGS/FOOT
--- NOTE | 2025-01-06 11:14 | WOUNDNOTE ---
SACRUM/COCCYX. BILATERAL BUTTOCKS
--- NOTE | 2025-01-06 11:15 | WOUNDNOTE ---
LEFT UPPER POSTERIOR THIGH
--- NOTE | 2025-01-06 11:20 | WOUNDNOTE ---
[facility] RN note: Patient admitted with hypernatremia and failure to thrive.
See H&P for complete history. [facility].
PMH: 74-year-old female history of dementia, hypertension, hyperlipidemia, CKD, dysphagia, esophagitis presenting with abnormal labs.
Wound Location and type/assessment: Patient known to service, last seen 10/21/24 for MASD in skin folds and dry skin on legs and feet. Now admitted with Scattered stage 3 PI on B/L Buttocks, Sacrum and L posterior thigh. Suspect also from
incontinent associated skin damage, Ultrasorb pad soiled, requiring skin care and pad change. MASD in skin folds. Heels are dry but intact, legs with less patches of dry skin. Patient assessed along with nurse Harley.
Appetite: NPO
Pressure redistribution devices in place: On Air mattress, recommend keep on air mattress. Pillow under calves.
Plan: Adaptic and dry dressing applied on all open ulcers. Foam adhesives applied to heels to protect. Will order mineral oil for legs and feet daily. Fungal powder for skin folds and periwound prn.
Will confirm orders with hospitalist and updated nurse Joselito.
Updated care plan and will follow as needed.
Note to case management of equipment requested for discharge: air mattress
Recommend follow up at wound care center upon discharge.
[2025-01-06 11:25] LABS: Blood Urea Nitrogen 34 mg/dl (7-17); Calcium 9.3 mg/dl (8.4-10.2); Carbon Dioxide 26 mmol/L (22-30); Chloride 120 mmol/L (98-107); Estimated Creatinine Clearance 29 ml/min; Glucose 115 mg/dl (70-99); Potassium 3.2 mmol/L (3.5-5.1); Sodium 148 mmol/L (135-145)
[2025-01-06] MEDS: VANCOCIN 530 MG IV (11:25)
--- NOTE | 2025-01-06 11:28 | CON.ID ---
Consultation
-
Date/Time Consultation Requested: January 06, 2025 1043
Date/Time Consultation Performed: January 06, 2025 1130
Requesting Provider: Dr. Dimitri Wise
Performing Provider: Dr. Viky Samuel
Reason for Consultation: Bacteremia
Chief Complaint / Past History
Chief Complaint
Weakness , poor appetite
History of Present Illness
Predominant from review of medical records since patient is a very poor historian. She is a 74-year-old female from skilled facility with history of dementia, diabetes mellitus, CKD 3, dysphagia, esophageal stricture status post dilation December 08,
2024 who presented to the hospital on January 05 due to hypernatremia, poor appetite has not eaten in 1.5 weeks. Patient noted be hypothermic temperature 92.4, blood pressure low, sodium, potassium 3.2. She was started on Zosyn. Today the admission
blood culture 1 out of 2 sets positive for GPC in clusters. Repeat blood cultures obtained followed by IV vancomycin. Patient remains hypothermic. Per nurse, no urine output, bladder scan 115 cc. Patient complains of weakness. She denies
swallowing difficulty. She denies cough or shortness of breath. Denies abdominal pain nausea or vomiting. No diarrhea. No headache.
Past History
Additional Past Medical History:
Dementia
Hypertension
Diabetes mellitus
CKD 3
HLD
Dysphagia
Esophageal stricture status post dilation 12/08/24
Allergy History:
No Known Allergies Allergy (Verified 12/01/24 11:38)
Medications Reviewed: Yes
Current Antibiotics:
Zosyn d2
Vancomycin d1
Social History
Tobacco: Non-Smoker
Alcohol: Occasional
Drug: None
Personal: Single
Living: Long Term
Family History
Family History: Not Pertinent
Review of Systems
Review of Systems
General: Change in Appetite; Negative Fever
HEENT: Negative Stiff Neck, Sinus Problems, Headache or Pharyngitis
Cardiovascular: Negative Chest Pain or Dyspnea
Respiratory: Negative Dyspnea or Cough
Gasteroenterology: Negative Nausea, Vomiting or Diarrhea
Genital / Urological: Negative Dysuria or Flank Pain
Endocrine: Weakness and Fatigue
All systems: All other systems were reviewed and were negative
Vital Signs
Temp Pulse Resp BP Pulse Ox
96.7 F L 83 20 84/58 100
01/06/25 08:00 01/06/25 09:00 01/06/25 09:00 01/06/25 09:00 01/06/25 09:25
Physical Exam
Physical Exam
Constitutional: Acutely Ill and Chronically Ill
Head: Other (No sinus tenderness)
Eyes: No Conjunctival Hemorrhage and Sclera Anicteric
Cardiovascular: Regular Rate and S1/S2
Pulmonary: Coarse (bases) and Other
Gastrointestinal: Soft, Non Tender, Non Distended and Normal Bowel Sounds
Genito-Urinary: Negative CVA Tenderness
Extremities: Negative Edema
Neurological: Other (Lethargic); Negative Meningeal Signs
Lab / Diagnostic Study Results
01/06/25 03:53
01/06/25 11:00
Abs Immat Gran (auto) 0.3 10^3/uL (0-0.05) H 01/06/25 03:53
Absolute Neuts (auto) 9.3 10^3/uL (1.4-6.5) H 01/06/25 03:53
Absolute Lymphs (auto) 2.6 10^3/uL (1.2-3.4) 01/06/25 03:53
Absolute Monos (auto) 1.1 10^3/uL (0.1-0.6) H 01/06/25 03:53
Absolute Basos (auto) 0.0 10^3/uL (0-0.2) 01/06/25 03:53
Immature Gran % 1.9 % (0-0.5) H 01/06/25 03:53
Neutrophils % 68.7 % (42.2-75.2) 01/06/25 03:53
Lymphocytes % 19.6 % (20.5-51.1) L 01/06/25 03:53
Monocytes % 8.2 % (1.7-9.3) 01/06/25 03:53
Eosinophils % 1.4 % (0-6) 01/06/25 03:53
Basophils % 0.2 % (0-2) 01/06/25 03:53
Lactic Acid 2.0 mmol/L (0.7-2.0) 01/05/25 14:22
Ur Squamous Epith Cells 0-2 /LPF (Few) 01/05/25 09:39
Microbiology Results
Micro:
01/05/25 09:39 Urine Culture - Final
Urine NO GROWTH
01/06/25 10:52 Blood Culture - Pending
Blood/Venous
01/05/25 10:22 Blood Culture - Preliminary
Blood/Venous No Growth in 24 hours- Final report to follow
01/05/25 10:22 Blood Culture - Preliminary
Blood/Venous Positive culture in progress
Gram Stain - Preliminary
01/05/25 17:42 MRSA Screen - Pending
Nose
01/06/25 CXR: There is mild elevation of the left hemidiaphragm with left basilar opacities which may represent pneumonia or atelectasis.
Assessment / Plan
# GPC bacteremia (1of 2 sets)
- Suspect contaminant
-Await identification of organism
- Follow repeat blood cx's
- Continue Vancomycin for now.
- DC Zosyn.
#Severe poor appetite/failure to thrive
# Hypothermia - possibly due to malnutrition/undernutrition
# Low BP - continue fluid resuscitation
# Leukocytosis
- follow for now
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
Dementia
Hypertension
Diabetes mellitus
CKD 3
HLD
Dysphagia
Esophageal stricture status post dilation 12/08/24
Care Review
Plan reviewed with: Physician (Dr. Wise)
--- NOTE | 2025-01-06 11:42 | PTOTSP ---
Speech Pathology
Dysphagia Tx
Impression: Pt presents with s/s concerning for oropharyngeal dysphagia characterized by prolonged bolus holding and increased difficulty initiating a swallow with thin liquids. Pt remains orally defensive at times. Continue to re-assess as
mentation improves. Patient remains at risk for aspiration given hx of dementia and FTT with no PO intake over the past ~1.5 weeks. Reverse aspiration risk given known esophageal hx. WBC now elevated, with CXR concerning for pneumonia or atelectasis.
Continue with recommendations:
1. Temporary NPO
2. Medications preferably non-oral; essential medications crushed in puree per RN discretion
3. Initiate ARHP via SPARING ice chips with RN/PCT assist/spv only following comprehensive oral care and pending pt acceptance. D/c ice chips if pt demonstrating s/sx of aspiration
4. Oral care 3x/daily
5. PAPERHANGER SUPERVISOR to follow to assess candidacy for diet initiation
[2025-01-06] MEDS: ZOSYN IV (12:51)
[2025-01-06] MEDS: ProAmatine 2.5 MG PO ×2 (13:06→17:36)
[2025-01-06] MEDS: KCL 260 MEQ IV (14:42)
--- NOTE | 2025-01-06 16:30 | PTCARENOTE ---
DR aware of poor urine out put. States she is dehydrated
[2025-01-06 16:37] LABS: Troponin I 0.027 ng/ml
[2025-01-06 21:24] LABS: Blood Urea Nitrogen 31 mg/dl (7-17); Calcium 9.4 mg/dl (8.4-10.2); Carbon Dioxide 22 mmol/L (22-30); Chloride 118 mmol/L (98-107); Estimated Creatinine Clearance 27 ml/min; Glucose 115 mg/dl (70-99); Potassium 3.6 mmol/L (3.5-5.1); Sodium 147 mmol/L (135-145); eGFR 34.05
[2025-01-06 21:36] LABS: Troponin I 0.028 ng/ml
[2025-01-06] MEDS: DESENEX/MITRAZOL/ZEASORB 1 APPLIC TOPICAL (22:51)
[2025-01-07] VITALS (45 sets, daily range): BP systolic 77–149; BP diastolic 47–107; BMI 25.6
[2025-01-07] MEDS: D5W 1000 IV ×2 (01:07→12:27)
--- NOTE | 2025-01-07 02:35 | PTCARENOTE ---
Assumed care for patient overnight, received report from huey RN. Pt AAOx2, disoriented to time. Pt drowsy and confused at times, slow speech. Pt had short episodes of bradycardia; lasting a few seconds, then spontaneously returning to NSR. Pt
asymptomatic. BP within patient's range. ZA Barba made aware, no further orders at this time. Pt does have a hx of bradycardia as well as hx of 2nd degree HB. Trace lower extremity edema. Pt remains on RA SpO2 99%. Pt incontinent of one BM
moderate, loose. Sacral wounds assessed and redressed per order. Minimal urinary output. Moisture barrier applied generously to perineum, sacrum, and buttocks. Pt experiencing some pain when cleansing the perineal area stating 'ouch'. Pt remains on
the thomas hugger to maintain a temperature >97. Pt current core temp is 97.6 at this time. b/l wrist restraints on as pt has made attempts to remove IVs. IVF cont. R forearm site appeared to be leaking. VAT at bedside placing a new access site. See
worklist. This RN removed R AC IV as it was no longer in place. Noted a L elbow posterior skin tear. Cleansed with saline and silicone border foam placed. Pt tolerating frequent turning and repositioning.
[2025-01-07 02:39] LABS: Potassium 3.2 mmol/L (3.5-5.1)
[2025-01-07 02:55] LABS: Troponin I 0.024 ng/ml
[2025-01-07] MEDS: KCL 260 MEQ IV (03:45)
[2025-01-07 05:19] LABS: % Basophils 0.2 % (0-2); % Eosinophils 1.7 % (0-6); % Immature Granulocytes 2.7 % (0-0.5); % Lymphocytes 35.5 % (20.5-51.1); % Monocytes 7.1 % (1.7-9.3); % Neutrophils 52.8 % (42.2-75.2); Absolute Eosinophils 0.2 10^3/uL (0-0.7); Absolute Immature Granulocytes 0.3 10^3/uL (0-0.05); Absolute Lymphocytes 3.8 10^3/uL (1.2-3.4); Absolute Monocytes 0.8 10^3/uL (0.1-0.6); Absolute Neutrophils 5.7 10^3/uL (1.4-6.5); Hematocrit 20.1 % (37.0-47.0); Hemoglobin 6.7 g/dL (12.0-16.0); Mean Corp Hgb Conc. 33.3 g/dL (33.0-37.0); Mean Corpuscular Hgb 26.8 pg (27.0-31.0); Mean Corpuscular Volume 80.4 fL (81.0-99.0); Mean Platelet Volume 12.2 fL (7.4-10.4); Nucleated Red Blood Cells % 0.4 %; Platelet Count 179 10^3/uL (130-400); Red Cell Dist. Width 17.6 % (11.5-14.5); White Blood Cell Count 10.8 10^3/uL (4.8-10.8)
[2025-01-07 05:29] LABS: Blood Urea Nitrogen 28 mg/dl (7-17); Calcium 8.9 mg/dl (8.4-10.2); Carbon Dioxide 23 mmol/L (22-30); Chloride 120 mmol/L (98-107); Estimated Creatinine Clearance 29 ml/min; Glucose 104 mg/dl (70-99); Magnesium 2.1 mg/dl (1.6-2.3); Potassium 3.5 mmol/L (3.5-5.1); Sodium 145 mmol/L (135-145)
--- NOTE | 2025-01-07 06:22 | PTCARENOTE ---
Patient Hgb 6.7 this AM. PRESCRIPTION EYEGLASS MAKER aware and ordered type and screen lab draw. Lab sent. Pt receiving IVF 100ml/hr. BP 85/64 MAP 65.
[2025-01-07 07:37] LABS: Iron 100 ug/dl (37-170)
--- NOTE | 2025-01-07 07:40 | W.PN.HOSP.TC ---
Today's Communication/Plan
-
Hypotension and anemia with Hgb<7; per patient's family patient cannot get a PRBC transfusion as she is a L[employer]-day
See hematology note -- should ask patient again if she wants PRBC transfusion if her Hgb not improving to make sure she does not want it
Hematology consulted given this difficult situation -- orders placed as below, need to limits blood draws, and additional measures as below
Please also see hematology and all other specialists' notes from today
Continue antibiotics
Assessment / Plan
Assessment / Plan
Physical Exam
General: No Apparent Distress and Appears Chronically Ill
HEENT: Normocephalic and Atraumatic
Respiratory: Clear to Auscultation Bilaterally
Cardiac: S1/S2 and Regular Rhythm
GI: Soft, Non Tender and Some Bowel Sounds
Musculoskeletal: No Cyanosis
Skin: Warm and Dry
Neuro: Awake and Alert -- more responsive today
Psych: Confused
Assessment/Plan
Hypernatremia (Serum Sodium 158 at Facility)
Poor PO Intake for the Previous ~1.5 weeks prior to presentation
Hypotension -- 60s/40s BP in the ER on 01/05/25
Lactic Acidosis - RESOLVED
-Hypotension worsened overnight with MAP in low 60s, along with Hgb of 6.7, therefore patient transferred to the ICU today
-Echo completed and was unremarkable.
-Low dose Midodrine added on 01/06/25
-D5W @ 100 cc/hr now stopped as hypernatremia has corrected and stopped in order to prevent hemodilution (given anemia and fact that patient cannot get PRBC transfusion)
-Hypernatremia has resolved
-Thiamine
-Speech and dietary consults --> recommendation to continue NPO for now, except essential medications crushed in puree
-After speaking on 01/06/25 with both patient's sisters (see below), placed GI consult for Dobhoff Tube and dietary consult for tube feeding recommendations
-Per GI, patient likely needs PEG tube and a thorough workup including imaging and potentially endoscopic exams (see GI history below)
-Tube Feeding to be started on 01/07/25
-Monitor for Refeeding Syndrome
Acute Microcytic Anemia
- Hgb dropped to 6.7 on the morning of 01/07/25
- I spoke with patient's sisters Lisa and Elizabeth on 01/07/25 morning, and they both mentioned that patient CANNOT get any blood transfusions as patient is a L[employer]
- Consulted hematology for assistance, appreciate their evaluation and recommendations, including but not limited to supplementary oxygen
- Minimize phlebotomy, provide supplemental O2, limit activity to reduce oxygen demand
- Start folate 1mg daily, Vitamin b12 1000mcg daily, parenteral iron x 10 days, and EPO 40,000U weekly - a full bone marrow response may take up to two weeks
- Continue PPI
- GI evaluation
- if patient's Hgb does not improve, will contact [facility] for transfer for bloodless program (I contacted on 01/07/25 [facility] and spoke with Dr. Naz Roblero who recommended additional evaluation and treatment here at
[facility] prior to considering transfer -- so no transfer at this time)
Hypokalemia
-IV replacements ordered
-In recent hospitalization 12/01/24 to 12/17/24, HCTZ stopped in order to avoid hypokalemia
-Continue to monitor potassium/BMP
Hypomagnesemia
-IV replacement ordered
-Continue to monitor
Leukocytosis on 01/06/25
Positive blood culture result
Sacral/Buttocks Wound
-Continue Vancomcyin
-Consulted ID, Zosyn stopped previously. Continue Vancomycin as above.
Concern for Developing Acute Kidney Injury on Chronic Kidney Disease Stage 3
-Creatinine has increased slightly to 1.5 (from 1.4, 1.3), continue to monitor
-Continue IV fluids
-Bladder Scans
Recent Hospitalization 12/01/24 to 12/17/24
Recent Syncope 2/2 dehydration and electrolyte disturbance
-During that admission patient was found to have syncope, orthostatic hypotension and bradycardia on telemetry down to 30 bpm
-Also, during that admission, was found to have dysphagia and malnutrition with electrolyte disarrangements
-Also found on EGD on 12/04/24 to have severe stenosis, repeated on 12/08/24 with balloon dilation and s/p placement of stent, which was removed on 12/14/24.
-Completed antibiotics for aspiration pneumonia that hospitalization
Dementia
Failure to Thrive
Metabolic Encephalopathy History
History of Aspiration Pneumonitis
-Aspiration Precautions
History of Dysphagia
History of GERD
History of Esophagitis
History of Duodenitis
-Continue home Pantoprazole 40 mg PO BID
-No Sucralfate 10 mL PO BID as per GI
-Aspiration precautions
History of Cyclical Vomiting Syndrome
History of Diaphragmatic Hernia
History of Hypothermia
History of Second Degree Atrioventricular Block
2:1 AV block with narrow QRS and associated with Mobitz I
History of Bradycardia
-Monitor on cardiac monitoring/telemetry given the above and findings on recent hospitalization
Hypertension
-Hold home antihypertensives for now given hypotension episodes
Hyperlipidemia
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
-Monitor glucose
Cystic Disease of Liver
History of Orthostatic Hypotension
Ambulatory Dysfunction/Generalized Muscle Weakness
History of Lymphedema
History of Pleural Effusion
History of asymptomatic cholelithiasis
History of endometrial thickening
DJD
Right buttocks stage 2 pressure injury
-Consult wound care
Protein-Calorie Malnutrition
Primary Contact: Sister Lisa; phone number [phone]
Primary Care Physician: Dr. Arsalan Castro; phone number [phone]
January 05, 2025: I called patient's sister Lisa (her sister Lisa said that she is the decision-maker for the patient) and updated her on patient's condition and management. I told her that patient not eating can very well cause patient to decline.
Lisa acknowledged understanding of this.
January 06, 2025: I spoke to both patient's sister Lisa, as well as patient's sister Elizabeth, and updated them on patient's current condition and management. I told them that patient remains confused, and patient not being able to eat or drink right now
can very well cause patient to decline significantly. Elizabeth and Lisa acknowledged understanding of this. They requested patient be kept Full Code. I spoke to them about temporary tube feeding and they requested that Dobhoff tube be placed and tube
feeding started. Therefore, consulted gastroenterology for tube feeding recommendations and dietitian for tube feeding recommendations.
January 07, 2025: I spoke to both patient's sister Lisa, as well as patient's sister Elizabeth, and updated them on patient's current condition and management. I told them patient has significant anemia and red blood cell transfusion is recommended
however they said no blood transfusion since patient is a L[employer].
DVT Prophylaxis: Heparin subq and SCDs
Code Status: Full Code
Total time spent on chart review, placing orders, documentation, speaking with patient's sisters and seeing and examining the patient, was 80 minutes.
Anticipated Discharge: > 48 hours
Subjective/Interval History
-
Date of Service: January 07, 2025
Patient was seen and examined. She appeared more alert and responsive today.
Objective Data
-
Labs:
Laboratory Results
01/06/25 01/07/25 01/07/25
20:57 02:11 04:43
WBC 10.8
Hgb 6.7 L*
Hct 20.1 L*
Plt Count 179
Sodium 147 H 145
Potassium 3.6 3.2 L 3.5
Chloride 118 H 120 H
Carbon Dioxide 22 23
BUN 31 H 28 H
Creatinine 1.6 H 1.5 H
Glucose 115 H 104 H
Calcium 9.4 8.9
Vital Signs:
Vital Signs
Temp Pulse Resp BP Pulse Ox
98.6 F 93 12 77/54 100
01/07/25 06:00 01/07/25 06:14 01/07/25 06:14 01/07/25 06:14 01/07/25 00:41
I&O
01/06/25 01/07/25 01/08/25
06:59 06:59 06:59
Intake Total 1400 / 1400 1640 / 1640
Output Total 175 / 175
Balance 1225 / 1225 1640 / 1640
[2025-01-07 07:46] LABS: Percent Saturation 80 % (20-50); Total Iron Binding Capacity 125 ug/dl (265-497)
--- NOTE | 2025-01-07 08:27 | CON.INTV ---
Consultation
Consultation Request
Date/Time Consultation Requested: 01/07/25
Date/Time Consultation Performed: 01/07/25
Performing Provider: Vandana
Reason for Consultation: ICU
Medical History
-
History of Present Illness:
Patient is a 74-year-old female with previous history of dementia, hypertension, hyperlipidemia, dysphagia with recent history of severe esophagitis and esophageal stenosis status post ballooning/stent, failure to thrive presenting from correction
with hypernatremia and poor p.o. intake. In the ER she was notably confused, sodium was 158. She was hypotensive with systolic in the 60s, given IV fluids with initial response and admitted on 01/05/2025. Since then, patient has developed worsening
hypotension requiring possible pressors, she is now transferred to ICU 01/07/25 for further management.
Past Medical History
Past Medical History: Other (see list below)
Social History
Tobacco: Non-smoker
Alcohol: None
Drug: None
Family History
Family History: Reviewed & Not Pertinent
Allergies / Home Medications
Allergies
Allergy/AdvReac Type Severity Reaction Status Date / Time
No Known Allergies Allergy Verified 12/01/24 11:38
Home Medications
�Medication �Instructions �Recorded �Confirmed �Last Taken �Type
pantoprazole 40 mg tablet,delayed 40 mg PO BID Esophagitis, 11/03/24 01/05/25 Unknown Rx
release Gastritis #30 tabs
acetaminophen 325 mg tablet 650 mg PO Q6HPRN PRN mild 12/01/24 01/05/25 Unknown History
pain/VAUGHAN/temp> 100.4F
ammonium lactate 12 % topical cream 1 applic topical BID b/l feet 12/01/24 01/05/25 Unknown History
bisacodyl 10 mg rectal suppository 10 mg SD DAILYPRN PRN if no bm 12/01/24 01/05/25 Unknown History
(Dulcolax (bisacodyl)) aftr mom
amlodipine 10 mg tablet 10 mg PO DAILY #30 tabs 12/16/24 01/05/25 Unknown Rx
lisinopril 20 mg tablet 20 mg PO DAILY Hypertension #30 12/16/24 01/05/25 Unknown Rx
tabs
polyethylene glycol 3350 17 gram 17 g PO DAILY #30 ea 12/16/24 01/05/25 Unknown Rx
oral powder packet
sucralfate 100 mg/mL oral 10 ml PO BID Gastrointestinal Issue 01/05/25 01/05/25 Unknown History
suspension
Review of Systems
-
History Source: Patient
All other systems: Negative unless noted
Vitals / Labs / Diagnostic Testing
Vital Signs
Temp Pulse Resp BP Pulse Ox
98.0 F 93 12 77/54 100
01/07/25 07:59 01/07/25 06:14 01/07/25 06:14 01/07/25 06:14 01/07/25 00:41
Lab Data
01/07/25 04:43
01/07/25 04:43
Microbiology
01/05/25 17:42 Nose MRSA Screen - Final
No Methicillin Resistant Staphylococcus aureus isolated.
01/05/25 10:22 Blood/Venous Blood Culture - Preliminary
Positive culture in progress
01/05/25 10:22 Blood/Venous Gram Stain - Preliminary
01/05/25 09:39 Urine Urine Culture - Final
NO GROWTH
01/05/25 10:22 Blood/Venous Blood Culture - Preliminary
Positive culture in progress
01/05/25 10:22 Blood/Venous Gram Stain - Preliminary
Diagnostic Testing:
Physical Exam
-
HEENT: Normocephalic, Anicteric and Moist Mucous Membranes
Cardiovascular: S1/S2 and Regular Rhythm
Respiratory: Clear and Non-Labored Respirations
GI: Soft, Non Distended and Non Tender
Neurology: Awake, Alert and Other (speaks slowly but can answer appropriately)
Skin: Warm, Dry and Other (flaking and lesions on LEs, edema noted)
General: Poor Appetite and Other (chronically ill appearing)
Assessment
-
Patient is a 74-year-old female with previous history of dementia, hypertension, hyperlipidemia, dysphagia with recent history of severe esophagitis and esophageal stenosis status post ballooning/stent, failure to thrive presenting from correction
with hypernatremia and poor p.o. intake. In the ER she was notably confused, sodium was 158. She was hypotensive with systolic in the 60s, given IV fluids with initial response and admitted on 01/05/2025. Since then, patient has developed worsening
hypotension requiring possible pressors, she is now transferred to ICU 01/07/25 for further management.
Septic and hypovolemic shock on pressors, blood cultures prelim with GPC x 2 01/05/25
Acute dehydration and poor PO intake with hypernatremia
Confusion, likely TME from above
FTT
Acute blood loss anemia, likely coagulopathy/consumptive/sepsis
Samaritan, no transfusion
Hypokalemia
BUBBA
Conditions present prior to admission
DH adm N/V s/p EGD 12/04/24 - Severe occlusive esophageal stenosis was found.
s/p EGD 12/08/24- Dilation with an 8-9-10 mm x 5.5 cm CRE balloon and a 10-11-12 mm x 5.5 cm CRE balloon dilator was performed to 12 mm c/b submucosal tear/possible perforation stented with an 18 mm x 12.3 cm WallFlex covered stent under
fluoroscopic guidance.
s/p EGD 12/11/24 - An esophageal stent was found in the middle third of the esophagus and in the lower third of the esophagus. No evidence of occlusion or impaction to the stomach. It was widely patent. No gross
lesions were noted in the entire examined stomach. The duodenal bulb, first portion of the duodenum and second portion of the duodenum were normal.
s/p EGD 12/14/24- sutures were cut, stent removed
DH adm N/V, Dysphagia s/p EGD 1/30/25- LA Grade D esophagitis with no bleeding. Localized moderate inflammation characterized by erosions, erythema and granularity was found in the duodenal bulb.
Hypertension
Lpf-cnxfjhv-nnvyblbsa diabetes, known non-compliance with meds
Hyperlipidemia
GERD
Failure to thrive, homebound for >1 year
Dementia
Type 2 Mobitz 1 heart block
Chronic feet wounds, macerated skin in the feet due to chronic lymphedema/probable neuropathy
Chronic Lymphedema, b/l R>L
CKD
Plan
No current signs of metabolic encephalopathy or MS changes/following commands
She speaks sluggishly but can answer questions and understands
Baseline MS reported as dementia, but unclear if this is a known diagnosis
Psychiatric history not known if ever evaluated, suspect severe MDD
Denies pain at this time.
Pain/sedation: PRN
RASS goals: 0
Hemodynamically stable, not requiring pressors.
BP soft, but she had not been taking PO meds while admitted, NGT placed
Midodrine added, her BP has responded to IVFs, not on pressors now
Cardiac history reviewed--HTN
Prior ECHO reviewed indicating normal function
Hold home meds while hypotensive
Monitor on telemetry
Oxygen needs: stable on RA
Prior history of lung disease: none
Supplemental O2 as indicated to maintain sats > 89%
CXR/CT reviewed indicating mild basilar findings, no acute process
GI history noted, multiple EGD in the past
Has been refusing PO intake, DHT placed now able to get PO meds
Will likely need PEG placement, we discussed this
Difficult situation, in light of possible need for transfusion perioperatively
[employer] Consultant recommendations
Aspiration precautions, HOB > 30 degrees
GI prophylaxis, PPI on board
BUBBA present, mild likely due to pre-renal/low volume/dehydration
Creat at baseline, 1.1--no history of renal disease
Void trials
Follow urine output, critical I/Os
Replete electrolytes as needed--hyperNa, IVFs
Possible sepsis, blood cultures with GPCs
Started on empiric antibiotics
Cultures sent/pending
Follow fever trend, WBC count
CBC with anemia, worsening--JW cannot receive transfusions
DVT prophylaxis as assessed based on risk, including mechanical SCDs
Can give supplemental iron if applicable, limit blood draws
No prior h/o diabetes or thyroid disease
Monitor accuchecks PRN/SS coverage if needed
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
Family Discussions
Vandana 01/07/25-We had a long discussion today regarding her care. She does wish for her sisters to be her decision makers. We discussed intubation and CPR and she did not know if she should do that. We also discussed need for PEG and she was
uncertain of this as well. She did express not wanting 'to live in a facility forever' yet she has been living in one already. I encouraged her to think about her wishes and whether or not she would wish for heroic measures in a situation were she
does not wish to continue eating/drinking/performing ADLs.
Diagnostic Data
Chest X-Ray: 01/06/25- There is mild elevation of the left hemidiaphragm with left basilar opacities which may represent pneumonia or atelectasis.
10/21/24- No evidence of intestinal obstruction. Moderate fecal material throughout the colon. No acute disease of the chest. Small right pleural effusion. Mild left lower lobe atelectasis versus scarring.
CT Scan:
CT CHEST 12/13/24- Esophageal stent is present. There is no mediastinal air, with no findings to suggest perforation. Small left pleural effusion which is new from CT of the chest from December 08, 2024. Parenchymal opacity within the left lower lobe
and the posterior aspect of the left upper lobe, most likely pneumonia. Parenchymal opacity within the right lower lobe, which appears stable, compatible with atelectasis and/or pneumonia.
12/08/24- 1. 12 cm in length COVERED METAL STENT in the MID and DISTAL ESOPHAGUS extending inferiorly into the stomach.
2. Moderate fluid distention of the proximal thoracic esophagus (proximal to the stent).
3. Moderate amount of CENTRILOBULAR AIRSPACE OPACITY in the basilar segments of the LEFT LOWER LOBE and mild centrilobular airspace opacity in the lingula and basilar right lower lobe which appears new from 10/24/2024. ACUTE ASPIRATION PNEUMONIA is
considered most likely. Postprocedural subsegmental atelectasis or pulmonary hemorrhage are alternative diagnostic possibilities.
4. Moderate-sized hiatal hernia.
5. Gallbladder sludge.
6. Chronic bilateral renal disease.
7. Severe bilateral osteoarthritis of the glenohumeral joints.
8. Severe multilevel discogenic degenerative disease in the cervical spine.
MRI abd 10/27/24:
1. MODERATE-SIZED BILATERAL LOWER LOBE AIRSPACE CONSOLIDATIONS most suggestive of moderate bilateral lower lobe pneumonia with adjacent SMALL BILATERAL PARAPNEUMONIC PLEURAL EFFUSIONS. Compressive subsegmental atelectasis in the lower lobes of
both lungs is an alternative diagnostic possibility.
2. Mild polycystic liver disease.
3. Moderate to severe chronic bilateral kidney disease.
4. Small to moderate-sized paraesophageal hiatal hernia.
5. Moderate distention of the urinary bladder.
6. Mild to moderate endometrial thickening (either endometrial hyperplasia or carcinoma).
7. Severe discogenic degenerative disease at L4/L5 and L5/S1.
Echo: 01/06/25- Normal biventricular size and systolic function without regional wall motion abnormality. No significant valvular disease. Normal pericardium without effusion. Estimated pulmonary artery pressure of 15-20 mmHg assuming a right atrial
pressure of 3 mmHg. No significant change since the prior study of 03/14/2016. Somewhat limited study. Limited measurement were performed.
10/20/23 TTE: Normal biventricular size and systolic function without regional wall motion abnormality. No significant change since the prior study of. Trivial pericardial effusion. Pleural effusion present. No significant change since the prior
study of 03/14/2016.
PFT's:
Reports and relevant images were personally reviewed.
Critical Care time 81 mins -- The patient is admitted for acute critical illness for the treatment of vital organ failure and/or prevention of further life-threatening conditions. Total care includes time spent in review of history, physical exam,
medications, hemodynamic/ventilator parameters, laboratory data, imaging and discussion with house staff, pharmacy, respiratory therapy, commercial loan reviewer, and nursing.
--- NOTE | 2025-01-07 08:39 | W.PN.ID1 ---
Date of Service
Date of Service: January 07, 2025
Today's Communication
Continue Vancomycin.
Assessment / Plan
# GPC bacteremia (2 of 2 sets)
# Leukocytosis - resolved
# Hypothermia - resolving
# Low BP
-Await identification of organism
- Follow repeat blood cx's
- Continue Vancomycin pending final cx data.
- Follow vitals.
# Acute on chronic anemia
# Severe poor appetite/failure to thrive
# hx dysphagia, duodenitis, gastritis, esophageal stricture
# Jehovah witness - no blood products
- GI and Hydraulic Jack Adjuster on board.
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
Dementia
Hypertension
Diabetes mellitus
CKD 3
HLD
Dysphagia
Esophageal stricture status post dilation 12/08/24
Chief Complaint
-: Bacteremia
Subjective / Review of Systems
Pt more alert today.
Denies cough/sob/bd pain/diarrhea.
Vital Signs / Physical Exam
Vital Signs
Vital Signs
Temp Pulse Resp BP Pulse Ox
98.0 F 93 12 77/54 100
01/07/25 07:59 01/07/25 06:14 01/07/25 06:14 01/07/25 06:14 01/07/25 00:41
Physical Exam
Constitutional: Chronically Ill
Head: Other (NGT in place.)
Eyes: Sclera Anicteric
Cardiovascular: Regular Rate and S1/S2
Pulmonary: Other (decreased BS)
Gastrointestinal: Soft, Non Tender, Non Distended and Normal Bowel Sounds
Genito-Urinary: Negative CVA Tenderness
Extremities: Negative Edema
Neurological: Awake and Alert (more alert); Negative Meningeal Signs
Psychological: Calm
Objective Data
Lab Data
Lab Results
01/07/25 04:43
01/07/25 04:43
Estimated Creat Clear 29 ml/min 01/07/25 04:43
Lactic Acid 2.0 mmol/L (0.7-2.0) 01/05/25 14:22
Total Bilirubin 0.8 mg/dl (0.2-1.3) 01/05/25 09:39
AST 17 U/L (14-36) 01/05/25 09:39
ALT 16 U/L (0-35) 01/05/25 09:39
Alkaline Phosphatase 88 U/L (38-126) 01/05/25 09:39
Most recent labs reviewed.
Micro Results:
01/05/25 17:42 MRSA Screen - Final
Nose No Methicillin Resistant Staphylococcus aureus isolated.
01/05/25 10:22 Blood Culture - Preliminary
Blood/Venous Positive culture in progress
Gram Stain - Preliminary
01/06/25 10:52 Blood Culture - Pending
Blood/Venous
01/06/25 11:21 Blood Culture - Pending
Blood/Venous
01/05/25 09:39 Urine Culture - Final
Urine NO GROWTH
01/05/25 10:22 Blood Culture - Preliminary
Blood/Venous Positive culture in progress
Gram Stain - Preliminary
01/06/25 CXR: There is mild elevation of the left hemidiaphragm with left basilar opacities which may represent pneumonia or atelectasis.
Care Review
Plan reviewed with: Physician (Dr. Wise)
--- NOTE | 2025-01-07 08:54 | PTCARENOTE ---
Addendum entered by Mariajose Self RN 01/07/25 10:22:
Patient SB, arousable on morning rounds, orient to self and hospital , Dobhoff placement explained to pt and pt agreeable at that time. MICRO LAB ANALYST arrived and report given, pt transferred to ICU via bed,
Original Note:
Assumed care of pt this am after morning report and H/H noted to be 6.7, Dr. Wise places order for pt to transfer to ICU. Dr. Leroy arrived and place Won at bedside at [address], Xray ordered to confirm placement.
[2025-01-07 09:01] LABS: Glucose - Point of Care 113 mg/dl (70-99)
[2025-01-07] MEDS: ProAmatine PO (09:20)
[2025-01-07] MEDS: PROTONIX PO (09:21)
[2025-01-07] MEDS: DESENEX/MITRAZOL/ZEASORB 1 APPLIC TOPICAL ×2 (09:30→19:38)
[2025-01-07] MEDS: LAC HYDRIN, AM LACTIN LOTION 1 APPLIC TOPICAL ×2 (09:30→19:38)
[2025-01-07] MEDS: HEPARIN 5000 UNITS SC ×2 (09:31→19:37)
[2025-01-07] MEDS: THIAMINE INJECTION 100 MG IV (09:31)
--- NOTE | 2025-01-07 09:32 | CON.ONC ---
Impression
Impression
hypernatremia ~156 corrected to 145 today
anemia Hgb 10g/dL on admission, now 6.7 after correcting free water deficit
CKD
bacteremia -Bcx +x 2 bottles
Plan
Plan
I discussed risk/benefit of accepting blood products, NOT accepting blood products. Pt understands that if clinically significant bleeding cannot be stopped, then the pt will . Pt is aware that blood product refusal may result in organ/tissue
damage or event . Pt adamantly refuses the blood components therapies. Patient understands that he or she may reverse these restrictions at ANY time and accept blood. If this occurs, the care team will abide by all patient privacy standards and
not discuss the acceptance of blood products in front of family or clergy without patient consent.
-minimize phlebotomy
-supplemental O2
-limit activity to reduce oxygen demand
-I will start folate 1mg daily, b12 1000mcg daily, parenteral iron x 10 days, and EPO 40,000U weekly -A full bone marrow response may take up to two weeks -pt and POA agreeable to this plan
-we discussed risk of thrombotic cardiovascular events�with EPO
-on PPI and Carafate
-coags pending
-repeat CBC stat
-GI evaluation
-follow cultures
-alternatively pt could be transferred to [facility] which has a bloodless program
I spoke with Lisa (POA) and Elizabeth (sister) who are agreeable to EPO, iron, b12, folate.
Discussed with hospitalist
Patient History
History of Present Illness
74yo F presented with serum sodium 158, poor oral intake, and anemia with Hgb 10. She was admitted and started on D5W to correct free water deficit. She was recently hospitalized 12/01-12/17 for management of syncope secondary to dehydration and
electrolyte derangement. Since admission her Hgb has trended down to <7/dL. Her EGD on 12/04/24 showed severe stenosis, repeated on 12/08/24 with balloon dilation and s/p placement of stent, which was removed on 12/14/24. Since admission she had a
dobhoff placed for alternate nutrition.
Pt is a poor historian, unable to provide history and presentation so obtained via chart review and sisters Lisa and Elizabeth on the phone.
Soila is awake and able to state name and follow simple commands. She is not oriented to place or time. She denies pain, sob, n/v/d/c.
Past-Medical/Surgical History
past medical history of dementia, hypertension, hyperlipidemia, CKD, dysphagia, esophagitis, GERD, aspiration pneumonitis, DM2, cystic liver dz
Social History
Tobacco: Non-smoker
Alcohol: None
Drug: None
Family History
Family History: Not pertinent
Patient Medication
�Medication �Instructions �Recorded �Confirmed �Last Taken �Type
pantoprazole 40 mg tablet,delayed 40 mg PO BID Esophagitis, 11/03/24 01/05/25 Unknown Rx
release Gastritis #30 tabs
acetaminophen 325 mg tablet 650 mg PO Q6HPRN PRN mild 12/01/24 01/05/25 Unknown History
pain/VAUGHAN/temp> 100.4F
ammonium lactate 12 % topical cream 1 applic topical BID b/l feet 12/01/24 01/05/25 Unknown History
bisacodyl 10 mg rectal suppository 10 mg MO DAILYPRN PRN if no bm 12/01/24 01/05/25 Unknown History
(Dulcolax (bisacodyl)) aftr mom
amlodipine 10 mg tablet 10 mg PO DAILY #30 tabs 12/16/24 01/05/25 Unknown Rx
lisinopril 20 mg tablet 20 mg PO DAILY Hypertension #30 12/16/24 01/05/25 Unknown Rx
tabs
polyethylene glycol 3350 17 gram 17 g PO DAILY #30 ea 12/16/24 01/05/25 Unknown Rx
oral powder packet
sucralfate 100 mg/mL oral 10 ml PO BID Gastrointestinal Issue 01/05/25 01/05/25 Unknown History
suspension
Active Medications
Generic Name Dose Route Start Last Admin
Trade Name Freq PRN Reason Stop Dose Admin
Acetaminophen 650 mg 01/05/25 15:23
Acetaminophen 325 Mg Tablet PO 02/02/25 15:22
Q6HPRN PRN
mild pain/VAUGHAN/temp> 100.4F
Ammonium Lactate 0 applic 01/05/25 20:00 01/06/25 20:06
Ammonium Lactate 12% (Lotion) 240 Ml Bottle TOPICAL 02/02/25 19:59 1 applic
BID DEANNE Administration
Bisacodyl 10 mg 01/05/25 15:23
Bisacodyl 10 Mg Rectal Suppository RECTAL 02/02/25 15:22
[id number] PRN
constipation
Emollient Ointment 0 applic 01/07/25 08:00
Petrolatum/Mineral Oil (Hydrophor) Oint 100 Gram TOPICAL 02/04/25 07:59
DAILY DEANNE
Heparin Sodium 5,000 units 01/05/25 15:23 01/06/25 21:13
Heparin 5,000 Units/Ml 1 Ml Vial SC 02/02/25 15:22 5,000 units
Q12 DEANNE Administration
Dextrose 1,000 mls @ 100 mls/hr 01/06/25 05:00 01/07/25 01:07
D5w IV 1,000 mls
.Q10H DEANNE Administration
Vancomycin HCl 1 each/ Device 0 mls @ 0 mls/hr 01/06/25 10:30
IV
PER PROTOCOL DEANNE
As Directed
Miconazole Nitrate 0 applic 01/06/25 20:00 01/06/25 22:51
Miconazole Powder Bottle TOPICAL 02/03/25 19:59 1 applic
BID DEANNE Administration
Midodrine 2.5 mg 01/06/25 13:00 01/07/25 09:20
Midodrine 2.5 Mg Tablet PO Not Given
TID@0800,1300,1800 DEANNE
Pantoprazole Sodium 40 mg 01/05/25 20:00 01/07/25 09:21
Pantoprazole 40 Mg Delayed Release Tablet PO 02/02/25 19:59 Not Given
BID DEANNE
Polyethylene Glycol 17 grams 01/05/25 15:23 01/07/25 09:20
Polyethylene Glycol Powder 17 Grams Packet PO 02/02/25 15:22 Not Given
DAILY DEANNE
Polyethylene Glycol 17 grams 01/05/25 15:23
Polyethylene Glycol Powder 17 Grams Packet PO 02/02/25 15:22
DAILYPRN PRN
constipation
Senna/Docusate Sodium 1 tablet 01/05/25 15:23
Docusate W/Senna (Mei-Colace) Tablet PO 02/02/25 15:22
BIDPRN PRN
constipation
Sodium Chloride 0 flush 01/05/25 16:00
Sodium Chloride 0.9% (Flush) Syringe IV 02/02/25 15:59
PER PROTOCOL DEANNE
Sucralfate 1 gm 01/05/25 20:00 01/07/25 09:20
Sucralfate (Carafate) 1 Gm/10 Ml Cup PO 02/02/25 19:59 Not Given
BID DEANNE
Thiamine HCl 100 mg 01/05/25 13:00 01/06/25 08:23
Thiamine (100 Mg/Ml) 2 Ml Vial IV 02/02/25 12:59 100 mg
DAILY DEANNE Administration
Review of Systems
-
poor historian
Unable to obtain full review of systems at this time due to: Dementia
Physical Exam
-
General: No Apparent Distress and Appears Chronically Ill
HEENT: Dobhodd
Respiratory: diminished
Cardiac: S1/S2 and Regular Rhythm
GI: Soft, Non Tender
Skin: DTI right buttock
Neuro: Awake and Alert
Psych: Confused
Ext general anasarca
Labs
Lab Results
WBC 10.8 10^3/uL (4.8-10.8) 01/07/25 04:43
RBC 2.50 10^6/uL (4.20-5.40) L 01/07/25 04:43
Hgb 6.7 g/dL (12.0-16.0) L* 01/07/25 04:43
Hct 20.1 % (37.0-47.0) L* 01/07/25 04:43
MCV 80.4 fL (81.0-99.0) L 01/07/25 04:43
MCH 26.8 pg (27.0-31.0) L 01/07/25 04:43
MCHC 33.3 g/dL (33.0-37.0) 01/07/25 04:43
RDW 17.6 % (11.5-14.5) H 01/07/25 04:43
Plt Count 179 10^3/uL (130-400) 01/07/25 04:43
MPV 12.2 fL (7.4-10.4) H 01/07/25 04:43
Abs Immat Gran (auto) 0.3 10^3/uL (0-0.05) H 01/07/25 04:43
Absolute Neuts (auto) 5.7 10^3/uL (1.4-6.5) 01/07/25 04:43
Absolute Lymphs (auto) 3.8 10^3/uL (1.2-3.4) H 01/07/25 04:43
Absolute Monos (auto) 0.8 10^3/uL (0.1-0.6) H 01/07/25 04:43
Absolute Eos (auto) 0.2 10^3/uL (0-0.7) 01/07/25 04:43
Absolute Basos (auto) 0.0 10^3/uL (0-0.2) 01/07/25 04:43
Immature Gran % 2.7 % (0-0.5) H 01/07/25 04:43
Neutrophils % 52.8 % (42.2-75.2) 01/07/25 04:43
Lymphocytes % 35.5 % (20.5-51.1) 01/07/25 04:43
Monocytes % 7.1 % (1.7-9.3) 01/07/25 04:43
Eosinophils % 1.7 % (0-6) 01/07/25 04:43
Basophils % 0.2 % (0-2) 01/07/25 04:43
Creatinine 1.5 mg/dL (0.6-1.0) H 01/07/25 04:43
Vital Signs
Vital Signs
Temp Pulse Resp BP Pulse Ox
97.5 F 93 12 77/54 100
01/07/25 09:04 01/07/25 06:14 01/07/25 06:14 01/07/25 06:14 01/07/25 00:41
--- NOTE | 2025-01-07 09:42 | CON.GI ---
Addendum entered and electronically signed by Vicki Leroy DO 01/07/25 14:15:
Patient seen and examined independently of ZA. I agree with her note with my additions below
Soila is a 74-year-old female who lives in a nursing facility who has CKD 3, mild dementia, bradycardia with a second-degree block, multiple admissions with failure to thrive. Last admission I met her where she had significant dysphagia was found
to have grade D esophagitis with nodularity which developed into a significant stricture requiring aggressive dilation with concern for perforation and stent was placed. Patient was unable to eat or swallow with the stent and after endoscopy
revealed it was patent, Dr. Jose removed the stent. She tolerated some diet and was discharged to a facility. She comes back now again failure to thrive recent fall hypothermic, malnourished and 18 kg weight loss since September. On admission she
was hyponatremic at 156, creatinine of 1.4 and a hemoglobin drop noted to 6.7 after admission with a elevated white count and noted to have bacteremia with no growth on her urine and subsequent blood cultures have normalized since being on
broad-spectrum antibiotics.
GI was asked to place a Dobbhoff which was placed this morning. xray confirmed position is good in the antrum.
#anemia -no overt bleeding
-- Patient is a Jehovah witness and does not want blood products
-- Total bilirubin on admission was normal
#failure to thrive
-- She has had a decreased appetite with chronic nausea vomiting significant esophagitis including stricture requiring dilation
-- Likely needs PEG tube and a thorough workup as to why this keeps happening including imaging and potentially endoscopic exams
-- Patient has never had a colonoscopy
--Currently she has a bacteremia
--Start tube feeds when possible, watch for refeeding syndrome
Original Note:
Consultation
-
Date/Time Consultation Requested: 01/06/251809
Date/Time Consultation Performed: 01/07/25 8325
Requesting Provider: Dimitri Wise MD
Performing Provider: ZA Anne, Vicki Leroy DO
Reason for Consultation: failure to thrive
Medical History
Chief Complaint / HPI
Chief Complaint: hypothermia/ decreased oral intakes
History of Present Illness:
Pt is a 74yo with hx obesity, hypertension, hyperlipidemia, diabetes, CKD 3 with admission 10/19/24- 11/23/24 with hypothermia, bradycardia with second degree block mobitz type 1 without need for pacer, weakness, change in mental status and failure
to thrive with recent fall. During that admission she completed EGD grade D esophagitis with nodularity at GE junction, med HH, erosive gastropathy, moderate duodenal erythema with erosions in duodenal bulb. bx SB with gastric metaplasia, mild
focal villous blunting with peptic duodenitis with H pylorus with neg intestinal metaplasia and neg fungal and viral staining. She was recommended PPI and carafate with follow up and repeat EGD in 8 weeks. Multiple attempts were made to contact
patient for follow up and letter sent to patient. She then returned 12/01-12/17/24- with vomiting and lightheadeness with continued difficulty with eating. She completed repeat EGD 12/04 with esophageal stenosis, EGD 12/08 with benign stenosis dilated
with concern for submucosal tear possible perf with stent placement. Repeat 12/11 EGD with patent stent then 12/14 EGD with stent removal. Pt was tolerating diet after removal and discharged. She was also noted with multiple other issues with
malnutrition, syncope, AV block, electrolyte imbalance, and endometrial thickening with SHINGLE SHEARING MACHINE OPERATOR eval in 10/2024. She now returns with nausea/vomiting and lightheadedness. On admission concern for continued decreased appetite with 18 kg wt loss since
September. Labs on admission Na 156, K 3.2, creat 1.4 calcium 10.4, Also noted with drop in hbg to 6.7 after admission , WBC up to 13,500.
At this time patient remain lethargic but answering some questions. She admits to continue poor appetite. She denies dysphagia, GERd, abdominal pain, diarrhea, constipation or rectal bleeding.
Past Medical History
Past Medical History: HTN, Hypercholesterolemia, NIDDM and Other (multiple admission with failure to thrive, electrolyte imbalance, esophageal stenosis with dilation and concern for perforation.)
Past Surgical History: None
Social History
Tobacco: Non-Smoker
Alcohol: Occasional
Drug: None
Personal: Single
Living: Residential
Employment: Retired
Family History
Family History: Other (No family history gastrointestinal malignancy, IBD or liver disease)
Allergies / Home Medications
Allergy/AdvReac Type Severity Reaction Status Date / Time
No Known Allergies Allergy Verified 12/01/24 11:38
�Medication �Instructions �Recorded
pantoprazole 40 mg tablet,delayed 40 mg PO BID Esophagitis, 11/03/24
release Gastritis #30 tabs
acetaminophen 325 mg tablet 650 mg PO Q6HPRN PRN mild 12/01/24
pain/VAUGHAN/temp> 100.4F
ammonium lactate 12 % topical cream 1 applic topical BID b/l feet 12/01/24
bisacodyl 10 mg rectal suppository 10 mg IN DAILYPRN PRN if no bm 12/01/24
(Dulcolax (bisacodyl)) aftr mom
amlodipine 10 mg tablet 10 mg PO DAILY #30 tabs 12/16/24
lisinopril 20 mg tablet 20 mg PO DAILY Hypertension #30 12/16/24
tabs
polyethylene glycol 3350 17 gram 17 g PO DAILY #30 ea 12/16/24
oral powder packet
sucralfate 100 mg/mL oral 10 ml PO BID Gastrointestinal Issue 01/05/25
suspension
Review of Systems
-
Unable to obtain full review of systems at this time due to: Other (pt lethargic )
History Source: Patient
Constitutional: Reports Weight Loss ( 18 kg wt loss since September )
EENT: Reports No Symptoms
Respiratory: Reports No Symptoms
Cardiac: Reports No Symptoms
Abdomen/GI: Reports Anorexia
: Reports No Symptoms
Musculoskeletal: Reports No Symptoms
Skin: Reports No Symptoms
Neurological: Reports Weakness and Other (lethargy )
Endocrine: Reports No Symptoms
Hematologic/Lymphatic: Reports No Symptoms
Vital Signs
Temp Pulse Resp BP Pulse Ox
97.5 F 93 12 77/54 100
01/07/25 09:04 01/07/25 06:14 01/07/25 06:14 01/07/25 06:14 01/07/25 00:41
Physical Exam
Exam
General: Other (pt lethargic but answering some questions with weakness compared to prior evaluation )
HEENT: Normocephalic and Anicteric
Respiratory: Other (decreased )
Cardiac: Regular Rhythm
GI: Soft, Non Tender, Non Distended and Other (DHT repositioned )
Musculoskeletal: No Clubbing and No Cyanosis
Skin: Warm and Dry
Neuro: Other (lethargic but answering some questions )
Psych: Calm
Results
WBC 10.8 10^3/uL (4.8-10.8) 01/07/25 04:43
Hgb 6.7 g/dL (12.0-16.0) L* 01/07/25 04:43
Hct 20.1 % (37.0-47.0) L* 01/07/25 04:43
MCV 80.4 fL (81.0-99.0) L 01/07/25 04:43
Plt Count 179 10^3/uL (130-400) 01/07/25 04:43
Absolute Neuts (auto) 5.7 10^3/uL (1.4-6.5) 01/07/25 04:43
Sodium 145 mmol/L (135-145) 01/07/25 04:43
Potassium 3.5 mmol/L (3.5-5.1) 01/07/25 04:43
Chloride 120 mmol/L (98-107) H 01/07/25 04:43
Carbon Dioxide 23 mmol/L (22-30) 01/07/25 04:43
BUN 28 mg/dl (7-17) H 01/07/25 04:43
Creatinine 1.5 mg/dL (0.6-1.0) H 01/07/25 04:43
Calcium 8.9 mg/dl (8.4-10.2) 01/07/25 04:43
Total Bilirubin 0.8 mg/dl (0.2-1.3) 01/05/25 09:39
AST 17 U/L (14-36) 01/05/25 09:39
ALT 16 U/L (0-35) 01/05/25 09:39
Alkaline Phosphatase 88 U/L (38-126) 01/05/25 09:39
Diagnostic Image Results:
01/07/25 abd Dobbhoff catheter coiled in the midesophagus. Repositioning advised.
01/06/25- CXR
There is mild elevation of the left hemidiaphragm with left basilar opacities which may represent pneumonia or atelectasis.
12/13/24 CT Chest With Iv Contrast
Esophageal stent is present. There is no mediastinal air, with no findings to suggest perforation.
Small left pleural effusion which is new from CT of the chest from December 08, 2024.
Parenchymal opacity within the left lower lobe and the posterior aspect of the left upper lobe, most likely pneumonia.
Parenchymal opacity within the right lower lobe, which appears stable, compatible with atelectasis and/or pneumonia.
12/09/24 esophgram
Impression: Single teaspoon swallow of barium seen to extend through the thoracic esophagus and mid to distal esophageal/proximal gastric stent to the level of the distal aspect of the stent only at 18 minutes following initial swallow. No contrast
was seen to extend into the stomach proper suggesting possible obstruction at the level of the distal aspect of covered metallic stent..
Patient then vomited the one teaspoon of contrast administered.
12/01/24 HCT No acute intracranial abnormality noted.
10/28/24 US pelvis- transvag-- 2 small uterine fibroids, homogeneous endometrium cannot exclude minimal fluid along endometrial canal. if bleeding consider MRI.
10/27/24 MR Abdomen W/o & W Contrast
1. MODERATE-SIZED BILATERAL LOWER LOBE AIRSPACE CONSOLIDATIONS most suggestive of moderate bilateral lower lobe pneumonia with adjacent SMALL BILATERAL PARAPNEUMONIC PLEURAL EFFUSIONS. Compressive subsegmental atelectasis in the lower lobes of
both lungs is an alternative diagnostic possibility.
2. Mild polycystic liver disease.
3. Moderate to severe chronic bilateral kidney disease.
4. Small to moderate-sized paraesophageal hiatal hernia.
5. Moderate distention of the urinary bladder.
6. Mild to moderate endometrial thickening (either endometrial hyperplasia or carcinoma).
7. Severe discogenic degenerative disease at L4/L5 and L5/S1.
10/24/24 CT Chest/abd/pelvis limited study, small b/l lower lobe consolidation air bronchogram, PNA, or atelectasis with small b/l effusion, low density hepatic lesions, benign vs malignant, no obstruction, low attenuation density central within
uterus, consider pelvic US
Small bilateral lower lobe consolidations with air bronchograms, pneumonia/or atelectasis and small bilateral pleural effusions.
Few scattered indeterminate low-attenuation density hepatic lesions, as detailed above. These could be benign, malignancy cannot be excluded, evaluation limited.
No intestinal obstruction or free air.
Heterogeneous nonspecific low-attenuation density centrally within the uterus. If there is vaginal bleeding, consider Pelvic Ultrasound.
10/21/24 obstruction series - no obstruction, moderate fecal impaction in colon, no acute disease of chest, small right pleural effusion, atelectasis vs scarring
10/18/24 HCT- no acute infarct, white matter leukoaraiosis, mild to moderate b/l parietal loss, volume loss frontal lobes and cerebellum.
Prior GI Procedures:
10/29/24 [facility] EGD - Severe, LA Grade D erosive esophagitis with no
bleeding from 25 to 34 cms from the incisors spanning
from the mid to distal esophagus. Biopsied to rule out
Halima, CMV and HSV.
- Circumferential, nodular mucosa in the esophagus at
the GE junction at 34 cms. Biopsied to rule out
dysplasia and malignancy (sent for [facility]).
- Medium-sized hiatal hernia without Guanakito's lesions.
- Erosive gastropathy in the antrum and body with no
bleeding and no stigmata of recent bleeding. Biopsied
to rule out H pylori
- Otherwise, normal stomach on direct and retroflexion
views.
- Moderate duodenal erythema and scattered erosions in
the duodenal bulb.
- Otherwise, normal duodenum up to the third portion.
Biopsies were taken with a cold forceps for evaluation
of celiac disease.
- The examination was otherwise normal.
bx sb gastric foveolar metaplasia, yara hyperplasia, peptic duodenitis, neg H pylori, neg viral neg metaplasia
12/04/24 EGD Ahmad - Esophageal stenosis. Severe
- No specimens collected.
12/08/24 EGD- alexander - Benign-appearing esophageal stenosis. Dilated.
- Clinically significant submucosal tear / possible
perforation in the lower third of the esophagus.
Prosthesis placed. Endoscopic suturing performed.
- Medium-sized hiatal hernia.
- Normal duodenal bulb, first portion of the duodenum
and second portion of the duodenum.
- No specimens collected.
12/11/24 EGD Alexander - Pre-existing esophageal stent. Widely patent without
occlusion / impaction.
- No gross lesions in the entire stomach.
- Normal duodenal bulb, first portion of the duodenum
and second portion of the duodenum.
- No specimens collected.
12/14/24 EGD alexander - Pre-existing esophageal stent, removed.
- No gross lesions in the entire stomach.
- Normal duodenal bulb, first portion of the duodenum
and second portion of the duodenum.
Colonoscopy:
Cologuard 09/25/2022 negative
Assessment / Plan
-
Pt is a 74yo with hx obesity, hypertension, hyperlipidemia, diabetes, CKD 3 with admission 10/19/24- 11/23/24 with hypothermia, bradycardia with second degree block mobitz type 1 without need for pacer, weakness, change in mental status and failure
to thrive with recent fall. During that admission she completed EGD grade D esophagitis with nodularity at GE junction, med HH, erosive gastropathy, moderate duodenal erythema with erosions in duodenal bulb. bx SB with gastric metaplasia, mild
focal villous blunting with peptic duodenitis with H pylorus with neg intestinal metaplasia and neg fungal and viral staining. She was recommended PPI and carafate with follow up and repeat EGD in 8 weeks. Multiple attempts were made to contact
patient for follow up and letter sent to patient. She then returned 12/01-12/17/24- with vomiting and lightheadeness with continued difficulty with eating. She completed repeat EGD 12/04 with esophageal stenosis, EGD 12/08 with benign stenosis dilated
with concern for submucosal tear possible perf with stent placement. Repeat 12/11 EGD with patent stent then 12/14 EGD with stent removal. Pt was tolerating diet after removal and discharged. She was also noted with multiple other issues with
malnutrition, syncope, AV block, electrolyte imbalance, and endometrial thickening with SHINGLE SHEARING MACHINE OPERATOR eval in 10/2024. She now returns with nausea/vomiting and lightheadedness. On admission concern for continued decreased appetite with 18 kg wt loss since
September. Labs on admission Na 156, K 3.2, creat 1.4 calcium 10.4, Also noted with drop in hbg to 6.7 after admission , WBC up to 13,500.
-recurrent admission with failure to thrive with marked electrolyte imbalance with na 156, k 3.2, creat 1.4 on admission
-anemia with drop in hbg during admission
-leukocytosis-- improving
-gram + bactermia - ID following
-hypotension
-continued dysphagia with decreased oral intakes 18 kg wt loss since September
-hx benign esophageal stenosis with prior EGD with dilation and concern for perforation with placement of stent then removal
-prior palpable soft round abdominal mass not noted on repeat exam
-Indeterminate low-attenuation hepatic lesions-- follow up MRI with polycystic liver disease
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
-severe Protein malnutrition, decreased albumin and protein
-Mild to moderate endometrial thickening s/p SHINGLE SHEARING MACHINE OPERATOR eval
other med problems:
-CKD
-dementia
-hx mobitz type 2 block
-DM
-hx obesity
Plan:
concern for worsening wt loss and continued failure to thrive with recurrent admission
DHT initially placed by Dr. Leroy with coiling in esophagus--- repositioned with good air insufflation
will repeat X ray to confirm placement
will need tube feed with likely poor nutrition for months
t/c eventual CT with oral contrast to exclude any downstream issue-- pt without hx colonoscopy in past
she had drop in hbg with brown stools
she declines transfusion as [employer] -- if continued drop consider heme or bloodless program ? [place]
will hold Carafate as was for esophageal issues and has been on for several months
cont PPI
cont Mirlalax
cont to keep electrolyte corrected per primary team
cont abx per ID
-
-
Thank you for consultation and allowing me to participate in the patient's care. Please call the contract coordinator GI physician during the after hours with any questions or concerns.
--- NOTE | 2025-01-07 09:52 | PTCARENOTE ---
patient received from IMU, assessments per work list. patient oriented to person, 'hospital' and month year. disoriented about situation. wrist restraints for patient safety. hospitalist in, this fiction writer requested they be reordered and continued.
monitor nsr, right wrist22 intact. patient received saturated with urine, incontinent large amount brown yellow stool. loose. rectal trumpet inserted. purewick applied. all wound care completed. left nare dobhoff not in correct placement. GI aware.
VAT RN in. mid line placed right arm. stat labs sent. Michela MENDENHALL readjusted left nare dobhoff@63. awaiting xray
[2025-01-07 10:29] LABS: PT 14.7 Sec (11.4-14.6)
[2025-01-07 10:30] LABS: APTT 37.4 Sec (23.4-35.0)
[2025-01-07 10:52] LABS: Hematocrit 20.9 % (37.0-47.0); Hemoglobin 6.9 g/dL (12.0-16.0); Mean Corpuscular Hgb 26.8 pg (27.0-31.0); Mean Corpuscular Volume 81.3 fL (81.0-99.0); Mean Platelet Volume 12.4 fL (7.4-10.4); Platelet Count 170 10^3/uL (130-400); Red Blood Cell Count 2.57 10^6/uL (4.20-5.40); Red Cell Dist. Width 17.8 % (11.5-14.5); White Blood Cell Count 10.1 10^3/uL (4.8-10.8)
[2025-01-07] MEDS: HYDROPHOR 1 APPLIC TOPICAL (11:14)
--- NOTE | 2025-01-07 11:48 | PTCARENOTE ---
Addendum entered by Wendy Baker RN 01/07/25 12:54:
right nare@65(corrected documentation)
Original Note:
bradycardia noted on monitor. when entering room, contract technical writer at bedside. patient coughing and gagging. distal end of dobhoff hanging out of mouth .large amount thick white secretions suctioned. dobhoff removed. Michela Perea updated, she
requested this pattern chart writer to replace. placed without issue right nare@70. xray pending
--- NOTE | 2025-01-07 13:02 | PTCARENOTE ---
Addendum entered by Wendy Baker RN 01/07/25 14:08:
tube feeds initiated per orders
Original Note:
xray repeated post dobhoff insertion. hem/onc air purifier servicer in to evaluate patient. orders received. 2 liters nasal cannula applied per her request. pulse ox 100 pre oxygen application
[2025-01-07] MEDS: ProAmatine 2.5 MG PO (13:36)
[2025-01-07] MEDS: CYANOCOBALAMIN 1000 MCG SC (13:50)
[2025-01-07] MEDS: FERRLECIT 110 MG IV (13:50)
[2025-01-07 14:04] LABS: Folate 2.3 ng/ml (2.76-20)
--- NOTE | 2025-01-07 14:55 | PTOTSP ---
Speech Language Pathology
Pt seen for dysphagia tx. DHT in place. Pt sleeping upon arrival, easily roused. Oral care completed with use of suction toothbrush. Provided ice chip x1, thin liquid via straw x2, and 1/2 tsp of puree x2. Facial grimacing noted with all, but
pt denied odynophagia. Gag noted with first tsp of puree. Approximately 30 seconds after P.O., pt stated she was going to vomit. Obtained basin, and pt regurgitated thick frothy and yellow sputum, moderate amount. Suspect esophageal etiology
with pt's significant recent esophageal history.
Recommend:
(1) Defer diet recommendations to GI
(2) Consider allowing at least ice chips if in line with GI recommendations
(3) Oral care 4x/day with suctioning as needed
(4) Meds via DHT
(5) BRINE PLANT OPERATOR to continue to follow
[2025-01-07] MEDS: FOLVITE 50.2 MG IV (15:03)
[2025-01-07] MEDS: RETACRIT 40000 UNITS SC (15:04)
[2025-01-07] MEDS: ProAmatine 5 MG PO ×2 (15:22→22:17)
--- NOTE | 2025-01-07 15:27 | PTCARENOTE ---
Addendum entered by Wendy Baker RN 01/07/25 16:39:
patient with periodic episodes second degree heart block, self limited
Addendum entered by Wendy Baker RN 01/07/25 16:28:
bladder scan as noted. no urine output since admission to unit this am, saturated at that time
Original Note:
patient reassessed, ST at bedside. patient with another episode frothy thick secretions. dobhoff placement verified, aspirated tube feed. +air auscultation. slow speech. blood pressures borderline. acquisition advisor updated. orders received.
[2025-01-07 17:59] LABS: Vancomycin Random 12.8 ug/ml
[2025-01-07] MEDS: VANCOCIN 150 IV (18:14)
--- NOTE | 2025-01-07 18:19 | PHA.VAN.FU ---
Vancomycin Assessment / Plan
- Assessment
Renal Function: SCR Decreasing
WBC's are: WNL
In the past 24 hrs, patient has been: Afebrile
- Assessment - Therapeutic Drug Monitoring
Random Level: 12.8 ~30 hours after vanc 1500mg dose
- Dosing Plan
Dosing by Level: Re-dose today (vanc 750mg)
- Monitoring Plan
Random Level: 01/08 06
- Follow Up
Pharmacy will continue to follow.
Vancomycin Follow UP
- -
Patient Age: 74
Patient Sex: Female
Vancomycin Day #: 2
Indication: Skin And Soft Tissue
Requesting Provider: [id number]
Pertinent Antimicrobial Allergies:
No Known Drug Allergies
Height / Weight:
Height 5 ft 4 in
Actual Weight 67.7 kg
Pertinent Past Medical History: CKD
- Vital Signs / Lab Results
Temp Pulse Resp BP Pulse Ox
96.9 F L 74 15 85/61 100
01/07/25 15:44 01/07/25 17:10 01/07/25 17:10 01/07/25 17:10 01/07/25 17:10
Lab Results - Hematology
01/05/25 01/06/25 01/07/25
09:02 03:53 04:43
WBC 10.0 13.5 H 10.8
01/07/25
10:10
WBC 10.1
Lab Results - Chemistry
01/05/25 01/05/25 01/05/25
09:02 09:39 20:14
BUN Cancelled 37 H Cancelled
Creatinine Cancelled 1.4 H Cancelled
Estimated Creat Clear Cancelled 31 Cancelled
Albumin Cancelled 3.2 L
01/05/25 01/06/25 01/06/25
20:39 03:53 08:30
BUN 35 H 35 H Cancelled
Creatinine 1.3 H 1.4 H Cancelled
Estimated Creat Clear 34 31 Cancelled
Albumin
01/06/25 01/06/25 01/06/25
10:59 11:00 20:57
BUN 34 H Cancelled 31 H
Creatinine 1.5 H Cancelled 1.6 H
Estimated Creat Clear 29 Cancelled 27
Albumin
01/07/25
04:43
BUN 28 H
Creatinine 1.5 H
Estimated Creat Clear 29
Albumin
01/05/25 01/05/25
10:22 14:22
Lactic Acid 2.9 H 2.0
Microbiology Results
01/06/25 11:21 Blood Culture - Preliminary
Blood/Venous No Growth in 24 hours- Final report to follow
01/06/25 10:52 Blood Culture - Preliminary
Blood/Venous No Growth in 24 hours- Final report to follow
01/05/25 10:22 Blood Culture - Preliminary
Blood/Venous Positive culture in progress
Gram Stain - Preliminary
01/05/25 17:42 MRSA Screen - Final
Nose No Methicillin Resistant Staphylococcus aureus isolated.
01/05/25 10:22 Blood Culture - Preliminary
Blood/Venous Positive culture in progress
Gram Stain - Preliminary
01/05/25 09:39 Urine Culture - Final
Urine NO GROWTH
Therapeutic Drug Monitoring
Random Vancomycin 12.8 ug/ml 01/07/25 17:26
[2025-01-07] MEDS: PROTONIX 40 MG PO (19:37)
[2025-01-07] MEDS: ZOFRAN 4 MG IV (20:18)
--- NOTE | 2025-01-07 21:58 | PTCARENOTE ---
Patient received in bed drowsy, but easily arousable.AOOx3 and able to make her needs known. Pt verbalizes feeling nauseated. Plan of care for the shift reviewed with the patient. FIREBRICK LAYER HELPER made aware of pt's nauseousness. Zofran ordered. Minimal extremity
movements. Sinus mireya on the monitor with second degree AVB type 1. Generalized anasarca. SpO2 100% on 2L/O2 nc. coarse breath sounds and diminished at the bases. + BS. Right nare dobhoff placement verified via auscultation. Osmolite at 20 ml/hr
with 35 ml flush. Rectal trumpet is intact and draining loose stool. rectal trumpet flushed Patient cleansed with CHG wipes. moisture barrier creams applied. Bilateral legs/feet skin are dry and flaky. Purewick is in place. Sacral foam dressing and
inner thigh dressings are intact. Full linen change completed. Full documentation as noted on the worklist.
[2025-01-08] VITALS (29 sets, daily range): BP systolic 80–116; BP diastolic 51–85; BMI 26.1
[2025-01-08 00:05] LABS: Glucose - Point of Care 128 mg/dl (70-99)
--- NOTE | 2025-01-08 01:39 | PTCARENOTE ---
Patient has frequent pauses on the monitor. Arouses to verbal commands. Remains mireya on the monitor with HR in the mid 50s. Pt's HR drops to the 30s but recovers instantly back to the 50s.. WELLNESS PROGRAM ADMINISTRATOR made aware of pauses. labs drawn and sent.
[2025-01-08 02:00] LABS: INR 1.05; PT 14.2 Sec (11.4-14.6)
[2025-01-08 02:05] LABS: % Basophils 0.2 % (0-2); % Eosinophils 1.8 % (0-6); % Immature Granulocytes 4.2 % (0-0.5); % Lymphocytes 35.5 % (20.5-51.1); % Monocytes 8.7 % (1.7-9.3); % Neutrophils 49.6 % (42.2-75.2); Absolute Eosinophils 0.2 10^3/uL (0-0.7); Absolute Immature Granulocytes 0.4 10^3/uL (0-0.05); Absolute Lymphocytes 3.7 10^3/uL (1.2-3.4); Absolute Monocytes 0.9 10^3/uL (0.1-0.6); Absolute Neutrophils 5.2 10^3/uL (1.4-6.5); Hematocrit 20.3 % (37.0-47.0); Hemoglobin 6.6 g/dL (12.0-16.0); Mean Corp Hgb Conc. 32.5 g/dL (33.0-37.0); Mean Corpuscular Hgb 26.7 pg (27.0-31.0); Mean Corpuscular Volume 82.2 fL (81.0-99.0); Mean Platelet Volume 12.4 fL (7.4-10.4); Nucleated Red Blood Cells % 0.5 %; Platelet Count 160 10^3/uL (130-400); Red Blood Cell Count 2.47 10^6/uL (4.20-5.40); Red Cell Dist. Width 17.9 % (11.5-14.5); White Blood Cell Count 10.4 10^3/uL (4.8-10.8)
[2025-01-08 02:18] LABS: Vancomycin Random 19.7 ug/ml
[2025-01-08 02:23] LABS: ALT (SGPT) 13 U/L (0-35); AST (SGOT) 13 U/L (14-36); Alkaline Phosphatase 64 U/L (38-126); Blood Urea Nitrogen 27 mg/dl (7-17); Carbon Dioxide 23 mmol/L (22-30); Chloride 117 mmol/L (98-107); Direct Bilirubin 0.1 mg/dl (0.0-0.4); Estimated Creatinine Clearance 31 ml/min; Glucose 122 mg/dl (70-99); Magnesium 1.9 mg/dl (1.6-2.3); Phosphorus 2.7 mg/dl (2.5-4.5); Potassium 3.2 mmol/L (3.5-5.1); Sodium 143 mmol/L (135-145); Total Bilirubin 0.3 mg/dl (0.2-1.3); Total Protein 4.2 g/dl (6.3-8.2); eGFR 39.97
[2025-01-08 02:24] LABS: Prealbumin (Transthyretin) 8.6 mg/dl (17.6-36.0)
[2025-01-08] MEDS: KCL 270 MEQ IV (02:44)
--- NOTE | 2025-01-08 02:47 | PTCARENOTE ---
KCl rider 40 meq in NSS ordered for potassium of 3.2.
[2025-01-08 05:29] LABS: Glucose - Point of Care 121 mg/dl (70-99)
--- NOTE | 2025-01-08 05:45 | PTCARENOTE ---
Patient reassessed. No changes . sinus rhythm on the monitor. Occasional non productive. cough. Pt declined mouth care at this time. New purwick place. Turns and repositioning continued.
--- NOTE | 2025-01-08 07:31 | W.PN.INTV ---
Today's Communication / Plan
Recommendations
Remains off pressors, able to take midodrine PO through DHT
Farm Operations Technical Director following for tube feeds to avoid refeeding
Needs PEG, but this is complicated with anemia and JW
Discussed care plan with team to transfer to [facility] AT [facility] Bloodless Program
Otherwise can transfer to IMU, we will sign off upon transfer
Assessment
-
Patient is a 74-year-old female with previous history of dementia, hypertension, hyperlipidemia, dysphagia with recent history of severe esophagitis and esophageal stenosis status post ballooning/stent, failure to thrive presenting from correction
with hypernatremia and poor p.o. intake. In the ER she was notably confused, sodium was 158. She was hypotensive with systolic in the 60s, given IV fluids with initial response and admitted on 01/05/2025. Since then, patient has developed worsening
hypotension requiring possible pressors, she is now transferred to ICU 01/07/25 for further management.
Septic and hypovolemic shock on pressors, blood cultures prelim with GPC x 2 01/05/25
Acute dehydration and poor PO intake with hypernatremia
Confusion, likely TME from above
FTT
Acute blood loss anemia, likely coagulopathy/consumptive/sepsis
Quaker, no transfusion
Hypokalemia
BUBBA
Conditions present prior to admission
DH adm N/V s/p EGD 12/04/24 - Severe occlusive esophageal stenosis was found.
s/p EGD 12/08/24- Dilation with an 8-9-10 mm x 5.5 cm CRE balloon and a 10-11-12 mm x 5.5 cm CRE balloon dilator was performed to 12 mm c/b submucosal tear/possible perforation stented with an 18 mm x 12.3 cm WallFlex covered stent under
fluoroscopic guidance.
s/p EGD 12/11/24 - An esophageal stent was found in the middle third of the esophagus and in the lower third of the esophagus. No evidence of occlusion or impaction to the stomach. It was widely patent. No gross
lesions were noted in the entire examined stomach. The duodenal bulb, first portion of the duodenum and second portion of the duodenum were normal.
s/p EGD 12/14/24- sutures were cut, stent removed
DH adm N/V, Dysphagia s/p EGD 10/29/24- LA Grade D esophagitis with no bleeding. Localized moderate inflammation characterized by erosions, erythema and granularity was found in the duodenal bulb.
Hypertension
Okn-dnfpvzi-wfkxgguxs diabetes, known non-compliance with meds
Hyperlipidemia
GERD
Failure to thrive, homebound for >1 year
Dementia
Type 2 Mobitz 1 heart block
Chronic feet wounds, macerated skin in the feet due to chronic lymphedema/probable neuropathy
Chronic Lymphedema, b/l R>L
CKD
Plan
No current signs of metabolic encephalopathy or MS changes/following commands
She speaks sluggishly but can answer questions and understands
Baseline MS reported as dementia, but unclear if this is a known diagnosis
Psychiatric history not known if ever evaluated, suspect severe MDD
Denies pain at this time.
Pain/sedation: PRN
RASS goals: 0
Hemodynamically stable, not requiring pressors.
BP soft, but she had not been taking PO meds while admitted, NGT placed
Midodrine added, her BP has responded to IVFs, not on pressors now
Cardiac history reviewed--HTN
Prior ECHO reviewed indicating normal function
Hold home meds while hypotensive
Monitor on telemetry
Oxygen needs: stable on RA
Prior history of lung disease: none
Supplemental O2 as indicated to maintain sats > 89%
CXR/CT reviewed indicating mild basilar findings, no acute process
GI history noted, multiple EGD in the past
Has been refusing PO intake, DHT placed now able to get PO meds
Will likely need PEG placement, we discussed this
Difficult situation, in light of possible need for transfusion perioperatively -- GI recommend transferring to [facility] Bloodless Program
Farm Operations Technical Director recommendations
Aspiration precautions, HOB > 30 degrees
GI prophylaxis, PPI on board
BUBBA present, mild likely due to pre-renal/low volume/dehydration
Creat at baseline, 1.1--no history of renal disease
Void trials
Follow urine output, critical I/Os
Replete electrolytes as needed--hyperNa, IVFs
Possible sepsis, blood cultures with GPCs
Started on empiric antibiotics
Cultures sent/pending
Follow fever trend, WBC count
CBC with anemia, worsening--JW cannot receive transfusions
DVT prophylaxis as assessed based on risk, including mechanical SCDs
Can give supplemental iron if applicable, limit blood draws
No prior h/o diabetes or thyroid disease
Monitor accuchecks PRN/SS coverage if needed
Prognosis intermodal customer service poor
Family Discussions
Vandana 01/07/25-We had a long discussion today regarding her care. She does wish for her sisters to be her decision makers. We discussed intubation and CPR and she did not know if she should do that. We also discussed need for PEG and she was
uncertain of this as well. She did express not wanting 'to live in a facility forever' yet she has been living in one already. I encouraged her to think about her wishes and whether or not she would wish for heroic measures in a situation were she
does not wish to continue eating/drinking/performing ADLs.
Diagnostic Data
Chest X-Ray: 01/06/25- There is mild elevation of the left hemidiaphragm with left basilar opacities which may represent pneumonia or atelectasis.
10/21/24- No evidence of intestinal obstruction. Moderate fecal material throughout the colon. No acute disease of the chest. Small right pleural effusion. Mild left lower lobe atelectasis versus scarring.
CT Scan:
CT CHEST 12/13/24- Esophageal stent is present. There is no mediastinal air, with no findings to suggest perforation. Small left pleural effusion which is new from CT of the chest from December 08, 2024. Parenchymal opacity within the left lower lobe
and the posterior aspect of the left upper lobe, most likely pneumonia. Parenchymal opacity within the right lower lobe, which appears stable, compatible with atelectasis and/or pneumonia.
12/08/24- 1. 12 cm in length COVERED METAL STENT in the MID and DISTAL ESOPHAGUS extending inferiorly into the stomach.
2. Moderate fluid distention of the proximal thoracic esophagus (proximal to the stent).
3. Moderate amount of CENTRILOBULAR AIRSPACE OPACITY in the basilar segments of the LEFT LOWER LOBE and mild centrilobular airspace opacity in the lingula and basilar right lower lobe which appears new from 10/24/2024. ACUTE ASPIRATION PNEUMONIA is
considered most likely. Postprocedural subsegmental atelectasis or pulmonary hemorrhage are alternative diagnostic possibilities.
4. Moderate-sized hiatal hernia.
5. Gallbladder sludge.
6. Chronic bilateral renal disease.
7. Severe bilateral osteoarthritis of the glenohumeral joints.
8. Severe multilevel discogenic degenerative disease in the cervical spine.
MRI abd 10/27/24:
1. MODERATE-SIZED BILATERAL LOWER LOBE AIRSPACE CONSOLIDATIONS most suggestive of moderate bilateral lower lobe pneumonia with adjacent SMALL BILATERAL PARAPNEUMONIC PLEURAL EFFUSIONS. Compressive subsegmental atelectasis in the lower lobes of
both lungs is an alternative diagnostic possibility.
2. Mild polycystic liver disease.
3. Moderate to severe chronic bilateral kidney disease.
4. Small to moderate-sized paraesophageal hiatal hernia.
5. Moderate distention of the urinary bladder.
6. Mild to moderate endometrial thickening (either endometrial hyperplasia or carcinoma).
7. Severe discogenic degenerative disease at L4/L5 and L5/S1.
Echo: 01/06/25- Normal biventricular size and systolic function without regional wall motion abnormality. No significant valvular disease. Normal pericardium without effusion. Estimated pulmonary artery pressure of 15-20 mmHg assuming a right atrial
pressure of 3 mmHg. No significant change since the prior study of 03/14/2016. Somewhat limited study. Limited measurement were performed.
10/20/23 TTE: Normal biventricular size and systolic function without regional wall motion abnormality. No significant change since the prior study of. Trivial pericardial effusion. Pleural effusion present. No significant change since the prior
study of 03/14/2016.
PFT's:
Reports and relevant images were personally reviewed.
Critical Care time 41 mins -- The patient is admitted for acute critical illness for the treatment of vital organ failure and/or prevention of further life-threatening conditions. Total care includes time spent in review of history, physical exam,
medications, hemodynamic/ventilator parameters, laboratory data, imaging and discussion with house staff, pharmacy, respiratory therapy, electronic device monitor, and nursing.
Subjective Dataa
Subjective Data
Date of Service:
Date of Service: January 08, 2025
Chief Complaint: Enterprise Account Executive Follow Up
Subjective:
No acute events ON, remains stable
DHT in place, midodrine given
Occasional bradycardia, known 2:1 AVB
Objective Data
Data Reviewed
Vital Signs / I&O / Oxygen:
Vital Signs
Temp Pulse Resp BP Pulse Ox
95.7 F L 65 15 97/62 100
01/08/25 07:27 01/08/25 07:00 01/08/25 07:00 01/08/25 07:00 01/08/25 07:00
Intake and Output
01/07/25 01/08/25 01/09/25
06:59 06:59 06:59
Intake Total 1640 / 1640 2147.5 / 2147.5
Output Total 600 / 600
Balance 1640 / 1640 1547.5 / 1547.5
SaO2 100
Nasal Cannula flow liters per 2
minute
Physical Exam
General: Comfortable and Other (NAD, chronically ill appearing)
HEENT: Normocephalic, Anicteric and Moist Mucous Membranes
Cardiovascular: S1-S2, Regular Rhythm and Peripheral Edema (chronic venous stasis changes)
Respiratory: Clear and Non-Labored Respirations
GI: Soft, Non Distended, Non Tender and NG Tube
Neurology: Awake, Oriented and Lethargic (baseline)
Skin: Warm and Dry
Labs/Micro/Reports
Lab Data
01/08/25 01:39
01/08/25 01:39
Laboratory Results
01/07/25 01/08/25
10:10 01:39
PT 14.7 H 14.2
INR 1.10 1.05
APTT 37.4 H
Microbiology
01/06/25 11:21 Blood/Venous Blood Culture - Preliminary
No Growth in 24 hours- Final report to follow
01/06/25 10:52 Blood/Venous Blood Culture - Preliminary
No Growth in 24 hours- Final report to follow
01/05/25 10:22 Blood/Venous Blood Culture - Preliminary
Positive culture in progress
01/05/25 10:22 Blood/Venous Gram Stain - Preliminary
01/05/25 17:42 Nose MRSA Screen - Final
No Methicillin Resistant Staphylococcus aureus isolated.
01/05/25 10:22 Blood/Venous Blood Culture - Preliminary
Positive culture in progress
01/05/25 10:22 Blood/Venous Gram Stain - Preliminary
01/05/25 09:39 Urine Urine Culture - Final
NO GROWTH
[2025-01-08] MEDS: HEPARIN 5000 UNITS SC ×2 (08:16→20:30)
[2025-01-08] MEDS: PROTONIX 40 MG PO ×2 (08:17→20:31)
[2025-01-08] MEDS: ProAmatine 5 MG PO ×3 (08:17→18:14)
[2025-01-08] MEDS: THIAMINE INJECTION 100 MG IV (08:18)
[2025-01-08] MEDS: CYANOCOBALAMIN 1000 MCG SC (08:19)
--- NOTE | 2025-01-08 08:29 | W.PN.ONC2 ---
Today's Communication / Plan
-
.
Impression
Impression
hypernatremia ~156 corrected to 145 today
anemia Hgb 10g/dL on admission, now <7g/dL after correcting free water deficit
CKD
GPC bacteremia
Jehova witness
malnutrition
dysphagia, duodenitis, gastritis, esophageal stricture
TF via dobhoff
Plan
Plan
Pt does NOT accepting blood products. Pt/POA understands that if clinically significant bleeding cannot be stopped, then the pt will . Pt/POA is aware that blood product refusal may result in organ/tissue damage or event . Pt/POA adamantly
refuses the blood components therapies. Patient/POA understands that he or she may reverse these restrictions at ANY time and accept blood. If this occurs, the care team will abide by all patient privacy standards and not discuss the acceptance of
blood products in front of family or clergy without patient consent.
-minimize phlebotomy
-supplemental O2
-limit activity to reduce oxygen demand
-continue folate 1mg daily, b12 1000mcg daily, parenteral iron x 10 days, and EPO 40,000U weekly -A full bone marrow response may take up to two weeks -pt and POA agreeable to this plan
-we discussed risk of thrombotic cardiovascular events�with EPO
-on PPI and Carafate
-GI following
-follow cultures, on IV abx, ID following
-alternatively pt could be transferred to [place] which has a bloodless program
Subjective/Objective
Subjective
poor historian due to cognitive status
Vital Signs:
Vital Signs
Temp Pulse Resp BP Pulse Ox
95.7 F L 65 15 97/62 100
01/08/25 07:27 01/08/25 07:00 01/08/25 07:00 01/08/25 07:00 01/08/25 07:00
Lab Results:
Laboratory Data
WBC 10.4 10^3/uL (4.8-10.8) 01/08/25 01:39
Hgb 6.6 g/dL (12.0-16.0) L* 01/08/25 01:39
Plt Count 160 10^3/uL (130-400) 01/08/25 01:39
PT 14.2 Sec (11.4-14.6) 01/08/25 01:39
INR 1.05 01/08/25 01:39
APTT 37.4 Sec (23.4-35.0) H 01/07/25 10:10
eGFR 39.97 01/08/25 01:39
Orders
Orders
Orders From Last 24 Hours
01/07/25 10:10
CBC/No Diff [Complete Blood Count/No Diff] Stat
01/07/25 13:10
Oxygen Therapy [O2 Therapy] [RESP] Routine
01/07/25 14:00
Cyanocobalamin 1,000 mcg SC DAILY
Epoetin Dima-Epbx [Retacrit] 40,000 units SC WEEKLY
FOLic ACID [Folvite] 1 mg 0.9% Sodium Chloride 50 ml [Nss] 50 ml IV DAILY
Ferric Gluconate [Ferrlecit] 125 mg 0.9% Sodium Chloride 100 ml [Nss] 100 ml IV DAILY@1400
--- NOTE | 2025-01-08 08:30 | PTCARENOTE ---
Assumed care of pt at 0715 following shift report. Pt resting w/ eyes closed, easily arousable to name. Pt oriented to person, name of hospital, year. Follows commands appropriately. Denies c/o pain. O2 at 2l/min via NC w/ Pox 100%. Osmolite Tube
feeding via Rt nare DH @ 30ml/hr w/auto water flush 35ml/hr. Pt turned and repositioned, comfort care and hygiene completed. Physical assessment as documented. Pt remains restrained to protect DHT. Safe environment maintained.
--- NOTE | 2025-01-08 08:44 | PN.CDI ---
CDI
- -
CDI:
Physician Documentation Request
Admit Date: 01/06/25 09:01
Dear Doctor Billie,
Patient admitted with hypernatremia.
01/05 Nursing skin assessment, 'Stage 3 left elbow pressure injury, POA....Stage 3 left buttock pressure injury, POA....Stage 3 left upper posterior thigh pressure injury, POA....Stage 3 right buttock pressure injury, POA....Stage 3 sacral pressure
injury, POA....'
Physician documentation of the type and location of wounds is required for compliant documentation. Based on the above clinical findings and your assessment, please provide the following in your progress note:
Type (etiology) of ulcer/wound:
- Pressure (decubitus) ulcer
- Other
- Unable to determine
For a pressure ulcer, please also include the stage* of the ulcer:
- Stage 1 - Skin intact, non-blanchable redness
- Stage 2 - Partial thickness loss of dermis, includes intact or open blister
- Stage 3 - Full thickness tissue not including bone, tendon or muscle
- Stage 4 - Full thickness tissue loss, including exposed bone, tendon or muscle
- Unstageable - Full thickness loss in which the base of the ulcer is covered by slough (yellow, grady, felix, green or brown) and/or eschar (grady, brown or black) in the wound bed.
- Unable to determine
Use of terms such as suspected, likely, concern for, or probable (associated with a specific diagnosis that is being evaluated, monitored, or treated as if it exists) are acceptable and can be coded in the inpatient setting, when documented at the
time of discharge.
Thank you,
Lauren HOLDER,RN,CCDS
CDI Specialist
Available via [place] text
Please use your independent medical judgment in providing your response.
*Source: National Pressure Ulcer Advisory Panel (NPUAP)
[2025-01-08] MEDS: FOLVITE 50.2 MG IV (09:04)
--- NOTE | 2025-01-08 09:14 | W.PN.ID1 ---
Date of Service
Date of Service: January 08, 2025
Today's Communication
- Continue Vancomycin for now pending final cx data.
Assessment / Plan
# GPC bacteremia - 2 of 2 sets drawn at same time
1st set CoNS with 2 morphotypes; 2nd set still pending
- suspect contaminant
- Repeat blood cx's x 2 neg to date
- Continue Vancomycin for now pending final cx data.
# Acute on chronic anemia
# Jehovah witness - refuses blood products
- GI and Hem/Onc following
# Leukocytosis - resolved
# Hypothermia - resolving
# Low BP Improving
# Severe poor appetite/failure to thrive - now on tube feed
# hx dysphagia, duodenitis, gastritis, esophageal stricture
# Conditions VISUAL DESIGN LEAD
Dementia
Hypertension
Diabetes mellitus
CKD 3
HLD
Dysphagia
Esophageal stricture status post dilation 12/08/24
Chief Complaint
-: Bacteremia
Subjective / Review of Systems
No new complaints.
Vital Signs / Physical Exam
Vital Signs
Vital Signs
Temp Pulse Resp BP Pulse Ox
95.7 F L 53 15 107/56 100
01/08/25 07:27 01/08/25 08:17 01/08/25 07:00 01/08/25 08:17 01/08/25 07:00
Physical Exam
Constitutional: Chronically Ill
Head: Other (NGT in place.)
Eyes: No Conjunctival Hemorrhage and Sclera Anicteric
Cardiovascular: Regular Rate and S1/S2
Pulmonary: Other (decreased BS)
Gastrointestinal: Soft, Non Tender, Non Distended and Normal Bowel Sounds
Genito-Urinary: Negative CVA Tenderness
Extremities: Edema
Neurological: Negative Meningeal Signs
Objective Data
Lab Data
Lab Results
01/08/25 01:39
01/08/25 01:39
PT 14.2 Sec (11.4-14.6) 01/08/25 01:39
INR 1.05 01/08/25 01:39
APTT 37.4 Sec (23.4-35.0) H 01/07/25 10:10
Estimated Creat Clear 31 ml/min 01/08/25 01:39
Lactic Acid 2.0 mmol/L (0.7-2.0) 01/05/25 14:22
Total Bilirubin 0.3 mg/dl (0.2-1.3) 01/08/25 01:39
AST 13 U/L (14-36) L 01/08/25 01:39
ALT 13 U/L (0-35) 01/08/25 01:39
Alkaline Phosphatase 64 U/L (38-126) 01/08/25 01:39
Most recent labs reviewed.
Micro Results:
01/05/25 10:22 Blood Culture - Preliminary
Blood/Venous Coagulase neg. staphylococcus
Additional testing on request
Gram Stain - Preliminary
01/05/25 10:22 Blood Culture - Preliminary
Blood/Venous Positive culture in progress
Gram Stain - Preliminary
01/06/25 11:21 Blood Culture - Preliminary
Blood/Venous No Growth in 24 hours- Final report to follow
01/06/25 10:52 Blood Culture - Preliminary
Blood/Venous No Growth in 24 hours- Final report to follow
01/05/25 17:42 MRSA Screen - Final
Nose No Methicillin Resistant Staphylococcus aureus isolated.
01/05/25 09:39 Urine Culture - Final
Urine NO GROWTH
01/06/25 CXR: There is mild elevation of the left hemidiaphragm with left basilar opacities which may represent pneumonia or atelectasis.
--- NOTE | 2025-01-08 09:20 | PN.CDI ---
CDI
- -
CDI:
Physician Documentation Request
Admit Date: 01/06/25 09:01
Dear Doctor Billie,
Patient admitted with hypernatremia.
01/07 PN,'Protein-Calorie Malnutrition.'
01/07 Nutrition note, 'Pt meets criteria for severe protein calorie malnutrition of chronic illness with >7.5% weight loss over 3 months, prolonged poor intake prior to admit <75% for >1 month time.'
Based on the above and your assessment, please provide in your note the severity of documented protein-calorie malnutrition:
Severe protein calorie malnutrition of chronic illness
Other
[place] Criteria ([facility] Hospitalist 2017)
2 or more criteria must be present for either
non severe or severe malnutrition
Note that the criteria differs related to the
presence of an acute or chronic illness
Chronic Illness
Energy Intake Non Severe: <75% for >1 month
Severe: <75% for >1 month
Weight Loss Non Severe: 5% over 1 month
7.5% over 3 months
10% over 6 months
20% over 1 year
Severe: >5% over 1 month
>7.5% over 3 months
>10% over 6 months
>20% over 1 year
Body Fat Non Severe: Mild Loss
Severe: Severe Loss
Muscle Mass Non Severe: Mild Loss
Severe: Severe Loss
Fluid Accumulation Non Severe: Mild Accumulation
Severe: Moderate to severe
accumulation
Reduced Senior Outside Sales Representative Strength Non Severe: N/A
Severe: Measurably reduced
Use of terms such as suspected, likely, concern for, or probable (associated with a specific diagnosis that is being evaluated, monitored, or treated as if it exists) are acceptable and can be coded in the inpatient setting, when documented at the
time of discharge.
Thank you,
Lauren Amend BSN,RN,CCDS
CDI Specialist
Available via [place] text
Please use your independent medical judgment in providing your response.
--- NOTE | 2025-01-08 09:26 | W.PN.GI.CBS2 ---
Today's Communication / Plan
-
C/w TF via DHT titrate to goal
She has failed EGD with dilation and enteral stent placement
Treat + blood cultures
If PEG is desired by primary team and family consider transfer to bloodless program. Given her being JW and severe anemia would be too high risk to be done at
GI will sign off please call for ?
Assessment / Plan
-
Pt is a 74yo with hx obesity, hypertension, hyperlipidemia, diabetes, CKD 3 with admission 10/19/24- 11/23/24 with hypothermia, bradycardia with second degree block mobitz type 1 without need for pacer, weakness, change in mental status and failure
to thrive with recent fall. During that admission she completed EGD grade D esophagitis with nodularity at GE junction, med HH, erosive gastropathy, moderate duodenal erythema with erosions in duodenal bulb. bx SB with gastric metaplasia, mild
focal villous blunting with peptic duodenitis with H pylorus with neg intestinal metaplasia and neg fungal and viral staining. She was recommended PPI and carafate with follow up and repeat EGD in 8 weeks. Multiple attempts were made to contact
patient for follow up and letter sent to patient. She then returned 12/01-12/17/24- with vomiting and lightheadeness with continued difficulty with eating. She completed repeat EGD 12/04 with esophageal stenosis, EGD 12/08 with benign stenosis dilated
with concern for submucosal tear possible perf with stent placement. Repeat 12/11 EGD with patent stent then 12/14 EGD with stent removal. Pt was tolerating diet after removal and discharged. She was also noted with multiple other issues with
malnutrition, syncope, AV block, electrolyte imbalance, and endometrial thickening with ELECTRONIC [employer]ARF[employer] TECHNICIAN eval in 10/2024. She now returns with nausea/vomiting and lightheadedness. On admission concern for continued decreased appetite with 18 kg wt loss since
September. Labs on admission Na 156, K 3.2, creat 1.4 calcium 10.4, Also noted with drop in hbg to 6.7 after admission , WBC up to 13,500.
Impression
-recurrent admission with failure to thrive with marked electrolyte imbalance with na 156, k 3.2, creat 1.4 on admission
-anemia with drop in hbg during admission
-leukocytosis-- improving
-gram + bactermia - ID following
-hypotension
-continued dysphagia with decreased oral intakes 18 kg wt loss since September
-hx benign esophageal stenosis with prior EGD with dilation and concern for perforation with placement of stent then removal
-prior palpable soft round abdominal mass not noted on repeat exam
-Indeterminate low-attenuation hepatic lesions-- follow up MRI with polycystic liver disease
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
-severe Protein malnutrition, decreased albumin and protein
-Mild to moderate endometrial thickening s/p ELECT[employer] WARF[employer] TECHNICIAN eval
other med problems:
-CKD
-dementia
-hx mobitz type 2 block
-DM
-hx obesity
Plan
- Tolerating TF via DHT at 30mL/hr
- C/w restraints
- She has had esophageal dilation and esophageal stent in past that did not improve her failure to thrive
- At this juncture she may benefit from PEG tube
- However given chronic anemia and [employer] status she would be too high risk to be done here at [facility]
- BC positive on admission and repeat pending
- If primary team and family wants PEG tube consider transfer to location with bloodless program (such as [facility] or [facility])
- GI will sign off please call for ?
RN updated bedside
Subjective
Subjective
Date of Service: January 08, 2025
Per RN no active issues overnight. Smear of brown BM. Tolerating TF at 30ml/hr via DHT currently
Objective
Data Reviewed
Laboratory Data:
Laboratory Results
01/08/25 01:39
01/08/25 01:39
Laboratory Results
PT 14.2 Sec (11.4-14.6) 01/08/25 01:39
INR 1.05 01/08/25 01:39
APTT 37.4 Sec (23.4-35.0) H 01/07/25 10:10
Phosphorus 2.7 mg/dl (2.5-4.5) 01/08/25 01:39
Magnesium 1.9 mg/dl (1.6-2.3) 01/08/25 01:39
Total Bilirubin 0.3 mg/dl (0.2-1.3) 01/08/25 01:39
AST 13 U/L (14-36) L 01/08/25 01:39
ALT 13 U/L (0-35) 01/08/25 01:39
Alkaline Phosphatase 64 U/L (38-126) 01/08/25 01:39
Vital Signs and I&O:
Vital Signs
Temp Pulse Resp BP Pulse Ox
95.7 F L 53 15 107/56 100
01/08/25 07:27 01/08/25 08:17 01/08/25 07:00 01/08/25 08:17 01/08/25 07:00
I&O
01/07/25 01/08/25 01/09/25
06:59 06:59 06:59
Intake Total 1640 / 1640 2147.5 / 2147.5
Output Total 600 / 600
Balance 1640 / 1640 1547.5 / 1547.5
Physical Exam
Physical Exam
GEN: No acute distress, minimally responsive
HEENT: eyes closed DHT in place
RESP: clear to auscultation bilaterally
GI: soft, non-distended, not tender to palpation, normal active bowel sounds, no hepatosplenomegaly
EXT: warm, well perfused, no edema bilaterally
NEURO: AAOx3, non-focal
--- NOTE | 2025-01-08 11:30 | PTCARENOTE ---
All systems reassessed w/o changes noted. Pt's POx 97-99% on O2 at 1l/min. Pt remains drowsy but easily arousable to name. Assists w/ repositioning self side to side in bed. Wound care completed as ordered.
[2025-01-08 12:19] LABS: Vancomycin Random 17.3 ug/ml
[2025-01-08 12:36] LABS: Glucose - Point of Care 130 mg/dl (70-99)
[2025-01-08] MEDS: HYDROPHOR 1 APPLIC TOPICAL (12:46)
[2025-01-08] MEDS: DESENEX/MITRAZOL/ZEASORB 1 APPLIC TOPICAL ×2 (12:46→20:32)
[2025-01-08] MEDS: LAC HYDRIN, AM LACTIN LOTION 1 APPLIC TOPICAL ×2 (12:47→20:32)
--- NOTE | 2025-01-08 12:50 | PHA.VAN.FU ---
Vancomycin Assessment / Plan
- Assessment
Renal Function: Stable (1.4)
WBC's are: WNL (10.4)
In the past 24 hrs, patient has been: Afebrile
Concomitant Antimicrobials: Metronidazole
- Assessment - Therapeutic Drug Monitoring
Random Level: 17.3 ~17hrs after previous 750mg dose 01/07/25 1814
Calculated ke: 0.0129
Calculated half life (H): 53.8
- Dosing Plan
Dosing by Level: Hold off on dosing today
- Monitoring Plan
Random Level: 01/09/25 0600
- Follow Up
Pharmacy will continue to follow.
Vancomycin Follow UP
- -
Patient Age: 74
Patient Sex: Female
Vancomycin Day #: 3
Indication: Skin And Soft Tissue
Requesting Provider: XIOMARA
Pertinent Antimicrobial Allergies:
No Known Drug Allergies
Height / Weight:
Height 5 ft 4 in
Actual Weight 68.8 kg
Pertinent Past Medical History: CKD
- Vital Signs / Lab Results
Temp Pulse Resp BP Pulse Ox
95.6 F L 53 15 107/56 100
01/08/25 12:00 01/08/25 08:17 01/08/25 07:00 01/08/25 08:17 01/08/25 07:00
Lab Results - Hematology
01/06/25 01/07/25 01/07/25
03:53 04:43 10:10
WBC 13.5 H 10.8 10.1
01/08/25
01:39
WBC 10.4
Lab Results - Chemistry
01/05/25 01/05/25 01/06/25
20:14 20:39 03:53
BUN Cancelled 35 H 35 H
Creatinine Cancelled 1.3 H 1.4 H
Estimated Creat Clear Cancelled 34 31
Albumin
01/06/25 01/06/25 01/06/25
08:30 10:59 11:00
BUN Cancelled 34 H Cancelled
Creatinine Cancelled 1.5 H Cancelled
Estimated Creat Clear Cancelled 29 Cancelled
Albumin
01/06/25 01/07/25 01/08/25
20:57 04:43 01:39
BUN 31 H 28 H 27 H
Creatinine 1.6 H 1.5 H 1.4 H
Estimated Creat Clear 31
Albumin 2.0 L
01/05/25
14:22
Lactic Acid 2.0
Microbiology Results
01/05/25 10:22 Blood Culture - Preliminary
Blood/Venous Coagulase neg. staphylococcus
Additional testing on request
Gram Stain - Preliminary
01/06/25 11:21 Blood Culture - Preliminary
Blood/Venous No Growth in 48 hours- Final report to follow
01/06/25 10:52 Blood Culture - Preliminary
Blood/Venous No Growth in 48 hours- Final report to follow
01/05/25 10:22 Blood Culture - Preliminary
Blood/Venous Positive culture in progress
Gram Stain - Preliminary
01/05/25 17:42 MRSA Screen - Final
Nose No Methicillin Resistant Staphylococcus aureus isolated.
01/05/25 09:39 Urine Culture - Final
Urine NO GROWTH
Therapeutic Drug Monitoring
Random Vancomycin 17.3 ug/ml 01/08/25 11:44
--- NOTE | 2025-01-08 14:37 | CM ---
CM following re: discharge planning.
Reviewed pt's chart.
Pt is a LTC resident at [facility], on an MA bed hold and a plan is for pt to return bvak there when medically stable.
[facility] nursing report [phone],
Discharge instructions fax: fax [phone].
D/C plan: return back to [facility] for a watermelon inspector care
CM will follow with discharge plan updates as hospitalization progresses
--- NOTE | 2025-01-08 14:55 | W.PN.HOSP.TC ---
Today's Communication/Plan
-
Patient accepted for transfer to [facility] (accepting physician is Dr. David Gee)
Discussed with old testament professor -- okay to transfer to IMU
Continue Vancomycin
See plan and also see old testament professor and specialists' noted from today
Assessment / Plan
Assessment / Plan
Physical Exam
General: No Apparent Distress and Appears Chronically Ill
HEENT: Normocephalic and Atraumatic
Respiratory: Clear to Auscultation Bilaterally
Cardiac: S1/S2 and Regular Rhythm
GI: Soft, Non Tender and Some Bowel Sounds
Musculoskeletal: No Cyanosis
Skin: Warm and Dry
Neuro: Awake and Alert -- more responsive today
Psych: Confused
Assessment/Plan
Hypernatremia (Serum Sodium 158 at Facility)
Poor PO Intake for the Previous ~1.5 weeks prior to presentation
Hypotension -- 60s/40s BP in the ER on 01/05/25
Lactic Acidosis - RESOLVED
-Hypotension worsened overnight with MAP in low 60s, along with Hgb of 6.7, therefore patient transferred to the ICU on 01/08/25
-Echo completed and was unremarkable.
-Low dose Midodrine added on 01/06/25 -- dose now increased and being given through Dobhoff tube
-D5W @ 100 cc/hr now stopped as hypernatremia has corrected and stopped in order to prevent hemodilution (given anemia and fact that patient cannot get PRBC transfusion)
-Hypernatremia has resolved
-Thiamine
-Speech and dietary consults --> recommendation to continue NPO for now, except essential medications crushed in puree
-After speaking on 01/06/25 with both patient's sisters (see below), placed GI consult for Dobhoff Tube and dietary consult for tube feeding recommendations
-Per GI, patient likely needs PEG tube and a thorough workup including imaging and potentially endoscopic exams (see GI history below)
-Tube Feeding to started on 01/07/25 -- continue
-Monitor for Refeeding Syndrome
-PEG tube cannot be done here given anemia, risk of bleeding; patient needs transfer to higher level of care
-Given that patient has significant anemia (with Hgb<7) and needs PEG tube, I contact [facility] for the Bloodless Program, and [facility] (hospitalist Dr. David Gee) accepted (on 01/08/25) the patient for
transfer to their hospital
Hypothermia
History of Hypothermia
-Could be from anemia, recent poor PO intake, infection
-Continue Lee Hugger as needed
Acute Microcytic Anemia
- Hgb dropped to 6.7 on the morning of 01/07/25-->today 6.6
- I spoke with patient's sisters Lisa and Elizabeth on 01/07/25 morning, and they both mentioned that patient CANNOT get any blood transfusions as patient is a Yarsani
- Consulted hematology for assistance, appreciate their evaluation and recommendations, including but not limited to supplementary oxygen
- Minimize phlebotomy, provide supplemental O2, limit activity to reduce oxygen demand
- Continue folate 1mg daily, Vitamin b12 1000mcg daily, parenteral iron x 10 days, and EPO 40,000U weekly - a full bone marrow response may take up to two weeks (EPO also has risk of thrombotic cardiovascular events)
- Continue PPI
- GI evaluation
- Patient's Hgb has not improved, will contact [facility] for transfer for bloodless program (I contacted on 01/07/25 [facility] and spoke with Dr. Naz Roblero who recommended additional evaluation an
treatment here at [facility] prior to considering transfer -- so no transfer at that time)
-Transfer to [facility] as above, patient has been accepted (on 01/08/25) by hospitalist Dr. David Gee. Contact number for [facility] is [phone].
Bradycardia and Pauses on Telemetry
History of Second Degree Atrioventricular Block
2:1 AV block with narrow QRS and associated with Mobitz I
History of Bradycardia
-Monitor on cardiac monitoring/telemetry given the above and findings on recent hospitalization
-May need to consult cardiology
Hypokalemia
-IV replacements ordered
-In recent hospitalization 12/01/24 to 12/17/24, HCTZ stopped in order to avoid hypokalemia
-Continue to monitor potassium/BMP
Hypomagnesemia
-IV replacement ordered
-Continue to monitor
Leukocytosis on 01/06/25 - RESOLVED
GPC Bacteremia - 2 of 2 sets drawn at same time
Sacral/Buttocks Wound
-Possible contaminant in 1st set
-Continue Vancomcyin for now, follow blood cultures to final results
-Consulted ID, Zosyn stopped previously. Continue Vancomycin as above.
Concern for Developing Acute Kidney Injury on Chronic Kidney Disease Stage 3
-Creatinine stable ~1.4, continue to monitor
-Continue IV fluids
-Bladder Scans
Recent Hospitalization 12/01/24 to 12/17/24
Recent Syncope 2/2 dehydration and electrolyte disturbance
-During that admission patient was found to have syncope, orthostatic hypotension and bradycardia on telemetry down to 30 bpm
-Also, during that admission, was found to have dysphagia and malnutrition with electrolyte disarrangements
-Also found on EGD on 12/04/24 to have severe stenosis, repeated on 12/08/24 with balloon dilation and s/p placement of stent, which was removed on 12/14/24.
-Completed antibiotics for aspiration pneumonia that hospitalization
Dementia
Failure to Thrive
Metabolic Encephalopathy History
History of Aspiration Pneumonitis
-Aspiration Precautions
Recent History of Dysphagia
Recently Diagnosed Esophageal Stricture status post dilation and stent, followed by stent removal
Recent Grade D esophagitis with nodularity-->developed into significant stricture requiring aggressive dilation with concern for perforation and stent placed-->patient was unable to eat or swallow with the stent and after endoscopy revealed it was
patent, Dr. Jose removed the stent
History of GERD
History of Esophagitis
History of Duodenitis
-After stent placement and removal as above, patient was able to tolerate some diet and discharged on a recent admission
-Continue home Pantoprazole 40 mg PO BID
-No Sucralfate 10 mL PO BID as per GI
-Aspiration precautions
History of Cyclical Vomiting Syndrome
History of Diaphragmatic Hernia
Hypertension
-Hold home antihypertensives for now given hypotension episodes
Hyperlipidemia
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
-Monitor glucose
Cystic Disease of Liver
History of Orthostatic Hypotension
Ambulatory Dysfunction/Generalized Muscle Weakness
History of Lymphedema
History of Pleural Effusion
History of asymptomatic cholelithiasis
History of endometrial thickening
DJD
Stage 3 left elbow pressure injury, POA
Stage 3 left buttock pressure injury, POA
Stage 3 left upper posterior thigh pressure injury, POA
Stage 3 right buttock pressure injury, POA
Stage 3 sacral pressure injury, POA
-Continue wound care
Severe protein calorie malnutrition of chronic illness
Primary Contact: Sister Lisa; phone number [phone]
Primary Care Physician: Dr. Arsalan Castro; phone number [phone]
January 05, 2025: I called patient's sister Lisa (her sister Lisa said that she is the decision-maker for the patient) and updated her on patient's condition and management. I told her that patient not eating can very well cause patient to decline.
Lisa acknowledged understanding of this.
January 06, 2025: I spoke to both patient's sister Lisa, as well as patient's sister Elizabeth, and updated them on patient's current condition and management. I told them that patient remains confused, and patient not being able to eat or drink right now
can very well cause patient to decline significantly. Elizabeth and Lisa acknowledged understanding of this. They requested patient be kept Full Code. I spoke to them about temporary tube feeding and they requested that Dobhoff tube be placed and tube
feeding started. Therefore, consulted gastroenterology for tube feeding recommendations and dietitian for tube feeding recommendations.
January 07, 2025: I spoke to both patient's sister Lisa, as well as patient's sister Elizabeth, and updated them on patient's current condition and management. I told them patient has significant anemia and red blood cell transfusion is recommended
however they said no blood transfusion since patient is a Yarsani.
January 08, 2025: I spoke to patient's sister Lisa, and told her that patient has been accepted for transfer to [facility], and she provided permission for patient to be transferred there.
DVT Prophylaxis: Heparin subq and SCDs
Code Status: Full Code
Total time spent on chart review, placing orders, documentation, speaking with patient's sister, speaking with [facility] and seeing and examining the patient, was 90 minutes.
Anticipated Discharge: 24 - 48 hours
Subjective/Interval History
-
Date of Service: January 08, 2025
Patient was seen and examined. She said she was doing 'okay.' Remains hypothermic at times.
Objective Data
-
Vital Signs:
Vital Signs
Temp Pulse Resp BP Pulse Ox
95.6 F L 53 15 107/56 100
01/08/25 12:00 01/08/25 08:17 01/08/25 07:00 01/08/25 08:17 01/08/25 07:00
I&O
01/07/25 01/08/25 01/09/25
06:59 06:59 06:59
Intake Total 1640 / 1640 2147.5 / 2147.5
Output Total 600 / 600
Balance 1640 / 1640 1547.5 / 1547.5
[2025-01-08] MEDS: FERRLECIT 110 MG IV (15:53)
--- NOTE | 2025-01-08 16:00 | PTCARENOTE ---
Pt continues to rest quietly, no new complaints or changes from previous assessment findings. Pt's sister here from [place] to visit- updated and questions answered. Sister aware of possible transfer to [facility].
[2025-01-08 18:08] LABS: Glucose - Point of Care 132 mg/dl (70-99)
[2025-01-08] MEDS: ProAmatine 10 MG TUBE (22:37)
[2025-01-09] VITALS (10 sets, daily range): BP systolic 92–122; BP diastolic 55–80; BMI 26.6
[2025-01-09 00:44] LABS: Glucose - Point of Care 130 mg/dl (70-99)
[2025-01-09 04:37] LABS: Blood Urea Nitrogen 29 mg/dl (7-17); Calcium 9.4 mg/dl (8.4-10.2); Carbon Dioxide 21 mmol/L (22-30); Chloride 118 mmol/L (98-107); Estimated Creatinine Clearance 34 ml/min; Glucose 131 mg/dl (70-99); Magnesium 1.8 mg/dl (1.6-2.3); Phosphorus 3.6 mg/dl (2.5-4.5); Potassium 4.5 mmol/L (3.5-5.1); Sodium 141 mmol/L (135-145); eGFR 43.69
[2025-01-09 04:40] LABS: Vancomycin Random 15.2 ug/ml
[2025-01-09 04:59] LABS: Hematocrit 21.9 % (37.0-47.0); Hemoglobin 7.1 g/dL (12.0-16.0); Mean Corp Hgb Conc. 32.4 g/dL (33.0-37.0); Mean Corpuscular Hgb 26.4 pg (27.0-31.0); Mean Corpuscular Volume 81.4 fL (81.0-99.0); Mean Platelet Volume 12.3 fL (7.4-10.4); Platelet Count 183 10^3/uL (130-400); Red Blood Cell Count 2.69 10^6/uL (4.20-5.40); Red Cell Dist. Width 18.1 % (11.5-14.5); White Blood Cell Count 14.1 10^3/uL (4.8-10.8)
[2025-01-09 06:13] LABS: % Basophils 0.3 % (0-2); % Eosinophils 1.3 % (0-6); % Immature Granulocytes 8.6 % (0-0.5); % Lymphocytes 25.9 % (20.5-51.1); % Monocytes 9.5 % (1.7-9.3); % Neutrophils 54.4 % (42.2-75.2); Absolute Lymphocytes 3.7 10^3/uL (1.2-3.4); Absolute Neutrophils 7.7 10^3/uL (1.4-6.5)
[2025-01-09 06:14] LABS: Absolute Eosinophils 0.2 10^3/uL (0-0.7); Absolute Immature Granulocytes 1.2 10^3/uL (0-0.05); Absolute Monocytes 1.3 10^3/uL (0.1-0.6); Nucleated Red Blood Cells % 0.7 %
[2025-01-09 06:21] LABS: Glucose - Point of Care 145 mg/dl (70-99)
--- NOTE | 2025-01-09 07:42 | W.PN.HOSP.TC ---
Today's Communication/Plan
-
Discharge and transfer to [facility] today
Patient is now not confused and appears to have decision-making capacity, and confirmed that she is NOT to get any blood products
Assessment / Plan
Assessment / Plan
Physical Exam
General: No Apparent Distress and Appears Chronically Ill
HEENT: Normocephalic and Atraumatic. Dobhoff tube in place with tube feeding running.
Respiratory: Clear to Auscultation Bilaterally
Cardiac: S1/S2 and Regular Rhythm
GI: Soft, Non Tender and Some Bowel Sounds
Musculoskeletal: No Cyanosis
Skin: Warm and Dry
Neuro: Awake and Alert. NOW ORIENTED X3 (PREVIOUSLY WAS CONFUSED)
Psych: Calm. NOW WITH INTACT JUDGEMENT AND INSIGHT (PREVIOUSLY WAS CONFUSED)
Assessment/Plan
Hypernatremia (Serum Sodium 158 at Facility)
Poor PO Intake for the Previous ~1.5 weeks prior to presentation
Hypotension -- 60s/40s BP in the ER on 01/05/25
Lactic Acidosis - RESOLVED
-Hypotension worsened (overnight 01/07 to 01/08) with MAP in the low 60s, along with Hgb of 6.7, therefore patient transferred to the ICU on 01/08/25, since then Midodrine was increased, IV fluids were stopped and patient has
improved, although still with significant anemia and PEG tube cannot be placed here at [place], needs transfer to [facility] so that PEG tube can be considered and where there is a bloodless program in place
given patient refused any blood product transfusions given that she is a [employer], and if a PEG tube were to be placed, concern for bleeding and worsening of anemia from procedure. No colonoscopy being done here as patient right now will
not likely tolerate the prep/would not tolerate colonoscopy
-Echo completed and was unremarkable.
-Midodrine added on 01/06/25 -- dose now increased and being given through Dobhoff tube
-D5W @ 100 cc/hr was previously given and then stopped as hypernatremia had corrected and stopped in order to prevent hemodilution (given anemia and fact that patient cannot get PRBC transfusion)
-No IV fluids needed at the moment, patient is getting tube feeds, and avoiding IV fluids will also help with hemodilution
-Thiamine
-Speech and dietary consults --> recommendation to continue NPO, deferred diet to GI who recommended evential PEG
-After speaking on 01/06/25 with both patient's sisters (see below), placed GI consult for Dobhoff Tube and dietary consult for tube feeding recommendations
-Per GI, patient likely needs PEG tube and a thorough workup including imaging and potentially endoscopic exams (see GI history below)
-Tube Feeding to started on 01/07/25 -- continue
-Monitor for Refeeding Syndrome (patient with lack of proper PO intake for previous weeks to months) -- electrolytes are at acceptable levels so far, continue to monitor electrolytes daily
-PEG tube cannot be done here given anemia, risk of bleeding; patient needs transfer to higher level of care
-Given that patient has significant anemia (with Hgb<7) and needs PEG tube, I contact [facility] for the Bloodless Program, and [place] (hospitalist Dr. David Gee) accepted (on 01/08/25) the patient for
transfer to their hospital; a bed is now available and patient will be transferred there today
Hypothermia
History of Hypothermia
-Could be from anemia, recent poor PO intake, infection
-Improved with Lee Hugger
-Continue Lee Hugger as needed
Acute Microcytic Anemia
- Hgb dropped to 6.7 on the morning of 01/07/25-->today 7.1-->still high risk and needs to be in an institution with bloodless program as cannot get PEG tube/GI workup here
- I spoke with patient's sisters Lisa and Elizabeth on 01/07/25 morning, and they both mentioned that patient CANNOT get any blood transfusions as patient is a [employer]. Patient also confirmed to me on 01/09/25 that she cannot get any
transfusion
of blood products due to her yazdanism beliefs.
- Consulted hematology for assistance, appreciate their evaluation and recommendations, including but not limited to supplementary oxygen
- Minimize phlebotomy, provide supplemental O2, limit activity to reduce oxygen demand
- Continue folate 1mg daily, Vitamin b12 1000mcg daily, parenteral iron x 10 days, and EPO 40,000U weekly - a full bone marrow response may take up to two weeks (EPO also has risk of thrombotic cardiovascular events)
- Continue PPI
- GI evaluation
- Patient's Hgb has not improved, I contacted [facility] for transfer for bloodless program
-Transfer to [place] as above, patient has been accepted (on 01/08/25) by hospitalist Dr. David Gee. Contact number for [facility] is [phone]; a bed is now available and patient will be
transferred there today
Bradycardia and Pauses on Telemetry
History of Second Degree Atrioventricular Block
2:1 AV block with narrow QRS and associated with Mobitz I
History of Bradycardia
-Monitor on cardiac monitoring/telemetry given the above and findings on recent hospitalization
-May need cardiology evaluation
-Avoid AV deena blockers
Hypokalemia - RESOLVED
-IV replacements ordered
-In recent hospitalization 12/01/24 to 12/17/24, HCTZ stopped in order to avoid hypokalemia
-Continue to monitor potassium/BMP
Hypomagnesemia - RESOLVED
-IV replacement ordered
-Continue to monitor
Leukocytosis
GPC Bacteremia - 2 of 2 sets drawn at same time
Sacral/Buttocks Wound
-Continue Vancomcyin for now, follow blood cultures to final results
-Consulted ID, Zosyn stopped previously. Continue Vancomycin as above.
-Appreciate ID evaluation
Concern for Developing Acute Kidney Injury on Chronic Kidney Disease Stage 3
-Creatinine stable ~1.3, continue to monitor
-Continue IV fluids
-Bladder Scans
Recent Hospitalization 12/01/24 to 12/17/24
Recent Syncope 2/2 dehydration and electrolyte disturbance
-During that admission patient was found to have syncope, orthostatic hypotension and bradycardia on telemetry down to 30 bpm
-Also, during that admission, was found to have dysphagia and malnutrition with electrolyte disarrangements
-Also found on EGD on 12/04/24 to have severe stenosis, repeated on 12/08/24 with balloon dilation and s/p placement of stent, which was removed on 12/14/24.
-Completed antibiotics for aspiration pneumonia that hospitalization
Recent History of Dysphagia
Recently Diagnosed Esophageal Stricture status post dilation and stent, followed by stent removal
Recent Grade D esophagitis with nodularity-->developed into significant stricture requiring aggressive dilation with concern for perforation and stent placed-->patient was unable to eat or swallow with the stent and after endoscopy revealed it was
patent, Dr. Jose removed the stent
History of GERD
History of Esophagitis
History of Duodenitis
-After stent placement and removal as above, patient was able to tolerate some diet and discharged on a recent admission
-Continue home Pantoprazole 40 mg PO BID
-No Sucralfate 10 mL PO BID as per GI
-Aspiration precautions
Dementia
Failure to Thrive
Metabolic Encephalopathy History
History of Aspiration Pneumonitis
-Aspiration Precautions
History of Cyclical Vomiting Syndrome
History of Diaphragmatic Hernia
Hypertension
-Hold home antihypertensives for now given hypotension episodes
Hyperlipidemia
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
-Currently glucose values appear to be at acceptable levels without the need for any Insulin
-Monitor glucose
Cystic Disease of Liver
History of Orthostatic Hypotension
Ambulatory Dysfunction/Generalized Muscle Weakness
History of Lymphedema
History of Pleural Effusion
History of asymptomatic cholelithiasis
History of endometrial thickening
DJD
Stage 3 left elbow pressure injury, POA
Stage 3 left buttock pressure injury, POA
Stage 3 left upper posterior thigh pressure injury, POA
Stage 3 right buttock pressure injury, POA
Stage 3 sacral pressure injury, POA
-Continue wound care
Severe protein calorie malnutrition of chronic illness
-Continue tube feeding
Primary Contact: Sister Lisa; phone number [phone]
Primary Care Physician: Dr. Arsalan Castro; phone number [phone]
January 05, 2025: I called patient's sister Lisa (her sister Lisa said that she is the decision-maker for the patient) and updated her on patient's condition and management. I told her that patient not eating can very well cause patient to decline.
Lisa acknowledged understanding of this.
January 06, 2025: I spoke to both patient's sister Lisa, as well as patient's sister Elizabeth, and updated them on patient's current condition and management. I told them that patient remains confused, and patient not being able to eat or drink right now
can very well cause patient to decline significantly. Elizabeth and Lisa acknowledged understanding of this. They requested patient be kept Full Code. I spoke to them about temporary tube feeding and they requested that Dobhoff tube be placed and tube
feeding started. Therefore, consulted gastroenterology for tube feeding recommendations and dietitian for tube feeding recommendations.
January 07, 2025: I spoke to both patient's sister Lisa, as well as patient's sister Elizabeth, and updated them on patient's current condition and management. I told them patient has significant anemia and red blood cell transfusion is recommended
however they said no blood transfusion since patient is a [employer]avian.
January 08, 2025: I spoke to patient's sister Lisa, and told her that patient has been accepted for transfer to [facility], and she provided permission for patient to be transferred there.
DVT Prophylaxis: Heparin subq and SCDs
Code Status: Full Code
More than 30 minutes spent in discharge including
Final examination of the patient
Summarizing hospital stay
Instructions for continuing care to all relevant caregivers
Preparation of discharge records, prescriptions, and referral forms
Total time spent (in minutes): 41
Anticipated Discharge: Today
Subjective/Interval History
-
Date of Service: January 09, 2025
Patient was seen and examined. She appeared to be doing better this morning, has good insight and is oriented. She denied any symptoms or complaints.
Objective Data
-
Labs:
Laboratory Results
01/09/25 01/09/25
04:00 04:44
WBC Cancelled 14.1 H
Hgb Cancelled 7.1 L
Hct Cancelled 21.9 L
Plt Count Cancelled 183
Sodium 141
Potassium 4.5 D
Chloride 118 H
Carbon Dioxide 21 L
BUN 29 H
Creatinine 1.3 H
Glucose 131 H
Calcium 9.4
Vital Signs:
Vital Signs
Temp Pulse Resp BP Pulse Ox
97.4 F 64 16 103/55 99
01/09/25 03:34 01/09/25 03:00 01/09/25 03:00 01/09/25 03:00 01/09/25 03:00
I&O
01/08/25 01/09/25 01/10/25
06:59 06:59 06:59
Intake Total 2147.5 / 2212.5 5500 / 5500
Output Total 600 / 600 300 / 300
Balance 1547.5 / 1612.5 5200 / 5200
[2025-01-09] MEDS: CYANOCOBALAMIN 1000 MCG SC (07:54)
[2025-01-09] MEDS: DESENEX/MITRAZOL/ZEASORB 1 APPLIC TOPICAL (07:54)
[2025-01-09] MEDS: HEPARIN 5000 UNITS SC (07:55)
[2025-01-09] MEDS: ProAmatine 10 MG TUBE (07:56)
[2025-01-09] MEDS: PROTONIX PO (07:57)
[2025-01-09] MEDS: THIAMINE INJECTION 100 MG IV (07:58)
--- NOTE | 2025-01-09 08:00 | PTCARENOTE ---
received patient at change of shift from previous RN. pt drowsy, arouses easily to voice. orientedx3, forgetful and anxious at times. SR on telemetry with 1st degree block heart rate in 80s. +1 generalized edema. weakly palpable pulses. pt on room
air, sat 98%. lung sounds diminished in bases. right nare jorge luis with osmalite 1.2 and 50 ml/hr with 35 ml water flushes. active bowel sounds, incontinent of loose stool. rectal trumpet in place. incontinent of urine. multiple stage 3 wounds with
dressings intact. right upper arm midline intact. pt updated on plan of care. pt for transfer to [place] at 1000. pt sister Lisa notified that ambulance will be picking up at 1000.
--- NOTE | 2025-01-09 08:02 | PTCARENOTE ---
Pt Aox3, confused at times. NSR on monitor with first degree. denies pain. Dobhoff Right nare. tube feeds infusing at 50ml/hr with 35ml/hr flush. restraints in place for pulling at lines/tubes. Q2hour turns with with pillows. plan to go to [place]
for pegtube placement.
[2025-01-09] MEDS: FOLVITE 50.2 MG IV (08:16)
[2025-01-09] MEDS: LAC HYDRIN, AM LACTIN LOTION 1 APPLIC TOPICAL (08:17)
[2025-01-09] MEDS: HYDROPHOR 1 APPLIC TOPICAL (08:17)
--- NOTE | 2025-01-09 09:30 | PHA.VAN.FU ---
Vancomycin Assessment / Plan
- Assessment
Renal Function: SCR Decreasing
WBC's are: Trending Up
In the past 24 hrs, patient has been: Afebrile
- Assessment - Therapeutic Drug Monitoring
Random Level: 15.2 DRAWN ~34 HRS AFTER PREVIOUS DOSE 01/07 VANCO 750MG @1814
- Dosing Plan
Dosing by Level: Hold off on dosing today
- Monitoring Plan
Random Level: 01/10 @0600
- Follow Up
Pharmacy will continue to follow.
Vancomycin Follow UP
- -
Patient Age: 74
Patient Sex: Female
Vancomycin Day #: 4
Indication: Skin And Soft Tissue
Requesting Provider: XIOMARA
Pertinent Antimicrobial Allergies:
No Known Drug Allergies
Height / Weight:
Height 5 ft 4 in
Actual Weight 70.2 kg
Pertinent Past Medical History: CKD
- Vital Signs / Lab Results
Temp Pulse Resp BP Pulse Ox
97.8 F 81 20 100/61 100
01/09/25 08:21 01/09/25 09:00 01/09/25 09:00 01/09/25 09:00 01/09/25 08:00
Lab Results - Hematology
01/07/25 01/07/25 01/08/25
04:43 10:10 01:39
WBC 10.8 10.1 10.4
01/09/25 01/09/25
04:00 04:44
WBC Cancelled 14.1 H
Lab Results - Chemistry
01/06/25 01/06/25 01/07/25
10:59 20:57 04:43
BUN 34 H 31 H 28 H
Creatinine 1.5 H 1.6 H 1.5 H
Estimated Creat Clear 29 27 29
Albumin
01/08/25 01/09/25
01:39 04:00
BUN 27 H 29 H
Creatinine 1.4 H 1.3 H
Estimated Creat Clear 31 34
Albumin 2.0 L
Microbiology Results
01/05/25 10:22 Blood Culture - Preliminary
Blood/Venous Coagulase neg. staphylococcus
Additional testing on request
Gram Stain - Preliminary
01/06/25 11:21 Blood Culture - Preliminary
Blood/Venous No Growth in 48 hours- Final report to follow
01/06/25 10:52 Blood Culture - Preliminary
Blood/Venous No Growth in 48 hours- Final report to follow
01/05/25 10:22 Blood Culture - Preliminary
Blood/Venous Positive culture in progress
Gram Stain - Preliminary
01/05/25 17:42 MRSA Screen - Final
Nose No Methicillin Resistant Staphylococcus aureus isolated.
Therapeutic Drug Monitoring
Random Vancomycin 15.2 ug/ml 01/09/25 04:00
--- NOTE | 2025-01-09 09:49 | CM ---
Addendum entered by Joanne Wang RN 01/09/25 09:54:
LM with Briannito Cornejora sister and CM call back number.
Original Note:
MD entered order for discharge.
Pt is transferred to [facility] Receiveing MD is Dr David Gee .
As per ICU staff all paper work is conplete .
Ambulance scheduled for 10:00 amd.
Spoke with [place] [facility]rince Thomas pt will not be returning to SNF as previously indicated.
PLAN Transfer To [facility] via ambulance
--- NOTE | 2025-01-09 10:00 | PTCARENOTE ---
report given to Alan huizar [place].
--- NOTE | 2025-01-09 12:06 | W.DCSUMMARY ---
Addendum entered and electronically signed by Dimitri Wise MD 01/12/25 08:46:
Correction: 'Date of Admission: 01/05/25'
Original Note:
Discharge Summary
Discharge Data
Date of Admission: 01/06/25
Date of Discharge: 01/09/25
Total time spent discharging patient (in min): 41
-
Pending Results: Yes
Additional Pending Results:
Microbiology lab results
Hospital Course
74 y/o female with past medical history of dementia, hypertension, hyperlipidemia, CKD, dysphagia, dysphagia and esophagitis with prior history of esophageal stent placement and removal, second degree atrioventricular block, type 2 diabetes mellitus
and pressure injury presented with abnormal labs with sodium of 158 prior to arrival, as well as recent poor PO intake. Patient was a poor historian therefore history was obtained from ER report and records. Patient was started on intravenous
dextrose free water fluids, and hypokalemia was corrected. Patient's potassium eventually corrected. Patient's hemoglobin dropped to less than 7, and she was hypotensive, patient initially was poorly responsive to questions, and patient's family
confirmed that patient is a [employer] and could not get any blood transfusion products. Patient also had hypothermia and Lee Hugger was used. Given patient's serious state, patient was transferred to the Intensive Care Unit and [facility]
was consulted. Gastroenterology was consulted for Dobhoff tube placement, and hematology was consulted given the fact that patient could not get any blood products and there was no overt bleeding. Infectious Disease was also consulted given possible
bacteremia with gram positive organisms growing in blood cultures in 2 of 2 sets of blood cultures -- it was noted that 2 of 2 sets were drawn at the same time, and contamination was a possibility. Patient was started on Vancomycin. Patient was
started on Folate 1mg daily, Vitamin b12 1000mcg daily, Parenteral iron x 10 days, and EPO 40,000U weekly - and it was noted that a full bone marrow response could take up to two weeks. Patient was started on Dohoff Tube Feeding. PEG tube was
discussed, and it was determined that patient cannot get any gastrointestinal procedures (e.g. PEG tube, colonoscopy to see whether occult bleeding) given the severe anemia (for which blood transfusions could not be given as above). Patient was
considered for transfer to a hospital with a bloodless program, it was noted that [facility] has a bloodless program, case was discussed with Dr. David Gee at [facility] who accepted the patient for transfer and
patient was transferred on January 09, 2025.
Discharge Plan
-
Patient Disposition: Acute Care Hospital
Condition: Serious
Discharge Orders:
Discharge Patient (As Directed); Ordered 01/09/25
Ordered By: Dimitri Wise
Discharge Date and Time
Discharge Date/Time: 01/09/25 10:24
Print Language: MALAY
== END 2025-01-09 10:24 | disposition short-term general hospital (02) | DRG 640 ==
LOC: ICU 09:01
PROVIDERS: Nurse Practitioner Acute Care; Nurse Practitioner Family; Radiology Diagnostic Radiology; Student in an Organized Health Care Education/Training Program; ADMITTING PHYSICIAN Hospitalist; CONSULT PHYSICIAN Internal Medicine; CONSULT PHYSICIAN Internal Medicine Hematology & Oncology; EMERGENCY PHYSICIAN Emergency Medicine; FAMILY PHYSICIAN Family Medicine; OTHER PHYSICIAN Internal Medicine; OTHER PHYSICIAN Internal Medicine Infectious Disease
PROC: 0DH67UZ Insertion of Feeding Device into Stomach, Via Natural or Artificial Opening (ICD-10-PCS; 2025-01-07)
DX: E87.0 Hyperosmolality and hypernatremia (principal); E43 Unspecified severe protein-calorie malnutrition; L89.153 Pressure ulcer of sacral region, stage 3; L89.223 Pressure ulcer of left hip, stage 3; L89.313 Pressure ulcer of right buttock, stage 3; L89.323 Pressure ulcer of left buttock, stage 3; L89.023 Pressure ulcer of left elbow, stage 3; R57.1 Hypovolemic shock; N17.9 Acute kidney failure, unspecified; R78.81 Bacteremia; D68.9 Coagulation defect, unspecified; E78.00 Pure hypercholesterolemia, unspecified; I12.9 Hypertensive chronic kidney disease with stage 1 through stage 4 chronic kidney disease, or unspecified chronic kidney disease; N18.30 Chronic kidney disease, stage 3 unspecified; E87.6 Hypokalemia; R62.7 Adult failure to thrive; F03.90 Unspecified dementia, unspecified severity, without behavioral disturbance, psychotic disturbance, mood disturbance, and anxiety; E83.42 Hypomagnesemia; E11.22 Type 2 diabetes mellitus with diabetic chronic kidney disease; E11.319 Type 2 diabetes mellitus with unspecified diabetic retinopathy without macular edema; E87.20 Acidosis, unspecified; R68.0 Hypothermia, not associated with low environmental temperature; I44.1 Atrioventricular block, second degree; B95.7 Other staphylococcus as the cause of diseases classified elsewhere; D64.9 Anemia, unspecified; I89.0 Lymphedema, not elsewhere classified; K21.9 Gastro-esophageal reflux disease without esophagitis; K22.2 Esophageal obstruction; Z79.899 Other long term (current) drug therapy; Z91.148 Patient's other noncompliance with medication regimen for other reason; Z68.25 Body mass index [BMI] 25.0-25.9, adult
CPT/HCPCS: 93308; 71045; 74018; 76770; 80048; 80053; 80202; 81003; 81015; 82248; 82728; 82746; 82962; 83540; 83550; 83605; 83735; 83930; 84100; 84132; 84134; 84484; 85025; 85027; 85610; 85730; 86850; 86900; 86901; 87040; 87070; 87086; 87147; 87205; 92526; 92610; 93005; 93321; 93325; 96360; 99285; J2916; Q5106